=== PATIENT | female | born 2000 | race Caucasian/White ===

== ENCOUNTER 2024-11-24 08:59 | Outpatient (CLI) | payer OTHER, SELFPAY ==
--- NOTE | ~2024-11-24 | MR_ITS ---
EXAMINATION: MR brain IAC wo/w con DATE: 11/24/2024 10:18 INDICATION: Dizziness. TECHNIQUE: Magnetic resonance imaging (MRI) of the brain, brainstem, and internal auditory canals was performed without and with 15 mL ProHance intravenous contrast. COMPARISON: None. FINDINGS: There is no intracranial hemorrhage, acute infarction, or abnormal intracranial mass lesion . The ventricles are normal in size. The orbits are normal. The paranasal sinuses are clear. The mast oid air cells are normal. The internal auditory canals, inner ears, and tympanic cavities are normal. IMPRESSION: 1. Normal brain. Reviewed, dictated and finalized at location A. [employer]IST IMPRESSION: 1. Normal brain.
--- OUTSIDE RECORDS SUMMARY | 2024-11-24 09:04 | XMS_ITS | Encounter Summary ---
Author Organization [facility] Healthcare Address [address] [place] [address] Care Team Providers Care Lead Person Name Role Phone No, Physician Primary Care Provider [phone] Willow Dunham [facility] Primary Care Provi kailyn Reason for Visit * Reason Onset Date Comments Medical Question/Miscellaneous 11/15/2024 Encounter Details Date Type Department Care Team (Late st Contact Info) Description 11/15/2024 Telephone [facility] Medical Group Family Medicine [address] [address] Willow Dunham [address] [address] Medical Question/Miscellaneous Social History Tobacco Use Types Packs/Day Years Used Date Smoking Tobacco: Never AUDIT-C Answer Date Recorded Q1: How often do you have a drink containing alcohol? Never 11/19/2024 Q2: How many drinks containi ng alcohol do you have on a typical day when you are drinking? Patient does not drink Q3: How often do you have si x or more drinks on one occasion? 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 EAR OPERATOR * Telephone Encounter - Sergo Serna - 11/15/2024 1:23 PM CST Medical Question/Miscellaneous Caller???s Concern: Patient called as FYI for her upcoming new patient appointment next week. She updated her PCP on insurance and they gave her ref # [id number] She also said she saw Out Of Town Collection Clerk Dr. Avis Cee at [address] [facility] in [place]. and previous PCP was Dr. Cem Hernandez located at [address] [place] [address] [place] [address] in [place], [place] . She called to give this info incase any records needed requested from them. Does message need to be routed? Yes-Action Needed EAR OPERATOR documented in this encounter Plan of Treatment Not on file documented as of this encounter Visit Diagnoses Not on filedocumented in this encounter Care Teams Lead Person Relationship Specialty Start Date End Date No, Physician PCP - General 11/14/24 11/18/24 Willow Dunham DNP [address] [facility] [address] [address] PCP - General Family Medicine 11/19/24 documented as of this encounter
--- OUTSIDE RECORDS SUMMARY | 2024-11-24 09:04 | XMS_ITS ---
Author Organization [facility] Address [address] [place] [address] Care Team Providers Care Unix Administrator Name Role Phone Migration, Provider Unavailable Unavailable Allergies No Known Allergies REASON FOR VISIT [facility] [place] Medication SIG (Take, Route, Fr equency, Duration) Notes Start Date End Date Status traZODone HCl 50 MG take 1 or 2 tablets by oral route every night at bedtime Oral 07/19/2017 Active hydrOXYzine HCl 50 MG take 1 tablet by o ral route 3 times every day Oral 07/19/2017 Active lamoTRIgine 100 MG take 1 tablet by ora l route every day Oral 07/19/2017 Active Encounters Encounter Location Date Provider Diagnosis [facility] [address] [place] [address] 07/22/2024 Provider Migration Plan Of Treatment No Information Progress Notes * Eugenio RITTERBryanna:2000 (24 yo F)Acc No.[id number]:07/22/2024 Patient: Kalee GARCIA :2000 A ge:24 Y S ex:Female Address:[address] [place] [address] Subjective: * Chief Complaints: * E MR-Singh * Medical History: Med_system:gastrointestinal, Disease : Hepatitis, Magda-Soto virus, , Med_system:hematologic, Disease : Anemia iron deficiency, , Med_system:hematologic, Disease : Anemia, iron deficiency, , Med_system:psychiatric, Disease : Anxiety, , Med_system:psychiatric, Disease : Depression, * Surgical History: * Hospitalization/Major Diagno stic Procedure: * Family History: F ather: Family history unknown. M other: hypercholesterolemia,malignant neoplasm of thyroid. M aternal Grandfather: cancer of colon ,age : 64. * Medications: T akinghydrOXYzine HCl 50 MG Tablet take 1 tablet by oral route 3 times every day Oral lamoTRIgine 100 MG Tablet take 1 tablet by oral route every day Oral traZODone HCl 50 MG Tablet take 1 or 2 tablets by oral route every night at bedtime Oral Taking hydrOXYzine HCl 50 MG Tablet take 1 tablet by oral route 3 times every day Oral Taking lamoTRIgine 100 MG Tablet take 1 tablet by oral route every day Oral Taking traZODone HCl 50 MG Tablet take 1 or 2 tablets by oral route every night at bedtime Oral * Allergies: N .K.D.A. Objective: * Physical Examination: Plan: * Treatment: * Procedure Codes: Billing Information: * Visit Code: * Procedure Codes: * * Date:
--- OUTSIDE RECORDS SUMMARY | 2024-11-24 09:04 | XMS_ITS | CONTINUITY OF CARE DOCUMENT ---
Author Name donna thompson Address Unknown Organization [facility] Address [address] [place] [address] [address] [place] [address] Phone [phone] Care Team Providers Care Rib Matcher And Fitter Name Role Phone [place] MONTERO, Terry Martinez Unavailable [phone] MISSAEL MONTERO, RUNDA Unavailable MISSAEL MONTERO, RUNDA Unavailable PROBLEMS Condition Status Date Provider Notes Dizzy spells active Terry Paul MD Familial hypertrophic cardiomyopathy active Terry Paul MD Diaphoresis active Terry Paul MD Personal history of COVID-19 active Terry Paul MD Hx of tobacco abuse active Terry Paul MD Hx of drug abuse active Terry Paul MD Polycystic ovarian syndrome active Terry Paul MD Syncope active Terry Paul MD Family Hx of thyroid cancer active Terry Paul MD Family history of diabetes mellitus active Terry Paul MD active Terry Paul MD ENCOUNTERS Date Type Provider Location Encounter Diag nosis 3 - 6 In-person encounter Office Visit Terry Paul MD [facility] 2 - 7 In-person encounter Office Visit Terry Paul MD [facility] 0 - 0 In-person encounter Office Visit Terry Paul MD [facility] Dizzy spellsFamilial hypertrophic cardiomyopathyDiaphoresisPersonal history of COVID-19Hx of tobacco abuseHx of drug abusePolycystic ovarian syndromeSyncopeFamily Hx of thyroid cancerFamily history of diabetes mellitusPregnancy VITAL SIGNS Date Observation Value Provider Body Mass Index (Ratio) 31.27 kg/m2 Sara Paul MD blood pressure, diastolic -1 mm[Hg] Kirsten nkLogic blood pressure, systolic 114 mm[Hg] Shea kLogic blood pressure, diastolic 72 mm[Hg] Ke rri Joseuenenfelder blood pressure, systolic 114 mm[Hg] Scott ri Joseuenenfelder blood pressure, cuff size large Ke rri Joseuenenfelder oxygen saturation, oximetry 97 % Kandice [place] respiratory rate E&M 14 /min Kandice G adrianaenenfelder pulse rate 76 /min Kandice Sona lder weight E&M 171 [lb_av] Kandice Gruenenfe er height E&M 62 [in_i] Kandice Gruenenfe er Body Mass Index (Ratio) 34.27 kg/m2 Sara Paul MD blood pressure, diastolic 69 mm[Hg] Kirsten nkLogic blood pressure, systolic 126 mm[Hg] Shea kLogic blood pressure, cuff size large Ta florence Van blood pressure, diastolic 69 mm[Hg] Ta florence Van blood pressure, systolic 126 mm[Hg] Flores munir Van oxygen saturation, oximetry 98 % Kay Van respiratory rate E&M 14 /min Kay Van pulse rate 102 /min Kay Van weight E&M 187.4 [lb_av] Kay Bertin height E&M 62 [in_i] Kay Bertin Body Mass Index (Ratio) 28.90 kg/m2 Sara Paul MD blood pressure, diastolic 88 mm[Hg] Kirsten nkLogpema blood pressure, systolic 127 mm[Hg] Shea kLogpema respiratory rate E&M 18 /min Zeke Yuen oxygen saturation, oximetry 98 % Rabia Wilfrid blood pressure, cuff size regular Julisa Montalvo Wilfrid blood pressure, diastolic 88 mm[Hg] Julisa Yuen blood pressure, systolic 127 mm[Hg] Jimena Yuen pulse rate 99 /min Rabia banegas weight E&M 158 [lb_av] Rabia banegas height E&M 62 [in_i] Rabia banegas HISTORY OF MEDICATION USE Medication Status Instructions Dates Provider Indications Com ments Zofran 4 mg tablet active 1 tablet every six hours as needed Rabia Yuen SOCIAL HISTORY Date Observation Value Provider Drug Screening Quest ionnaire Score (Drug Abuse Screening Test) 2 score Terry Paul MD social history reviewed E&M revi ewed - no changes required Terry Paul MD question 2, DAST-10 (Drug Abuse Screening Test) Yes Terry Paul MD question 1, DAST-10 (Drug Abuse Screening Test) Yes Terry Paul MD drug use, illicit, d rug of choice marijuana Terry Paul MD drug use yes Terry schwarz MD alcohol use no Terry schwarz MD social history E&M S moking History: P atient has never smoked. Terry Paul MD Exercise counseling yes Kandice saucedo smoking status Never smoker Kandice sarmiento social history E&M S moking History: Rupali nugent has never smoked. Terry Paul MD social history reviewed E&M revi ewed - no changes required Terry Paul MD smoking status Never smoker Kay Bertin Drug Screening Quest ionnaire Score (Drug Abuse Screening Test) 2 score Terry Paul MD number of grandchildren Terry Paul MD social history reviewed E&M revi ewed - no changes required Terry Paul MD social history E&M S moking History: Rupali nugent is a former smoker. Terry Paul MD question 2, DAST-10 (Drug Abuse Screening Test) Yes Rabia Yuen question 1, DAST-10 (Drug Abuse Screening Test) Yes Rabia Yuen drug use, illicit, d rug of choice marijuana Rabia Wilfrid drug use yes Ibrahimamagdalena Manan banegas alcohol use no Jimenamolinafay banegas cigarette use yes Rabia Carranza sera smoking status Former smoker Rabia hinojosa Exercise counseling yes Demetri Yuen INSURANCE PROVIDERS Payer name Policy type / Coverage type Mesilla red alliance party ID [employer] (2) Medicaid [id number] ADVANCE DIRECTIVES Name Date DISCUSSED - NO DECISION MADE TREATMENT PLAN Date Name Performer [id number],C, N o new episodes, normal tele Terry Paul MD [id number],C, S ees OBGYN Terry Paul MD [id number],C,A1c was aminta steve Paul MD [id number],S,Sees OBLIU Sa rylee Paul MD [id number],S,No new episod es, normal tele Terry Paul MD [id number],C,Sees DEEAPN, e verything is normal. Terry Paul MD [id number],C,E cho 12/28/21 NO evidence of LVH on echo CONCLUSIONS: 1 . Normal left ventricular systolic function. Normal left ventricular size. Normal left ventricular wall thickness. Normal left v entricular diastolic function. E/E': 6.7 Left ventricular ejection fraction is measured at 60 %. 2 . Normal appearing mitral valve leaflets. There is trace physiologic mitral valve regurgitation. 3 . Pulmonic valve leaflets appear structurally normal. Normal pulmonic valve velocities by Doppler. No evidence of pulmonic r egurgitation. Terry Paul MD [id number],C,H ad covid 07/2020. No changes in her respiratory status pre covid to now. Terry Paul MD [id number],C,N eeds to have an echocardiogram done. Terry Paul MD [id number],S,W ill check a telemonitor. Hx of palpitations and family hx of HOCM Terry Paul MD Cardiology: N o new episodes, normal tele Terry Paul MD Cardiology: S ees OBLIU Paul MD Cardiology:A1c was normal. Bhavani Paul MD Cardiology:Sees OBLIU Paul MD Cardiology:No new episodes, norm al tele Terry Paul MD Cardiology:Sees mariposa SALAS g is normal. Terry Paul MD Cardiology:Echo 12/18 10/10 NO evidence of LVH on echo CONCLUSIONS: 1 . Normal left ventricular systolic function. Normal left ventricular size. Normal left ventricular wall thickness. Normal left v entricular diastolic function. E/E': 6.7 Left ventricular ejection fraction is measured at 60 %. 2 . Normal appearing mitral valve leaflets. There is trace physiologic mitral valve regurgitation. 3 . Pulmonic valve leaflets appear structurally normal. Normal pulmonic valve velocities by Doppler. No evidence of pulmonic r egurgitation. Terry Paul MD Cardiology:Had covid 07/2020. No changes in her respiratory status pre covid to now. Terry Paul MD Cardiology:Needs to have an echo cardiogram done. Terry Paul MD Cardiology:Will che k a telemonitor. Hx of palpitations and family hx of HOCM Teryr Paul MD Date Name Holter Monitor 48 hr Complete Echo EKG Arterial Duplex Bi-L ower EX COMPREHENSIVE METABO LIC PANEL, W/EGFR HEMOGLOBIN A1c TSH, free T4, total T3 Monitor - Telemetry (Mobile Cardiac) Complete Echo HISTORY OF PROCEDURES Procedure Date Procedure Name Provider Procedure Notes S tatus EKG Terry Paul MD compl eted
--- OUTSIDE RECORDS SUMMARY | 2024-11-24 09:04 | XMS_ITS | Referral Summary ---
Author Organization [facility] Building [facility] Address [address] [place] [address] Care Team Providers Care Demand Manager Name Role Phone Willow Dunham DNP Primary Care Provi kailyn Encounters Date Type Department Care Team Description 11/23/2024 3:12 PM WEB SEARCH EVALUATOR - 11/23/2024 11:59 PM WEB SEARCH EVALUATOR Hospital Encounter [facility] Respiratory Therapy [address] [place] [address] Dyspnea, unspecified type Discharge Disposition: Discharge to home or self care 11/22/2024 5:19 PM WEB SEARCH EVALUATOR - 11/22/2024 11:59 PM WEB SEARCH EVALUATOR Hospital Encounter [facility] [address] [place] [address] Dizziness and giddiness; Dysphagia, unspecified type Discharge Disposition: Discharge to home or self care 11/19/2024 2:00 PM WEB SEARCH EVALUATOR Office Visit [facility] Medical Group Family Medicine [address] [facility] [address] [place] [address] Willow Dunham DNP Gastroesophageal reflux disease without esophagitis (Primary Dx); Encounter to establish care; Vomiting, unspecified vomiting type, unspecified whether nausea present; Dyspnea, unspecified type; Positive BETSY (antinuclear antibody); Raynaud's disease without gangrene; Rash; Aura; Dyshidrotic eczema; KOKO (stress urinary incontinence, female); Anxiety; Attention deficit disorder without hyperactivity; Polycystic ovarian syndrome; Primary familial hypertrophic cardiomyopathy (HCC); Family history of colon cancer; Overweight with body mass index (BMI) of 28 to 28.9 in adult 11/15/2024 Telephone [facility] Medical Group Family Medicine [address] [facility] [address] [place] [address] Willow Dunham DNP Medical Question/Miscellaneous 11/14/2024 9:00 AM WEB SEARCH EVALUATOR Office Visit [facility] Ophthalmology [address] [facility] [address], [address] [place] [address] Ashley Ortiz, OD Aura (Primary Dx); Glaucoma suspect of both eyes 11/12/2024 Telephone [facility] Ophthalmology [address] [place] [address] Sosa Morales, ISAAK new pt from Last 3 Months Allergies No known active allergies Medications rizatriptan (MAXALT) 5 mg tablet Take 1 tab by mouth once at first sign of migraine. May repeat one time after 2 hours if needed. 11/16/19 25 Active ondansetron (ZOFRAN) 4 mg tablet 1 tablet (4 mg total) every [address] (PROTONIX) 20 mg EC tablet Take 2 tablets (40 mg total) by mouth daily 180 tablet 11/20/19 25 Active amLODIPine (NORVASC) 2.5 mg tabletIndication s:Raynaud's Phenomenon Take 1 tablet (2.5 mg total) by mouth daily 90 tablet 1 11/20/19 25 026 Active rimegepant (Nurtec ODT) tablet,disintegr atingIndications :Migraine Prevention Take 1 tablet (75 mg total) by mouth every other day 15 tablet 1 11/20/19 25 Active fexofenadine (JADEN) 180 mg tablet Take 1 tablet (180 mg total) by mouth daily 90 tablet 1 11/20/19 25 Active drospirenone-eth inyl estradioL (Sanjuanita, 28,) 3-0.02 mg per tabletIndication s:Acne Vulgaris,Polycys tic Ovarian Syndrome,Pregnan cy Contraception Take 1 tablet by mouth daily 84 tablet 3 11/20/19 25 026 Active fluticasone propionate (FLONASE) 50 mcg/actuation nasal spray Administer 2 sprays into each nostril daily 3 each 3 11/20/19 25 Active norgestimate-eth inyl estradioL (ORTHO-CYCLEN) 0.25-35 mg-mcg per tablet Take 1 tablet by mouth daily 025 Discontinued dicyclomine (BENTYL) 10 mg capsule Take 1 capsule (10 mg total) by mouth 3 (three) times a day as needed (abdominal pain) 180 capsule 12/02/19 23 025 Discontinued Active Problems Problem Noted Date Diagnosed Date Family history of colon cancer 11/19/2024 Assessment & Plan (11/19/2024 4:44 PM WEB SEARCH EVALUATOR): Refer to GI Raynaud's disease 11/19/2024 Assessment & Plan (11/19/2024 4:52 PM WEB SEARCH EVALUATOR): Take amlodipine 2.5 mg daily Medication and side effects reviewed Follow-up in 1 month Dyshidrotic eczema 11/19/2024 Assessment & Plan (11/19/2024 4:44 PM WEB SEARCH EVALUATOR): Take Jaden 180 mg daily as prescribed Refer to derm Follow-up in 1 month Dysphagia 11/19/2024 Gastroesophageal reflux disease without esophagi tis 11/19/2024 Assessment & Plan (11/19/2024 4:49 PM WEB SEARCH EVALUATOR): Refer to GI Take Protonix 20 mg daily as prescribed Discontinue marijuana use Avoid foods that cause irritation Keep food diary Follow-up in 1 month Positive BETSY (antinuclear antibody) 11/19/2024 Assessment & Plan (11/19/2024 4:51 PM WEB SEARCH EVALUATOR): Refer to rheumatology Rash 11/19/2024 Assessment & Plan (11/19/2024 4:52 PM WEB SEARCH EVALUATOR): Refer to derm Recommend taking Jaden 180 mg daily Follow-up in 1 month KOKO (stress urinary incontinence, female) 2024 Assessment & Plan (11/19/2024 4:52 PM WEB SEARCH EVALUATOR): Refer to pelvic floor physical therapy Dyspnea 11/19/2024 Assessment & Plan (11/19/2024 4:48 PM WEB SEARCH EVALUATOR): PFT ordered Vomiting 11/19/2024 Assessment & Plan (11/19/2024 4:48 PM WEB SEARCH EVALUATOR): Take Protonix 20 mg daily as prescribed Discontinue smoking daily marijuana Refer to GI Follow-up in 1 month Overweight with body mass in dex (BMI) of 28 to 28.9 in adult 11/19/2024 Aura 11/14/2024 Assessment & Plan (11/19/2024 4:43 PM WEB SEARCH EVALUATOR): Managed by Ophthalmology Refer to neurology Start Nurtec 75 mg every other day Use Maxalt 5 mg as needed Follow-up in 1 month Assessment & Plan (11/14/2024 12:55 PM WEB SEARCH EVALUATOR): + visual phenomenon consistent with migranous aura which completely resolves. Occurs with or without headache. Pt will monitor for triggers and attempt supplemental magnesium. Monitor Attention deficit disorder without hyperactivity 08/26/2023 Assessment & Plan (11/19/2024 4:43 PM WEB SEARCH EVALUATOR): Chronic and stable without medication Other viral warts 08/26/2023 Asthma 12/14/2022 History of substance abuse 11/08/2022 History of drug abuse 12/16/2021 History of substance abuse 12/16/2021 Polycystic ovarian syndrome 12/16/2021 Assessment & Plan (11/19/2024 4:51 PM WEB SEARCH EVALUATOR): Start Sanjuanita OCP as prescribed Medication and side effects reviewed Follow-up in 1 month Primary familial hypertrophic cardiomyopathy Fatigue 08/11/2015 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 Anxiety 08/11/2015 Assessment & Plan (11/19/2024 4:43 PM WEB SEARCH EVALUATOR): Chronic and stable without medication Chronic cough 08/11/2015 Resolved Problems Problem Noted Date Diagnosed Date Resolved Date Glaucoma suspect of both eyes 11/14/2024 11/19/2024 Assessment & Plan (11/14/2024 12:56 PM WEB SEARCH EVALUATOR): Asymmetric intraocular pressure (IOP) OD> left eye (OS) and CDR OD>left eye (OS) + Post dilation pigment in anterior chamber (AC), 2+ pigment in trabecular meshwork (TM) OD 1+ pigment left eye (OS) FU for intraocular pressure (IOP) check, Monreal visual field (HVF) and optic nerve (ON) oct both eyes (OU), recheck for TIDs undilated (spontaneous vaginal delivery) 06/09/2022 11/19/2024 Gastroesophageal reflux in 04/23/2022 11/19/2024 Syncope 12/16/2021 11/19/2024 History of viral hepatitis 08/11/2015 0 11/19/2024 Hepatitis 03/16/2015 11/19/2024 Immunizations Immunization Administration Dates Next Due DTaP 04/11/2003, 0,1998,1997,1998 HPV9 11/26/2022,10/29/2022 Hep B / HiB 1998 Hep B, Adolescent or Pediatric 01/15/1999,1997,1998 HiB 10/09/1999,1998,1998 IPV 04/11/2003,1998,1998 Influenza, Quadrivalent, Spl it, Preservative Free, Intradermal 07/14/2016 Influenza, Unspecified 11/19/2024(Deferred: Moraima ent Refused) MMR 04/11/2003 Social History Tobacco Use Types Packs/Day Years Used Date Smoking Tobacco: Former Cigarettes 0.3 5 0 10/20/2014 - 10/20/2018 Hookah E-cigarettes Vaping Smokeless Tobacco: Former Quit: 10/20/2018 Tobacco Cessation:Counseling Given: Not Answered AUDIT-C Answer Date Recorded Q1: How often [...] on file Legal Sex Female 8:46 PM WEB SEARCH EVALUATOR Gender Identity Not on file Sexual Orientation Not on file Last Filed Vital Signs Vital Sign Reading Time Taken Comments Blood Pressure 128/80 11/19/2024 2:01 PM WEB SEARCH EVALUATOR Pulse 83 11/19/2024 2:01 PM WEB SEARCH EVALUATOR Temperature 36.5 C (97.7 F) 12/01/2022 7:55 AM CDT Respiratory Rate 18 11/19/2024 2:01 PM WEB SEARCH EVALUATOR Oxygen Saturation 99% 11/19/2024 2:01 PM WEB SEARCH EVALUATOR Inhaled Oxygen Concentration - - Weight 73.3 kg (161 lb 9.6 oz) 11/19/2024 2:01 P M WEB SEARCH EVALUATOR Height 160 cm (5' 3 ) 11/19/2024 2:01 PM WEB SEARCH EVALUATOR Body Mass Index 28.63 11/19/2024 2:01 PM WEB SEARCH EVALUATOR Plan of Treatment Not on file Procedures Procedure Name Priority Date/Time Associated Diagnosis Comments PULMONARY FUNCTION TEST (PFT) Routine 11/23/2024 3:55 PM WEB SEARCH EVALUATOR Dyspnea, unspecified type from Last 3 Months Insurance [facility] Advance Directives For more information, please contact: [phone] * Full Code (Latest Code Status on File) Date Activated Date Inactivated Comments 12/01/2022 7:49 AM 12/01/2022 2:04 PM Care Teams Demand Manager Relationship Specialty Start Date End Date Willow Dunham DNP [facility] [facility] [place] [address] PCP - General Family Medicine 11/19/24
--- OUTSIDE RECORDS SUMMARY | 2024-11-24 09:04 | XMS_ITS | Clinical Summary ---
Author Organization [facility] [address] Address [address] [place] [address] Care Team Providers Care Bias Cutting Machine Operator Name Role Phone Charla, Willow Ribeiro [facility] Primary Care Provi kailyn Allergies No known active allergies Medications rizatriptan [...] 15 tablet 1 11/20/19 25 Active fexofenadine (GISSELL) 180 mg tablet Take 1 tablet (180 [...] 11/19/2024 Assessment & Plan (11/19/2024 4:44 PM HORSE STUD MANAGER): Refer to GI Raynaud's disease 11/19/2024 Assessment & Plan (11/19/2024 4:52 PM HORSE STUD MANAGER): Take amlodipine 2.5 mg daily Medication and side effects reviewed Follow-up in 1 month Dyshidrotic eczema 11/19/2024 Assessment & Plan (11/19/2024 4:44 PM HORSE STUD MANAGER): Take Gissell 180 mg daily as prescribed Refer to derm Follow-up in 1 month Dysphagia 11/19/2024 Gastroesophageal reflux disease without esophagi tis 11/19/2024 Assessment & Plan (11/19/2024 4:49 PM HORSE STUD MANAGER): Refer to GI Take Protonix 20 mg daily as prescribed Discontinue marijuana use Avoid foods that cause irritation Keep food diary Follow-up in 1 month Positive BETSY (antinuclear antibody) 11/19/2024 Assessment & Plan (11/19/2024 4:51 PM HORSE STUD MANAGER): Refer to rheumatology Rash 11/19/2024 Assessment & Plan (11/19/2024 4:52 PM HORSE STUD MANAGER): Refer to derm Recommend taking Gissell 180 mg daily Follow-up in 1 month KOKO (stress urinary incontinence, female) 2024 Assessment & Plan (11/19/2024 4:52 PM HORSE STUD MANAGER): Refer to pelvic floor physical therapy Dyspnea 11/19/2024 Assessment & Plan (11/19/2024 4:48 PM HORSE STUD MANAGER): PFT ordered Vomiting 11/19/2024 Assessment & Plan (11/19/2024 4:48 PM HORSE STUD MANAGER): Take Protonix 20 mg daily as prescribed Discontinue smoking daily marijuana Refer to GI Follow-up in 1 month Overweight with body mass in dex (BMI) of 28 to 28.9 in adult 11/19/2024 Aura 11/14/2024 Assessment & Plan (11/19/2024 4:43 PM HORSE STUD MANAGER): Managed by Ophthalmology Refer to neurology Start Nurtec 75 mg every other day Use Maxalt 5 mg as needed Follow-up in 1 month Assessment & Plan (11/14/2024 12:55 PM HORSE STUD MANAGER): + visual phenomenon consistent with migranous aura which completely resolves. Occurs with or without headache. Pt will monitor for triggers and attempt supplemental magnesium. Monitor Attention deficit disorder without hyperactivity 08/26/2023 Assessment & Plan (11/19/2024 4:43 PM HORSE STUD MANAGER): Chronic and stable without medication Other viral warts 08/26/2023 Asthma 12/14/2022 History of substance abuse 11/08/2022 History of drug abuse 12/16/2021 History of substance abuse 12/16/2021 Polycystic ovarian syndrome 12/16/2021 Assessment & Plan (11/19/2024 4:51 PM HORSE STUD MANAGER): Start Sanjuanita OCP as prescribed Medication and side effects reviewed Follow-up in 1 month Primary familial hypertrophic cardiomyopathy Fatigue 08/11/2015 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 Anxiety 08/11/2015 Assessment & Plan (11/19/2024 4:43 PM HORSE STUD MANAGER): Chronic and stable without medication Chronic cough 08/11/2015 Resolved Problems Problem Noted Date Diagnosed Date Resolved Date Glaucoma suspect of both eyes 11/14/2024 11/19/2024 Assessment & Plan (11/14/2024 12:56 PM HORSE STUD MANAGER): Asymmetric intraocular pressure (IOP) OD> left eye [...] hepatitis 08/11/2015 0 11/19/2024 Hepatitis 03/16/2015 11/19/2024 Encounters Date Type Department Care Team Description 11/23/2024 3:12 PM HORSE STUD MANAGER - 11/23/2024 11:59 PM HORSE STUD MANAGER Hospital Encounter [facility] Respiratory Therapy [address] [place] [address] Dyspnea, unspecified type Discharge Disposition: Discharge to home or self care 11/22/2024 5:19 PM HORSE STUD MANAGER - 11/22/2024 11:59 PM HORSE STUD MANAGER Hospital Encounter [facility] [address] [place] [address] Dizziness and giddiness; Dysphagia, unspecified type Discharge Disposition: Discharge to home or self care 11/19/2024 2:00 PM HORSE STUD MANAGER Office Visit [facility] Family Medicine [address] [place] [phone] Willow Dunham DNP Gastroesophageal reflux disease without [...] 28 to 28.9 in adult 11/15/2024 Telephone [facility] Family Medicine [address] [place] [address] Willow Dunham DNP Medical Question/Miscellaneous 11/14/2024 9:00 AM HORSE STUD MANAGER Office Visit [facility] Ophthalmology [address] [place] [address] Ashley Ortiz, OD Aura (Primary Dx); Glaucoma suspect of both eyes 11/12/2024 Telephone [facility] Ophthalmology [address] [place] [address] Sosa Morales, OD new pt from Last 3 Months Immunizations Immunization Administration Dates Next Due DTaP 04/11/2003, 0,1998,1997,1998 HPV9 11/26/2022,10/29/2022 Hep B / HiB 1998 Hep B, Adolescent or Pediatric 01/15/1999,1997,1998 HiB 10/09/1999,1998,1998 IPV 04/11/2003,1998,1998 Influenza, Quadrivalent, Spl it, Preservative Free, Intradermal 07/14/2016 Influenza, Unspecified 11/19/2024(Deferred: Moraima ent Refused) MMR 04/11/2003 Surgical History Surgery Date Site/Laterality Comments UPPER GASTROINTESTINAL ENDOSCOPY COSMETIC SURGERY 2023; removal of lip deep and osteoma Medical History Medical History Date Comments GERD (gastroesophageal reflux disease) Ovarian cyst Polycystic ovary syndrome Migraines 2013 Infectious viral hepatitis Viral induced back when I was hospitalized with EBV; 2016 Hypertension 2020 Anxiety Depression Gastroesophageal reflux in 04/23/2022 Family History Medical History Relation Name Comments Drug abuse Father Cancer Maternal Grandfather Colon cancer Maternal Grandfather Asthma Mother Cancer Mother Colon polyps Mother Depression Mother Hypertension Mother Miscarriages / Stillbirths Mother Rashes / Skin problems Mother Thyroid cancer Mother Arthritis Paternal Grandfather Clotting disorder Paternal Grandfather Colon cancer Paternal Grandfather Diabetes Paternal Grandfather Hypertension Paternal Grandmother Rashes / Skin problems Paternal Grandmother Relation Name Status Comments Father Alive Maternal Grandfather Mother Paternal Grandfather Paternal Grandmother Alive Social History Tobacco Use Types Packs/Day Years [...] on file Legal Sex Female 8:46 PM HORSE STUD MANAGER Gender Identity Not on file Sexual Orientation Not on file Obstetrics History Para Term AB IAB SAB Ectopic Multiple Livin g Live Births 1 1 1 1 Date Outcome GA Total Labor Labor/2nd/3rd Weight Sex Type Anes PTL Alanna A1 A5 Name Clin Term Last Filed Vital Signs Vital Sign Reading Time Taken Comments Blood Pressure 128/80 11/19/2024 2:01 PM HORSE STUD MANAGER Pulse 83 11/19/2024 2:01 PM HORSE STUD MANAGER Temperature 36.5 C (97.7 F) 12/01/2022 7:55 AM CDT Respiratory Rate 18 11/19/2024 2:01 PM HORSE STUD MANAGER Oxygen Saturation 99% 11/19/2024 2:01 PM HORSE STUD MANAGER Inhaled Oxygen Concentration - - Weight 73.3 kg (161 lb 9.6 oz) 11/19/2024 2:01 P M HORSE STUD MANAGER Height 160 cm (5' 3 ) 11/19/2024 2:01 PM HORSE STUD MANAGER Body Mass Index 28.63 11/19/2024 2:01 PM HORSE STUD MANAGER Plan of Treatment Health Maintenance Due Date Last Done Comments Cervical Cancer Screening 1998 Hepatitis C Screening 1998 DTaP/Tdap/Td Vaccine (6 - Tdap) 2009 04/11/2003, 10/09/1999, 1998, Additional history exists Varicella Vaccines (1 of 2 - 13+ 2-dose series) 2011 Regular Well Visit/Exam 18-64 2016 Pneumococcal vaccine <65 (1 of 2 - PCV) 2017 HPV Vaccines (3 - 3-dose series) 04/28/2023 11/27/19, 10/29/2022 Influenza Vaccine (#1) 2024 07/14/2016 Depression Screening 11/19/2025 11/19/2024 Hepatitis B Screening Completed 01/15/1999 , 1998, 1998, Additional history exists Procedures Procedure Name Priority Date/Time Associated Diagnosis Comments PULMONARY FUNCTION TEST (PFT) Routine 11/23/2024 3:55 PM HORSE STUD MANAGER Dyspnea, unspecified type from Last 3 Months Insurance [facility] Advance Directives For more information, please contact: [phone] * Full Code (Latest Code Status on File) Date Activated Date Inactivated Comments 12/01/2022 7:49 AM 12/01/2022 2:04 PM Care Teams Bias Cutting Machine Operator Relationship Specialty Start Date End Date Willow Dunham DNP [facility] [address] MORALES [address] [place] [id number] PCP - General Family Medicine 11/19/24
--- OUTSIDE RECORDS SUMMARY | 2024-11-24 09:04 | XMS_ITS | Patient Health Summary ---
Author Organization [facility] SwitchNote Address [address] [place] [address] Care Team Providers Care Analytical Data Miner Name Role Phone Cem Hernandez MD Primary Care Provider [phone] Note from [facility],non-owned Affiliates and Associated Physician Practices is amultiple site organization consisting of ambulatory clinics and hospital sitesin [place], [place], [place] and [place]. This disclosure is being madepursuant to the Care Everywhere program and may not contain all information available regarding this patient. Last updated 18.[facility] SwitchNote Allergies No known active allergies* Shellfish Allergy(Unknown),Inactive Medications * Be aware that medications may not be up to date on this document. Alwaysverify current medications with the patient. * vitamin D, cholecalciferol, 1000 UNITS tablet Take by mouth once daily * gabapentin (Neurontin) 100 MG capsule(Started 06/13/2023) Take 1 (one) capsule by mouth at bedtime 4 refills by 06/12/2024 * albuterol HFA (Proventil; Ventolin; Proair) 108 (90 Base) MCG/ACT inhaler Inhale 2 (two) puffs by mouth every 4 hours as needed * Ondansetron HCl (ZOFRAN PO) * omeprazole (PriLOSEC) 10 MG capsule 20 mg by oral route. * ibuprofen (Motrin) 600 MG tablet(Started 06/11/2022) * ampicillin (Principen) 500 MG capsule Take 1 (one) capsule by mouth 2 times daily * topiramate (Topamax) 25 MG tablet(Started 06/13/2023) Take 1 (one) tablet by mouth 2 times daily 3 refills by 06/12/2024 * propranolol (Inderal) 10 MG tablet(Started 06/13/2023) Take 1 (one) tablet by mouth 2 times daily 3 refills by 06/12/2024 * Slynd 4 MG TABS tablet(Started 11/04/2022) * ondansetron, disintegrating, (Zofran ODT) 4 MG tablet(Started 11/28/2023) Take 1 (one) tablet by mouth every 6 hours as needed for Nausea/Vomiting Allow tablet to dissolve on the tongue * acetaminophen (Tylenol) 500 MG capsule(Started 11/28/2023) Take 1 (one) capsule by mouth every 6 hours as needed for Fever or Pain * oxyCODONE, immediate release, (Roxicodone) 5 MG tablet(Started 11/28/2023) Take 1 (one) tablet by mouth every 6 hours as needed for Pain * rizatriptan (Maxalt) 5 MG tablet(Started 11/16/2024) Take 1 tab by mouth once at first sign of migraine. May repeat one time after 2 hours if needed. 11 refills by 11/16/2025 Ended Medications* rizatriptan (Maxalt) 5 MG tablet(Started 06/13/2023) (Discontinued) Take 1 tab by mouth once at first sign of migraine. May repeat one time after 2 hours if needed. 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 08/26/2023 Chest pain 05/21/2015 Chest pain of unknown etiology 05/14/2015 Hepatitis 03/16/2015 Social History Tobacco Use Types Packs/Day Years Used Date Smoking Tobacco: Smoker, Current Status Unknown Alcohol Use Standard Drinks/Week Comments Not Currently 0 (1 standard drink = 0.6 oz pur e alcohol) social PHQ-2 Answer Date Recorded Patient Health Questionnaire-2 Score 3 11/01/2024 Sex and Gender Information Value Date Recorded Sex Assigned at Not on file Gender Identity Not on file Sexual Orientation Not on file Last Filed Vital Signs Vital Sign Reading Time Taken Comments Blood Pressure 130/82 11/01/2024 2:05 PM [employer] Pulse 86 11/01/2024 2:05 PM [employer] Temperature 37 C (98.6 F) 11/01/2024 2:05 PM [employer] Respiratory Rate 16 11/01/2024 2:05 PM [employer] Oxygen Saturation 98% 11/01/2024 2:05 PM [employer] Inhaled Oxygen Concentration - - Weight 64.8 kg (142 lb 14.4 oz) 11/01/2024 2:05 PM [employer] Height 157.5 cm (5' 2 ) 12/06/2023 1:17 PM CDT Body Mass Index 26.14 12/06/2023 1:17 PM CDT Procedures * XR HAND BILAT 3VW OR MORE(Performed 11/01/2024) Performed for BETSY positive, Rash, Fatigue, unspecified type, Dry mouth, Dry eye, Numbness, Raynaud's syndrome without gangrene, Polyarthralgia, Myalgia, multiple sites, Cervicalgia, Other low back pain, Encounter for long-term (current) use of high-risk medication * SS-A (SJOGREN'S) ANTIBODY(Performed 11/01/2024) Performed for BETSY positive, Rash, Fatigue, unspecified type, Dry mouth, Dry eye, Numbness, Raynaud's syndrome without gangrene, Polyarthralgia, Myalgia, multiple sites, Cervicalgia, Other low back pain, Encounter for long-term (current) use of high-risk medication * ROQUE (SM) ANTIBODY ENRRIQUE(Performed 11/01/2024) Performed for BETSY positive, Rash, Fatigue, unspecified type, Dry mouth, Dry eye, Numbness, Raynaud's syndrome without gangrene, Polyarthralgia, Myalgia, multiple sites, Cervicalgia, Other low back pain, Encounter for long-term (current) use of high-risk medication * SCLERODERMA 70 (SCL) ANTIBODY(Performed 11/01/2024) Performed for BETSY positive, Rash, Fatigue, unspecified type, Dry mouth, Dry eye, Numbness, Raynaud's syndrome without gangrene, Polyarthralgia, Myalgia, multiple sites, Cervicalgia, Other low back pain, Encounter for long-term (current) use of high-risk medication * METAL TRIM ERECTOR ANTIBODY(Performed 11/01/2024) Performed for BETSY positive, Rash, Fatigue, unspecified type, Dry mouth, Dry eye, Numbness, Raynaud's syndrome without gangrene, Polyarthralgia, Myalgia, multiple sites, Cervicalgia, Other low back pain, Encounter for long-term (current) use of high-risk medication * BETSY BLOOD SCREEN W/REFLEX TITER(Performed 11/01/2024) Performed for BETSY positive, Rash, Fatigue, unspecified type, Dry mouth, Dry eye, Numbness, Raynaud's syndrome without gangrene, Polyarthralgia, Myalgia, multiple sites, Cervicalgia, Other low back pain, Encounter for long-term (current) use of high-risk medication * PROTEIN CREATININE RATIO URINE RANDOM PNL(Performed 11/01/2024) Performed for BETSY positive, Rash, Fatigue, unspecified type, Dry mouth, Dry eye, Numbness, Raynaud's syndrome without gangrene, Polyarthralgia, Myalgia, multiple sites, Cervicalgia, Other low back pain, Encounter for long-term (current) use of high-risk medication * THIOPURINE METHYLTRANSFERASE(Performed 11/01/2024) Performed for BETSY positive, Rash, Fatigue, unspecified type, Dry mouth, Dry eye, Numbness, Raynaud's syndrome without gangrene, Polyarthralgia, Myalgia, multiple sites, Cervicalgia, Other low back pain, Encounter for long-term (current) use of high-risk medication * HISTONE ANTIBODY(Performed 11/01/2024) Performed for BETSY positive, Rash, Fatigue, unspecified type, Dry mouth, Dry eye, Numbness, Raynaud's syndrome without gangrene, Polyarthralgia, Myalgia, multiple sites, Cervicalgia, Other low back pain, Encounter for long-term (current) use of high-risk medication * SS-B (SJOGREN'S) ANTIBODY(Performed 11/01/2024) Performed for BETSY positive, Rash, Fatigue, unspecified type, Dry mouth, Dry eye, Numbness, Raynaud's syndrome without gangrene, Polyarthralgia, Myalgia, multiple sites, Cervicalgia, Other low back pain, Encounter for long-term (current) use of high-risk medication * RHEUMATOID FACTOR BLOOD QUANTITATIVE(Performed 11/01/2024) Performed for BETSY positive, Rash, Fatigue, unspecified type, Dry mouth, Dry eye, Numbness, Raynaud's syndrome without gangrene, Polyarthralgia, Myalgia, multiple sites, Cervicalgia, Other low back pain, Encounter for long-term (current) use of high-risk medication * LYME DISEASE TOTAL AB W RFLX IMMUNOASSAY(Performed 11/01/2024) Performed for BETSY positive, Rash, Fatigue, unspecified type, Dry mouth, Dry eye, Numbness, Raynaud's syndrome without gangrene, Polyarthralgia, Myalgia, multiple sites, Cervicalgia, Other low back pain, Encounter for long-term (current) use of high-risk medication * IGG SUBCLASS 4(Performed 11/01/2024) Performed for BETSY positive, Rash, Fatigue, unspecified type, Dry mouth, Dry eye, Numbness, Raynaud's syndrome without gangrene, Polyarthralgia, Myalgia, multiple sites, Cervicalgia, Other low back pain, Encounter for long-term (current) use of high-risk medication * HEPATITIS SCREEN ACUTE ([facility])(Performed 11/01/2024) Performed for BETSY positive, Rash, Fatigue, unspecified type, Dry mouth, Dry eye, Numbness, Raynaud's syndrome without gangrene, Polyarthralgia, Myalgia, multiple sites, Cervicalgia, Other low back pain, Encounter for long-term (current) use of high-risk medication * ERYTHROCYTE SEDIMENTATION RATE(Performed 11/01/2024) Performed for BETSY positive, Rash, Fatigue, unspecified type, Dry mouth, Dry eye, Numbness, Raynaud's syndrome without gangrene, Polyarthralgia, Myalgia, multiple sites, Cervicalgia, Other low back pain, Encounter for long-term (current) use of high-risk medication * DNA ANTIBODY DOUBLE STRANDED(Performed 11/01/2024) Performed for BETSY positive, Rash, Fatigue, unspecified type, Dry mouth, Dry eye, Numbness, Raynaud's syndrome without gangrene, Polyarthralgia, Myalgia, multiple sites, Cervicalgia, Other low back pain, Encounter for long-term (current) use of high-risk medication * CYCLIC CITRULLINATED PEPTIDE([facility]P) AB IGG(Performed 11/01/2024) Performed for BETSY positive, Rash, Fatigue, unspecified type, Dry mouth, Dry eye, Numbness, Raynaud's syndrome without gangrene, Polyarthralgia, Myalgia, multiple sites, Cervicalgia, Other low back pain, Encounter for long-term (current) use of high-risk medication * C-REACTIVE PROTEIN(Performed 11/01/2024) Performed for BETSY positive, Rash, Fatigue, unspecified type, Dry mouth, Dry eye, Numbness, Raynaud's syndrome without gangrene, Polyarthralgia, Myalgia, multiple sites, Cervicalgia, Other low back pain, Encounter for long-term (current) use of high-risk medication * COMPLEMENT C4(Performed 11/01/2024) Performed for BETSY positive, Rash, Fatigue, unspecified type, Dry mouth, Dry eye, Numbness, Raynaud's syndrome without gangrene, Polyarthralgia, Myalgia, multiple sites, Cervicalgia, Other low back pain, Encounter for long-term (current) use of high-risk medication * COMPLEMENT C3(Performed 11/01/2024) Performed for BETSY positive, Rash, Fatigue, unspecified type, Dry mouth, Dry eye, Numbness, Raynaud's syndrome without gangrene, Polyarthralgia, Myalgia, multiple sites, Cervicalgia, Other low back pain, Encounter for long-term (current) use of high-risk medication * CK BLOOD(Performed 11/01/2024) Performed for BETSY positive, Rash, Fatigue, unspecified type, Dry mouth, Dry eye, Numbness, Raynaud's syndrome without gangrene, Polyarthralgia, Myalgia, multiple sites, Cervicalgia, Other low back pain, Encounter for long-term (current) use of high-risk medication * LUPUS ANTICOAGULANT PANEL W RFLX(Performed 11/01/2024) Performed for BETSY positive, Rash, Fatigue, unspecified type, Dry mouth, Dry eye, Numbness, Raynaud's syndrome without gangrene, Polyarthralgia, Myalgia, multiple sites, Cervicalgia, Other low back pain, Encounter for long-term (current) use of high-risk medication * CARDIOLIPIN ANTIBODY IGA/IGG/IGM PANEL(Performed 11/01/2024) Performed for BETSY positive, Rash, Fatigue, unspecified type, Dry mouth, Dry eye, Numbness, Raynaud's syndrome without gangrene, Polyarthralgia, Myalgia, multiple sites, Cervicalgia, Other low back pain, Encounter for long-term (current) use of high-risk medication * BETA-2 GLYCOPROTEIN 1 ANTIBODY IGG/IGM/IGA PANEL(Performed 11/01/2024) Performed for BETSY positive, Rash, Fatigue, unspecified type, Dry mouth, Dry eye, Numbness, Raynaud's syndrome without gangrene, Polyarthralgia, Myalgia, multiple sites, Cervicalgia, Other low back pain, Encounter for long-term (current) use of high-risk medication * ANGIOTENSIN CONVERTING ENZYME BLOOD(Performed 11/01/2024) Performed for BETSY positive, Rash, Fatigue, unspecified type, Dry mouth, Dry eye, Numbness, Raynaud's syndrome without gangrene, Polyarthralgia, Myalgia, multiple sites, Cervicalgia, Other low back pain, Encounter for long-term (current) use of high-risk medication * ALDOLASE(Performed 11/01/2024) Performed for BETSY positive, Rash, Fatigue, unspecified type, Dry mouth, Dry eye, Numbness, Raynaud's syndrome without gangrene, Polyarthralgia, Myalgia, multiple sites, Cervicalgia, Other low back pain, Encounter for long-term (current) use of high-risk medication * CARDIAC EKG ORDER(Performed 10/31/2024) * TROPONIN-I HIGH SENSITIVE REFLEX 1HOUR(Performed 10/31/2024) * XR CHEST 2VW(Performed 10/30/2024) Performed for Near syncope * EKG 12-LEAD(Performed 10/30/2024) Performed for Near syncope * HCG BETA BLOOD QUANTITATIVE(Performed 10/30/2024) * TROPONIN-I HIGH SENSITIVE BASELINE + 1HR(Performed 10/30/2024) * CBC W AUTO DIFFERENTIAL(Performed 10/30/2024) * COMPREHENSIVE METABOLIC PANEL(Performed 10/30/2024) * AR INTRALESIONAL INJECTION(S) 7 OR LESS(Performed 10/12/2024) Performed for Prurigo nodularis * PATHOLOGY TISSUE(Performed 11/28/2023) Performed for Tension headache * AR EXC SKIN BENIG <5MM REMAINDR BODY(Performed 11/28/2023) Performed for Tension headache * LARYNGEAL MASK AIRWAY(Performed 11/28/2023) * HCG URINE QUALITATIVE - POCT (IP) INTERFACED(Performed 11/28/2023) * AR DESTRUCT BENIGN LESION, 1-14(Performed 08/26/2023) Performed for Other viral warts * MRI BRAIN WO CONTRAST(Performed 04/02/2023) Performed for Facial swelling, Other complicated headache syndrome * MRI BRAIN WWO CONTRAST(Performed 05/19/2016) * MRI ANGIO BRAIN ARTERIAL WO CONT(Performed 05/19/2016) * CREATININE BLOOD - POCT (IP) SLH(Performed 05/19/2016) * BETSY BLOOD TITER(Performed 01/30/2016) * PARVOVIRUS B19 IGG/IGM AB PANEL(Performed 01/30/2016) * CYTOMEGALOVIRUS ANTIBODY IGG/IGM BLOOD(Performed 01/30/2016) * MAGDA-GUZMAN VIRUS CHRONIC/ACTIVE INFECTION(Performed 01/30/2016) * LUPUS ANTICOAGULANT PANEL W RFLX(Performed 01/30/2016) * BETA-2 GLYCOPROTEIN 1 ANTIBODY IGM(Performed 01/30/2016) * BETA-2 GLYCOPROTEIN 1 ANTIBODY IGG(Performed 01/30/2016) * CARDIOLIPIN ANTIBODY IGM(Performed 01/30/2016) * CARDIOLIPIN ANTIBODY IGG(Performed 01/30/2016) * LDH BLOOD(Performed 01/30/2016) * CK BLOOD(Performed 01/30/2016) * ALDOLASE(Performed 01/30/2016) * TISSUE TRANSGLUTAMINASE (IGG,IGA)(Performed 01/30/2016) * IGA BLOOD(Performed 01/30/2016) * HLA TYPING B27(Performed 01/30/2016) * RHEUMATOID ARTHRITIS PANEL(Performed 01/30/2016) * SCLERODERMA 70 (SCL) ANTIBODY(Performed 01/30/2016) * COMPLEMENT C2(Performed 01/30/2016) * LUPUS ERYTHEMATOSUS PANEL(Performed 01/30/2016) * THYROGLOBULIN ANTIBODY(Performed 01/30/2016) * THYROID PEROXIDASE ANTIBODY(Performed 01/30/2016) * T4 FREE(Performed 01/30/2016) * TSH(Performed 01/30/2016) * VITAMIN D 25-HYDROXY D2+D3(Performed 01/30/2016) * URINALYSIS W/MICROSCOPIC REFLEX TO CULTURE(Performed 01/30/2016) * ERYTHROCYTE SEDIMENTATION RATE(Performed 01/30/2016) * C-REACTIVE PROTEIN(Performed 01/30/2016) * COMPREHENSIVE METABOLIC PANEL(Performed 01/30/2016) * CBC W AUTO DIFFERENTIAL(Performed 01/30/2016) * XR RIBS BILAT 3VW(Performed 10/15/2015) Performed for Chest pain * XR CHEST 2VW(Performed 10/15/2015) Performed for Chest pain * IMMUNOSCORE IGE INTERP(Performed 10/15/2015) Performed for Chest pain * DIFFERENTIAL MANUAL(Performed 10/15/2015) Performed for Chest pain * IMMUNOGLOBULINS IGG/IGM/IGA PANEL(Performed 10/15/2015) Performed for Chest pain * ALLERGEN RESPIRATORY PNL REGION 8 ([place])(Performed 10/15/2015) Performed for Chest pain * CBC W MANUAL DIFFERENTIAL(Performed 10/15/2015) Performed for Chest pain * HELICOBACTER PYLORI UREASE (STL)(Performed 09/29/2015) Performed for Pain of upper abdomen * ESOPHAGOGASTRODUODENOSCOPY (EGD) BIOPSY(Performed 09/29/2015) Performed for Abdominal pain, unspecified abdominal location * PATHOLOGY TISSUE EXAM (STL)(Performed 09/29/2015) Performed for Abdominal pain, unspecified abdominal location * HCG URINE QUALITATIVE - POCT (IP) BEAKER(Performed 09/29/2015) * EGD(Performed 09/29/2015) Performed for Pain of upper abdomen * IMMUNOGLOBULINS IGG/IGM/IGA PANEL(Performed 09/02/2015) Performed for Abdominal pain, generalized * IGA BLOOD(Performed 09/02/2015) Performed for Abdominal pain, generalized * LIPASE BLOOD(Performed 09/02/2015) Performed for Abdominal pain, generalized * ERYTHROCYTE SEDIMENTATION RATE(Performed 09/02/2015) Performed for Abdominal pain, generalized * COMPREHENSIVE METABOLIC PANEL(Performed 09/02/2015) Performed for Abdominal pain, generalized * C-REACTIVE PROTEIN(Performed 09/02/2015) Performed for Abdominal pain, generalized * CBC W AUTO DIFFERENTIAL(Performed 09/02/2015) Performed for Abdominal pain, generalized * LAB RESULTS ORDER(Performed 05/24/2015) * EKG 15-LEAD(Performed 05/14/2015) Performed for Chest pain of unknown etiology * GGT(Performed 04/19/2015) Performed for Hepatitis * HEPATIC FUNCTION PANEL(Performed 04/19/2015) Performed for Hepatitis * HEPATIC FUNCTION PANEL(Performed 03/30/2015) Performed for Hepatitis * GGT(Performed 03/24/2015) Performed for Hepatitis * HEPATIC FUNCTION PANEL(Performed 03/24/2015) Performed for Hepatitis * GGT(Performed 03/20/2015) * HEPATIC FUNCTION PANEL(Performed 03/20/2015) * GGT(Performed 03/19/2015) * HEPATIC FUNCTION PANEL(Performed 03/19/2015) * SMOOTH MUSCLE ANTIBODY TITER(Performed 03/18/2015) * SMOOTH MUSCLE ANTIBODY W REFLEX TITER(Performed 03/18/2015) * MAGDA-GUZMAN VIRUS ANTIBODY PANEL(Performed 03/18/2015) * MONONUCLEOSIS SCREEN(Performed 03/18/2015) * GGT(Performed 03/18/2015) * HEPATIC FUNCTION PANEL(Performed 03/18/2015) * URINE MICROSCOPIC ONLY(Performed 03/17/2015) * URINALYSIS REFLEX TO MICROSCOPIC NO CULTURE(Performed 03/17/2015) * US LIVER(Performed 03/17/2015) Performed for Hepatitis * PT PTT PANEL(Performed 03/17/2015) * MICROSOMAL ANTIBODY LIVER/KIDNEY(Performed 03/17/2015) * HEPATIC FUNCTION PANEL(Performed 03/17/2015) * T4 FREE(Performed 03/17/2015) * TSH(Performed 03/17/2015) * URINE MICROSCOPIC ONLY(Performed 03/16/2015) * URINALYSIS REFLEX TO MICROSCOPIC NO CULTURE(Performed 03/16/2015) * HCG URINE QUALITATIVE - POCT (IP) BEAKER(Performed 03/16/2015) * LIPASE BLOOD(Performed 03/16/2015) * GGT(Performed 03/16/2015) * BILIRUBIN DIRECT(Performed 03/16/2015) * DIFFERENTIAL MANUAL(Performed 03/16/2015) * MAGDA-GUZMAN VIRUS PCR QUANTITATIVE WHOLE BLOOD(Performed 03/16/2015) * CYTOMEGALOVIRUS ANTIBODY IGG/IGM BLOOD(Performed 03/16/2015) * BETSY BLOOD SCREEN W/REFLEX TITER(Performed 03/16/2015) * C-REACTIVE PROTEIN(Performed 03/16/2015) * ERYTHROCYTE SEDIMENTATION RATE(Performed 03/16/2015) * HEPATITIS SCREEN ACUTE(Performed 03/16/2015) * CBC W AUTO DIFFERENTIAL(Performed 03/16/2015) * COMPREHENSIVE METABOLIC PANEL(Performed 03/16/2015) Results * XR Hand Bilat 3Vw or More (11/01/2024 4:29 PM [employer]) Anatomical Region Laterality Modality Upper Extremity, Wrist / Hand Co mputed Radiography 11/01/2024 4:34 PM [employer] Narrative 11/01/2024 4:35 PM [employer] Procedure: XR HAND BILAT 3VW OR MORE Exam Date: 11/01/2024 4:29 PM Location: [facility] Indication: R76.8: Other specified abnormal immunological findings in serum R21: Rash and other nonspecific skin eruption R53.83: Other fatigue R68.2: Dry mouth, unspecified H04.129: Dry eye syndrome of unspecified lacrimal gland R20.0: Anesthesia of skin I73.00: Raynaud's syndrome without gangrene M25.50: Pain in unspecified joint M79.18: Myalgia, other site M54.2: Cervicalgia M54.59: Other low marian Findings/impression: No old studies are available for comparison purposes. The joint spaces are well-maintained. There is no periarticular osteopenia. There are no bony erosions. There is no periosteal reaction or acute bony destruction. There is normal alignment of the carpal bones bilaterally. There is no acute bony abnormality of the hands. > Interpreting Provider: Timbo Saavedra MD on 11/01/2024 4:35 PM Procedure Note Timbo Saavedra MD - 11/01/2024 Procedure: XR HAND BILAT 3VW OR MORE Exam Date: 11/01/2024 4:29 PM Location: [facility] Indication: R76.8: Other specified abnormal immunological findings inserum R21: Rash and other nonspecific skin eruption R53.83: Other fatigue R68.2: Dry mouth, unspecified H04.129: Dry eye syndrome of unspecified lacrimal gland R20.0: Anesthesia of skin I73.00: Raynaud's syndrome without gangrene M25.50: Pain in unspecified joint M79.18: Myalgia, other site M54.2: Cervicalgia M54.59: Other low marian Findings/impression: No old studies are available for comparison purposes. The joint spacesare well-maintained. There is no periarticular osteopenia. There are no bony erosions. There is no periosteal reaction or acute bony destruction.There is normal alignment of the carpal bones bilaterally. There is no acutebony abnormality of the hands. > Interpreting Provider: Timbo Saavedra MD on 11/01/2024 4:35 PM Avis Cee MD DIAGNOSTIC IMAGING O RDERABLES * ROQUE (SM) ANTIBODY ENRRIQUE (11/01/2024 3:36 PM [employer]) Roque (ENRRIQUE) Antibody <0.2 0.0 - 0.9 [facility] INSUR[facility] B[facility] Blood BLOOD SPECIMEN / Unknown 11/01/2024 3:36 PM [employer] 11/01/2024 Narrative [facility] INSURANCE BILL - 11/02/2024 10:10 AM [employer] Performed at: [facility] [employer] [id number] Senior Project Engineer: Timi Phna PhD, Phone: [phone] Avis Cee MD LAB - CHEMISTRY [place] Performing Organization Address [facility] de Phone Number [facility] INSURANCE BILL [address] [place] [address] * METAL TRIM ERECTOR ANTIBODY (11/01/2024 3:36 PM [employer]) METAL TRIM ERECTOR Antibody <0.2 0.0 - 0.9 [facility] INSURANCE BILL Blood BLOOD SPECIMEN / Unknown 11/01/2024 3:36 PM [employer] 11/01/2024 Narrative [facility] INSURANCE BILL - 11/02/2024 10:10 AM [employer] Performed at: [facility] [employer] [id number] Senior Project Engineer: Timi Phan PhD, Phone: [phone] Avis Cee MD LAB - CHEMISTRY [place] Performing Organization Address [facility] de Phone Number [facility] INSURANCE BILL [address] [place] [address] * (ABNORMAL) BETSY BLOOD SCREEN W/REFLEX TITER (11/01/2024 3:36 PM [employer]) Only the most recent of2 resultswithin the time period is included. BETSY Positive(A) [facility] INSURANCE BILL Comment: Negative <1:80 Borderline 1:80 Positive >1:80 Performed at: [address], [place], [place] [id number] Senior Project Engineer: Timi Phan PhD, Phone: [phone] Homogeneous Pattern 1:320(H) [facility] INSURANCE BILL Comment:ICAP nomenclature: A C-1 Note Comment [facility] INSURANCE BILL Comment: Pattern Potential Disease Association Homogeneous Systemic Lupus Erythematosus, Drug Induced Systemic Lupus Erythematosus, Chronic Autoimmune hepatitis, Juvenile Idiopathic Arthritis Speckled Sjogren Syndrome, Systemic Lupus Erythematosus, Subacute Cutaneous Lupus, Lupus, Congenital Heart Block, Mixed Connective Tissue Disease, Scleroderma-diffuse, Scleroderma-Autoimmune Myositis Overlap Syndrome, Systemic Lupus Rslunwxccjqmo-Dzezjjxhlgb-Klynbvkyin Myositis Overlap Syndrome, Systemic Autoimmune Rheumatic Disease, Undifferentiated Connective Tissue Disease Nucleolar Systemic Sclerosis, Scleroderma-Autoimmune Myositis Overlap Syndrome, Sjogren Syndrome, Raynaud phenomenon, Pulmonary Arterial Hypertension, Systemic Autoimmune Rheumatic Disease, Cancer Centromere Scleroderma-CREST, Limited Cutaneous SSc, Raynaud's Phenomenon, Primary Biliary Cholangitis Nuclear Dot Primary Biliary Cholangitis Nuclear Primary Biliary Cholangitis, Autoimmune Membrane Hepatitis/Liver disease, Systemic Autoimmune Rheumatic Disease, Autoimmune Cytopenias, Linear Scleroderma, Antiphospholipid Syndrome Blood BLOOD SPECIMEN / Unknown 11/01/2024 3:36 PM [employer] 11/01/2024 Narrative [facility] INSURANCE BILL - 11/05/2024 5:09 PM [employer] Performed at: [address] [id number] Senior Project Engineer: Timi Phan PhD, Phone: [phone] Avis Cee MD LAB - CHEMISTRY [place] [facility] Organization Address City/State/ZIP Co de Phone Number [facility] INSURANCE BILL [address] [place] [address] * SS-A (SJOGREN'S) ANTIBODY (11/01/2024 3:36 PM [employer]ANGING) Sjogren's Antibodies (SSA) <0.2 0.0 - 0.9 AI [facility] INSURANCE BILL Blood BLOOD SPECIMEN / Unknown 11/01/2024 3:36 PM [employer]ING 11/01/2024 Narrative [facility] INSURANCE BILL - 11/02/2024 10:10 AM [employer]ING Performed at: - [facility] [address] [place], [place] [id number] Senior Project Engineer: Timi Phan PhD, Phone: [phone] Avis Cee MD LAB - CHEMISTRY [place] Performing Organization Address City/[facility] [[email or web address]] Co de Phone Number [facility] INSURANCE BILL [address] [place] [address] * SCLERODERMA 70 (SCL) ANTIBODY (11/01/2024 3:36 PM [employer]) Only the most recent of2 resultswithin the time period is included. Antiscleroderma -70 Antibody <0.2 0.0 - 0.9 AI [facility] INSURANCE BILL Blood BLOOD SPECIMEN / Unknown 11/01/2024 3:36 PM [employer] 11/01/2024 Narrative [facility] INSURANCE BILL - 11/02/2024 10:10 AM [employer] Performed at: - [facility] [id number] Senior Project Engineer: Timi Phan PhD, Phone: [phone] Avis Cee MD LAB - CHEMISTRY [place] Performing Organization Address [facility] [[email or web address]] Co de Phone Number [facility] INSURANCE BILL [address] [place] [address] * HEPATITIS SCREEN ACUTE ([facility]) (11/01/2024 3:35 PM [employer]ANG[employer]) Hepatitis A Virus Antibody IgM Negative Negative [facility] INSURANCE BILL Comment: A negative anti-HAV IgM result suggests no recent or current HAV infection. Hepatitis B Virus Surface Antigen Negative Negative [facility] INSURANCE BILL Hepatitis B Core Virus Antibody IgM Negative Negative [facility] INSURANCE BILL Hepatitis C Antibody Non Reactive Non Reactive [facility] INSURANCE BILL Comment: Performed at: - [address] [id number] Senior Project Engineer: Timi Phan PhD, Phone: [phone] Interpretation Comment [facility] INSURANCE BILL Comment: Not infected with HCV unless early or acute infection is suspected (which may be delayed in an immunocompromised individual), or other evidence exists to indicate HCV infection. Blood BLOOD SPECIMEN / Unknown 11/01/2024 3:35 PM [employer] 11/01/2024 Narrative [facility] INSURANCE BILL - 11/02/2024 7:09 AM [employer] Performed at: [address] [place] [id number] Senior Project Engineer: Timi Phan PhD, Phone: [phone] Avis Cee MD LAB - CHEMISTRY [place] Performing Organization Address [facility] de Phone Number [facility] INSURANCE BILL [address] [place] [address] * LYME DISEASE TOTAL AB W RFLX IMMUNOASSAY (11/01/2024 3:35 PM HELPER [employer] HANGING) Pathologist [facility] Lyme Antibody Total Negative Negative [facility] INSURANCE BILL Comment: Lyme antibodies not detected. Reflex testing is not indicated. No laboratory evidence of infection with B. burgdorferi (Lyme disease). Negative results may occur in patients recently infected (less than or equal to 14 days) with B. burgdorferi. If recent infection is suspected, repeat testing on a new sample collected in 7 to 14 days is recommended. Blood BLOOD SPECIMEN / Unknown 11/01/2024 3:35 PM [employer]ING 11/01/2024 Narrative [facility] [employer] INSURANCE BILL - 11/02/2024 5:09 PM [employer] Performed at: [address] [id number] Senior Project Engineer: Timi Phan PhD, Phone: [phone] Avis Cee MD LAB - CHEMISTRY [place] Performing Organization Address [facility] de Phone Number [facility] INSURANCE BILL [address] [place] [address] * IGG SUBCLASS 4 (11/01/2024 3:35 PM [employer]PER [employer]ANGING) [facility] IgG Subclass 4 12 2 - 96 mg/dL [facility] INSURANCE BILL Blood BLOOD SPECIMEN / Unknown 11/01/2024 3:35 PM [employer]ING 11/01/2024 Narrative [facility] INSURANCE BILL - 11/02/2024 3:10 PM [employer] Performed at: [facility] [address] [id number] Senior Project Engineer: Timi Phan PhD, Phone: [phone] Avis Cee MD LAB - CHEMISTRY ORDE RABVITALY Performing Organization Address [facility] [[email or web address]] Co de Phone Number [facility] INSURANCE BILL [address] [place] [address] * CARDIOLIPIN ANTIBODY IGA/IGG/IGM PANEL (11/01/2024 3:35 PM [employer]PER [employer] HANGING) Pathologist [facility] Cardiolipin Antibody IgG <9 0 - 14 GPL U/mL [facility] INSURANCE BILL Comment: Negative: <15 Indeterminate: 15 - 20 Low-Med Positive: >20 - 80 High Positive: >80 Cardiolipin Antibody IgM <9 0 - 12 MPL U/mL [facility] INSURANCE BILL Comment: Negative: <13 Indeterminate: 13 - 20 Low-Med Positive: >20 - 80 High Positive: >80 Cardiolipin Antibody IgA <9 0 - 11 APL U/mL [facility] INSURANCE BILL Comment: Negative: <12 Indeterminate: 12 - 20 Low-Med Positive: >20 - 80 High Positive: >80 Blood BLOOD SPECIMEN / Unknown 11/01/2024 3:35 PM [employer] 11/01/2024 Narrative [facility] INSURANCE BILL - 11/02/2024 3:10 PM [employer] Performed at: - [address] [id number] Senior Project Engineer: Timi Phan PhD, Phone: [phone] Avis Cee MD LAB - SEROLOGY ORDER BEKAH Performing Organization Address City/[facility] [[email or web address]] Co de Phone Number [facility] INSURANCE BILL [address] [place] [address] * LUPUS ANTICOAGULANT PANEL W RFLX (11/01/2024 3:35 PM [employer]) Only the most recent of2 resultswithin the time period is included. Pathologist [facility] PTT-LA 32.0 0.0 - 43.5 sec [facility] INSURANCE BILL dRVVT 29.2 0.0 - 47.0 sec [facility] INSURANCE BILL Interpretation Comment: [facility] INSURANCE BILL Comment:No lupus anticoagula nt was detected. Blood BLOOD SPECIMEN / Unknown 11/01/2024 3:35 PM [employer] 11/01/2024 Narrative [facility] INSURANCE BILL - 11/02/2024 6:09 PM [employer] [facility]formed [facility]: - [facility] [address] [place], [place] [id number] Senior Project Engineer: Alejandra Robison MD, Phone: [phone] Avis Cee MD LAB - HEMATOLOGY ORD ERABLES [facility] INSURANCE BILL [address] [place] [address] * BETA-2 GLYCOPROTEIN 1 ANTIBODY IGG/IGM/IGA PANEL (11/01/2024 3:35 PM [employer]ANGING) [facility] Beta-2 Glycoprotein I Antibody IgG <9 0 - 20 GPI IgG units [facility] INSURANCE BILL Comment: The reference interval reflects a 3SD or 99th percentile interval, which is thought to represent a potentially clinically significant result in accordance with the International Consensus Statement on the classification criteria for definitive antiphospholipid syndrome (APS). J Thromb Haem 2006;4:295-306. Beta-2 Glycoprotein I Antibody IgA <9 0 - 25 GPI IgA units [facility] INSURANCE BILL Comment: The reference interval reflects a 3SD or 99th percentile interval, which is thought to represent a potentially clinically significant result in accordance with the International Consensus Statement on the classification criteria for definitive antiphospholipid syndrome (APS). J Thromb Haem 2006;4:295-306. Beta-2 Glycoprotein I Antibody IgM <9 0 - 32 GPI IgM units [facility] INSURANCE BILL Comment: The reference interval reflects a 3SD or 99th percentile interval, which is thought to represent a potentially clinically significant result in accordance with the International Consensus Statement on the classification criteria for definitive antiphospholipid syndrome (APS). J Thromb Haem 2006;4:295-306. Blood BLOOD SPECIMEN / Unknown 11/01/2024 3:35 PM [employer] 11/01/2024 Narrative [facility] INSURANCE BILL - 11/02/2024 3:10 PM [employer] Performed at: - [facility] [address] [place], [place] [id number] Senior Project Engineer: Timi Phan PhD, Phone: [phone] Avis Cee MD LAB - SEROLOGY ORDER BEKAH Performing Organization Address City/[facility]/ZIP Co de Phone Number [facility] INSURANCE BILL [address] [place] [address] * RHEUMATOID FACTOR BLOOD QUANTITATIVE (11/01/2024 3:35 PM [employer]) Rheumatoid Factor <10.0 <14.0 IU/mL [facility] INSURANCE BILL Blood BLOOD SPECIMEN / Unknown 11/01/2024 3:35 PM [employer] 11/01/2024 Narrative [facility] INSURANCE BILL - 11/02/2024 3:10 PM [employer] Performed at: - [address] [id number] Senior Project Engineer: Timi Phan PhD, Phone: [phone] Avis Cee MD LAB - CHEMISTRY [place] Performing Organization Address [facility] [[email or web address]] Co de Phone Number [facility] INSURANCE BILL [address] [place] [address] * C-REACTIVE PROTEIN (11/01/2024 3:35 PM [employer]ANGING) Only the most recent of4 resultswithin the time period is included. C-Reactive Protein 2 0 - 10 mg/L [facility] INSURANCE BILL Blood BLOOD SPECIMEN / Unknown 11/01/2024 3:35 PM [employer] 11/01/2024 Narrative [facility] INSURANCE BILL - 11/02/2024 3:10 PM [employer] Performed at: - [address] [id number] Senior Project Engineer: Timi Phan PhD, Phone: [phone] Avis Cee MD LAB - CHEMISTRY [place] Performing Organization Address City/[facility] [[email or web address]] Co de Phone Number [facility] INSURANCE BILL [address] [place] [address] * HISTONE ANTIBODY (11/01/2024 3:35 PM [employer]ANGING) Anti-Histone Antibody 0.7 0.0 - 0.9 Units [facility] INSURANCE BILL Comment: Negative <1.0 Weak Positive 1.0 - 1.5 Moderate Positive 1.6 - 2.5 Strong Positive >2.5 Blood BLOOD SPECIMEN / Unknown 11/01/2024 3:35 PM [employer] 11/01/2024 Narrative [facility] INSURANCE BILL - 11/06/2024 3:09 PM [employer] Performed at: [address] [place] [id number] Senior Project Engineer: Alejandra Robison MD, Phone: [phone] Avis Cee MD LAB - CHEMISTRY [place] Performing Organization Address City/[facility] [[email or web address]] Co de Phone Number [facility] INSURANCE BILL [address] [place] [address] * SS-B (SJOGREN'S) ANTIBODY (11/01/2024 3:35 PM [employer]) Sjogren's Antibodies (SSB) <0.2 0.0 - 0.9 AI [facility] INSURANCE BILL Blood BLOOD SPECIMEN / Unknown 11/01/2024 3:35 PM [employer] 11/01/2024 Narrative [facility] INSURANCE BILL - 11/02/2024 10:10 AM [employer] Performed at: [address] [place] [id number] Senior Project Engineer: Timi Phan PhD, Phone: [phone] Avis Cee MD LAB - CHEMISTRY [place] Performing Organization Address City/[facility] [[email or web address]] Co de Phone Number [facility] INSURANCE BILL [address] [place] [address] * DNA ANTIBODY DOUBLE STRANDED (11/01/2024 3:35 PM [employer]ANGING) Anti-dsDNA Quantitative <1 0 - 9 IU/mL [facility] INSURANCE BILL Comment: Negative <5 Equivocal 5 - 9 Positive >9 Blood BLOOD SPECIMEN / Unknown 11/01/2024 3:35 PM [employer] 11/01/2024 Narrative [facility] INSURANCE BILL - 11/02/2024 10:10 AM [employer]ING Performed at: [facility] [address] [place] [id number] Senior Project Engineer: Timi Phan PhD, Phone: [phone] Avis Cee MD LAB - HEMATOLOGY ORD ERABLES [facility] INSURANCE BILL [address] [place] [address] * ANGIOTENSIN CONVERTING ENZYME BLOOD (11/01/2024 3:35 PM [employer]ANGING) Angiotensin-Con verting Enzyme 58 14 - 82 U/L [facility] INSURANCE BILL Blood BLOOD SPECIMEN / Unknown 11/01/2024 3:35 PM [employer] 11/01/2024 Narrative [facility] INSURANCE BILL - 11/02/2024 3:10 PM [employer] Performed at: [address] [id number] Senior Project Engineer: Timi Phan PhD, Phone: [phone] Avis Cee MD LAB - CHEMISTRY [place] Performing Organization Address [facility] [[email or web address]] Co de Phone Number [facility] INSURANCE BILL [address] [place] [address] * ALDOLASE (11/01/2024 3:35 PM [employer]ING) Only the most recent of2 resultswithin the time period is included. Aldolase 3.5 3.3 - 10.3 U/L [facility] INSURANCE BILL Blood BLOOD SPECIMEN / Unknown 11/01/2024 3:35 PM [employer] 11/01/2024 Narrative [facility] INSURANCE BILL - 11/02/2024 3:10 PM [employer] Performed at: [address] [id number] Senior Project Engineer: Timi Phan PhD, Phone: [phone] Avis Cee MD LAB - CHEMISTRY [place] Performing Organization Address City/[facility]/ZIP Co de Phone Number [facility] INSURANCE BILL [address] [place] [address] * THIOPURINE METHYLTRANSFERASE (11/01/2024 3:35 PM HELPER [employer] HANGING) Pathologist [facility] TPMT Activity 25.3 Units/mL RBC [facility] INSURANCE BILL Comment: Reference Range: Normal: 15.1 - 26.4 Heterozygous for low TPMT variant: 6.3 - 15.0 Homozygous for low TPMT variant: <6.3 Interpretation Comment [facility] INSURANCE BILL Comment: The above results can be interpreted as Normal for red blood cell Thiopurine Methyltransferase activity. For patients having an intrinsic low level of TPMT, recent RBC transfusion can variably increase their assayed enzymatic activity depending on the amount and circulating half-life of the transfused red blood cells. This test was developed and its performance characteristics determined by [facility]. It has not been cleared or approved by the Food and Drug Administration. This case has been reviewed, approved, interpreted and electronically signed by Baron Rivera, PhD, [facility]. Methodology Comment [facility] INSURANCE BILL Comment: Enzymatic Endpoint/Liquid Chromatography - Tandem Mass Spectrometry (LC-MS/MS) Blood BLOOD SPECIMEN / Unknown 11/01/2024 3:35 PM [employer] 11/01/2024 Narrative [facility] INSURANCE BILL - 11/09/2024 5:09 PM [employer] Performed at: [facility] [address] [place] [id number] Senior Project Engineer: Jose Alfredo Ferris MD, Phone: [phone] Avis Cee MD LAB - CHEMISTRY [place] [facility] INSURANCE BILL [address] [place] [address] * CYCLIC CITRULLINATED PEPTIDE(CCP) AB IGG (11/01/2024 3:35 PM [employer]PER [employer]ANGING) Pathologist [facility] CCP Antibodies IgG/IgA <20 <20 Units [facility] INSURANCE BILL Comment: Negative: <20 Weak Positive: 20-39 Moderate Positive: 40-59 Strong Positive: >59 Blood BLOOD SPECIMEN / Unknown 11/01/2024 3:35 PM [employer] 11/01/2024 Narrative [facility] INSURANCE BILL - 11/07/2024 9:08 PM [employer] Performed at: - [employer] [employer] [address] [place], [place] [id number] Senior Project Engineer: Jose Alfredo Ferris MD, Phone: [phone] Avis Cee MD LAB - CHEMISTRY ORDE RABLES [facility] INSURANCE BILL [address] [place] [address] * ERYTHROCYTE SEDIMENTATION RATE (11/01/2024 3:35 PM [employer]) Only the most recent of4 resultswithin the time period is included. Erythrocyte Sedimentation Rate Westergren 7 0 - 32 mm/hr [facility] INSURANCE BILL Blood BLOOD SPECIMEN / Unknown 11/01/2024 3:35 PM [employer] 11/01/2024 Narrative [facility] INSURANCE BILL - 11/02/2024 7:09 AM [employer] Performed at: - [facility] [address] [place], [place] [id number] Senior Project Engineer: Timi Phan PhD, Phone: [phone] Avis Cee MD LAB - HEMATOLOGY ORD ERABLES Performing Organization Address City/[facility]/ZIP Co de Phone Number [facility] INSURANCE BILL [address] [place] [address] * COMPLEMENT C4 (11/01/2024 3:35 PM [employer]ANGING) Complement C4 28 14 - 44 mg/dL [facility] INSURANCE BILL Blood BLOOD SPECIMEN / Unknown 11/01/2024 3:35 PM [employer]ING 11/01/2024 Narrative [facility] INSURANCE BILL - 11/05/2024 7:08 AM [employer] Performed at: - [employer] [address] [place], [place] [id number] Senior Project Engineer: Jose Alfredo Ferris MD, Phone: [phone] Avis Cee MD LAB - SEROLOGY ORDER BEKAH Performing Organization Address City/[facility]/ZIP Co de Phone Number [facility] INSURANCE BILL [address] [place] [address] * PROTEIN CREATININE RATIO URINE RANDOM PNL (11/01/2024 3:35 PM [employer]) Creatinine Urine 163.2 Not Estab. mg/dL [facility] INSURANCE BILL Protein Urine 15.5 Not Estab. mg/dL [facility] INSURANCE BILL Protein/Creatin ine Ratio 95 0 - 200 mg/g creat [facility] INSURANCE BILL Urine URINE SPECIMEN OBTAINED BY CLEAN CATCH PROCEDURE / Unknown 11/01/2024 3:35 PM [employer] 11/01/2024 Narrative [facility] INSURANCE BILL - 11/02/2024 10:10 AM [employer] Performed at: - [address] [id number] Senior Project Engineer: Timi Phan PhD, Phone: [phone] Avis Cee MD LAB - URINE CHEMISTR Y ORDERABLES Performing Organization Address City/[facility]/ZIP Co de Phone Number [facility] INSURANCE BILL [address] [place] [address] * CK BLOOD (11/01/2024 3:35 PM [employer]ANGING) Only the most recent of2 resultswithin the time period is included. CK 89 32 - 182 U/L [facility] INSURANCE BILL Blood BLOOD SPECIMEN / Unknown 11/01/2024 3:35 PM [employer]ING 11/01/2024 Narrative [facility] INSURANCE BILL - 11/02/2024 8:11 AM [employer] Performed at: [address] [id number] Senior Project Engineer: Timi Phan PhD, Phone: [phone] Avis Cee MD LAB - CHEMISTRY ORDE RABLES Performing Organization Address City/[facility]/ZIP Co de Phone Number [facility] INSURANCE BILL [address] [place] [address] * COMPLEMENT C3 (11/01/2024 3:35 PM [employer]ANGING) Complement C3 180 90 - 180 mg/dL [facility] INSURANCE BILL Comment: Effective September 24, 2024, C3 Complement (RDL) reference interval will be changing to: 90 - 180 mg/dL Blood BLOOD SPECIMEN / Unknown 11/01/2024 3:35 PM [employer] 11/01/2024 Narrative [facility] INSURANCE BILL - 11/05/2024 7:08 AM [employer] Performed at: 01 - [facility] [address] [place] [id number] Senior Project Engineer: Jose Alfredo Ferris MD, Phone: [phone] Avis Cee MD LAB - CHEMISTRY ORDE SILVESTRE [facility] INSURANCE BILL [address] [place] [address] * CARDIAC EKG ORDER (10/31/2024 7:06 PM [employer]) Narrative 10/31/2024 7:06 PM [employer] Ordered by an unspecified provider. Scanned Document CARDI[facility] SERVICES ORD ERABLES * TROPONIN-I HIGH SENSITIVE REFLEX 1HOUR (10/31/2024 12:30 AM [employer]ANGING) [facility] Troponin I High Sensitive <3 <=14 ng/L 10/31/2024 1:00 [address] [facility] Delta Troponin I HS 10/31/2024 1:00 [address] [facility] Comment:Delta value intentio curry not calculated. Baseline to 1 hour specimen collection interval exceeded. Blood BLOOD SPECIMEN / Unknown Venipuncture / Unknown 10/31/2024 12:30 AM [employer] 10/31/2024 12:33 AM [employer] Ashley HUA LAB - CHEMISTR Y ORDERABLES [facility] [address] [place] [address] * XR CHEST 2VW (10/30/2024 8:44 PM [employer]) Only the most recent of2 resultswithin the time period is included. Anatomical Region Laterality Modality Chest Radiographic Lorena ging 10/30/2024 8:57 PM [employer] Impressions 10/30/2024 8:58 PM [employer] IMPRESSION: Normal > Interpreting Provider: Christopher Bonds MD on 10/30/2024 8:58 PM Narrative 10/30/2024 8:58 PM [employer] PROCEDURE: XR CHEST 2VW DATE/TIME OF EXAM: 10/30/2024 8:45 PM CLINICAL INFORMATION: None relevant/not provided if blank. Indication: R55: Syncope and collapse Additional History: COMPARISON: Chest and RIBS from 10/15/2015 FINDINGS: The lungs are clear and free of effusion. The heart, mediastinum and bony thorax are normal. Procedure Note Christopher Bonds MD - 10/30/2024 PROCEDURE: XR CHEST 2VW DATE/TIME OF EXAM: 10/30/2024 8:45 PM CLINICAL INFORMATION: None relevant/not provided if blank. Indication: R55: Syncope and collapse Additional History: COMPARISON: Chest and RIBS from 10/15/2015 FINDINGS: The lungs are clear and free of effusion. The heart, mediastinum andbony thorax are normal. IMPRESSION: Normal > Interpreting Provider: Christopher Bonds MD on 10/30/2024 8:58 PM [employer] APNP-INDIRECT SALES EXEC DIAGNOSTIC LORENA GING ORDERABLES * EKG 12-LEAD (10/30/2024 8:23 PM [employer]ING) Ventricular Rate 81 BPM [facility] Atrial Rate 81 BPM [facility] P-R Interval 136 ms [facility] QRS Duration ms 86 ms [facility] Q-T Interval ms 358 ms [facility] QTC Calculation (Bezet) 415 ms [facility] Calculated P [place] 68 degrees [facility] Calculated R [place] 51 degrees [facility] Calculated T [place] 49 degrees [facility] Interpretation EKG NORMAL SINUS RHYTHM WITH SINUS ARRHYTHMIA NORMAL ECG NO PREVIOUS ECGS AVAILABLE Confirmed by Mickey Burnette MD ([id number]) on 10/31/2024 7:59:22 AM [facility] MUSE 10/30/2024 8:23 PM [employer]ING 10/31/2024 7:59 AM [employer]ANGING [employer] APNP-INDIRECT SALES EXEC ECG ORDERABLES [facility] * TROPONIN-I HIGH SENSITIVE BASELINE + 1HR (10/30/2024 8:21 PM [employer]ANGING) Pathologist [facility] Troponin I High Sensitive <3 <=14 ng/L 10/30/2024 8:43 PM [facility] Blood BLOOD SPECIMEN / Unknown Venipuncture / Unknown 10/30/2024 8:21 PM [employer] 10/30/2024 8:21 PM [employer] Ashley [facility] ED-INDIRECT SALES EXEC LAB - CHEMISTR Y ORDERABLES [facility] [address] [place] [address] * CBC W AUTO DIFFERENTIAL (10/30/2024 8:21 PM [employer]ING) Only the most recent of4 resultswithin the time period is included. [facility] WBC 9.3 4.0 - 10.7 x10E9/L 10/30/2024 8:24 PM [facility] RBC Count 4.57 3.90 - 5.20 x10E12/L 10/30/2024 8:24 PM [facility] Hemoglobin 14.0 11.9 - 15.8 g/dL 10/30/2024 8:24 PM [facility] Hematocrit 41.4 34.8 - 46.1 % 10/30/2024 8:24 PM [facility] MCV 90.6 80.0 - 98.0 fL 10/30/2024 8:24 PM [facility] MCH 30.6 26.7 - 33.6 pg 10/30/2024 8:24 PM [facility] MCHC 33.8 31.7 - 36.3 g/dL 10/30/2024 8:24 PM [facility] RDW-CV 11.5 11.3 - 14.8 % 10/30/2024 8:24 PM [facility] Platelet Count 237 150 - 420 x10E9/L 10/30/2024 8:24 PM [facility] MPV 8.5 7.8 - 11.4 fL 10/30/2024 8:24 PM [facility] Neutrophil % 71.6 41.0 - 74.0 % 10/30/2024 8:24 PM [facility] Lymphocyte % 21.7 17.0 - 47.0 % 10/30/2024 8:24 PM [facility] Monocyte % 5.7 3.0 - 11.0 % 10/30/2024 8:24 PM [facility] Eosinophil % 0.5 0.0 - 7.0 % 10/30/2024 8:24 PM [facility] Basophil % 0.3 0.0 - 1.6 % 10/30/2024 8:24 PM [facility] Immature Granulocytes % 0.2 0.0 - 1.0 % 10/30/2024 8:24 PM [facility] Neutrophil Absolute 6.65 1.60 - 7.50 x10E9/L 10/30/2024 8:24 PM [facility] Lymphocyte Absolute 2.02 1.00 - 4.40 x10E9/L 10/30/2024 8:24 PM [facility] Monocyte Absolute 0.53 0.15 - 1.00 x10E9/L 10/30/2024 8:24 PM [facility] Eosinophil Absolute 0.05 0.00 - 0.60 x10E9/L 10/30/2024 8:24 PM [facility] Basophil Absolute 0.03 0.00 - 0.13 x10E9/L 10/30/2024 8:24 PM [facility] Blood BLOOD SPECIMEN / Unknown Venipuncture / Unknown 10/30/2024 8:21 PM [employer] 10/30/2024 8:21 PM [facility] [[email or web address]] Ashley WARD-INDIRECT SALES EXEC LAB - HEMATOLO GY ORDERABLES [facility] [address] [place] [address] * (ABNORMAL) COMPREHENSIVE METABOLIC PANEL (10/30/2024 8:21 PM [facility] [[email or web address]]) Only the most recent of4 resultswithin the time period is included. [facility] Signature Glucose 94 70 - 99 mg/dL 10/30/2024 8:40 PM [facility] Sodium 136 136 - 145 mmol/L 10/30/2024 8:40 PM [facility] Potassium 3.8 3.5 - 5.1 mmol/L 10/30/2024 8:40 PM [facility] Chloride 108(H) 98 - 107 mmol/L 10/30/2024 8:40 PM [facility] CO2 21(L) 22 - 29 mmol/L 10/30/2024 8:40 PM [facility] Calcium 9.2 8.4 - 10.4 mg/dL 10/30/2024 8:40 PM [facility] Anion Gap 7 6 - 16 mmol/L 10/30/2024 8:40 PM [facility] BUN 8 5.3 - 18.7 mg/dL 10/30/2024 8:40 PM [facility] Creatinine 0.79 0.57 - 1.11 mg/dL 10/30/2024 8:40 PM [facility] Alkaline Phosphatase 63 40 - 150 U/L 10/30/2024 8:40 PM [facility] ALT 31 0 - 55 U/L 10/30/2024 8:40 PM [facility] AST 23 5 - 34 U/L 10/30/2024 8:40 PM [facility] Protein Total 7.9 6.4 - 8.3 gm/dL 10/30/2024 8:40 PM [facility] Albumin 4.7 3.4 - 5.0 gm/dL 10/30/2024 8:40 PM [facility] Bilirubin Total 0.4 0.2 - 1.2 mg/dL 10/30/2024 8:40 PM [facility] eGFR by CKD-EPI >90 >=90 mL/min/1.7 3 m2 10/30/2024 8:40 PM [facility] Blood BLOOD SPECIMEN / Unknown Venipuncture / Unknown 10/30/2024 8:21 PM [employer] 10/30/2024 8:21 PM [facility] [[email or web address]] Ashley MEJIA-INDIRECT SALES EXEC LAB - CHEMISTR Y ORDERABLES [facility] [address] [place] [address] * HCG BETA BLOOD QUANTITATIVE (10/30/2024 8:21 PM [facility] [[email or web address]]) hCG Quantitative <2.42 mIU/mL 10/31/19 12:15 AM [employer] [facility] [facility] Blood BLOOD SPECIMEN / Unknown Venipuncture / Unknown 10/30/2024 8:21 PM [employer] 10/30/2024 8:21 PM [employer] Narrative [facility] - 10/31/2024 12:15 AM [employer] hCG Reference Range, mIU/mL: Non Females 0-6.0 Perimenopausal Females ages 41-55* 0-7.7 Postmenopausal Females age >55* 0-14 Females, Weeks after Last Menstrual Period 0.2-1 week 5-50 1 - 2 weeks 50-500 2 - 3 weeks 100-5000 3 - 4 weeks 500-10,000 4 - 5 weeks 1000-50,000 5 - 6 weeks 10,000-100,000 6 - 8 weeks 15,000-200,000 2 - 3 months 10,000-100,000 Trophoblastic Disease >100,000 *In higher than expected hCG in females > age 40, a serum FSH >20 IU/L makes unlikely. Tatum Young MD LAB - CHEMISTRY [place] Organization Address City/State/ZIP Co de Phone Number [facility] [address] [place] [phone] * AR INTRALESIONAL INJECTION(S) 7 OR LESS (10/12/2024 11:15 AM [employer]) Narrative Gagan Skinner MD - 10/12/2024 11:15 AM [employer] Se Schmitt MD 10/12/2024 11:15 AM The side effects of intralesional triamcinolone were discussed with patient, including petechiae and purpura, local lipoatrophy, striae and pigment change. 0.1mL of Triamcinolone 10mg/mL was injected in to right lateral lower leg papule with a 1 cc syringe and a 30 gauge needle. Se Schmitt MD [facility] Dermatology Resident Gagan Skinner MD PROCEDURE/MINOR SURG ICAL ORDERABLES * PATHOLOGY TISSUE (11/28/2023 11:27 AM CDT) Case Report Surgical Pathology Report Case: [id number] Authorizing Provider: Jose Alfredo May MD Collected: 11/28/2023 11:27 AM Ordering Location: [facility] OR MEMO/AMB SURGERY Received: 11/29/2023 07:14 AM Pathologist: Ashley West MD Specimens: A) - Forehead Lesion, RIGHT FOREHEAD MASS B) - Bone Biopsy, LEFT FRONTAL MASS BONY LESION 11/30/2023 4:23 PM [facility] Final Diagnosis Soft tissue, right forehead mass, biopsy (A): - Mature adipose tissue compatible with lipoma Bone, left frontal mass, biopsy (B): - Fragments of benign bone, clinically osteoma 11/30/2023 4:23 PM [facility] Microscopic Description and Comment Microscopic examination substantiates the final diagnosis. 11/30/2023 4:23 PM [facility] Clinical History The patient is a 23 year old female with history of slowing enlarging bilateral forehead masses. Operative procedure/findings: Excision of subfascial mass on right forehead, excision of osteoma from left frontal scalp. 11/30/2023 4:23 PM [facility] Gross Description The requisition and specimen(s) are identified with the patient's name, Kalee Aguillon. Received in formalin, specimen A , is a smooth surfaced, encapsulated biopsy of yellow fatty tissue, 1.3 x 1.2 x 0.5 cm. Sectioning reveals homogeneous yellow adipose tissue throughout. The entire specimen is submitted as for sections in cassette A1. Received in formalin, specimen B are three fragments of thornton-contreras bone, 0.7 x 0.4 x 0.1 cm to 1.8 x 1.3 x 0.2 cm. The larger fragment is sectioned. The specimen is entirely submitted in cassette B1 following decalcification. 11/30/2023 4:23 PM [facility] Pathologist Location at [facility] 11/30/2023 4:23 PM [facility] Disclaimer The performance characteristics of all immunohistochemical and indirect immunofluorescence stains (if any) cited in this report were determined by the Histopathology Laboratory of [facility]. Some of these tests were developed by our own laboratory and have not been cleared or approved by the US Food and Drug Administration. The FDA does not require this test to go through premarket FDA review. These tests are used for clinical purposes. They should not be regarded as investigational or for research. This laboratory is certified under the Clinical Laboratory Improvement Amendments (CLIA) as qualified to perform high complexity clinical laboratory testing. This case has been personally reviewed and interpreted by the attending (teaching) pathologist. 11/30/2023 4:23 PM CDT [facility] Embedded Images 11/30/2023 4:23 PM CDT [facility] Biopsy, Excision LESION SPECIMEN / Unknown 11/28/2023 11:27 AM CDT 11/29/2023 7:14 AM CDT Comment:Pre-op diagnosis: Tension headache [G44.209] Biopsy, Excision BONE BIOPSY SPECIMEN / Unknown 11/28/2023 11:29 AM CDT 11/29/2023 7:14 AM CDT Comment:Pre-op diagnosis: Tension headache [G44.209] Jose Alfredo May MD LAB - PATHOLOGY/CYTO LOGY ORDERABLES Performing Organization Address City/State/[facility] [[email or web address]] Co de Phone Number [facility] [address] [phone] * LARYNGEAL MASK AIRWAY (11/28/2023 10:56 AM CDT) Narrative Charla Max Anes Asst - 11/28/2023 10:56 AM CDT Charla Max Anes Asst 11/28/2023 10:57 AM LMA Placement Procedure/LDA Note: Patient Location: OR. LMA Insertion Date/Time: 11/28/2023 10:48 AM Procedure: LMA. Pretreatment: 100% O2 Induction: standard IV Patient position: supine. Mask Ventilation: not attempted Type: gel LMA Size: 4 Number of Attempts: 1. Placement verified by: direct visualization and CO2 monitor Dentition unchanged? Yes Procedure Start Time: 11/28/2023 10:48 AM. Staff Section Anesthesia Provider: Charla Max Anes Asst, Performed the procedure Provider #1: Krish Bella MD. Additional Comments: Atraumatic LMA insertion with lips, teeth, and tongue in pre-op condition. . Krish Bella MD GENERAL ANESTHESIA O RDERABLES * HCG URINE QUALITATIVE - POCT (IP) INTERFACED (11/28/2023 9:56 AM CDT) HCG Qual Urine Negative Negative 11/28/2023 10:03 AM CDT [facility] Urine URINE / Unknown 11/28/2023 9 :56 AM CDT 11/28/2023 10:03 AM CDT Jose Alfredo May MD LAB - POINT OF CARE ORDERABLES [facility] [address] [place] [address], [facility] [phone] * AR DESTRUCT BENIGN LESION, 1-14 (08/26/2023 4:12 PM [employer]) Narrative Gagan Skinner MD - 08/26/2023 4:12 PM [employer] Mohan Maloney MD 08/26/2023 4:13 PM Diagnosis and treatment options discussed. Cryotherapy (Liquid Nitrogen) to 1 viral warts x 10 seconds. Number of cycles: 2. Wound care reviewed. Mohan Maloney MD 08/26/2023 PGY-2 Dermatology Resident Gagan Skinner MD PROCEDURE/MINOR SURG ICAL ORDERABLES * MRI BRAIN WO CONTRAST (04/02/2023 5:56 PM CDT) Anatomical Region Laterality Modality Head Magnetic Resonan ce 04/04/2023 12:5 6 PM CDT Impressions 04/04/2023 1:16 PM CDT IMPRESSION: Unremarkable brain MRI performed without contrast. > Interpreting Provider: Valeria Hua MD on 04/04/2023 1:16 PM Narrative 04/04/2023 1:16 PM CDT PROCEDURE: MRI BRAIN WO CONTRAST DATE/TIME OF EXAM: 04/02/2023 5:56 PM CLINICAL INFORMATION: None relevant/not provided if blank. Indication: R22.0: Facial swelling G44.59: Other complicated headache syndrome Additional History: COMPARISON: MRI brain 05/19/2016 TECHNIQUE: MRI of the brain was performed without contrast, according to standard protocol FINDINGS: No evidence of acute or chronic hemorrhage is identified. No evidence of acute cerebral infarction is seen. The ventricles are of normal size, shape, and morphology. No mass effect or midline shift is seen. No FLAIR signal abnormalities noted. The corpus callosum and sella appear normal. The posterior fossa, brainstem, and craniocervical junction appear normal. Cerebellar tonsils lie at the level of foramen of magnum. The visualized portions of the orbits, paranasal sinuses, and mastoids appear normal. Normal flow voids are demonstrated in the carotid arteries and basilar artery. The calvarium appears normal. No significant degenerative changes in the visualized portions of the cervical spine.. Possible small subcentimeter lipoma along the right frontal scalp (image 12, series 8, series 9). Procedure Note Valeria Hua MD - 04/04/2023 PROCEDURE: MRI BRAIN WO CONTRAST DATE/TIME OF EXAM: 04/02/2023 5:56 PM CLINICAL INFORMATION: None relevant/not provided if blank. Indication: R22.0: Facial swelling G44.59: Other complicated headache syndrome Additional History: COMPARISON: MRI brain 05/19/2016 TECHNIQUE: MRI of the brain was performed without contrast, according to standard protocol FINDINGS: No evidence of acute or chronic hemorrhage is identified. No evidence of acute cerebral infarction is seen. The ventricles are of normal size, shape, and morphology. No mass effect or midline shift is seen. No FLAIR signal abnormalities noted. The corpus callosum and sella appear normal. The posterior fossa, brainstem, and craniocervical junction appearnormal. Cerebellar tonsils lie at the level of foramen of magnum. The visualized portions of the orbits, paranasal sinuses, and mastoids appear normal. Normal flow voids are demonstrated in the carotidarteries and basilar artery. The calvarium appears normal. No significant degenerative changes in the visualized portions of the cervical spine.. Possible small subcentimeter lipoma along the right frontal scalp (image 12, series 8, series 9). IMPRESSION: Unremarkable brain MRI performed without contrast. > Interpreting Provider: Valeria Hua MD on 04/04/2023 1:16 PM Morgan Zafarang [employer] MACHINE OPERATOR-INDIRECT SALES EXEC MR ORDERABLES * MRI BRAIN WWO CONTRAST (05/19/2016 1:05 PM CDT) Anatomical Region Laterality Modality Head Other Impressions 05/19/2016 2:01 PM CDT IMPRESSION: 1. Normal MRI of the brain. 2. Normal brain MRA. This report was approved by Chato Henao on 05/19/2016 1:51 PM . I, Dr. JEREL FORBES M.D. have personally reviewed and interpreted this examination/study. This report was electronically signed by JEREL FORBES M.D. on 05/19/2016 2:01 PM . Narrative 05/19/2016 2:01 PM CDT EXAMINATION: 1. Magnetic resonance imaging (MRI) of the brain without and with contrast 2. Magnetic resonance angiography (MRA) of the head without contrast HISTORY: 16-year-old female presenting with headaches associated with slurred speech, imbalance, and transient syncopal events. TECHNIQUE: MRI of the brain was performed prior to and following the uneventful administration of 5.5 mL intravenous gadolinium contrast according to standard protocol. MRA of the head was performed without contrast utilizing time of flight technique. FINDINGS: No prior study is available for comparison at the time of this dictation. Brain: No evidence of acute or chronic hemorrhage is identified. No evidence of acute cerebral infarction is seen. The ventricles are of normal size, shape, and morphology. No mass effect or midline shift is seen. No enhancing lesions are identified. The corpus callosum and sella appear normal. The posterior fossa, brainstem, and craniocervical junction appear normal. The visualized portions of the orbits, paranasal sinuses, and mastoids appear normal. Normal flow voids are demonstrated in the carotid arteries and basilar artery. The calvarium and visualized cervical spine appear normal. Angiographic findings: The distal internal carotid arteries appear normal. The anterior and middle cerebral arteries appear normal. The distal vertebral arteries appear normal. The basilar artery and right posterior cerebral arteries appear normal. There is origin of the left posterior cerebral artery. No aneurysms, vascular occlusions, or intracranial stenoses are identified. Procedure Note Jerel Forbes MD - 12/17/2017 EXAMINATION: 1. Magnetic resonance imaging (MRI) of the brain without and withcontrast 2. Magnetic resonance angiography (MRA) of the head without contrast HISTORY: 16-year-old female presenting with headaches associated withslurred speech, imbalance, and transient syncopal events. TECHNIQUE: MRI of the brain was performed prior to and following theuneventful administration of 5.5 mL intravenous gadolinium contrastaccording to standard protocol. MRA of the head was performed withoutcontrast utilizing time of flight technique. FINDINGS: No prior study is available for comparison at the time of thisdictation. Brain: No evidence of acute or chronic hemorrhage is identified. No evidence ofacute cerebral infarction is seen. The ventricles are of normal size,shape, and morphology. No mass effect or midline shift is seen. Noenhancing lesions are identified. The corpus callosum and sella appear normal. The posterior fossa, brainstem, andcraniocervical junction appear normal. The visualized portions of the orbits, paranasal sinuses, and mastoidsappear normal. Normal flow voids are demonstrated in the carotid arteriesand basilar artery. The calvarium and visualized cervical spine appearnormal. Angiographic findings: The distal internal carotid arteries appear normal. The anterior andmiddle cerebral arteries appear normal. The distal vertebral arteriesappear normal. The basilar artery and right posterior cerebral arteriesappear normal. There is origin of the left posterior cerebral artery. No aneurysms, vascular occlusions, orintracranial stenoses are identified. IMPRESSION IMPRESSION: 1. Normal MRI of the brain. 2. Normal brain MRA. This report was approved by Chato Henao on 05/19/2016 1:[address] JEREL Oswald M.D. have personally reviewed and interpreted thisexamination/study. This report was electronically signed by JEREL FORBES M.D. on 05/19/20162:01 PM . Ken Tavarez MD MR ORDERABLES * MRI ANGIO BRAIN ARTERIAL WO CONT (05/19/2016 1:05 PM CDT) Anatomical Region Laterality Modality Head Other Impressions 05/19/2016 2:01 PM CDT IMPRESSION: 1. Normal MRI of the brain. 2. Normal brain MRA. This report was approved by Chato Henao on 05/19/2016 1:[address] JEREL Oswald M.D. have personally reviewed and interpreted this examination/study. This report was electronically signed by JEREL FORBES M.D. on 05/19/2016 2:01 PM . Narrative 05/19/2016 2:01 PM CDT EXAMINATION: 1. Magnetic resonance imaging (MRI) of the brain without and with contrast 2. Magnetic resonance angiography (MRA) of the head without contrast HISTORY: 16-year-old female presenting with headaches associated with slurred speech, imbalance, and transient syncopal events. TECHNIQUE: MRI of the brain was performed prior to and following the uneventful administration of 5.5 mL intravenous gadolinium contrast according to standard protocol. MRA of the head was performed without contrast utilizing time of flight technique. FINDINGS: No prior study is available for comparison at the time of this dictation. Brain: No evidence of acute or chronic hemorrhage is identified. No evidence of acute cerebral infarction is seen. The ventricles are of normal size, shape, and morphology. No mass effect or midline shift is seen. No enhancing lesions are identified. The corpus callosum and sella appear normal. The posterior fossa, brainstem, and craniocervical junction appear normal. The visualized portions of the orbits, paranasal sinuses, and mastoids appear normal. Normal flow voids are demonstrated in the carotid arteries and basilar artery. The calvarium and visualized cervical spine appear normal. Angiographic findings: The distal internal carotid arteries appear normal. The anterior and middle cerebral arteries appear normal. The distal vertebral arteries appear normal. The basilar artery and right posterior cerebral arteries appear normal. There is origin of the left posterior cerebral artery. No aneurysms, vascular occlusions, or intracranial stenoses are identified. Procedure Note Jerel Forbes MD - 12/17/2017 EXAMINATION: 1. Magnetic resonance imaging (MRI) of the brain without and withcontrast 2. Magnetic resonance angiography (MRA) of the head without contrast HISTORY: 16-year-old female presenting with headaches associated withslurred speech, imbalance, and transient syncopal events. TECHNIQUE: MRI of the brain was performed prior to and following theuneventful administration of 5.5 mL intravenous gadolinium contrastaccording to standard protocol. MRA of the head was performed withoutcontrast utilizing time of flight technique. FINDINGS: No prior study is available for comparison at the time of thisdictation. Brain: No evidence of acute or chronic hemorrhage is identified. No evidence ofacute cerebral infarction is seen. The ventricles are of normal size,shape, and morphology. No mass effect or midline shift is seen. Noenhancing lesions are identified. The corpus callosum and sella appear normal. The posterior fossa, brainstem, andcraniocervical junction appear normal. The visualized portions of the orbits, paranasal sinuses, and mastoidsappear normal. Normal flow voids are demonstrated in the carotid arteriesand basilar artery. The calvarium and visualized cervical spine appearnormal. Angiographic findings: The distal internal carotid arteries appear normal. The anterior andmiddle cerebral arteries appear normal. The distal vertebral arteriesappear normal. The basilar artery and right posterior cerebral arteriesappear normal. There is origin of the left posterior cerebral artery. No aneurysms, vascular occlusions, orintracranial stenoses are identified. IMPRESSION IMPRESSION: 1. Normal MRI of the brain. 2. Normal brain MRA. This report was approved by Chato Henao on 05/19/2016 1:51 PM . I, Dr. JEREL FORBES M.D. have personally reviewed and interpreted thisexamination/study. This report was electronically signed by JEREL FORBES M.D. on 05/19/20162:01 PM . Ken Tavarez MD MR ORDERABLES * CREATININE BLOOD - POCT (IP) [facility] (05/19/2016) Creatinine POCT 0.93 0.3 - 1.3 mg/dL [facility] eGFR POCT 60 60 ml/min [facility] 05/19/2016 Ken Tavarez MD LAB - POINT OF CARE ORDERABLES [facility] * (ABNORMAL) VITAMIN D 25-HYDROXY D2+D3 BY TANDEM MASS (01/30/2016 4:00 PM CDT) Vitamin D, 25 Hydroxy Total 24(L) 30 - 100 ng/mL [facility] ([facility]) Comment: Vitamin D Status 25-OH Vitamin D: Deficiency: <20 ng/mL Insufficiency: 20 - 29 ng/mL Optimal: > or = 30 ng/mL For 25-OH Vitamin D testing on patients on D2-supplementation and patients for whom quantitation of D2 and D3 fractions is required, the QuestAssureD(TM) 25-OH VIT D, (D2,D3), LC/MS/MS is recommended: order code 66312 (patients >2yrs). For more information on this test, go to: http://education.Trinean/faq/SKO940 (This link is being provided for informational/educational purposes only.) Test Performed at: [facility] [address] [place] [address] ROBIN WATTERS DO,MPH Blood specimen (specimen) BLOOD SPECIMEN / Unknown 01/30/2016 4:00 PM CDT 01/30/2016 4:02 PM CDT Marisela Beavers MD LAB - CHEMISTR Y ORDERABLES Performing Organization Address [facility] [[email or web address]] Co de Phone Number [facility] * BETA-2 GLYCOPROTEIN 1 ANTIBODY IGG (01/30/2016 4:00 PM CDT) Beta-2 Glycoprotein 1 Antibody 1 IgG <9 <=20 [facility]) Comment: Test Performed at: [employer]/[facility] [address] [place] [address] IZABELLA ROTH MD,PHD Blood specimen (specimen) BLOOD SPECIMEN / Unknown 01/30/2016 4:00 PM CDT 01/30/2016 4:02 PM CDT Marisela Beavers MD LAB - SEROLOGY ORDERABLES Performing Organization Address [facility]/ZIP Co de Phone Number [facility]) * BETA-2 GLYCOPROTEIN 1 ANTIBODY IGM (01/30/2016 4:00 PM CDT) Beta-2 Glycoprotein 1 Antibody IgM <9 <=20 [facility] Comment: Test Performed at: [facility] [address] [place] [address] IZABELLA ROTH MD,PHD Blood specimen (specimen) BLOOD SPECIMEN / Unknown 01/30/2016 4:00 PM CDT 01/30/2016 4:02 PM CDT Marisela Beavers MD LAB - SEROLOGY ORDERABLES Performing Organization Address [facility] de Phone Number [facility]) * URINALYSIS W/MICROSCOPIC REFLEX TO CULTURE (01/30/2016 4:00 PM CDT) Pathologist [facility] Culture Urine Comprehensive NO CULTURE INDICATED [facility] ([facility]) Comment: Test Performed at: [employer] [facility] [address] [place] [address] ROBIN WATTERS DO,MPH Urine specimen (specimen) 01/30/2016 4:00 PM CDT 01/30/2016 4:02 PM CDT Narrative [facility]) - 02/05/2016 10:00 PM CDT Specimen Type->Urine Marisela Beavers MD LAB - URINALYS IS ORDERABLES Performing Organization Address [facility] Phone Number [facility] * TISSUE TRANSGLUTAMINASE (IGG,IGA) (01/30/2016 4:00 PM CDT) Pathologist [facility] TTG Antibody IgG 2 U/mL [facility]) Comment: <6 No Antibody Detected > OR = 6 Antibody Detected TTG Antibody IgA <1 U/mL [facility]) Comment: <4 No Antibody Detected > OR = 4 Antibody Detected Test Performed at: [employer]/[facility] [address] [place] [address] BARBARA AUSTIN MD PHD 01/30/2016 4:00 PM CDT 01/30/2016 4:02 PM CDT Marisela Beavers MD LAB - CHEMISTR Y ORDERABLES Performing Organization Address [facility] [facility] [[email or web address]] Co de Phone Number [facility]) * (ABNORMAL) LUPUS ERYTHEMATOSUS PANEL (01/30/2016 4:00 PM CDT) Pathologist [facility] BETSY Screen POSITIVE( A) NEGATIVE [facility]) dsDNA Antibody <1 IU/mL [facility]) Comment: IU/mL Interpretation < or = 4 Negative 5-9 Indeterminate > or = 10 Positive Sjogren's Antibodies (SSA) <1.0 NEG <1.0 NEG AI [facility]) Sjogren's Antibodies (SSB) <1.0 NEG <1.0 NEG AI [facility]) ENRRIQUE Roque (SM) Antibody <1.0 NEG <1.0 NEG AI [facility]) ENRRIQUE METAL TRIM ERECTOR Antibody <1.0 NEG <1.0 NEG AI [facility] ) Chromatin Nucleosomal <1.0 NEG <1.0 NEG AI [facility]) Complement C3 134 90 - 180 mg/dL [facility]) Complement C4 21 16 - 47 mg/dL [facility]) Complement Total CH50 >60(H) 31 - 60 U/mL [facility] ([facility]) Comment: Test Performed at: [employer] [address] [address] ROBIN WATTERS DO,MPH 01/30/2016 4:00 PM CDT 01/30/2016 4:02 PM CDT Marisela Beavers MD LAB - SEROLOGY ORDERABLES [facility]) * (ABNORMAL) MAGDA-GUZMAN VIRUS CHRONIC/ACTIVE INFECTION (01/30/2016 4:00 PM CDT) Magda-Guzman Virus Antibody IgM VCA < OR = 0.90 [facility]) Comment: Value Interpretation ----- < or = 0.90 Negative 0.91-1.09 Equivocal > or = 1.10 Positive Magda-Guzman Virus Antibody IgG Viral Capsid Antigen 2.98(H) [facility]) Comment: Value Interpretation ----- < or = 0.90 Negative 0.91-1.09 Equivocal > or = 1.10 Positive Magda-Guzman Virus Nuclear Antigen Antibody IgG 2.39(H) [facility]) Comment: Value Interpretation ----- < or = 0.90 Negative 0.91-1.09 Equivocal > or = 1.10 Positive Interpretation Suggestive of a past Magda-Guzman virus infection. In infants, a similar pattern may occur [facility]) Interpretation as a result of passive maternal transfer of antibody. [facility]) Comment: Test Performed at: [employer] [address] [address] [place] [address] ROBIN WATTERS DO,MPH Serum 01/30/2016 4:00 PM CDT 01/30/2016 4:02 PM CDT Marisela Beavers MD LAB - SEROLOGY ORDERABLES Performing Organization Address [facility]/ZIP Co de Phone Number [facility]) * CARDIOLIPIN ANTIBODY IGM (01/30/2016 4:00 PM CDT) Cardiolipin Antibody IgM <12 <=12 MPL [facility]) Comment: Cardiolipin Ab (IgM) Reference range: Value Units Interpretation <=12 MPL Negative 13-20 MPL Indeterminate 21-80 MPL Low to Medium Positive >80 MPL High Positive Test Performed at: [employer] [address] [place] [address] IZABELLA ROTH MD,PHD Blood specimen (specimen) BLOOD SPECIMEN / Unknown 01/30/2016 4:00 PM CDT 01/30/2016 4:02 PM CDT Marisela Beavers MD LAB - SEROLOGY ORDERABLES Performing Organization Address City/[facility]/ZIP Co de Phone Number [facility]) * CARDIOLIPIN ANTIBODY IGG (01/30/2016 4:00 PM CDT) Cardiolipin Antibody IgG <14 <=14 GPL [facility]) Comment: Cardiolipin Ab (IgG) Reference range: Value Units Interpretation <=14 GPL Negative 15-20 GPL Indeterminate 21-80 GPL Low to Medium Positive >80 GPL High Positive Test Performed at: [employer] [address] [place] [address] IZABELLA ROTH MD,PHD Blood specimen (specimen) BLOOD SPECIMEN / Unknown 01/30/2016 4:00 PM CDT 01/30/2016 4:02 PM CDT Marisela Beavers MD LAB - SEROLOGY ORDERABLES Performing Organization Address [facility] de Phone Number [facility]) * PARVOVIRUS B19 IGG/IGM AB PANEL (01/30/2016 4:00 PM CDT) Parvovirus B19 Antibody IgG 0.3 [facility]) Comment: REFERENCE RANGE: <0.9 INTERPRETIVE CRITERIA: <0.9 Negative 0.9 - 1.1 Equivocal >1.1 Positive IgG persists for years and provides life-long immunity. To diagnose current infection, consider Parvovirus B19 DNA, PCR. Parvovirus B19 Antibody IgM 0.2 [facility]) Comment: REFERENCE RANGE: <0.9 INTERPRETIVE CRITERIA: <0.9 Negative 0.9 - 1.1 Equivocal >1.1 Positive Results from any one IgM assay should not be used as a sole determinant of a current or recent infection. Because IgM tests can yield false positive results and low levels of IgM antibody may persist for months post infection, reliance on a single test result could be misleading. If an acute infection is suspected, consider obtaining a new specimen and submit for both IgG and IgM testing in two or more weeks. To diagnose current infection, consider Parvovirus B19 DNA, PCR. REPORT COMMENT: SPECIMEN TYPE->URINE Test Performed at: [employer] [address] [place] [phone] GOMEZ LOOMIS MD 01/30/2016 4:00 PM CDT 01/30/2016 4:02 PM CDT Marisela Beavers MD LAB - SEROLOGY ORDERABLES Performing Organization Address [facility] [[email or web address]] Co de Phone Number [facility]) * (ABNORMAL) BETSY BLOOD TITER (01/30/2016 4:00 PM CDT) BETSY Pattern #1 HOMOGENEOU S(A) [facility]) BETSY Pattern #1 1:80(H) titer [facility]) Comment: Reference Range <1:40 Negative 1:40-1:80 Low Antibody Level >1:80 Elevated Antibody Level Test Performed at: [place] [address] ROBIN WATTERS DO,MPH 01/30/2016 4:00 PM CDT 01/30/2016 4:02 PM CDT Marisela Beavers MD LAB - CHEMISTR Y ORDERABLES [facility]) * CYTOMEGALOVIRUS ANTIBODY IGG/IGM BLOOD PANEL (01/30/2016 4:00 PM CDT) Only the most recent of2 resultswithin the time period is included. Cytomegalovirus Antibody IgG < OR = 0.90 [facility] ([facility]) Comment: Value Interpretation ----- < or = 0.90 Negative 0.91-1.09 Equivocal > or = 1.10 Positive A positive result indicates that the patient has antibody to CMV. It does not differentiate between an active or past infection. Cytomegalovirus Antibody IgM <0.2 [facility] ([facility]) Comment: Value Interpretation ----- < or = 0.8 No Antibody Detected 0.9 - 1.0 Equivocal > or = 1.1 Antibody Detected Results from any one IgM assay should not be used as a sole determinant of a current or recent infection. Because an IgM test can yield false positive results and low level IgM antibody may persist for more than 12 months post infection, reliance on a single test result could be misleading. Acute infection is best diagnosed by demonstrating the conversion of IgG from negative to positive. If an acute infection is suspected, consider obtaining a new specimen and submit for both IgG and IgM testing in two or more weeks. Test Performed at: [place] [address] ROBIN WATTERS DO,MPH Blood specimen (specimen) BLOOD SPECIMEN / Unknown 01/30/2016 4:00 PM CDT 01/30/2016 4:02 PM CDT Marisela Beavers MD LAB - CHEMISTR Y ORDERABLES Performing Organization Address [facility] de Phone Number [facility] * THYROID PEROXIDASE ANTIBODY (01/30/2016 4:00 PM CDT) Thyroid Peroxidase TPO Antibody <1 <9 IU/mL [facility]) Comment: Test Performed at: [employer] [address] [place] [facility] [place] [address] ROBIN WATTERS DO,MPH Blood specimen (specimen) BLOOD SPECIMEN / Unknown 01/30/2016 4:00 PM CDT 01/30/2016 4:02 PM CDT Marisela Beavers MD LAB - CHEMISTR Y ORDERABLES Performing Organization Address [facility] Phone Number [facility] * THYROGLOBULIN ANTIBODY (01/30/2016 4:00 PM CDT) Thyroglobulin Antibody <1 < or = 1 IU/mL [facility]) Comment: Test Performed at: [facility] [place] [address] ROBIN WATTERS DO,MPH Blood specimen (specimen) BLOOD SPECIMEN / Unknown 01/30/2016 4:00 PM CDT 01/30/2016 4:02 PM CDT Marisela Beavers MD LAB - CHEMISTR Y ORDERABLES Performing Organization Address [facility] de Phone Number [facility]) * HLA TYPING B27 (01/30/2016 4:00 PM CDT) HLA-B27 NEGATIVE NEGATIVE [facility]) Comment: Test Performed at: [employer] [address] ELOY SEO MD Blood specimen (specimen) BLOOD SPECIMEN / Unknown 01/30/2016 4:00 PM CDT 01/30/2016 4:02 PM CDT Marisela Beavers MD LAB - CHEMISTR Y ORDERABLES Performing Organization Address [facility] de Phone Number [facility]) * COMPLEMENT C2 (01/30/2016 4:00 PM CDT) Pathologist [facility] C2 Complement 1.9 1.6 - 3.5 mg/dL [facility]) Comment: Low levels of C2 indicate increased catabolism (as in immune complex disease) or decreased synthesis. This test was developed and its analytical performance characteristics have been determined by [facility]. It has not been cleared or approved by FDA. This assay has been validated pursuant to the CLIA regulations and is used for clinical purposes. Test Performed at: [employer] [place] [facility] [address] [place] [address] BARBARA AUSTIN MD PHD Blood specimen (specimen) BLOOD SPECIMEN / Unknown 01/30/2016 4:00 PM CDT 01/30/2016 4:02 PM CDT Marisela Beavers MD LAB - CHEMISTR Y ORDERABLES Performing Organization Address [facility] de Phone Number [facility]) * RHEUMATOID ARTHRITIS PANEL (01/30/2016 4:00 PM CDT) Pathologist [facility] Rheumatoid Factor 8 <14 IU/mL [facility]) Cyclic Citrullinated Peptide Antibody <16 UNITS [facility]) Comment: Reference Range Negative: <20 Weak Positive: 20-39 Moderate Positive: 40-59 Strong Positive: >59 Interpretation These serologic results may be found in 10-20% of patients with polyarthritis that is [facility]) Interpretation clinically and radiologically indistinguishable from RA. [facility]) Comment: Test Performed at: [employer] [facility] [address] [place] [address] ROBIN WATTERS DO,MPH 01/30/2016 4:00 PM CDT 01/30/2016 4:02 PM CDT Marisela Beavers MD LAB - SEROLOGY ORDERABLES Performing Organization Address [facility]/ZIP Co de Phone Number [facility] * LDH BLOOD (01/30/2016 4:00 PM CDT) Pathologist [facility] LDH Total 115 110 - 230 U/L [facility]) Comment: Test Performed at: [employer] [facility] [place] [address] ROBIN WATTERS DO,MPH Blood specimen (specimen) BLOOD SPECIMEN / Unknown 01/30/2016 4:00 PM CDT 01/30/2016 4:02 PM CDT Marisela Beavers MD LAB - CHEMISTR Y ORDERABLES Performing Organization Address [facility] Phone Number [facility] * TSH (01/30/2016 4:00 PM CDT) Only the most recent of2 resultswithin the time period is included. Pathologist [facility] TSH 1.96 mIU/L [facility]) Comment: Reference Range 1-19 Years 0.50-4.30 Ranges First trimester 0.26-2.66 Second trimester 0.55-2.73 Third trimester 0.43-2.91 Test Performed at: [employer] [facility] [place] [address] ROBIN WATTERS DO,MPH Blood specimen (specimen) BLOOD SPECIMEN / Unknown 01/30/2016 4:00 PM CDT 01/30/2016 4:02 PM CDT Marisela Beavers MD LAB - CHEMISTR Y ORDERABLES Performing Organization Address [facility] de Phone Number [facility] * T4 FREE (01/30/2016 4:00 PM CDT) Only the most recent of2 resultswithin the time period is included. Pathologist [facility] T4 Free 1.4 0.9 - 1.4 ng/dL [facility]) Comment: Test Performed at: [employer] [facility] [place] [address] ROBIN WATTERS DO,MPH Blood specimen (specimen) BLOOD SPECIMEN / Unknown 01/30/2016 4:00 PM CDT 01/30/2016 4:02 PM CDT Marisela Beavers MD LAB - CHEMISTR Y ORDERABLES [facility]) * IGA BLOOD (01/30/2016 4:00 PM CDT) Only the most recent of2 resultswithin the time period is included. IgA 121 81 - 463 mg/dL [facility]) Comment: Test Performed at: [employer] [address] [place] [address] ROBIN WATTERS DO,MPH Blood specimen (specimen) BLOOD SPECIMEN / Unknown 01/30/2016 4:00 PM CDT 01/30/2016 4:02 PM CDT Marisela Beavers MD LAB - CHEMISTR Y ORDERABLES Performing Organization Address [facility] de Phone Number [facility] * XR RIBS BILATERAL 3 VW (10/15/2015 2:58 PM [employer] [facility]) Anatomical Region Laterality Modality Chest Radiographic Lorena ging 10/15/2015 3:09 PM [employer] [facility] Impressions 10/15/2015 3:10 PM [employer] Clear lungs. No acute osseous abnormality. Narrative 10/15/2015 3:10 PM [employer] [facility] Exam: Chest, 2 views Bilateral ribs, 2 views History: 15-year-old female with chest pain Comparison: None Findings: Chest: The mediastinal and cardiac silhouettes are normal. Both lungs are clear. There is no pleural effusion or pneumothorax. The osseous thorax is intact. Ribs: The osseous structures are intact and well aligned. No lytic or blastic lesions are seen. Procedure Note Kaylan Skelton MD - 10/15/2015 Exam: Chest, 2 views Bilateral ribs, 2 views History: 15-year-old female with chest pain Comparison: None Findings: Chest: The mediastinal and cardiac silhouettes are normal. Both lungs are clear. There is no pleural effusion or pneumothorax. The osseous thorax is intact. Ribs: The osseous structures are intact and well aligned. No lytic or blastic lesions are seen. IMPRESSION Clear lungs. No acute osseous abnormality. Cristopher Ty MD DIAGNOSTIC IMAGING O RDERABLES * IMMUNOSCORE IGE INTERP (10/15/2015 2:51 PM [facility] [employer] [facility]) Immunocap Score See Note 10/17/2015 9:39 PM [employer] [facility] ([facility]) Comment: REFERENCE INTERVAL: Allergen, Interpretation Less than 0.10 kU/L......Class 0.....No significant level detected 0.10-0.34 kU/L...........Class 0/1...Clinical relevance undetermined 0.35-0.70 kU/L...........Class 1.....Low 0.71-3.50 kU/L...........Class 2.....Moderate 3.51-17.50 kU/L..........Class 3.....High 17.51-50.00 kU/L.........Class 4.....Very High 50.01-100.00 kU/L........Class 5.....Very High Greater than 100.00kU/L..Class 6.....Very High Allergen results of 0.10-0.34 kU/L are intended for specialist use as the clinical relevance is undetermined. Even though increasing ranges are reflective of increasing concentrations of allergen-specific IgE, these concentrations may not correlate with the degree of clinical response or skin testing results when challenged with a specific allergen. The correlation of allergy laboratory results with clinical history and in vivo reactivity to specific allergens is essential. A negative test may not rule out clinical allergy or even anaphylaxis. Blood specimen (specimen) BLOOD SPECIMEN / Unknown Lab Venipuncture / Unknown 10/15/2015 2:51 PM [employer] [facility] 10/15/2015 3:19 PM [employer] [facility] Cristopher Ty MD LAB - SEROLOGY ORDER [facility] [address] [place], [place] [address] * (ABNORMAL) ALLERGEN RESPIRATORY PROFILE ([place],IA) (10/15/2015 2:51 PM [employer] [facility]) IgE Total 77 <=537 kU/L 10/17/2015 9:10 PM [facility] [facility] ([facility]) Comment: REFERENCE INTERVAL: Immunoglobulin E, Serum Access complete set of age- and/or gender-specific reference intervals for this test in the [facility] Test Directory ([email or web address]). Allergen Dermatophagoides farinae <0.10 <=0.34 kU/L 10/17/2015 9:10 PM [facility] [employer] [facility] ([facility]) Allergen Dermatophagoides pteronyssinus <0.10 <=0.34 kU/L 10/17/2015 9:10 PM [facility] [employer] [facility] ([facility]) Allergen Cat Dander <0.10 <=0.34 kU/L 10/17/2015 9:10 PM [employer] ([facility]) Allergen Dog Dander <0.10 <=0.34 kU/L 10/17/2015 9:10 PM [employer] ([facility]) Allergen Bermuda Grass <0.10 <=0.34 kU/L 10/17/2015 9:10 PM [facility] [employer] [facility] ([facility]) Allergen Demond Grass <0.10 <=0.34 kU/L 10/17/2015 9:10 PM [facility] [employer] [facility] ([facility]) Allergen Cockroach Martiniquais 0.38(H) <=0.34 kU/L 10/17/2015 9:10 PM [facility] [employer] [facility] ([facility]) Allergen Alternaria alternata <0.10 <=0.34 kU/L 10/17/2015 9:10 PM [facility] [facility] ([facility]) Allergen A fumigatus IgE <0.10 <=0.34 kU/L 10/17/2015 9:10 PM [facility] [facility] ([facility]) Allergen Hormodendrum <0.10 <=0.34 kU/L 10/17/2015 9:10 PM [facility] ([facility]) Allergen P. Notatum <0.10 <=0.34 kU/L 10/17/2015 9:10 PM [facility] ([facility]) Allergen Manati Maple <0.10 <=0.34 kU/L 10/17/2015 9:10 PM [facility] ([facility]) Allergen Hollis Tree <0.10 <=0.34 kU/L 10/17/2015 9:10 PM [facility] ([facility]) Allergen Elm <0.10 <=0.34 kU/L 10/17/2015 9:10 PM [facility] ([facility]) Allergen Tok Tree <0.10 <=0.34 kU/L 10/17/2015 9:10 PM [facility] ([facility]) Allergen [place] Alexander <0.10 <=0.34 kU/L 10/17/2015 9:10 PM [facility] ([facility]) Allergen White Dundee Tree IgE <0.10 <=0.34 kU/L 10/17/2015 9:10 PM [facility] ([facility]) Allergen Table Grove <0.10 <=0.34 kU/L 10/17/2015 9:10 PM [facility] ([facility]) Allergen Pecan Tree <0.10 <=0.34 kU/L 10/17/2015 9:10 PM [facility] ([facility]) Allergen Cayuga Tree <0.10 <=0.34 kU/L 10/17/2015 9:10 PM [facility] ([facility]) Allergen White David <0.10 <=0.34 kU/L 10/17/2015 9:10 PM [facility] ([facility]) Allergen Rough Pigweed <0.10 <=0.34 kU/L 10/17/2015 9:10 PM [facility] ([facility]) Allergen Common Ragweed <0.10 <=0.34 kU/L 10/17/2015 9:10 PM [facility] ([facility]) Allergen Contreras Elder 0.25 <=0.34 kU/L 10/17/2015 9:10 PM [facility] ([facility]) Allergen Estonian Thistle <0.10 <=0.34 kU/L 10/17/2015 9:10 PM [facility] ([facility]) Allergen Mouse <0.10 <=0.34 kU/L 10/17/2015 9:10 PM [facility] ([facility]) Allergen Mucor racemosus <0.10 <=0.34 kU/L 10/17/2015 9:10 PM [facility] ([facility]) Allergen Peanut <0.10 <=0.34 kU/L 10/17/2015 9:10 PM [facility] ([facility]) Allergen Milk (Cow) <0.10 <=0.34 kU/L 10/17/2015 9:10 PM [facility] ([facility]) Blood specimen (specimen) BLOOD SPECIMEN / Unknown Lab Venipuncture / Unknown 10/15/2015 2:51 PM [facility] [facility] 10/15/2015 3:19 PM [facility] [[email or web address]] Cristopher Ty MD LAB - CHEMISTRY [facility] ([facility]) [address] [place] [address], [facility] * CBC W MANUAL DIFFERENTIAL (10/15/2015 2:51 PM [facility] [[email or web address] WBC 7.6 4.5 - 11.0 x10^9/L 10/15/2015 3:58 PM [facility] RBC 4.58 4.10 - 5.10 x10^12/L 10/15/2015 3:58 PM [facility] Hemoglobin 13.9 12.0 - 16.0 gm/dL 10/15/2015 3:58 PM [facility] Hematocrit 39.0 36.0 - 47.0 % 10/15/2015 3:58 PM [facility] MCV 85.2 78.0 - 98.0 fl 10/15/2015 3:58 PM [facility] MCH 30.3 25.0 - 35.0 pg 10/15/2015 3:58 PM [facility] MCHC 35.6 31.0 - 37.0 gm/dL 10/15/2015 3:58 PM [facility] RDW-CV 12.1 11.5 - 14.0 % 10/15/2015 3:58 PM [facility] MPV 8.9 6.0 - 9.5 fl 10/15/2015 3:58 PM [facility] Platelet Count 280 100 - 400 x10^9/L 10/15/2015 3:58 PM [facility] Blood BLOOD SPECIMEN / Unknown Lab Venipuncture / Unknown 10/15/2015 2:51 PM [facility] [[email or web address]] 10/15/2015 3:19 PM [employer] [facility] Cristopher Ty MD LAB - HEMATOLOGY ORD ERABLES [facility] [place] [address] * DIFFERENTIAL MANUAL (10/15/2015 2:51 PM [facility] [employer] [facility]) Only the most recent of2 resultswithin the time period is included. WBC Auto 7.6 4.5 - 11.0 x10^9/L 10/15/2015 6:38 PM [facility] WBC Corrected 4.5 - 11.0 x10^9/L 10/15/2015 6:38 PM [facility] nRBC /100 WBC 10/15/2015 6:38 PM [facility] Neutrophil % Manual 63 31 - 78 % 10/15/2015 6:38 PM [facility] Lymphocytes % Manual 28 13 - 54 % 10/15/2015 6:38 PM [facility] Monocytes % Manual 8 4 - 13 % 10/15/2015 6:38 PM [facility] Band % Manual 1 % 10/15/2015 6:38 PM [facility] Cells Counted 100 # cells 10/15/2015 6:38 PM [facility] Platelet Estimation Adequate platelets Normal, Adequate platelets 10/15/2015 6:38 PM [facility] RBC Morphology Normal 10/15/2015 6:38 PM [facility] WBC Morph Normal 10/15/2015 6:38 PM [facility] Blood BLOOD SPECIMEN / Unknown Lab Venipuncture / Unknown 10/15/2015 2:51 PM [facility] [employer] [facility] 10/15/2015 3:19 PM [employer] [facility] Cristopher Ty MD LAB - HEMATOLOGY ORD ERABLES [facility] [place] [address] * IMMUNOGLOBULINS PANEL (10/15/2015 2:51 PM [facility] [facility]) Only the most recent of2 resultswithin the time period is included. IgA 127 65 - 421 mg/dL 10/15/2015 4:25 PM [facility] IgG 895 552 - 1,631 mg/dL 10/15/2015 4:25 PM [facility] IgM 60 33 - 293 mg/dL 10/15/2015 4:25 PM [facility] Blood BLOOD SPECIMEN / Unknown Lab Venipuncture / Unknown 10/15/2015 2:51 PM [facility] [facility] 10/15/2015 3:19 PM [employer] Cristopher Ty MD LAB - CHEMISTRY HUMBLERaul DIGGSVITALY Performing Organization Address [facility] de Phone Number [facility] [address] [place] [id number] * HELICOBACTER PYLORI UREASE (STL) (09/29/2015 11:01 AM [facility] [facility] [facility]) Helicobacter pylori Urease Initial Negative Negative 09/30/2015 11:15 AM [facility] Helicobacter pylori Urease Final Negative Negative 09/30/2015 11:15 AM [facility] Microbiology GASTRIC BIOPSY SPECIMEN / Unknown 09/29/2015 11:01 AM [facility] 09/29/2015 11:11 AM [facility] [facility] Andrew Alonso MD LAB - MICROBIOLOGY O RDERABLES Performing Organization Address [facility] de Phone Number [facility] [address] [place] [phone] * GROSS + MICRO EXAM (STL) (09/29/2015 10:24 AM [facility] [facility]) Case Report Surgical Pathology Report Case: [id number] Authorizing Provider: Andrew Alonso MD Collected: 09/29/2015 10:24 AM Ordering Location: ENDOSCOPY SERVICES Received: 09/29/2015 11:51 AM Pathologist: Angel Layne MD Specimens: A) - Duodenal Biopsy B) - Stomach Biopsy C) - Esophageal Biopsy 10/06/2015 12:01 PM [facility] Final Diagnosis A. DUODENUM, BIOPSY: - NO PATHOLOGIC DIAGNOSIS B. STOMACH, BIOPSY: - NO PATHOLOGIC DIAGNOSIS C. ESOPHAGUS, BIOPSY: - NO PATHOLOGIC DIAGNOSIS 10/06/2015 12:01 PM [facility] Clinical History The patient is a 15-year-old girl with abdominal pain who underwent upper endoscopy. 10/06/2015 12:01 PM [facility] Gross Description The specimens are received fixed in formalin in three containers for gross and microscopic examination. All containers are labeled with the patient's name, Kalee Aguillon. Specimen A, duodenal biopsy, consists of three soft, pink-contreras tissue fragments, 5 mm to 11 mm in greatest dimension. The specimen is submitted in toto as A1. Specimen B, stomach biopsy, consists of three soft, pink-contreras tissue fragments, 3 mm to 5 mm in greatest dimension. The specimen is submitted in toto as B1. Specimen C, esophageal biopsy, consists of four soft, pink-contreras translucent tissue fragments, 3 mm to 5 mm in greatest dimension. The specimen is submitted in toto as C1. (/scs) 10/06/2015 12:01 PM [facility] Microscopic Description Sections of the duodenum show normal crypt to villous architecture with no increase in intraepithelial lymphocytes. Sections of the stomach show normal stomach mucosa with no extensive inflammation. Sections of the esophagus show squamous mucosa with no significant inflammation or reactive changes. (MG/PD/bs) 10/06/2015 12:01 PM [facility] Pathology/Cytology ESOPHAGEAL BIOPSY SPECIMEN / Unknown 09/29/2015 10:24 AM [facility] [facility] 09/29/2015 11:51 AM [facility] [employer] [facility] Miscellaneous samples (specimen) BIOPSY OF STOMACH / Unknown 09/29/2015 10:24 AM [facility] [facility] 09/29/2015 11:51 AM [facility] [[email or web address]] Miscellaneous samples (specimen) ESOPHAGEAL BIOPSY SPECIMEN / Unknown 09/29/2015 10:24 AM [facility] [facility] 09/29/2015 11:51 AM [facility] [[email or web address]] Andrew Alonso MD LAB - PATHOLOGY/CYTO LOGY ORDERABLES Performing Organization Address City/State/[facility] [[email or web address]] Co de Phone Number [facility] [place] [address] * HCG URINE QUALITATIVE - POCT (IP) JEWELL (09/29/2015 10:15 AM [employer] [facility]) Only the most recent of2 resultswithin the time period is included. HCG Qual Urine Negative Negative [facility] POCT TESTING QC Verified Yes Yes [facility] PO CT TESTING Urine specimen (specimen) URINE / Unknown 09/29/2015 10:15 AM [employer] [facility] Adnrew Alonso MD LAB - POINT OF CARE ORDERABLES [facility] POCT TESTING [address] [place] [address], [facility] [phone] * EGD (09/29/2015 6:37 AM [facility] [facility]) Report Endoscopy POC _ Patient Name: Kalee Aguillon Date of : 2000 Admit Type: Outpatient Age: 15 Gender: Female Attending MD: Andrew Alonso MD Order #: [id number] _ Procedure: Upper GI endoscopy Indications: Epigastric abdominal pain Providers: Andrew Alonso MD Referring MD: Kelechi Camacho Medicines: General Anesthesia Complications: No immediate complications. _ Procedure: After obtaining informed consent, the endoscope was passed under direct vision. Throughout the procedure, the patient's blood pressure, pulse, and oxygen saturations were monitored continuously. The Endoscope was introduced through the anus and advanced to the second part of duodenum. After obtaining informed consent, the endoscope was passed under direct vision. Throughout the procedure, the patient's blood pressure, pulse, and oxygen saturations were monitored continuously. The upper GI endoscopy was accomplished without difficulty. The patient tolerated the procedure well. Findings: The examined duodenum was normal. Biopsies were taken with a cold forceps for histology. The entire examined stomach was normal. Biopsies were taken with a cold forceps for histology. Biopsies were taken with a cold forceps for Helicobacter pylori testing using CLOtest. LA Grade A (one or more mucosal breaks less than 5 mm, not extending between tops of 2 mucosal folds) esophagitis with no bleeding was found. Biopsies were taken with a cold forceps for histology. Impression: - Normal examined duodenum. Biopsied. - Normal stomach. Biopsied. - LA Grade A reflux esophagitis. Biopsied. Recommendation: - Await pathology results. - Discharge patient to home (with parent). Procedure Code(s): --- Professional --- 10152, Esophagogastrodu odenoscopy, flexible, transoral; with biopsy, single or multiple --- Technical --- 30847, Esophagogastrodu odenoscopy, flexible, transoral; with biopsy, single or multiple Diagnosis Code(s): --- Professional --- K21.0, Gastro-esophagea l reflux disease with esophagitis R10.13, Epigastric pain --- Technical --- K21.0, Gastro-esophagea l reflux disease with esophagitis R10.13, Epigastric pain CPT copyright 2014 [employer]. All rights reserved. The codes documented in this report are preliminary and upon mental health social worker review may be revised to meet current compliance requirements. Dr. Andrew Alonso Andrew Alonso MD 09/29/2015 11:25:01 AM This report has been signed electronically. Number of Addenda: 0 Note Initiated On: 09/29/2015 6:37 AM Procedure Date: 09/29/2015 6:37:01 AM This report has been signed electronically. [facility] 09/29/2015 6:37 AM [employer] Andrew Alonso MD GI PROCEDURE ORDERAB LES Performing Organization Address [facility] [[email or web address]] Co de Phone Number [facility] [address] [place] [address] * LIPASE BLOOD (09/02/2015 3:06 PM [employer] [facility]) Only the most recent of2 resultswithin the time period is included. Pathologist [facility] Lipase 23 10 - 220 U/L 09/02/2015 4:41 PM [employer] [facility] Blood BLOOD SPECIMEN / Unknown Lab Venipuncture / Unknown 09/02/2015 3:06 PM [employer] [facility] 09/02/2015 3:53 PM [employer] [facility] Andrew Alonso MD LAB - CHEMISTRY ORDE RABVITALY Performing Organization Address [facility] [[email or web address]] Co de Phone Number [facility] [address] [place] [address] * LAB RESULTS ORDER (05/24/2015 9:06 PM CDT) Narrative 05/24/2015 9:06 PM CDT Ordered by an unspecified provider. Scanned Document LAB - THERAPEUTIC DR HARRIET MONITORING ORDERABLES * EKG 15-LEAD (05/14/2015 3:53 PM CDT) Ventricular Rate 62 BPM CG MUSE Atrial Rate 62 BPM CG MUSE P-R Interval 132 ms CG MUSE QRS Duration ms 90 ms CG MUSE Q-T Interval ms 382 ms CG MUSE QTC Calculation (Bezet) 387 ms CG MUSE Calculated P [place] 72 degrees CG MUSE Calculated R [place] 69 degrees CG MUSE Calculated T [place] 50 degrees CG MUSE Interpretation EKG Normal sinus rhythm Normal ECG No previous ECGs available Confirmed by MD Brian, Roxanne ([id number]) on 05/19/2015 10:40:01 AM CG MUSE 05/14/2015 3:53 PM CDT 05/19/2015 10:40 AM CDT Roxanne Torres MD ECG ORDERABLES Performing Organization Address [facility] [[email or web address]] Co de Phone Number CG MUSE * (ABNORMAL) HEPATIC FUNCTION PANEL (04/19/2015 11:28 AM CDT) Only the most recent of7 resultswithin the time period is included. Alkaline Phosphatase 74(L) 100 - 390 U/L 04/19/2015 12:07 PM T [facility] ALT 38 8 - 65 U/L 04/19/2015 12:07 PM T [facility] AST 24 3 - 35 U/L 04/19/2015 12:07 PM T [facility] Protein Total 7.3 6.3 - 8.2 gm/dL 04/19/2015 12:07 PM T [facility] Albumin 4.4 3.3 - 4.9 gm/dL 04/19/2015 12:07 PM [facility] Bilirubin Total 0.8 0.3 - 1.2 mg/dL 04/19/2015 12:07 PM [facility] Bilirubin Direct 0.43 0.11 - 0.64 mg/dL 04/19/2015 12:07 PM T [facility] Blood BLOOD SPECIMEN / Unknown Lab Venipuncture / Unknown 04/19/2015 11:28 AM CDT 04/19/2015 11:37 AM CDT Andrew Alonso MD LAB - [facility]MISTRY [facility]DRaul [facility] Performing Organization Address [facility] de Phone Number [facility] [address] [place] [phone] * (ABNORMAL) GGT (04/19/2015 11:28 AM CDT) Only the most recent of6 resultswithin the time period is included. Pathologist [facility] GGT 124(H) 8 - 69 U/L 04/19/2015 12:07 PM T [facility] Blood BLOOD SPECIMEN / Unknown Lab Venipuncture / Unknown 04/19/2015 11:28 AM CDT 04/19/2015 11:37 AM CDT Andrew Alonso MD LAB - CHEMISTRY ORDRaul [facility] Performing Organization Address [facility]/ZIP Co de Phone Number [facility] [address] [place] [phone] * (ABNORMAL) F-ACTIN (SMOOTH MUSCLE) ANTIBODY W REFLEX TITER (03/18/2015 8:39 PM CDT) F-Actin Antibody IgG 44(H) 0 - 19 Units 03/18/2015 4:20 PM CDT [facility] ([facility]) Comment: INTERPRETIVE INFORMATION: F-Actin (Smooth Muscle) Antibody, IgG by LEANDRO 19 Units or less ....... Negative 20 - 30 Units .......... Weak Positive-Suggest repeat testing in two to three weeks with fresh specimen. 31 Units or greater..... Positive-Suggestive of autoimmune hepatitis type 1 or chronic active hepatitis. F-actin antibodies have been shown to have greater sensitivity and specificity for autoimmune liver disease than anti-smooth muscle antibodies. Blood specimen (specimen) BLOOD SPECIMEN / Unknown 03/18/2015 8:39 PM CDT 03/17/2015 4:38 AM CDT Shania Vasquez DO LAB - SEROLOGY ORD ERABLES Performing Organization Address [facility] de Phone Number [facility] [address] * (ABNORMAL) SMOOTH MUSCLE ANTIBODY TITER (03/18/2015 8:39 PM CDT) Smooth Muscle Antibody IgG Titer 1:20(H) <1:20 03/19/2015 2:25 PM CDT [facility] ([facility]) Comment: INTERPRETIVE INFORMATION: Smooth Muscle Ab, IgG Titer Less than 1:20 ........ Negative - No antibody detected. 1:20 - 1:80 .......... Weak Positive - Suggest repeat in two to three weeks with fresh specimen. 1:160 or greater ...... Positive - Suggestive of autoimmune hepatitis or chronic active hepatitis. Blood specimen (specimen) BLOOD SPECIMEN / Unknown 03/18/2015 8:39 PM CDT 03/17/2015 4:38 AM CDT Shania Vasquez DO LAB - CHEMISTRY OR DERABLES Performing Organization Address [facility] [[email or web address]] Co de Phone Number [facility] [address] * MONONUCLEOSIS SCREEN (03/18/2015 11:21 AM CDT) Pathologist [facility] Mononucleosis Screen Negative Negative 03/18/2015 12:24 PM CDT [facility] Blood BLOOD SPECIMEN / Unknown 03/18/2015 11:21 AM CDT 03/18/2015 11:41 AM CDT Tigre Roque MD LAB - CHEMISTRY O RDERABLES [facility] [address] [place] [phone] * (ABNORMAL) MAGDA-GUZMAN VIRUS PANEL (03/18/2015 11:21 AM CDT) [facility] Magda-Guzman Virus Antibody IgG Early Antigen 14.5(H) 0.0 - 10.9 U/mL 03/19/2015 2:20 PM CDT [facility] ([facility]) Comment: Cross-reactivity between EBV EA(D) and Human Immunodeficiency Virus (HIV), Hepatitis A, B, and C has been documented. INTERPRETIVE INFORMATION: Magda-Guzman Virus Antibody to Early D Antigen (EA-D), IgG 8.9 U/mL or less........Not Detected 9.0-10.9 U/mL...........Indeterminate - Repeat testing in -14 may be helpful. 11.0 U/mL or greater....Detected Interpretive information regarding serologic features of EBV-associated diseases is available at [email or web address]. Magda-Guzman Virus Antibody IgG Viral Capsid Antigen 84.5(H) 0.0 - 21.9 U/mL 03/19/2015 2:20 PM CDT [facility] ([facility]) Comment: INTERPRETIVE INFORMATION: Magda-Guzman Virus Antibody to Viral Capsid Antigen, IgG 17.9 U/mL or less.......Not Detected 18.0-21.9 U/mL..........Indeterminate - Repeat testing in 10-14 days may be helpful. 22.0 U/mL or greater....Detected Interpretive information regarding serologic features of EBV-associated diseases is available at [email or web address]. Magda-Guzman Virus Antibody IgM Viral Capsid Antigen >160.0(H ) 0.0 - 43.9 U/mL 03/19/2015 2:20 PM CDT [facility] [employer] ([facility]) Comment: INTERPRETIVE INFORMATION: Magda-Guzman Virus Antibody to Viral Capsid Antigen, IgM 35.9 U/mL or less.......Not Detected 36.0-43.9 U/mL..........Indeterminate - Repeat testing in 10-14 days may be helpful. 44.0 U/mL or greater....Detected Interpretive information regarding serologic features of EBV-associated diseases is available at [email or web address]. Magda-Guzman Virus Antibody IgG Nuclear Antigen <3.0 0.0 - 21.9 U/mL 03/19/2015 2:20 PM CDT [employer] ([facility]) Comment: INTERPRETIVE INFORMATION: Magda-Guzman Virus Antibody to Nuclear Antigen, IgG 17.9 U/mL or less.......Not Detected 18.0-21.9 U/mL..........Indeterminate - Repeat testing in 10-14 days may be helpful. 22.0 U/mL or greater....Detected Interpretive information regarding serologic features of EBV-associated diseases is available at [email or web address]. Blood specimen (specimen) BLOOD SPECIMEN / Unknown 03/18/2015 11:21 AM CDT 03/18/2015 11:41 AM CDT Tigre Roque MD LAB - CHEMISTRY O RDERABLES [facility] ([facility]) [address] [place] [address], [facility] * (ABNORMAL) URINALYSIS ROUTINE AUTO (03/17/2015 4:00 PM CDT) Only the most recent of2 resultswithin the time period is included. Color UA Yellow Straw, Yellow, Dark Yellow 03/17/2015 4:34 PM CDT [facility] Clarity UA Clear 03/17/2015 4:34 PM CDT [facility] Specific [place] UA 1.010 1.005 - 1.030 03/17/2015 4:34 PM CDT [facility] pH UA 5.5 5.0 - 8.0 pH 03/17/2015 4:34 PM CDT [facility] Protein UA Negative Negative 03/17/2015 4:34 PM CDT [facility] Blood UA Negative Negative 03/17/2015 4:34 PM CDT [facility] Leukocyte UA Negative Negative 03/17/2015 4:34 PM CDT [facility] Nitrite UA Negative Negative 03/17/2015 4:34 PM CDT [facility] Glucose UA Negative Negative 03/17/2015 4:34 PM CDT [facility] Ketone UA Negative Negative 03/17/2015 4:34 PM CDT [facility] Bilirubin UA 2+(A) Negative 03/17/2015 4:34 PM CDT [facility] Urobilinogen UA 0.2 0.1 - 1.0 EU/dL 03/17/2015 4:34 PM T [facility] Urine URINE SPECIMEN OBTAINED BY CLEAN CATCH PROCEDURE / Unknown 03/17/2015 4:00 PM CDT 03/17/2015 4:03 PM CDT Tanya Gaffney MD LAB - URINALYSIS ORD ERABLES [facility] [place], [place] [id number] * (ABNORMAL) URINALYSIS MICROSCOPIC ONLY (03/17/2015 4:00 PM CDT) Only the most recent of2 resultswithin the time period is included. RBC UA 0-2 0-2, 2-5 # /hpf 03/17/2015 4:35 PM CDT [facility] WBC UA 0-2 0-2, 2-5 # /hpf 03/17/2015 4:35 PM T [facility] Bacteria UA 1+(A) None Seen, Trace 03/17/2015 4:35 PM CDT [facility] Epithelial Cell UA 2-5 0-2, 2-5 03/17/2015 4:35 PM CDT [facility] Mucus UA 1+ 03/17/2015 4:35 PM T [facility] Urine URINE SPECIMEN OBTAINED BY CLEAN CATCH PROCEDURE / Unknown 03/17/2015 4:00 PM CDT 03/17/2015 4:03 PM CDT Tanya Gaffney MD LAB - URINALYSIS ORD ERABLES [facility] [place] [address] * US LIVER (03/17/2015 10:35 AM CDT) Anatomical Region Laterality Modality Ultrasound 03/17/2015 11:0 9 AM CDT Impressions 03/17/2015 11:11 AM CDT Hepatosplenomegaly. Narrative 03/17/2015 11:11 AM CDT Liver sonogram History: Jaundice and epigastric pain. No prior examinations are available for comparison. The liver is mildly enlarged with normal parenchymal echotexture. No focal mass or intrahepatic ductal dilatation is present. The gallbladder is normal without stones, wall thickening, or pericholecystic fluid. The common bile duct has a normal diameter of 3 mm. The spleen is enlarged at 13.2 cm in length. Procedure Note Judy Sanabria MD - 03/17/2015 Liver sonogram History: Jaundice and epigastric pain. No prior examinations are available for comparison. The liver is mildly enlarged with normal parenchymal echotexture. No focal mass or intrahepatic ductal dilatation is present. The gallbladder is normal without stones, wall thickening, or pericholecystic fluid. The common bile duct has a normal diameter of 3 mm. The spleen is enlarged at 13.2 cm in length. IMPRESSION Hepatosplenomegaly. Shania Vasquez DO US ORDERABLES * PT PTT PANEL (03/17/2015 5:16 AM CDT) PT 9.7 9.5 - 11.6 sec 03/17/2015 6:01 AM CDT [facility] INR 0.9 0.9 - 1.1 03/17/2015 6:01 AM CDT [facility] PTT 31.5 21.0 - 32.0 sec 03/17/2015 6:01 AM CDT [facility] Blood BLOOD SPECIMEN / Unknown 03/17/2015 5:16 AM CDT 03/17/2015 5:24 AM CDT Narrative [facility] - 03/17/2015 6:01 AM CDT Conventional Warfarin Anticoagulant Therapy INR Reference Range: 2.0-3.0 Intensive Warfarin Anticoagulant Therapy INR Reference Range: 2.5-3.5 Heparin Therapeutic Range for PTT: 44.4 - 78.3 seconds. Shania Vasquez DO LAB - COAGULATION ORDERABLES Performing Organization Address City/[facility]/ZIP Co de Phone Number [facility] [place] [address] * MICROSOMAL ANTIBODY LIVER/KIDNEY (03/17/2015 4:21 AM CDT) Liver/Kidney Microsomal Antibody IgG <1:20 <1:20 03/19/2015 5:36 AM CDT [facility] ([facility]) Comment: INTERPRETIVE INFORMATION: Gyqxr-Bmpcqc-Zurpabypx Abs, IgG Liver-Kidney Microsome IgG antibody (anti-LKM), as detected by indirect immunofluorescent antibody (IFA) techniques, may be observed in patients with autoimmune hepatitis type 2 (AIH-2), AIH-2 associated with autoimmune uoflwyizgpqhpeitdz-cqjrkgzopeg-ygsaqozwrd dystrophy (APECED), viral hepatitis C or D, and some forms of drug-induced hepatitis. This IFA does not differentiate among the four types of LKM antibodies (LKM-1, LKM-2, LKM-3, and a fourth type that recognizes CY and CY antigens). Of these, anti-LKM-1 (cytochrome [id number]) IgG antibodies are considered specific for AIH-2. Test developed and characteristics determined by [facility]. See Compliance Statement D: [email or web address] Blood specimen (specimen) BLOOD SPECIMEN / Unknown 03/17/2015 4:21 AM CDT 03/17/2015 4:37 AM CDT Shania Vasquez DO LAB - CHEMISTRY OR DERABLES Where [facility] Been ([facility]) [address] * (ABNORMAL) MAGDA-GUZMAN VIRUS PCR QUANTITATIVE WHOLE BLOOD (03/16/2015 9:01 PM CDT) Magda-Guzman Quant Source Whole Blood 03/19/2015 10:43 AM CDT [facility] ([facility]) Magda-Guzman Quant copy/mL 27,900 cpy/mL 03/19/2015 10:43 AM CDT [facility] ([facility]) Magda-Guzman Quant Log 4.4 log 03/19/2015 10:43 AM CDT [facility]) Comment: INTERPRETIVE INFORMATION: Magda Guzman Virus by Quantitative PCR The quantitative range of this assay is 2.6-7.6 log copies/mL (390-39,000,000 copies/mL). A negative result (less than 2.6 log copies/mL or less than 390 copies/mL) does not rule out the presence of PCR inhibitors in the patient specimen or EBV DNA nucleic acid in concentrations below the level of detection of the assay. Inhibition may also lead to underestimation of viral quantitation. No international standard is currently available for calibration of this assay. Caution should be taken when interpreting results generated by different assay methodologies. Test developed and characteristics determined by [facility]. See Compliance Statement A: [email or web address] Interpretation EBV Quantitative Detected (A) Not Detected 03/19/2015 10:43 AM CDT [facility]) Blood specimen (specimen) BLOOD SPECIMEN / Unknown 03/16/2015 9:01 PM CDT 03/16/2015 9:09 PM CDT Roz Frazier MD LAB - SEROLOGY [place] [facility] Organization Address City/State/ZIP Co de Phone Number [facility]) [address] * (ABNORMAL) BILIRUBIN DIRECT (03/16/2015 9:01 PM CDT) Pathologist [facility] Bilirubin Direct 8.15(H) 0.11 - 0.64 mg/dL 03/16/2015 10:19 PM CDT [facility] Blood BLOOD SPECIMEN / Unknown 03/16/2015 9:01 PM CDT 03/16/2015 9:51 PM CDT Tristen Aponte MD LAB - CHEMISTRY [place] Performing Organization Address [facility]/ZIP Co de Phone Number [facility] [address] [place] [address] * HEPATITIS SCREEN ACUTE (03/16/2015 9:01 PM CDT) HAV Antibody IgM Non Reactive Non Reactive 03/18/2015 8:22 AM CDT [facility] HBsAg Non Reactive Non Reactive 03/18/2015 8:22 AM CDT [facility] HBc Antibody IgM Non Reactive Non Reactive 03/18/2015 8:22 AM CDT [facility] HCV Antibody Screen Non Reactive Non Reactive 03/18/2015 8:22 AM CDT [facility] HCV S/C Ratio 0.17 0.00 - 0.79 03/18/2015 8:22 AM CDT [facility] Comment: S/C ratio <0.80: Non Reactive Blood BLOOD SPECIMEN / Unknown 03/16/2015 9:01 PM CDT 03/16/2015 9:18 PM CDT Narrative [facility] - 03/18/2015 8:22 AM CDT Non Reactive - Antibodies to HCV were not detected, result does not exclude early acute HCV infection. Non Reactive - Antibodies to HCV were not detected, result does not exclude early acute HCV infection. Roz Frazier MD LAB - CHEMISTRY ORD MARIE Performing Organization Address [facility] [[email or web address]] Co de Phone Number [facility] [address] [place] [address] Care Teams Analytical Data Miner Relationship Specialty Start Date End Date Cem Hernandez MD [facility] [place] [address] [place] [address] PCP - General Family Medicine 11/05/24
--- OUTSIDE RECORDS SUMMARY | 2024-11-24 09:04 | XMS_ITS ---
Author Organization [facility] Address [address] [place] [address] Care Team Providers Care Content Designer Name Role Phone Migration, Provider Unavailable Unavailable REASON FOR VISIT EMR-Singh Encounters Encounter Location Date Provider Diagnosis [facility] [address] [place] [address] 07/21/2024 Provider Migration Plan Of Treatment No Information Progress Notes * Carl RITTERDashaB:2000 (24 yo F)Acc No.[id number]:07/21/2024 Patient: Kalee GARCIA :2000 A ge:24 Y S ex:Female Address:[address] [place] [address], [id number] Subjective: * Chief Complaints: * E MR-Singh * Medical History: * Surgical History: * Hospitalization/Major Diagno stic Procedure: * Medications: Objective: * Physical Examination: Plan: * Treatment: * Procedure Codes: Billing Information: * Visit Code: * Procedure Codes: * * Date:
--- OUTSIDE RECORDS SUMMARY | 2024-11-24 09:04 | XMS_ITS | Encounter Summary ---
Author Organization [facility] Healthcare Address [address] [place] [address] Care Team Providers Care Math Coach Name Role Phone Willow Dunham DNP Primary Care Provi kailyn Reason for Referral * Procedure (Routine) - Closed Specialty Diagnoses / Procedures Referred By Justice chavez Referred To Contact Diagnoses Dyspnea, unspecified type Procedures Pulmonary Function Test [facility]; Full PFT in PFT Lab Willow Dunham DNP [address] [facility] [address] [place] [address] [place] [address] Phone: tel: fax: [address] [address] Referral ID Status Reason Start Date Expiration Date Visits Re quested Visits Authorized [id number] Closed 11/19/2024 12/19/2025 1 1 GE ACCOUNT IDENTIFICATION CLERK Reason for Visit * Procedure (Routine) - Closed Specialty Diagnoses / Procedures Referred By Justice chavez Referred To Contact Diagnoses Dyspnea, unspecified type Procedures Pulmonary Function Test [facility]; Full PFT in PFT Lab Willow Dunham DNP [address] [facility] [address] [place] [address] [place] [address] Phone: tel: fax: [address] [place] [address] Referral ID Status Reason Start Date Expiration Date Visits Re quested Visits Authorized [id number] Closed 11/19/2024 12/19/2025 1 1 Encounter Details Date Type Department Care Team (Latest Contact Info) Description 11/23/2024 3:12 PM CHARGE ACCOUNT IDENTIFICATION CLERK - 11/23/2024 11:59 PM CHARGE ACCOUNT IDENTIFICATION CLERK Hospital Encounter [facility] Respiratory Therapy [facility] [place] [address] Dyspnea, unspecified type Discharge Disposition: Discharge to home or self care Social History Tobacco Use Types Packs/Day Years Used Date Smoking Tobacco: Former Cigarettes 0.3 5 0 10/20/2014 - 10/20/2018 Hookah E-cigarettes Vaping Smokeless Tobacco: Former Quit: 10/20/2018 AUDIT-C Answer Date Recorded Q1: How often [...] on file Legal Sex Female 8:46 PM CHARGE ACCOUNT IDENTIFICATION CLERK Gender Identity Not on file Sexual Orientation Not on file documented as of this encounter Medications at Time of Discharge amLODIPine (NORVASC) 2.5 mg tabletIndications:R aynaud's Phenomenon Take 1 tablet (2.5 mg total) by mouth daily 90 tablet 1 11/19/2024 6 drospirenone-ethiny l estradioL (Sanjuanita, 28,) 3-0.02 mg per tabletIndications:A cne Vulgaris,Polycystic Ovarian Syndrome, Contraception Take 1 tablet by mouth daily 84 tablet 3 11/19/2024 6 fexofenadine (JADEN) 180 mg tablet Take 1 tablet (180 mg total) by mouth daily 90 tablet 1 11/19/2024 fluticasone propionate (FLONASE) 50 mcg/actuation nasal spray Administer 2 sprays into each nostril daily 3 each 3 11/19/2024 ondansetron (ZOFRAN) 4 mg tablet 1 tablet (4 mg total) every [address] (PROTONIX) 20 mg EC tablet Take 2 tablets (40 mg total) by mouth daily 180 tablet 11/19/2024 rimegepant (Nurtec ODT) tablet,disintegrati ngIndications:Migra ine Prevention Take 1 tablet (75 mg total) by mouth every other day 15 tablet 1 11/19/2024 rizatriptan (MAXALT) 5 mg tablet Take 1 tab by mouth once at first sign of migraine. May repeat one time after 2 hours if needed. 11/16/2024 documented as of this encounter Discharge Disposition Disposition Code Departure Means Destination Discharge to home or self care documented in this encounter Plan of Treatment Pending Results Name Type Priority Associated Diagnoses Date /Time Pulmonary Function Test - PFT Routine Dyspnea, unspecified type 11/23/2024 3:55 PM CHARGE ACCOUNT IDENTIFICATION CLERK documented as of this encounter Procedures Procedure Name Priority Date/Time Associated Diagnosis Comments PULMONARY FUNCTION TEST (PFT) Routine 11/23/2024 3:55 PM CHARGE ACCOUNT IDENTIFICATION CLERK Dyspnea, unspecified type documented in this encounter Visit Diagnoses Diagnosis Dyspnea, unspecified type documented in this encounter Care Teams Math Coach Relationship Specialty Start Date End Date Willow Dunham DNP [address] [facility] [address] [place] [address] [place] [address] PCP - General Family Medicine 11/19/24 documented as of this encounter
--- OUTSIDE RECORDS SUMMARY | 2024-11-24 09:04 | XMS_ITS | Patient Health Record ---
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 Active confirmed Problem Major depression, single episode (39451282) Major depressive disorder, single episode, unspecified (F32.9) Active confirmed Problem Anxiety disorder (836616062) Anxiety disorder, unspecified (F41.9) Active confirmed Problem Acute vaginitis (23927901) Acute vaginitis (N76.0) Active confirmed Problem Sleep deprivation (441797210) Sleep deprivation (Z72.820) 8 Active confirmed Problem Normal body mass index (31620906) Body mass index (BMI) 22.0-22.9, adult (Z68.22) 8 Active confirmed Problem BMI less than 20 (483889557) Body mass index (BMI) 19 or less, adult (Z68.1) 7 Active confirmed Encounters Encounter Location Date Provider Diagnosis [facility] [address] [place] [address] 07/21/2024 Provider Migration [facility] [address] [place] [address] 07/22/2024 Provider Migration Plan Of Treatment No Information Insurance Providers Payer Name Payer Address Payer Phone Subscriber Number Group Number Insured Name Patient Relationship to Insured Coverage Start Date Coverage End Date [facility] [address] [place] [phone] [id number] Kalee Aguillon Self - patient is the insured
--- OUTSIDE RECORDS SUMMARY | 2024-11-24 09:04 | XMS_ITS | Encounter Summary ---
Author Organization [facility] Healthcare Address [address] [place] [address] Care Team Providers Care Molding Associate Name Role Phone Willow Dunham [facility] Primary Care Provi kailyn Reason for Referral * Diagnostic Imaging (Routine) - Closed Specialty Diagnoses / Procedures Referred By Justice t Referred To Contact Diagnoses Dizziness and giddiness Dysphagia, unspecified type Procedures US Thyroid Cem Hernandez MD [facility] [place] [address] Phone: tel: fax: [address] [address] Referral ID Status Reason Start Date Expiration Date Visits Re quested Visits Authorized [id number] Closed 11/19/2024 12/19/2025 1 1 ICATION SUPPORT MANAGER Reason for Visit * Diagnostic Imaging (Routine) - Closed Specialty Diagnoses / Procedures Referred By Justice chavez Referred To Contact Diagnoses Dizziness and giddiness Dysphagia, unspecified type Procedures US Thyroid Cem Hernandez MD [address] [place] [address] Phone: tel: fax: [address] [address] Referral ID Status Reason Start Date Expiration Date Visits Re quested Visits Authorized [id number] Closed 11/19/2024 12/19/2025 1 1 Encounter Details Date Type Department Care Team (Latest Contact Info) Description 11/22/2024 5:19 PM APPLICATION SUPPORT MANAGER - 11/22/2024 11:59 PM APPLICATION SUPPORT MANAGER Hospital Encounter [address] [address] Dizziness and giddiness; Dysphagia, unspecified type Discharge [...] on file Legal Sex Female 8:46 PM APPLICATION SUPPORT MANAGER Gender Identity Not on file Sexual [...] Name Type Priority Associated Diagnoses Date /Time US Thyroid Imaging Schedule Routine , Read Routine (OP Routine) Dizziness and giddiness Dysphagia, unspecified type 11/22/2024 5:39 PM APPLICATION SUPPORT MANAGER Scheduled Orders Name Type Priority Associated Diagnoses Orde r Schedule US Thyroid Imaging Schedule Routine , Read Routine (OP Routine) Dizziness and giddiness Dysphagia, unspecified type Once for 1 Occurrences starting 11/22/2024 until 11/22/2024 documented as of this encounter Visit Diagnoses Diagnosis Dizziness and giddiness Dysphagia, unspecified type documented in this encounter Care Teams Molding Associate Relationship Specialty Start Date End Date Willow Dunham DNP [address] [facility] [address] [place] [address] [place] [address] PCP - General Family Medicine 11/19/24 documented as of this encounter
--- OUTSIDE RECORDS SUMMARY | 2024-11-24 09:04 | XMS_ITS | Encounter Summary ---
Author Organization [facility] Address [address] [place] [address] Care Team Providers Care Employee Operations Examiner Name Role Phone Niesha Garcia MD Primary Care Provider Unavaila ble None, Physician Primary Care Provider UnavailCem Mart MD Primary Care Provider [phone] Encounter Details Date Type Department Care Team (Late st Contact Info) Description 03/04/2023 Telephone [facility] - Centralized Scheduling [address] [place] [phone] Debbie Bishop K, YARN DYER-ACCOUNTING TEACHER [address] [address] Social History Tobacco Use Types Packs/Day Years Used Date Smoking Tobacco: Smoker, Current Status Unknown Alcohol Use Standard Drinks/Week Comments No 0 (1 standard drink = 0.6 oz pur e alcohol) Sex and Gender Information Value Date Recorded Sex Assigned at Not on file Gender Identity Not on file Sexual Orientation Not on file COVID-19 Exposure Response Date Recorded In the last 10 days, have yo u been in contact with someone who was confirmed or suspected to have Coronavirus/COVID-19? No / Unsure 03/04/2023 2:36 PM CDT documented as of this encounter Functional Status Functional Status Response Date of Assess ment Is person deaf or have serious hearing difficult y? No 03/20/2015 Is person blind or have serious difficulty seein g? No 03/20/2015 Does person have serious dif ficulty walking/climbing stairs? No 03/20/2015 Does person have difficulty dressing/bathing? No 03/20/2015 Does person have difficulty doing errands alone? No 03/20/2015 Cognitive Status Response Date of Assessm ent Does person have difficulty concentrating/remembering/making decisions? No 03/20/2015 documented as of this encounter Miscellaneous Notes * Telephone Encounter - Bridgett Zhang - 03/04/2023 2:39 PM CDT Michelle's 03/09/23 appt w/ Bishop was moved to 03/30/23 and has been added to the wait list. If there are any other providers that can see her before 03/30/23, please call her reschedule her to an earlier date. documented in this encounter Plan of Treatment Upcoming Encounters Date Type Department Care Team (Late st Contact Info) Description 12/13/2024 3:30 PM CDT Office Visit [facility] - Neurology [address] [place] [address], [facility]ly [facility] [place] [address] Morgan Lopez APRN-ACCOUNTING TEACHER [address] [place] [address] [place] [address] documented as of this encounter Visit Diagnoses Not on filedocumented in this encounter Care Teams Employee Operations Examiner Relationship Specialty Start Date End Date Niesha Garcia MD PCP - General 07/14/22 10/11/24 None, Physician PCP - General 10/12/24 11/04/24 Cem Hernandez MD [address] [place] [address] PCP - General Family Medicine 11/05/24 documented as of this encounter
--- OUTSIDE RECORDS SUMMARY | 2024-11-24 09:04 | XMS_ITS | Encounter Summary ---
Author Organization [facility] Address [address] [place] [address] Care Team Providers Care Industrial Custodian Name Role Phone Kelechi Camacho PA-C Primary Care Provider [phone] [facility], [address] [place] [address] Primary Care Prov ider Niesha Garcia MD Primary Care Provider Unavaila ble None, Physician Primary Care Provider UnavailCem Mart MD Primary Care Provider [phone] Reason for Visit * Reason Onset Date Comments Question 10/20/2015 Encounter Details Date Type Department Care Team (Late st Contact Info) Description 10/20/2015 Telephone [facility] Pediatrics - [address] [place] [address] Andrew Alonso MD [facility] [place] [address] Question Social History Tobacco Use Types Packs/Day Years Used Date Smoking Tobacco: Smoker, Current Status Unknown Alcohol Use Standard Drinks/Week Comments No 0 (1 standard drink = 0.6 oz pur e alcohol) Sex and Gender Information Value Date Recorded Sex Assigned at Not on file Gender Identity Not on file Sexual Orientation Not on file documented as of this encounter Functional Status [...] encounter Miscellaneous Notes * Telephone Encounter - Beth Rodriguez - 10/20/2015 9:51 AM CST Grandmother called regarding Prevacid not being covered by insurance, informed grandmother that Pantoprazole was e-scribed in place of Prevacid to [facility]. INE ROOM ATTENDANT documented in this encounter Plan of Treatment Upcoming Encounters Date Type Department Care Team (Late st Contact Info) Description 12/13/2024 3:30 PM CDT Office Visit [facility] - Neurology [address] [place] [address], [place] [id number] Morgan Lopez APRN-BROOMMAKER [address] [place] [address] [place] [phone] documented as of this encounter Visit Diagnoses Not on filedocumented in this encounter Care Teams Industrial Custodian Relationship Specialty Start Date End Date Kelechi Camacho PA-C [address] [place] [address] PCP - General Physician Technician [employer]iconductor Development 09/02/15 [facility] [address] [place] [address] [address] [place] [address] PCP - General 12/15/21 07/13/22 Niesha Garcia MD PCP - General 07/14/22 10/11/24 None, Physician PCP - General 10/12/24 11/04/24 Cem Hernandez MD [address] [place] [address] PCP - General Family Medicine 11/05/24 documented as of this encounter
--- OUTSIDE RECORDS SUMMARY | 2024-11-24 09:05 | XMS_ITS | Data Portability ---
Author Organization [email or web address] , [facility] Address [address] [place] [address] Care Team Providers Care Showroom Sales Consultant Name Role Phone [facility] GAP Sheet Finisher Assessment No assessment recorded. Plan of Treatment Reminders Order Date Submit Date Provider Last Modified By Organization Details Last Modified Time Details Appointments None recorded. Lab bacterial vaginosis + vaginitis panel, vaginal 2024 025 [facility], [address] [place], [address], 5 16:45:43 TSH + free T4, serum 2024 025 [facility], [address] [place], [address], 5 14:09:39 17-hydroxyp rogesterone , QN, serum 2024 025 [facility], [address] [facility], [place], [address], 5 19:09:59 lh + FSH, serum 2024 025 [facility], [address] [place], [address], 5 13:12:17 CBC w/ auto diff 2024 025 [facility], [address] [place], [address], 5 12:40:57 CMP, serum or plasma 2024 025 [facility], [address] [place], [address], 5 13:48:53 testosteron e, free + total, serum 2024 025 [facility], [address] [place], [address], 5 19:09:59 unlisted lab - STD screening (hw) 2024 025 [facility], [address] [place], [address], 5 11:38:38 hsv (1+2) igg, serum 2024 025 [facility], [address] [place], [address], 5 14:45:45 bacterial vaginosis + vaginitis panel, vaginal 2024 025 [facility], [address] [place], [address], 5 18:00:40 pap, LB 2024 025 [facility], [address] [place], [address], 5 14:45:44 unlisted lab - HPV plus CT/GC/trich 2024 025 [facility], [address] [place], [address], 5 10:34:51 unlisted lab - STD screening ([facility]) 2023 024 [facility], [address] [place], [address], 4 13:03:40 STI panel 2023 024 [facility], [address] [place], [address], 4 14:47:29 bacterial vaginosis + vaginitis panel, vaginal 2022 023 [facility], [address] [place], [address], 3 14:45:14 unlisted lab - STD screening ([facility]) 2022 023 [facility], [address] [place], [address], 3 12:18:30 Referral None recorded. Procedures None recorded. Surgeries None recorded. Imaging US, transvagina l 2024 025 [email or web address] Not available 12:11:17 Medication Orders None recorded. Patient TargetsNo targets recorded. Patient Instructions Encounter Date Encounter Id Patient Instructions Last Modified By Organization Details Last Modified Time 05/12/2023 [id number] safer sex: care instructions [email or web address] Not available 05/12/2023 17:02:37 sexually transmitted disease education bnotzke Not available 05/12/2023 17:02:37 11/14/2023 [id number] bruised rib: car e instructions [email or web address] Not available 11/14/2023 16:05:19 10/05/2024 [id number] body mass index: care instructions Not available 10/05/2024 13:34:12 A healthy lifestyle: care instructions Not available 10/05/2024 13:34:12 Following the [employer] Food Guide: Care Instructions Not available 10/05/2024 13:34:11 exercise program : getting started Not available 10/05/2024 13:34:12 contraception information Not available 10/05/2024 13:34:12 learning about control Not available 10/05/2024 13:34:12 Reason for Referral None Reported. Results Created Date Observation Date Name Description Value Unit Range Abnormal Flag Note LastModifiedBy Organization Detail LastModifiedTime 10/09/19 25 10/09/2024 THINP REP TIS PAP clinical information: normal None given Not Available [address], [address], 10/09/2024 14:45:44 10/09/19 25 10/09/2024 THINP REP TIS PAP LMP: normal NONE GIVEN Not Available [address], [address], 10/09/2024 14:45:44 10/09/19 25 10/09/2024 THINP REP TIS PAP prev. Pap: normal NONE GIVEN Not Available [address], [address], 10/09/2024 14:45:44 10/09/19 25 10/09/2024 THINP REP TIS PAP prev. BX: normal NONE GIVEN Not Available [address], [address], 10/09/2024 14:45:44 10/09/19 25 10/09/2024 THINP REP TIS PAP source: normal Cervi x Not Available [address], [address], 10/09/2024 14:45:44 10/09/19 25 10/09/2024 THINP REP TIS PAP statement of adequacy: normal Satis facto ry for evalu ation . Endoc ervic al/tr ansfo rmati on zone compo nent prese nt. Age and/o r menst rual statu s not provi ded Not Available [address], [address], 10/09/2024 14:45:44 10/09/19 25 10/09/2024 THINP REP TIS PAP interpretati on/result: normal Cytol ogy Resul ts: Negat carmita for intra epith elial lesio n or malig hardeep . Not Available [address], [address], 10/09/2024 14:45:44 10/09/19 25 10/09/2024 THINP REP TIS PAP comment: normal This Pap test has been evalu ated with all xiong techn ology . Not Available [address] [address] [place], [address], 10/09/2024 14:45:44 10/09/19 25 10/09/2024 THINP REP TIS PAP cytotechnolo gist: normal BES, CT( CP) CT scree joycelyn locat ion: [address] [address] [place] [address] Not Available [address] [address] [place], [address], 10/09/2024 14:45:44 10/09/19 25 10/09/2024 THINP REP TIS PAP comment EXPLA NATOR Y NOTE: The Pap is a scree joycelyn test for cervi gabriel cance r. It is not a diagn ostic test and is subje ct to false negat carmita and false posit carmita resul ts. It is most relia ble when a satis facto ry sampl e, regul kristy obtai steve, is submi tted with relev ant clini gabriel findi ngs and histo ry, and when the Pap resul t is evalu ated along with histo henri and curre nt clini gabriel infor matio n. 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 A posit carmita resul t canno t disti nguis h betwe en recen t and past infec tion. If recen t HSV infec tion is suspe cted but the resul ts are negat carmita or equiv ocal, the assay shoul d be repea sarah in 4-6 weeks . The perfo rmanc e evan cteri stics of the assay have not been estab lishe d for pedia tric popul ation s, immun ocomp romis ed patie nts, or neona vanessa scree joycelyn. For addit ional infor corry gambino e refer to http: //[facility].Que stDia gnost ics.c om/fa q/FAQ 118 (This link is being provi ded for infor beronica farah/ educa lynn l purpo ses only. ) NO COLLE CTION DATE RECEI DAVID. WE HAVE USED THE DATE THE SPECI MEN WAS RECEI DAVID BY THIS LABOR ATORY THE COLLE CTION DATE. IF THIS IS INCOR RECT, CORRY E CONTA CT CLIEN T SERVI ANAND. PHONE NUMBE R: [phone] Not Available [facility] [address] [place], [address], 10/09/2024 14:45:45 05/12/20 23 05/13/2023 STD SCREE JOYCELYN ([facility] ) hep BS Ag Non-Re active non-re active normal Not Available [facility] [address] [place], [address], 05/13/2023 12:18:30 05/12/20 23 05/13/2023 STD SCREE JOYCELYN ([facility] ) hep C Ab Non-Re active non-re active normal Not Available [address], [address], 05/13/2023 12:18:30 05/12/20 23 05/13/2023 STD MANOLO CARVER ([facility] ) HIV 1/2 Ag/Ab Non-Re active non-re active normal Not Available [address], [address], 05/13/2023 12:18:30 05/12/20 23 05/13/2023 STD MANOLO CARVER ([facility] ) syphilis Ab Non-Re active non-re active normal Not Available [address], [address], 05/13/2023 12:18:30 05/12/20 23 05/13/2023 VAGIN ITIS PLUS STD PANEL bacterial vaginosis BV neg negati ve normal Not Available [address], [address], 05/13/2023 14:45:13 05/12/20 23 05/13/2023 VAGIN ITIS PLUS STD PANEL wil species C. spp neg negati ve normal Not Available [address], [address], 05/13/2023 14:45:13 05/12/20 23 05/13/2023 VAGIN ITIS PLUS STD PANEL wil glabrata C. gla neg negati ve normal Not Available [address], [address], 05/13/2023 14:45:13 05/12/20 23 05/13/2023 VAGIN ITIS PLUS STD PANEL trichomonas vaginalis CV/TV TRICH neg negati ve normal Not Available [address], [address], 05/13/2023 14:45:13 05/12/20 23 05/13/2023 VAGIN ITIS PLUS STD PANEL chlamydia trachomatis CT neg negati ve normal This repor t is inten ded for us in clini gabriel monit oring and manag ement of [facility]. It is not inten ded for use in medic al-le gal appli catio n. Not Available [facility] [address] [place], [address], 05/13/2023 14:45:13 05/12/20 23 05/13/2023 VAGIN ITIS PLUS STD PANEL neisseria gonorrhoeae GC neg negati ve normal This repor t is inten ded for us in clini gabriel monit oring and manag ement of [facility]. It is not inten ded for use in medic al-le gal appli catio n. Not Available [facility] [address] [place] [address], [address], 05/13/2023 14:45:13 07/09/20 24 07/10/2024 STD SCREE JOYCELYN ([facility] ) hep BS Ag Non-Re active non-re active normal Not Available [address], [address], 07/10/2024 13:03:40 07/09/20 24 07/10/2024 STD SCREE JOYCELYN ([facility] ) hep C Ab Non-Re active non-re active normal Not Available [facility] [address] [place] [address], [address], 07/10/2024 13:03:40 07/09/20 24 07/10/2024 STD SCREE JOYCELYN ([facility] ) HIV 1/2 Ag/Ab Non-Re active non-re active normal Not Available [facility] [address] [place] [address], [address], 07/10/2024 13:03:40 07/09/20 24 07/10/2024 STD SCREE JOYCELYN ([facility] ) syphilis Ab Non-Re active non-re active normal Not Available [address], [address], 07/10/2024 13:03:40 07/09/20 24 07/10/2024 STI PANEL trichomonas vaginalis TRICH neg negati ve normal Not Available [address], [address], 07/10/2024 14:47:29 07/09/20 24 07/10/2024 STI PANEL chlamydia trachomatis CT neg negati ve normal This repor t is inten ded for us in clini gabriel monit oring and manag ement of patie nts. It is not inten ded for use in medic al- gal appli catio n. Not Available [address], [address], 07/10/2024 14:47:29 07/09/20 24 07/10/2024 STI PANEL neisseria gonorrhoeae GC neg negati ve normal This repor t is inten ded for us in clini gabriel monit oring and manag ement of patie nts. It is not inten ded for use in medic al-le gal appli catio n. Not Available [address], [address], 07/10/2024 14:47:29 10/05/19 25 10/06/2024 STD BLOOD SCREE JOYCELYN ([facility] ) hep BS Ag Non-Re active non-re active normal Not Available [address], [address], 10/06/2024 11:38:38 10/05/19 25 10/06/2024 STD BLOOD SCREE JOYCELYN ([facility] ) hep C Ab Non-Re active non-re active normal Not Available [address], [address], 10/06/2024 11:38:38 10/05/19 25 10/06/2024 STD BLOOD SCREE JOYCELYN ([facility] ) HIV 1/2 Ag/Ab Non-Re active non-re active normal Not Available [address], [address], 10/06/2024 11:38:38 10/05/19 25 10/06/2024 STD BLOOD SCREE JOYCELYN ([facility] ) syphilis Ab Non-Re active non-re active normal Not Available [address], [address], 10/06/2024 11:38:38 10/05/19 25 10/08/2024 VAGIN ITIS PANEL bacterial vaginosis BV neg negati ve normal Not Available [address], [address], 10/08/2024 18:00:40 10/05/19 25 10/08/2024 VAGIN ITIS PANEL wil species C. spp POS negati ve abnormal Not Available [address], [address], 10/08/2024 18:00:40 10/05/19 25 10/08/2024 VAGIN ITIS PANEL wil glabrata C. gla neg negati ve normal Not Available [address], [address], 10/08/2024 18:00:40 10/05/19 25 10/08/2024 VAGIN ITIS PANEL trichomonas vaginalis CV/TV TRICH neg negati ve normal Not Available [address], [address], 10/08/2024 18:00:40 10/05/19 25 10/13/[address]/GC /TRIC H trichomonas vaginalis TRICH neg negati ve normal Not Available [address], [address], 10/15/2024 10:34:51 10/05/19 25 10/13/[address]/GC /TRIC H chlamydia trachomatis CT neg negati ve normal This repor t is inten ded for us in clini gabriel monit oring and manag ement of larry oreilly. It is not inten ded for use in medic al-le gal appli catio n. Not Available [address], [address], 10/15/2024 10:34:51 10/05/19 25 10/13/[address]/GC /TRIC H neisseria gonorrhoeae GC neg negati ve normal This repor t is inten ded for us in clini gabriel monit oring and manag ement of larry oreilly. It is not inten ded for use in medic al-le gal appli catio n. Not Available [address], [address], 10/15/2024 10:34:51 10/05/19 25 10/13/[address]/GC /TRIC H HPV high risk Negati ve negati ve normal The HPV High Risk assay is inten ded for use as co-te sting with cytol ogy and not as a subst itute for regul ar cervi gabriel cytol ogy scree joycelyn. This assay is not inten ded for use as a scree joycelyn devic e for women under age 30 with sweetie l cervi gabriel cytol ogy. Not Available [address], [address], 10/15/2024 10:34:51 10/25/19 25 10/26/2024 CBC (INCL UDES DIFF/ PLT) WBC 9.1 thous and/u L 4.0 - 9.8 normal Not Available [address], [address], 10/26/2024 12:40:57 10/25/19 25 10/26/2024 CBC (INCL UDES DIFF/ PLT) RBC 4.9 jacqueline on/uL 3.9 - 4.9 normal Not Available [facility] [address] [place] [address], [address], 10/26/2024 12:40:57 10/25/19 25 10/26/2024 CBC (INCL UDES DIFF/ PLT) hemoglobin 15.2 g/dL 11.8 - 14.8 high Not Available [facility] [address] [place] [address], [address], 10/26/2024 12:40:57 10/25/19 25 10/26/2024 CBC (INCL UDES DIFF/ PLT) hematocrit 44.7 % 35.5 - 44.0 high Not Available [address], [address], 10/26/2024 12:40:57 10/25/19 25 10/26/2024 CBC (INCL UDES DIFF/ PLT) MCV 91.4 fL 82.0 - 99.0 normal Not Available [address], [address], 10/26/2024 12:40:57 10/25/19 25 10/26/2024 CBC (INCL UDES DIFF/ PLT) MCH 31.1 pg 27.2 - 32.6 normal Not Available [address], [address], 10/26/2024 12:40:57 10/25/19 25 10/26/2024 CBC (INCL UDES DIFF/ PLT) MCHC 34.0 g/dL 31.5 - 35.5 normal Not Available [address], [address], 10/26/2024 12:40:57 10/25/19 25 10/26/2024 CBC (INCL UDES DIFF/ PLT) RDW-CV 11.5 % 11.5 - 14.5 normal Not Available [address], [address], 10/26/2024 12:40:57 10/25/19 25 10/26/2024 CBC (INCL UDES DIFF/ PLT) platelet 297 thous and/u L 140 - 350 normal Not Available [address], [address], 10/26/2024 12:40:57 10/25/19 25 10/26/2024 CBC (INCL UDES DIFF/ PLT) MPV 10.0 fL 9.3 - 12.4 normal Not Available [address], [address], 10/26/2024 12:40:57 10/25/19 25 10/26/2024 CBC (INCL UDES DIFF/ PLT) absolute neutrophil 5.59 thous and/u L 1.90 - 7.00 normal Not Available [address], [address], 10/26/2024 12:40:57 10/25/19 25 10/26/2024 CBC (INCL UDES DIFF/ PLT) absolute lymphocyte 2.61 thous and/u L 0.70 - 4.50 normal Not Available [address], [address], 10/26/2024 12:40:57 10/25/19 25 10/26/2024 CBC (INCL UDES DIFF/ PLT) absolute monocyte 0.73 thous and/u L 0.10 - 1.30 normal Not Available [address], [address], 10/26/2024 12:40:57 10/25/19 25 10/26/2024 CBC (INCL UDES DIFF/ PLT) absolute eosinophil 0.11 thous and/u L <0.70 normal Not Available [address], [address], 10/26/2024 12:40:57 10/25/19 25 10/26/2024 CBC (INCL UDES DIFF/ PLT) absolute basophil 0.04 thous and/u L <0.20 normal Not Available [address], [address], 10/26/2024 12:40:57 10/25/19 25 10/26/2024 CBC (INCL UDES DIFF/ PLT) absolute immature granulocyte 0.00 thous and/u L <0.03 normal Not Available [address], [address], 10/26/2024 12:40:57 10/25/19 25 10/26/2024 FSH AND LH FSH 2.6 mIU/m L Refer ence Range s are for femal es aged 18 years - Adult Sweetie l Menst ruati ng Femal e: Folli cular phase : 2.5-1 0.2 mIU/m L Mid-C ycle Peak: 3.4-3 3.4 mIU/m L Lutea l phase : 1.5-9 .1 mIU/m L Pregn ant: <0.3 mIU/m L Post- menop ausal : 23.0- 116.6 mIU/m L Not Available [address], [address], 10/26/2024 13:12:17 10/25/19 25 10/26/2024 FSH AND LH LH 8.17 U/L Refer ence Range s are for femal es aged 18 years - Adult Sweetie l Menst ruati ng Femal e: Folli cular phase : 1.9-1 2.5 mIU/m L Mid-C ycle Peak: 8.7-7 6.3 mIU/m L Lutea l phase : 0.5-1 6.9 mIU/m L Pregn ant: <0.1- 1.5 mIU/m L Post- menop ausal : 15.9- 54.0 mIU/m L Contr acept blanca: 0.7-5 .6 mIU/m L Not Available [facility], [address], 10/26/2024 13:12:17 10/25/19 25 10/26/2024 COMPR EHENS CARMITA METAB OLIC PANEL sodium 141 mmol/ L 136 - 145 normal Not Available [facility], [address], 10/26/2024 13:48:53 10/25/19 25 10/26/2024 COMPR EHENS CARMITA METAB OLIC PANEL potassium 4.2 mmol/ L 3.5 - 5.1 normal Not Available [facility] [address] [place] [address], [address], 10/26/2024 13:48:53 10/25/19 25 10/26/2024 COMPR EHENS CARMITA METAB OLIC PANEL chloride 103 mmol/ L 98 - 107 normal Not Available [address], [address], 10/26/2024 13:48:53 10/25/19 25 10/26/2024 COMPR EHENS CARMITA METAB OLIC PANEL glucose 81 mg/dL 74 - 106 normal Not Available [address], [address], 10/26/2024 13:48:53 10/25/19 25 10/26/2024 COMPR EHENS CARMITA METAB OLIC PANEL carbon dioxide 28 mmol/ L 20 - 32 normal Not Available [address], [address], 10/26/2024 13:48:53 10/25/19 25 10/26/2024 COMPR EHENS CARMITA METAB OLIC PANEL calcium 10.1 mg/dL 8.5 - 10.1 normal Not Available [address], [address], 10/26/2024 13:48:53 10/25/19 25 10/26/2024 COMPR EHENS CARMITA METAB OLIC PANEL creatinine 0.89 mg/dL 0.60 - 1.00 normal Not Available [address], [address], 10/26/2024 13:48:53 10/25/19 25 10/26/2024 COMPR EHENS CARMITA METAB OLIC PANEL eGFR 92 mL/mi n/1.7 3m2 >60 normal The eGFR is based on the CKD-E PI 2020 susan umanzor. To calcu late the new eGFR from a previ ous Creat inartis or Catarino chavez, go to https ://yanique vance/blair holland s/andres nobles/gf r_cal culat or Not Available [address], [address], 10/26/2024 13:48:53 10/25/19 25 10/26/2024 COMPR EHENS CARMITA METAB OLIC PANEL AST 15 U/L 15 - 37 normal Not Available [address], [address], 10/26/2024 13:48:53 10/25/19 25 10/26/2024 COMPR EHENS CARMITA METAB OLIC PANEL ALT 25 U/L 14 - 59 normal Not Available [address], [address], 10/26/2024 13:48:53 10/25/19 25 10/26/2024 COMPR EHENS CARMITA METAB OLIC PANEL alk phos 69 U/L 46 - 116 normal Not Available [address], [address], 10/26/2024 13:48:53 10/25/19 25 10/26/2024 COMPR EHENS CARMITA METAB OLIC PANEL albumin 4.6 g/dL 3.4 - 5.0 normal Not Available [address], [address], 10/26/2024 13:48:53 10/25/19 25 10/26/2024 COMPR EHENS CARMITA METAB OLIC PANEL protein, total 7.7 g/dL 6.4 - 8.2 normal Not Available [address], [address], 10/26/2024 13:48:53 10/25/19 25 10/26/2024 COMPR EHENS CARMITA METAB OLIC PANEL bilirubin, total 0.3 mg/dL 0.2 - 1.0 normal Not Available [address], [address], 10/26/2024 13:48:53 10/25/19 25 10/26/2024 COMPR EHENS CARMITA METAB OLIC PANEL urea nitrogen (BUN) 12 mg/dL 7 - 18 normal Not Available [address], [address], 10/26/2024 13:48:53 02/06/20 25 10/26/2024 TSH W/ T4, FREE TSH 1.67 mIU/L 0.55 - 4.78 normal Refer ence Range Femal e aged 18-Ad ult: 0.55- 4.78 Pregn rosanne Refer ence Range s First Trime ster 0.26- 2.66 Secon d Trime ster 0.55- 2.73 Third Trime ster 0.43- 2.91 Not Available [address], [address], 10/26/2024 14:09:39 10/25/19 25 10/26/2024 TSH W/ T4, FREE T4, free 1.16 NG/dL 0.89 - 1.76 normal Not Available [address], [address], 10/26/2024 14:09:39 10/25/19 25 10/26/2024 VAGIN ITIS PLUS STD PANEL bacterial vaginosis BV neg negati ve normal Not Available [address], [address], 10/26/2024 16:45:43 10/25/19 25 10/26/2024 VAGIN ITIS PLUS STD PANEL wil species C. spp neg negati ve normal Not Available [address], [address], 10/26/2024 16:45:43 10/25/19 25 10/26/2024 VAGIN ITIS PLUS STD PANEL wil glabrata C. gla neg negati ve normal Not Available [address], [address], 10/26/2024 16:45:43 10/25/19 25 10/26/2024 VAGIN ITIS PLUS STD PANEL trichomonas vaginalis CV/TV TRICH neg negati ve normal Not Available [address], [address], 10/26/2024 16:45:43 10/25/19 25 10/26/2024 VAGIN ITIS PLUS STD PANEL chlamydia trachomatis CT neg negati ve normal This repor t is inten ded for us in clini gabriel monit oring and manag ement of patie nts. It is not inten ded for use in medic al-le gal appli catio n. Not Available [address], [address], 10/26/2024 16:45:43 10/25/19 25 10/26/2024 VAGIN ITIS PLUS STD PANEL neisseria gonorrhoeae GC neg negati ve normal This repor t is inten ded for us in clini gabriel monit oring and manag ement of patie nts. It is not inten ded for use in medic al-le gal appli catio n. Not Available [address], [address], 10/26/2024 16:45:43 10/25/19 25 11/02/2024 17-HY DROXY PROGE STERO NE 17-hydroxypr ogesterone 393 NG/dL Adult Femal e Refer ence Range s for 17-Hy droxy proge stero ne: Pre-M enopa usal Mid Folli cular : 23-10 2 ng/dL Pre-M enopa usal Surge : 67-34 9 ng/dL Pre-M enopa usal Mid Lutea l: 139-4 31 ng/dL Postm enopa usal Phase : < or = 45 ng/dL Pregn rosanne: First Trime ster: 78-45 7 ng/dL Secon d Trime ster: 90-35 7 ng/dL Third Trime ster: 144-5 78 ng/dL This test was devel oped and its nic tical perfo rmanc e evan cteri stics have been deter mined by [facility]. It has not been clear ed or appro david by FDA. This assay has been valid ated pursu ant to the CLIA regul ation s and is used for clini gabriel purpo ses. Not Available [facility] [address] [place], [address], 11/02/2024 19:09:59 10/25/1911/02/2024 TESTO STERO NE, FREE (DIAL YSIS) AND TOTAL ,MS testosterone , total, MS 32 NG/dL 2-45 For addit ional infor corry gambino refer to https ://ed ucati on.qu kendrickKiind.me. com/f aq/FA Q165 (This link is being provi ded for infor beronica nal/e ducat ional purpo ses only. ) (Note ) This test was devel oped and its nic tical perfo rmanc e evan cteri stics have been deter mined by [employer]. It has not been clear ed or appro david by the FDA. This assay has been valid ated pursu ant to the CLIA regul ation s and is used for clini gabriel purpo ses. Not Available [facility] [address] [place], [address], 11/02/2024 19:09:59 10/25/19 25 11/02/2024 TESTO STERO NE, FREE (DIAL YSIS) AND TOTAL ,MS testosterone , free 4.5 pg/mL 0.1-6. 4 (Note ) This test was devel oped and its nic tical perfo rmanc e evan cteri stics have been deter mined by [employer]. It has not been clear ed or appro david by the FDA. This assay has been valid ated pursu ant to the CLIA regul ation s and is used for clini gabriel purpo ses. [facility] med fusio n [address] [facility] [address] [facility] [address] [phone] Julian Singh MD, PhD Not Available [facility] [address] [place], [address], 11/02/2024 19:09:59 10/27/19 25 10/25/2024 US, trans vagin al No observ ation record ed. Agatha [address], [place], [address], 10/27/2024 22:03:05 Result Notes None recorded. Problems Name Problem SNOMED Code Status Onset Date Resolution Date Notes Provider Name and Address Organization Details Recorded Time 20389285 Completed 202107/20/2022 Kaylan smith, SCOTT [address] [place], [address], [place] [facility] IV 2 14:26:31 Routine care Completed Kaylan smith, MADELEINE [address] [place], [address], [place] [facility] 2 14:26:27 Anxiety in [id number] Completed Zoloft Kaylan smith, SCOTT [address] [place] [address], [address], [place] [facility] 2 14:26:27 Anxiety 57747815 Active 2021 Tramea Albina null, [facility] 12:12:51 Uterine size for dates discrepan cy 789628771 Active 2021 Tramea Albina null, [facility] 2 12:12:51 Gastroeso phageal reflux disease in [id number] Active 2021 Tramea Albina null, [facility] 12:12:51 Nausea 612838347 Active 2021 Tramea Albina null, [facility] 2 12:12:51 Hyperemes is gravidaru m 37764250 Active 2021 Tramea Albina null, [facility] 2 12:12:51 Large for gestation age fetus 944828893 Completed us at 38 weeks Kaylan smith, SCOTT [address] [place], [address], [place] [facility] 2 14:26:27 Vaginal delivery 669467520 Active 2021 Tramea Albina null, [facility] 2 12:12:51 Problem Notes None recorded. Procedures Surgical History Date Name Laterality Status Provider Name and Address Organization Details Recorded Time 10/05/2024 Date of Last Pap Smear completed MONICA ROMO, [employer] [address] [facility], [place], [address], [facility] [facility] [place] 10/09/2024 15:06:02 Imaging Results Imaging Date Name Status LastModified by Organization Details LastModified Time 10/25/2024 US, transvaginal completed [facility] [address], [place], [address], 10/27/2024 22:03:05 Procedure Notes None recorded. Medical Equipment None Reported. Allergies Allergen ID Allergen Name Allergen Category Reaction Reaction Severity Criticality Documentation Date Start Date Code Code System Note Provider Name and Address Organization Details Recorded Time [id number] No known allergy (situatio n) Not available Not available Not available Not available 05/12/2023 [id number] SNOMED Not Available Not Available Not Available Medications Name Sig Start Date Stop Date Status Note LastModified by Organization Details LastModified Time amoxicillin 500 mg capsule TAKE 1 CAPSULE BY MOUTH TWICE DAILY FOR 10 DAYS 01/25 completed Not Available Not Available Not Available fluconazole 150 mg tablet TAKE 1 TABLET BY MOUTH EVERY 72 HOURS DIRECTED active Not Available Not Available No t Available ampicillin 500 mg capsule TAKE 1 CAPSULE BY MOUTH TWICE DAILY 05/12 completed Not Available Not Available Not Available ondansetron HCl 4 mg tablet Take 4 mg every 8 hours by oral route. 05/12 completed Not Available Not Available Not Available famotidine 40 mg tablet TAKE 1 TABLET BY MOUTH ONCE DAILY DIRECTED FOR 30 DAYS 05/12 completed Not Available Not Available Not Available prednisone 20 mg tablet TAKE 2 TABLETS BY MOUTH EVERY DAY FOR 5 DAYS 11/14 completed Not Available Not Available Not Available topiramate 25 mg tablet TAKE 1 TABLET BY MOUTH TWICE DAILY 11/14 completed Not Available Not Available Not Available metronidazo le 500 mg tablet TAKE 4 TABLETS BY MOUTH FOR 1 DAY 05/12 completed Not Available Not Available Not Available omeprazole 40 mg capsule,del ayed release TAKE 1 CAPSULE BY MOUTH EVERY DAY 05/17 completed Not Available Not Available Not Available ondansetron 8 mg disintegrat ing tablet DISSOLVE 1 TABLET ON THE TONGUE TWICE DAILY 05/17 completed Not Available Not Available Not Available propranolol 10 mg tablet TAKE 1 TABLET BY MOUTH TWICE DAILY 11/14 completed Not Available Not Available Not Available omeprazole 10 mg capsule,del ayed release Take 20 mg by oral route. 05/12 completed Not Available Not Available Not Available pantoprazol e 40 mg tablet,ayo yed release 04/07 completed Not Available Not Available Not Available gabapentin 100 mg capsule TAKE 1 CAPSULE BY MOUTH AT BEDTIME 11/14 completed Not Available Not Available Not Available ibuprofen 600 mg tablet Take 600 mg every 6 hours by oral route. 05/12 completed Not Available Not Available Not Available albuterol sulfate HFA 90 mcg/actuati on aerosol inhaler INHALE 1 TO 2 PUFFS BY MOUTH EVERY 4 HOURS NEEDED FOR WHEEZING 10/05 completed Not Available Not Available Not Available ondansetron 4 mg disintegrat ing tablet DISSOLVE 1 TABLET ON THE TONGUE EVERY 6 HOURS NEEDED FOR FOR NAUSEA AND VOMITING 07/09 completed Not Available Not Available Not Available sertraline 50 mg tablet TAKE 1/2 TABLET BY MOUTH DAILY FOR 7 DAYS THEN INCREASE TO 1 TABLET DAILY 04/07 completed Not Available Not Available Not Available Dermoplast (with menthol) 20 %-0.5 % topical aerosol Apply 1 {spray} 4 times a day by topical route. 05/12 completed Not Available Not Available Not Available amoxicillin 875 mg-potassiu m clavulanate 125 mg tablet TAKE 1 TABLET BY MOUTH TWICE DAILY FOR 10 DAYS 11/14 completed Not Available Not Available Not Available oxycodone 5 mg tablet TAKE 1 TABLET BY MOUTH EVERY 6 HOURS NEEDED FOR PAIN 07/09 completed Not Available Not Available Not Available nitrofurant oin monohydrate /macrocryst als 100 mg capsule TAKE 1 CAPSULE BY MOUTH EVERY 12 HOURS UNTIL ALL TAKEN 05/12 completed Not Available Not Available Not Available Zofran 05/12 completed Not Available Not Available Not Available ferrous sulfate 15 mg iron (75 mg)/mL oral drops 05/12 completed Not Available Not Available Not Available GaviLyte-G 236 gram-22.74 gram-6.74 gram-5.86 gram oral solution TAKE 2 LITERS BY MOUTH AT 6 PM THE DAY BEFORE THE COLONOSCO PY AND TAKE 2 LITERS AT 10 PM DIRECTED 05/12 completed Not Available Not Available Not Available prenat vit 106-iron 25 mg-folic acid 1 mg-om3 400 mg-dha-epa oral pack Take by oral route. 11/14 completed Not Available Not Available Not Available Slynd 4 mg (28) tablet TAKE 1 TABLET BY MOUTH EVERY DAY 11/14 completed Not Available Not Available Not Available Vitals Date Recorded Body height Body mass index (BMI) Body weight Body temperature Systolic blood pressure Diastolic blood pressure Provider Name and Address Organization Details Last Updated DateTime 3 160.02 cm 28.2 kg/m2 40817.1 9 g 97.9 [degF] 118 mm[Hg] 80 mm[Hg] Monica Briseno [place] [employer] [facility] 3 16:49:21 Date Recorded Body height Body mass index (BMI) Body weight Body temperature Systolic blood pressure Diastolic blood pressure Provider Name and Address Organization Details Last Updated DateTime 4 160.02 cm 29.9 kg/m2 04295.6 7 g 98 [degF] 122 mm[Hg] 76 mm[Hg] Natasha Roque [place] [employer] [facility] 4 15:44:29 Date Recorded Body height Body mass index (BMI) Body weight Systolic blood pressure Diastolic blood pressure Provider Name and Address Organization Details Last Updated DateTime 07/09/2024 160.02 cm 30.1 kg/m2 78948.42 g 122 mm[Hg] 74 mm[Hg] Florence Remy [place] [employer] [facility] 4 11:33:41 Date Recorded Body height Body mass index (BMI) Body weight Provider Name and Address Organization Details Last Updated DateTime 10/05/2024 160.02 cm 30.2 kg/m2 77061.14 g Monica Vigilshane [employer] [facility] 10/05/2024 12:58:12 Date Recorded Body height Body mass index (BMI) Body weight Provider Name and Address Organization Details Last Updated DateTime 10/25/2024 160.02 cm 30.1 kg/m2 89715.98 g [facility] [employer] [facility] 10/25/2024 14:46:38 Social History Question Answer Notes LastModified by Organizat ion Details LastModified Time Tobacco Smoking Status Former Smoker Gabriele Restrepo [facility], [facility] 10/26/2021 12:12:06 What Is Your Level Of Alcohol Consumption? Moderate Information not available 10/26/2021 How Many Years Have You Consumed Alcohol? 3 Information not available 10/26/2021 Are You Blind Or Do You Have Difficulty Seeing? No Information not available 05/17/2022 Are You Deaf Or Do You Have Serious Difficulty Hearing? No Information not available 05/17/2022 Do You Or Have You Ever Used E-cigarettes Or Vape? Former User Of Electronic Cigarettes Information not available 10/26/2021 What Is Your Relationship Status? Single Information not available 10/26/2021 Are You Sexually Active? Yes Information not available 10/26/2021 Do You Use Any Illicit Or Recreational Drugs? No Information not available 05/17/2022 Do You Or Have You Ever Used Any Other Forms Of Tobacco Or Nicotine? No Information not available 05/17/2022 Sex: Female Functional Status Question Answer Note LastModified by Organization D etails LastModified Time What is your exercise level? Moderate Information not available 10/26/2021 Mental Status None recorded. Family History Relationship Description Onset Age of this Age Resolved Age Notes LastModified by Organization Details LastModified Time Mother Malignant neoplastic disease Not available 2021 12:12:05 Maternal Grandfather Malignant tumor of colon Not available 2021 12:12:05 Unspecified Relation Heart disease Not available 2021 12:12:05 Paternal Grandmother Cerebrovascu lar accident Not available 03/2022 12:12:05 Medical History Condition Response Other Cancer N High Blood Pressure N Colon Cancer N Cytomegalovirus N Hyperthyroidism N Blood Transfusion N MRSA N Herpes (HSV) N Breast Cancer N Lung Cancer N Depression N Hypothyroidism N Incontinence N Panic Attacks N Neurological Disorder N Deep Vein Thrombosis N Anxiety Disorder N Autoimmune disease N Arthritis N Shingles N Tuberculosis/Positive PPD N Polycystic Ovarian Syndrome N Cervical Cancer N Chlamydia N Hematuria N Stroke N Varicosities N Seasonal allergies N Crohn's Disease N Alzheimer's/Dementia N COPD/Emphysema N Endometriosis N HPV/Genital Warts N IBS (Irritable Bowel Syndrome) N History of Abnormal Pap N High Cholesterol N Liver Disease N Kidney Infection N Fibromyalgia N Ulcer N Kidney Disease N HIV N Gallbladder disease N Von Willebrand disease N Sickle Cell Disease/Trait N ADD/ADHD N Eating Disorder N Diabetes Mellitus (non-insulin dependent ) N Anemia N Ovarian Problems N Multiple Sclerosis N Gonorrhea N Frequent Urinary Tract infections N Osteopenia N Headaches/migraines N GERD (reflux) N Ovarian Cancer N Diabetes (insulin dependent) N Seizures/Epilepsy N Fibroids N Asthma N Heart Attack N Endometrial Cancer N Lupus N Rubella N Blood Clotting Disorder N Bipolar Disorder N Diabetes Mellitus (during ) N Ulcerative Colitis N Hepatitis N Heart Disease N Pulmonary Embolism N RPR N Chicken Pox N Osteoporosis N Gynecological History Statement/Question Response Flow Moderate Date of last HPV 10/05/2024 Date of LMP 08/10/2024 HPV Vaccine N Duration of Flow (days) 6 Most Recent Mammogram Current Control Method None Age at Menarche 11 Date of Last Colonoscopy Most Recent Bone Density Frequency of Cycle (Q days) Sometimes ev denia other month or few months Date of Last Pap Smear 10/05/2024 Obstetrics History GPAL:G 1 P 1 0 0 1 Type Value Full Term 1 Living 1 Total 1 Past Encounters Encounter ID Performer Location Encounter Start Date Encounter Closed Date Diagnosis/Indication Diagnosis SNOMED-CT Code Diagnosis ICD10 Code Diagnosis Note [id number] Payal Cash CNM [facility] [address] [place] [address] 10/26/2021 11:29:43 10/29/2021 15:03:48 test positive 667082092 Z32.01 Screening for disorder 430101382 Z11.3 N89.9 Venereal d isease screening 957182226 Z11.3 Screening for malignant neoplasm of cervix 579633667 Z12.4 Routine an tenatal care 736953816 Z34.90 [id number] MAHENDRA BORJAS CNM [facility] h [address] [place] [address] 11/11/2021 14:57:05 11/11/2021 15:52:45 Screening for disorder 707548896 Z11.3 N89.9 Desires sti testing after unprotecte d intercours e with ex. Sureswab sent. Routine an tenatal care 652531173 Z34.01 RTO 4 wks. NOB labs drawn today. Nausea and vomiting 1693 1999 R11.2 discussed Vitb6 and unisom as well as cristi and peppermint . zofran sent for breakthrou gh vomiting/n ausea after otc treatment. [id number] MAHENDRA BORJAS CNM [facility] [address] [place] [address] 12/04/2021 16:35:37 12/07/2021 09:43:59 Heartburn 81159232 R12 discussed diet and lifestyle modificati ons with tums and pepcid Gestation period, 13 weeks 93257946 Z3A.13 IUP @ 13+ wks. No OB complaints . RTO 4 wks Anxiety 64587282 F41.9 feeling anxious related to , declines medication at this time. [id number] Girish Parkinson ESVIN [facility] [address] [place] [address] 01/04/2022 10:28:17 01/04/2022 15:27:20 Anxiety 76286087 F41.9 Discussed medication , incl. R/B/ARs. Reviewed Black Box Warning . Explained time frame before full effectiven ess of medication noted. Denies SI.f/u 01/14/22 Routine an tenatal care 765971266 Z34.92 [id number] ANNA Jauregui [facility] [address] [place] [address] 01/25/2022 16:29:23 01/26/2022 08:28:49 Routine care 334729836 Z34.92 screening 2437 32811 Z36.3 Anatomy scan incomplete RTO in 4 weeks for OB visit and repeat anatomy scan [id number] Anam Zhou MD [facility] [address] [place] [address] 02/24/2022 15:29:32 02/25/2022 15:09:07 screening 060332868 Z36.86 [id number] Kaylan alcala, [facility] [address] [place] [address] 03/25/2022 10:03:10 03/25/2022 14:34:46 Routine care 850998574 Z34.93 Gestation period, 28 weeks 70186728 Z3A.28 [id number] Anam Zhou MD [facility] [address] [place] [address] 04/07/2022 16:17:05 04/08/2022 09:49:57 [id number] Girish Parkinson [facility] [address] [place] [address] 04/23/2022 12:33:34 04/23/2022 15:55:16 Routine care 600805412 Z34.92 Uterine si ze for dates discrepancy 583214106 O26.849 S>D-- EFW: 59.1%tile Gastroesop hageal reflux disease in 9614550800 9173543 O99.613 Nausea 322811648 R11.0 [id number] CELESTINO MERINO, [facility] [address] [place] [address] 05/07/2022 12:32:17 05/07/2022 15:03:10 Gestation period, 35 weeks 66276840 Z3A.35 Normal pre gnancy in primigravida 9592542209 26094 Z34.03 [id number] Girish Parkinson ESVIN [facility] [address] [place] [address] 05/17/2022 12:03:00 05/17/2022 13:30:47 Routine care 950668444 Z34.92 Gestation period, 36 weeks 51334008 Z3A.36 Vaginal swab taken 59251 3009 Z75.2 [id number] Anam Zhou MD [facility] [address] [place] [address] 05/25/2022 12:00:18 06/04/2022 12:13:28 Large for gestation age fetus 840921683 O36.63X1 [id number] Kaylan alcala CNM [facility] [address] [place] [address] 06/04/2022 10:03:06 06/07/2022 09:24:33 [id number] Kaylan alcala CNM [facility] [address] [place] [address] 06/23/2022 11:22:50 07/08/2022 14:52:27 state 93169873 Z39.2 EPDS 18 states has good support, states is acute and she doesn't feel dissociate d with baby, just overwhelme dDenies HI or SIDiscusse d PP support group and meds declines meds at this time [id number] Kaylan alcala CNM [facility] [address] [place] [address] 07/20/2022 13:57:29 07/20/2022 14:31:43 state 10460414 Z39.2 Last EPDS 18, is feeling better now and has been talking to Girish has meds, but hasn't started. Rec to startDiscu ssed PP support group Abnormal c ervical Papanicolaou smear 528709006 R87.619 Screening for disorder 498300528 Z11.3 N89.9 safe sex discussed Urinary tr act infectious disease 48167546 N39.0 Burning with urination [id number] ALISHA MUKHERJEE [facility] [address] [place] [address] 07/27/2022 14:35:41 07/27/2022 15:22:18 Screening for disorder 415326334 Z11.3 N89.9 Patient electing to self collect. Given instructio ns by ANNA to insert past care home glenna and rotate for 30s. Patient denies questions and verbalizes understand ing. Wishes to proceed with self collection . Vulvar care guidelines and safe sex practices reviewed. [place] pending results. Infection screening 7317 82999 Z11.3 [id number] ALISHA MUKHERJEE [facility] [address] [place] [address] 05/12/2023 16:42:45 05/13/2023 11:04:13 Venereal disease screening 959134314 Z11.3 Pt comes in today for Infection/ STI testing. Discussed the various types of Infections and STIs, related symptoms and the potential consequenc es (including effects on fertility) of STI. Reviewed ways to limit exposure and prevention techniques . Vulvar care guidelines and safe sex practices reviewed. TX pending results. [id number] CHIVO KATJAMAMIE [facility] [address] [place] [address] 11/14/2023 15:08:29 11/15/2023 11:43:11 Rib pain 567355315 R07.81 Pt is a 23 yo F who was seen in the ER after falling on ice. She reported abd pain and rib pain.Disch arge Dx of bruised rib and abd pain. No head injury or loss conscious. No midline neck or back pain. Started noticing vaginal spotting when she wipes over the past 2 days. Denies any concern for stating that she has a history of PCOS and occasional ly gets her menstrual cycle every 2 months.Pt is on SLYND. UPT in ER negative. Pt reports that she noticed pain when she picks up her child. She will avoid this for the time being.Moraima ent denies any fevers, chills, shortness of breath, vomiting, changes in bowel, hematuria or bloody stools/wen ck stool Abdominal pain 40922390 R10.9 [id number] [facility] [address] [place] [address] 07/09/2024 11:30:40 07/09/2024 12:08:37 Venereal disease screening 981416015 Z11.3 Pt comes in today for Infection/ STI testing. Discussed the various types of Infections and STIs, related symptoms and the potential consequenc es (including effects on fertility) of STI. Reviewed ways to limit exposure and prevention techniques . Vulvar care guidelines and safe sex practices reviewed. [place] pending results. [id number] MONICA ROMO NP [facility] [address] [place] [address] 10/05/2024 12:48:59 10/05/2024 14:01:48 Gynecologic examination 57282072 Z01.419 Patient is an establishe d patient who presents for a gynecologi gabriel Annual Exam. The patient denies any changes in her medical history. The patient denies any changes in her family medical history. Annual Exam:She reports having no significan t [employer] symptoms.H er menses are irregular, d/t her PCOS. Menses lasts for 5-7 days. Reports they are heavy & painful if she's skipped a few months. Denies spotting in between.Pt is currently not using anything for contracept ion. She is satisfied with her current method.Has concerns for a vaginal discharge that she describes as being chunky, denies any odor.Also, c/o a rash that she says was itching all over has been seen & prescribed medication & has an appt to see her dermatolog ist as well. Pap History:Julisa echevarria Pap: 07/20/22 Lonnie is due for a pap smear. Breast History:Karly campbell denies breast symptoms. Education on Breast Self Awareness given.Mamm ogram: <40 yo not indicatedA ge 40-75 Q 1-2 years Family History:Ne gative for Breast Cancer, Cervical Cancer, Colon Cancer, Endometria l Cancer and Ovarian Cancer. MYRisk test offered and declined. Social History:Karly campbell is currently sexually active with a male partner. She denies complaints about sexual activity. Patient reports feeling safe at home from emotional, physical, and verbal abuse.She does desire STD testing & bloodwork. Exercise: Occasional She wears her seat belt. She does not text and drive.The patient denies smoking and recreation al drugs. She denies drinking alcohol. Depression : Neg Patient is regularly seen by PCP for preventati ve care: No, referral sent Surveillan ce of contraception 115590786 Z30.40 Depression screening 171 163671 Z13.31 See Intake Screening - PHQ 9 Screening for malignant neoplasm of cervix 254649420 Z12.4 Contracept ion education 410501757 Z30.09 Contracept carmita counseling : Discussed options including OCPs, NuvaRing, Nexplanon, hormonal and copper IUDs. Discussed risks, efficacy, noncontrac eptive benefits, and side effects of each option, including risk of VTE with hormonal contracept ion and uterine perforatio n, expulsion, infection with IUD. Venereal d isease screening 127194404 Z11.3 [id number] MONICA ROMO NP [facility] h [address] [place] [address] 10/25/2024 14:26:45 10/29/2024 15:17:20 Polycystic ovary syndrome 461564313 E28.2 Ms. Aguillon, a 24 yo presents to the clinic with c/o having severe left sided pain 2 days ago that shot down her left leg, then her leg gave out & she ultimately vomited. She says that the pain lasted for several hours & it was a pulsating sharp, throbbing feeling. She is concerned for having an ovarian cyst again as she's had them previously .- She has IBS - D.- When was younger saw dorian orr , but they never dx her with anything besides patella tracking in both knees. She has an appt with dorian lopez on 11/01 & was wanting for me to draw labs. I suggested that she wait until she see dorian lopez, as they know what labs they want drawn & like to draw their own labs. Was able to obtain an US last minute on her today while in office with her complaints of abdominal/ pelvic pain. The TVUS showed:makah ilsa normalleft ovary WNLright hemorrhagi c cyst 3.2cmsmall amt of fluid noted in cul de sac. - She also thinks she has a yeast infection again, as she's c/o vaginal discharge & itching.- Denies any issues urinating- said she's having issues swallowing & feels this lump in her throat for the last 7 months. She says that she has a GI dr, discussed she needs to make an appt with her GI dr & follow-up with them- doesn't have a PCP & needs help obtaining one.She stated that she likes to try the holistic route vs taking medication . POCvaginal swablab workReferr al to PCPneeds to follow-up with her GI Dr.suggest ed ibuprofen as needed Approximat babita thirty minutes spent with patient in consultati on (>50% face-to-fa ce). Patient labs and notes were reviewed. Patient questions were answered. Additional patient care was coordinate d. History of gynecological disorder 873024287 Z87.42 Vaginal discharge 386150 006 N89.8 Pruritus of vagina 38090 003 N89.8 Health Concerns Section Related Observation LastModified by Organization Detai ls LastModified Time None Recorded Concern Status LastModified by Organization Details LastModified Time None Recorded Advance Directives Directive None Recorded Payers Encounter Date Sequence Insurance Name Policy Number Policy Wagner Covered Member ID Wagner Member ID Guarantor Name 05/12/2023 1 [facility] ON OR AFTER 03/19/21 (MEDICAID REPLACEMENT - HMO) Kaleerosie Aguillon [id number] Kaleekarishma Aguillon 11/14/2023 1 [facility] ON OR AFTER 03/19/21 (MEDICAID REPLACEMENT - HMO) Kaleerosie Aguillon [id number] Kaleekarishma Aguillon 07/09/2024 1 [facility] ON OR AFTER 03/19/21 (MEDICAID REPLACEMENT - HMO) Kaleerosie Aguillon [id number] Kalee Aguillon 10/05/2024 1 [facility] ON OR AFTER 03/19/21 (MEDICAID REPLACEMENT - HMO) Kaleekarishma Aguillon [id number] Kalee Henna 10/25/2024 1 [facility] ON OR AFTER 03/19/21 (MEDICAID REPLACEMENT - HMO) Kalee Henna [id number] Kalee Aguillon Notes Date Note Type Note Provider Name and Address Organization Details Recorded Time 11/14/2023 text/html Kalee is here f or a ER follow up.Concerns of brownish discharge after falling twice.Complaints of abdominal bruising and pain. ALISHA MUKHERJEE [address] [facility], [place], [address], [facility] 11/14/2023 16:07:00 07/09/2024 text/html Kalee is here f or STD/blood work screening. She was wondering can she get a throat swab as well. She states she has been having swelling in throat also she has some soreness inside mouth. She has no other concerns ALISHA MUKHERJEE [address] [place], [address], [facility] [employer] 07/09/2024 12:04:07 10/05/2024 text/html Annual GYNReport ed bypatient.History:n o gynecologic complaints; no change in interval history Menstrual cycle:Normal menses Urinary symptoms:No hematuria; No incontinence Vulva:No genital lesion Vagina:White Breast:No breast pain; No breast lump; No nipple discharge Current Contraception:Satis fied with current contraception Sexual complaints:No sexual complaints; No pain during intercourse; Normal libido Menopausal Symptoms:No menopausal symptoms; Normal vaginal lubrication Psychological symptoms:No depression; No anxiety; No PMDD MONICA ROMO NP [facility] [place], [address], [facility] [employer] 10/05/2024 13:44:20 10/25/2024 text/html Pelvic PainRepor sarah bypatient.Location: bilateral Onset/Timin-2 weeks Duration:intermitte nt Quality:sharp; stabbing; cramping; pressure Severity:moderate Context:LMP (); history of ovarian cysts Alleviating Factors:none Aggravating Factors:none Associated Symptoms:abdominal pain;back pain;vaginal itching or irritation MONICA ROMO NP [address] [place], [address], [facility] [employer] 10/29/2024 13:50:44 OBGyn Episode Ob Episode Information Episode Created Date Number of Fetuses Patient Bloodtype Patient rh Status Prepregnancy Weight lbs Domestic Partner Domestic Partner Phone Father Name Nuclear Station Operator Status 11/08/19 22 1 B Positive CLOSED Fetus Data First Name Last Name Admitted to NICU Weight (g) Sex Living Outcome Pediatric Complications Fetus ID Race Codes Race Delivery Type 3827.18 25 M [id number] Problems Problem Notes anatomy cleared and renal pe lvis wnl no abn noted Problem Name Start Date End Date Resolution Snomed Code Not e Routine care [id number] Anxiety in [id number] Zoloft Large for gestation age fetus [id number] us at 38 weeks Boyd Calculation Initial Boyd Date Initial Exam Date Initial Exam Provider Initial Ultrasound Date Last Menstrual Period Date Ultra Sound Weeks Gestation 06/09/2022 10/26/2021 10/26/2021 09/02/2021 7 Eighteen To Twenty Week Boyd Update Ultra Sound Date Fundal Height At Umbil Quickening Date Ultra Sound Latest Weeks Gestation Final Boyd Confirmed By Final Boyd Confirmed Date Final Boyd Date Ultra Sound Latest Days Gestation 0 06/09/20 22 0 Pre- Flowsheet Flowsheet Date 10/26/2021 [place] Score Blood Edema Fundus Height Fundus Units Glucose Ketones Leukocytes Nitrite Labor Signs Protein Cervic Dilation Cervic Effacement Cervic Station Type Weight in lbs Pre/Post Dialysis Refused With clothes 153.405658947953 BP Diastolic BP Location Tested BP Systolic BP Type 80 L arm 122 sitting Fetus Heart Rate Present A 141 Fetus Movement Comments Flowsheet Date 11/11/2021 Clinton Score Blood Edema Fundus Height Fundus Units Glucose Ketones Leukocytes Nitrite Labor Signs Protein Cervic Dilation Cervic Effacement Cervic Station none none none neg Type Weight in lbs Pre/Post Dialysis Refused Weight 155.48287608326 BP Diastolic BP Location Tested BP Systolic BP Type 68 118 Fetus Heart Rate Present A 171 Present Fetus Movement A Yes Comments No OB concerns, desires repe at STI screening after unprotested intercourse with ex 1 month ago. NOB labs collected today. Has not used monistat, no yeast noted on exam today, will send rx pending sureswab today.FWB reassuring today. nausea

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
--- OUTSIDE RECORDS SUMMARY | 2024-11-24 09:05 | XMS_ITS | Clinical Summary ---
Author Organization [facility] Address [address] [place] [address] Care Team Providers Care Milk Tester Name Role Phone Cem Hernandez MD Primary Care Provider [phone] Source Comments [facility],non-owned Affiliates and Associated Physician Practices is amultiple site organization consisting of ambulatory clinics and hospital sitesin [place], [place], [place]. This disclosure is being madepursuant to the Care Everywhere program and may not contain all information available regarding this patient. Last updated 18.[facility] Allergies No known active allergies Medications * Be aware that medications may not be up to date on this document. Alwaysverify current medications with the patient. Medication Sig Dispensed Refills Start Date End Date Status vitamin D, cholecalciferol, 1000 UNITS tablet Take by mouth once daily Active gabapentin (Neurontin) 100 MG capsuleIndication s:Other complicated headache syndrome,Intracta ble migraine with aura with status migrainosus Take 1 (one) capsule by mouth at bedtime 90 capsule 4 06/13/2023 Active Additional Information Patient not taking.Reported on 10/05/2023 albuterol HFA (Proventil; Ventolin; Proair) 108 (90 Base) MCG/ACT inhaler Inhale 2 (two) puffs by mouth every 4 hours as needed Active Ondansetron HCl (ZOFRAN PO) Active omeprazole (PriLOSEC) 10 MG capsule 20 mg by oral route. Active ibuprofen (Motrin) 600 MG tablet 06/11/2022 Active ampicillin (Principen) 500 MG capsule Take 1 (one) capsule by mouth 2 times daily Active topiramate (Topamax) 25 MG tabletIndications :Intractable migraine with aura with status migrainosus Take 1 (one) tablet by mouth 2 times daily 180 tablet 3 06/13/2023 Active Additional Information Patient not taking.Reported on 10/05/2023 propranolol (Inderal) 10 MG tabletIndications :Intractable migraine with aura with status migrainosus Take 1 (one) tablet by mouth 2 times daily 180 tablet 3 06/13/2023 Active Additional Information Patient not taking.Reported on 10/05/2023 Slynd 4 MG TABS tablet 11/04/2022 Active ondansetron, disintegrating, (Zofran ODT) 4 MG tablet Take 1 (one) tablet by mouth every 6 hours as needed for Nausea/Vomiting Allow tablet to dissolve on the tongue 8 tablet 11/28/2023 Active Additional Information Patient not taking.Reported on 11/01/2024 acetaminophen (Tylenol) 500 MG capsule Take 1 (one) capsule by mouth every 6 hours as needed for Fever or Pain 11/28/2023 Active Additional Information Patient not taking.Reported on 11/01/2024 oxyCODONE, immediate release, (Roxicodone) 5 MG tabletIndications :Lipoma of face Take 1 (one) tablet by mouth every 6 hours as needed for Pain 8 tablet 11/28/2023 Active Additional Information Patient not taking.Reported on 12/06/2023 rizatriptan (Maxalt) 5 MG tabletIndications :Intractable migraine with aura with status migrainosus Take 1 tab by mouth once at first sign of migraine. May repeat one time after 2 hours if needed. 9 tablet 11 11/16/2024 Active rizatriptan (Maxalt) 5 MG tabletIndications :Intractable migraine with aura with status migrainosus Take 1 tab by mouth once at first sign of migraine. May repeat one time after 2 hours if needed. 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 female with a complaint of chest pain that is more epigastric in location and may represent reflux-related pain. Her symptoms occur at rest and do not appear to be cardiac in etiology. Her cardiac exam and EKG are both within normal limits. Plan: 1. No further cardiac medications or testing needed at this time. 2. If she experiences chest pain with activity predominantly, then we would be happy to reevaluate her. 3. Consider trial of reflux medication to see if this helps with symptoms. 4. She has no activity restrictions from a cardiac standpoint. Chest pain of unknown etiology 05/14/2015 Assessment & Plan (11/10/2015 4:35 PM INTERVIEWING CLERK): Clinical history is not classically consistent with chest tightness and pain associated with lower airway obstruction and PFTs support that further. With the upper chest discomfort, dyspnea on inhalation, and flattening of the inspiratory limb of the flow volume loop, I am suspicious that vocal cord dysfunction is contributing to this patient's symptoms. CXR today to rule out bone source of pain. I will refer to speech therapy for further assessment of vocal cord pathology. Reflux therapy per Dr. Alonso in GI. Family agrees with plan. 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 Plan: Discontinue IVF - cleared for discharge 1. 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 Plan: Half maintenance IVF since PO intake is adequate Repeat hepatic function panel to monitor bilirubin and liver enzymes - if no improvement, get liver biopsy Follow up with remaining pending lab (EBV panel) Continue to advance diet and encourage ambulation Start prednisone at 1-2 mg/kg/day Monitor vitals q4h and I+O Assessment & Plan (03/18/2015 3:25 PM CDT): Assessment: Kalee Aguillon is a 14 year old female with symptomatic hepatitis which is suspected to be of viral etiology, since her liver function tests have improved overnight. Plan: Maintenance IVF Obtain monospot test - negative Obtain EBV panel - this is the most likely etiology in her age group. Obtain autoimmune hepatitis antibodies: BETSY, anti-smooth muscle, LMK-1 and anti- LC1. Obtain PPD. Repeat HFT - we would like to see a decrease in her total bilirubin before discharging her. Repeat GGT Continue to advance diet and encourage ambulation Assessment & Plan (03/18/2015 7:17 PM CDT): Assessment: Kalee Aguillon is a 14 y.o. female who presents with 3 days of worsening jaundice, fevers, body aches, and abdominal pain. Also with rash 1 week ago that resolved with steroids. Labs in ED significant for elevated total and direct bilirubin, GGT and transaminases. Likely etiologies include infectious, autoimmune, medication induced (vyvanse), biliary stone obstruction. Abdominal US showed hepatosplenomegaly but otherwise normal, no stones. She has persistent abdominal pain and nausea and bilirubin remains significantly elevated, though trending down. Plan: - Continue regular diet - Half mIVF - Follow up on pending labs - Check Monospot, EBV panel - results return sooner than PCR - Vitals q4h, I/Os, up as tolerated - Hold home Vyvanse Assessment & Plan (03/17/2015 12:06 AM CDT): Assessment: Kalee Aguillon is a 14 y.o. female who presents with 3 days of worsening jaundice. History of generalized arthralgias and bloating over the past couple of months. Also with rash 1 week ago followed by abdominal and back pain, worsening of arthralgias and nausea. Labs in ED significant for elevated total and direct bilirubin, GGT and transaminases. Consider viral vs autoimmune vs medication induced vs other infectious causes in differential. Plan: Admit to GI, Dr. Alonso NPO with mIVF RUQ ultrasound in am TSH, T4, coags, HFP, F-actin antibody, liver kidney microsomal antibody in am Vitals q4h, I/Os, up as tolerated Hold home Vyvanse for now Encounters Date Type Department Care Team Description 11/16/2024 Refill [facility] - Neurology [address] [place] [phone] Morgan Lopez APRN-LOW PRESSURE BOILER TENDER MEDICATION REFILL 11/01/2024 3:55 PM INTERVIEWING CLERK - 11/01/2024 11:59 PM INTERVIEWING CLERK Hospital Encounter [facility] - Radiology [address] [place] [id number] Avis Cee MD Discharge Disposition: Home or Self Care 11/01/2024 2:20 PM INTERVIEWING CLERK Office Visit [facility] - Rheumatology [address] [place] [address], [address] [place] [phone] Avis Cee MD BETSY positive (Primary Dx); Rash; Fatigue, unspecified type; Dry mouth; Dry eye; Numbness; Raynaud's syndrome without gangrene; Polyarthralgia; Myalgia, multiple sites; Cervicalgia; Other low back pain; Encounter for long-term (current) use of high-risk medication 11/01/2024 Travel 10/30/2024 6:37 PM INTERVIEWING CLERK - 10/31/2024 1:29 AM INTERVIEWING CLERK Emergency ER at [facility] [address] [place] [id number] Near syncope Discharge Disposition: Left Against Medical Advice/Discontinued Care 10/30/2024 Travel 10/12/2024 10:10 AM INTERVIEWING CLERK Office Visit [facility] - Dermatology [address] [facility] [place] [address] Gagan Skinner MD Acute urticaria (Primary Dx); Prurigo nodularis; Melanocytic nevi of trunk 10/12/2024 Travel 10/11/2024 Telephone [facility] - Rheumatology [address], [address] [place] [phone] Group, [facility] Medical Referral 10/03/2024 Travel from Last 3 Months Family History Medical History Relation Name Comments Cancer Mother Thyroid Disease Mother Thyroid canc er Congenital Heart defect Other Grea t uncle with hypertrophic cardiomyopathy Arthritis - Rheumatoid Paternal Grandfather Arrhythmia Neg Hx CVA<55(male) Neg Hx CVA<65(female) Neg Hx Cardiomyopathy Neg Hx Heart Surgery Neg Hx Long QT Syndrome Neg Hx MA<55(male) Neg Hx MA<65(female) Neg Hx Marfan Syndrome Neg Hx Pacemaker Neg Hx Sudd. <30 Neg Hx Relation Name Status Comments Mother Other Paternal Grandfather Social History Tobacco Use Types Packs/Day Years [...] Comments Blood Pressure 130/82 11/01/2024 2:05 PM INTERVIEWING CLERK Pulse 86 11/01/2024 2:05 PM INTERVIEWING CLERK Temperature 37 C (98.6 F) 11/01/2024 2:05 PM INTERVIEWING CLERK Respiratory Rate 16 11/01/2024 2:05 PM INTERVIEWING CLERK Oxygen Saturation 98% 11/01/2024 2:05 PM INTERVIEWING CLERK Inhaled Oxygen Concentration - - Weight 64.8 kg (142 lb 14.4 oz) 11/01/2024 2:05 PM INTERVIEWING CLERK Height 157.5 cm (5' 2 ) 12/06/2023 1:17 PM CDT Body Mass Index 26.14 12/06/2023 1:17 PM CDT Plan of Treatment Upcoming Encounters Date Type Department Care Team (Late st Contact Info) Description 12/13/2024 3:30 PM CDT Office Visit [facility] - Neurology [address] [facility] [place] [address] John Morgan, TRAFFIC SIGNAL SUPERVISOR MAINTENANCE-LOW PRESSURE BOILER TENDER [facility] [place] [phone] Health Maintenance Due Date Last Done Comments PAP SMEAR 1998 HIV SCREENING 2013 HPV VACCINE (1 - 3-dose series) 2013 DTAP/TDAP/TD VACCINES (1 - Tdap) 2017 HEPATITIS B VACCINE (1 of 3 - 19+ 3-dose series) 2017 PNEUMOCOCCAL VACCINE (1 of 2 - PCV) 2017 COVID-19 VACCINE (1 - 2023-2 5 season) 2024 INFLUENZA VACCINE (#1) 2024 07/14/2016 ZOSTER VACCINE (1 of 2) 2048 DEPRESSION SCREENING Completed 11/01/2024 HEPATITIS C SCREENING Completed 11/01/2024 , 03/16/2015 HIB VACCINE Aged Out No longer eligi ble based on patient's age to complete this topic MENINGOCOCCAL (Group B) VACCINE Aged Out No longer eligible b ased on patient's age to complete this topic MENINGOCOCCAL VACCINE Aged Out No [place] urban eligible based on patient's age to complete this topic Procedures Procedure Name Priority Date/Time Associated Diagnosis Comments XR HAND BILAT 3VW OR MORE Routine 2024 4:29 PM INTERVIEWING CLERK BETSY positive Rash Fatigue, unspecified type Dry mouth Dry eye Numbness Raynaud's syndrome without gangrene Polyarthralgia Myalgia, multiple sites Cervicalgia Other low back pain Encounter for long-term (current) use of high-risk medication SS-A (SJOGREN'S) ANTIBODY Routine 2024 3:36 PM INTERVIEWING CLERK BETSY positive Rash Fatigue, unspecified type Dry mouth Dry eye Numbness Raynaud's syndrome without gangrene Polyarthralgia Myalgia, multiple sites Cervicalgia Other low back pain Encounter for long-term (current) use of high-risk medication ROQUE (SM) ANTIBODY ENRRIQUE Routine 11/01/19 3:36 PM INTERVIEWING CLERK BETSY positive Rash Fatigue, unspecified type Dry mouth Dry eye Numbness Raynaud's syndrome without gangrene Polyarthralgia Myalgia, multiple sites Cervicalgia Other low back pain Encounter for long-term (current) use of high-risk medication SCLERODERMA 70 (SCL) ANTIBODY Routine 11/01/2024 3:36 PM INTERVIEWING CLERK BETSY positive Rash Fatigue, unspecified type Dry mouth Dry eye Numbness Raynaud's syndrome without gangrene Polyarthralgia Myalgia, multiple sites Cervicalgia Other low back pain Encounter for long-term (current) use of high-risk medication PAYROLL BENEFITS CLERK ANTIBODY Routine 11/01/2024 3:36 PM INTERVIEWING CLERK BETSY positive Rash Fatigue, unspecified type Dry mouth Dry eye Numbness Raynaud's syndrome without gangrene Polyarthralgia Myalgia, multiple sites Cervicalgia Other low back pain Encounter for long-term (current) use of high-risk medication BETSY BLOOD SCREEN W/REFLEX TITER Routine 11/01/2024 3:36 PM INTERVIEWING CLERK BETSY positive Rash Fatigue, unspecified type Dry mouth Dry eye Numbness Raynaud's syndrome without gangrene Polyarthralgia Myalgia, multiple sites Cervicalgia Other low back pain Encounter for long-term (current) use of high-risk medication PROTEIN CREATININE RATIO URINE RANDOM PNL Routine 11/01/2024 3:35 PM INTERVIEWING CLERK BETSY positive Rash Fatigue, unspecified type Dry mouth Dry eye Numbness Raynaud's syndrome without gangrene Polyarthralgia Myalgia, multiple sites Cervicalgia Other low back pain Encounter for long-term (current) use of high-risk medication THIOPURINE METHYLTRANSFERASE Routine 11/01/2024 3:35 PM INTERVIEWING CLERK BETSY positive Rash Fatigue, unspecified type Dry mouth Dry eye Numbness Raynaud's syndrome without gangrene Polyarthralgia Myalgia, multiple sites Cervicalgia Other low back pain Encounter for long-term (current) use of high-risk medication HISTONE ANTIBODY Routine 11/01/2024 3:35 PM INTERVIEWING CLERK BETSY positive Rash Fatigue, unspecified type Dry mouth Dry eye Numbness Raynaud's syndrome without gangrene Polyarthralgia Myalgia, multiple sites Cervicalgia Other low back pain Encounter for long-term (current) use of high-risk medication SS-B (SJOGREN'S) ANTIBODY Routine 2024 3:35 PM INTERVIEWING CLERK BETSY positive Rash Fatigue, unspecified type Dry mouth Dry eye Numbness Raynaud's syndrome without gangrene Polyarthralgia Myalgia, multiple sites Cervicalgia Other low back pain Encounter for long-term (current) use of high-risk medication RHEUMATOID FACTOR BLOOD QUANTITATIVE Routine 11/01/2024 3:35 PM INTERVIEWING CLERK BETSY positive Rash Fatigue, unspecified type Dry mouth Dry eye Numbness Raynaud's syndrome without gangrene Polyarthralgia Myalgia, multiple sites Cervicalgia Other low back pain Encounter for long-term (current) use of high-risk medication LYME DISEASE TOTAL AB W RFLX IMMUNOASSAY Routine 11/01/2024 3:35 PM INTERVIEWING CLERK BETSY positive Rash Fatigue, unspecified type Dry mouth Dry eye Numbness Raynaud's syndrome without gangrene Polyarthralgia Myalgia, multiple sites Cervicalgia Other low back pain Encounter for long-term (current) use of high-risk medication IGG SUBCLASS 4 Routine 11/01/2024 3:35 PM INTERVIEWING CLERK BETSY positive Rash Fatigue, unspecified type Dry mouth Dry eye Numbness Raynaud's syndrome without gangrene Polyarthralgia Myalgia, multiple sites Cervicalgia Other low back pain Encounter for long-term (current) use of high-risk medication HEPATITIS SCREEN ACUTE ([facility]) Routine 11/01/2024 3:35 PM INTERVIEWING CLERK BETSY positive Rash Fatigue, unspecified type Dry mouth Dry eye Numbness Raynaud's syndrome without gangrene Polyarthralgia Myalgia, multiple sites Cervicalgia Other low back pain Encounter for long-term (current) use of high-risk medication ERYTHROCYTE SEDIMENTATION RATE Routine 11/01/2024 3:35 PM INTERVIEWING CLERK BETSY positive Rash Fatigue, unspecified type Dry mouth Dry eye Numbness Raynaud's syndrome without gangrene Polyarthralgia Myalgia, multiple sites Cervicalgia Other low back pain Encounter for long-term (current) use of high-risk medication DNA ANTIBODY DOUBLE STRANDED Routine 11/01/2024 3:35 PM INTERVIEWING CLERK BETSY positive Rash Fatigue, unspecified type Dry mouth Dry eye Numbness Raynaud's syndrome without gangrene Polyarthralgia Myalgia, multiple sites Cervicalgia Other low back pain Encounter for long-term (current) use of high-risk medication CYCLIC CITRULLINATED PEPTIDE([facility]) AB IGG Routine 11/01/2024 3:35 PM INTERVIEWING CLERK BETSY positive Rash Fatigue, unspecified type Dry mouth Dry eye Numbness Raynaud's syndrome without gangrene Polyarthralgia Myalgia, multiple sites Cervicalgia Other low back pain Encounter for long-term (current) use of high-risk medication C-REACTIVE PROTEIN Routine 11/01/2024 3: 35 PM INTERVIEWING CLERK BETSY positive Rash Fatigue, unspecified type Dry mouth Dry eye Numbness Raynaud's syndrome without gangrene Polyarthralgia Myalgia, multiple sites Cervicalgia Other low back pain Encounter for long-term (current) use of high-risk medication COMPLEMENT C4 Routine 11/01/2024 3:35 PM INTERVIEWING CLERK BETSY positive Rash Fatigue, unspecified type Dry mouth Dry eye Numbness Raynaud's syndrome without gangrene Polyarthralgia Myalgia, multiple sites Cervicalgia Other low back pain Encounter for long-term (current) use of high-risk medication COMPLEMENT C3 Routine 11/01/2024 3:35 PM INTERVIEWING CLERK BETSY positive Rash Fatigue, unspecified type Dry mouth Dry eye Numbness Raynaud's syndrome without gangrene Polyarthralgia Myalgia, multiple sites Cervicalgia Other low back pain Encounter for long-term (current) use of high-risk medication CK BLOOD Routine 11/01/2024 3:35 PM INTERVIEWING CLERK BETSY positive Rash Fatigue, unspecified type Dry mouth Dry eye Numbness Raynaud's syndrome without gangrene Polyarthralgia Myalgia, multiple sites Cervicalgia Other low back pain Encounter for long-term (current) use of high-risk medication LUPUS ANTICOAGULANT PANEL W RFLX Routine 11/01/2024 3:35 PM INTERVIEWING CLERK BETSY positive Rash Fatigue, unspecified type Dry mouth Dry eye Numbness Raynaud's syndrome without gangrene Polyarthralgia Myalgia, multiple sites Cervicalgia Other low back pain Encounter for long-term (current) use of high-risk medication CARDIOLIPIN ANTIBODY IGA/IGG/IGM PANEL Routine 11/01/2024 3:35 PM INTERVIEWING CLERK BETSY positive Rash Fatigue, unspecified type Dry mouth Dry eye Numbness Raynaud's syndrome without gangrene Polyarthralgia Myalgia, multiple sites Cervicalgia Other low back pain Encounter for long-term (current) use of high-risk medication BETA-2 GLYCOPROTEIN 1 ANTIBODY IGG/IGM/IGA PANEL Routine 11/01/2024 3:35 PM INTERVIEWING CLERK BETSY positive Rash Fatigue, unspecified type Dry mouth Dry eye Numbness Raynaud's syndrome without gangrene Polyarthralgia Myalgia, multiple sites Cervicalgia Other low back pain Encounter for long-term (current) use of high-risk medication ANGIOTENSIN CONVERTING ENZYME BLOOD Routine 11/01/2024 3:35 PM INTERVIEWING CLERK BETSY positive Rash Fatigue, unspecified type Dry mouth Dry eye Numbness Raynaud's syndrome without gangrene Polyarthralgia Myalgia, multiple sites Cervicalgia Other low back pain Encounter for long-term (current) use of high-risk medication ALDOLASE Routine 11/01/2024 3:35 PM INTERVIEWING CLERK BETSY positive Rash Fatigue, unspecified type Dry mouth Dry eye Numbness Raynaud's syndrome without gangrene Polyarthralgia Myalgia, multiple sites Cervicalgia Other low back pain Encounter for long-term (current) use of high-risk medication CARDIAC EKG ORDER 10/31/2024 7:0 6 PM INTERVIEWING CLERK TROPONIN-I HIGH SENSITIVE REFLEX 1HOUR Timed 10/31/2024 12:30 AM INTERVIEWING CLERK XR CHEST 2VW STAT 10/30/2024 8:44 PM INTERVIEWING CLERK Near syncope EKG 12-LEAD STAT 10/30/2024 8:23 PM INTERVIEWING CLERK Near syncope HCG BETA BLOOD QUANTITATIVE STAT 10/30/2024 8:21 PM INTERVIEWING CLERK TROPONIN-I HIGH SENSITIVE BASELINE + 1HR STAT 10/30/2024 8:21 PM INTERVIEWING CLERK CBC W AUTO DIFFERENTIAL STAT 10/30/19 8:21 PM INTERVIEWING CLERK COMPREHENSIVE METABOLIC PANEL STAT 10/30/2024 8:21 PM INTERVIEWING CLERK [place] INTRALESIONAL INJECTION(S) 7 OR LESS Routine 10/12/2024 11:15 AM INTERVIEWING CLERK Prurigo nodularis from Last 3 Months Results * XR Hand Bilat 3Vw or More (11/01/2024 4:29 PM INTERVIEWING CLERK) Anatomical Region Laterality Modality Upper Extremity, Wrist / Hand Co mputed Radiography 11/01/2024 4:34 PM INTERVIEWING CLERK Narrative 11/01/2024 4:35 PM INTERVIEWING CLERK Procedure: XR HAND BILAT 3VW OR MORE Exam Date: 11/01/2024 4:29 PM Location: [facility] Indication: R76.8: Other specified abnormal immunological findings [...] MORE Exam Date: 11/01/2024 4:29 PM Location: [facility] Indication: R76.8: Other specified abnormal immunological findings [...] ROQUE (SM) ANTIBODY ENRRIQUE (11/01/2024 3:36 PM INTERVIEWING CLERK) Pathologist Kelin Roque (ENRRIQUE) Antibody <0.2 0.0 - 0.9 AI [facility] INSURANCE BILL Blood BLOOD SPECIMEN / Unknown 11/01/2024 3:36 PM INTERVIEWING CLERK 11/01/2024 Narrative [facility] INSURANCE BILL - 11/02/2024 10:10 AM INTERVIEWING CLERK Performed at: - [address] [id number] Tax Clerk: Timi Phan PhD, Phone: [phone] Avis Cee MD LAB - CHEMISTRY [place] Performing Organization Address [facility] de Phone Number [facility] INSURANCE BILL [address] [place] [address] * PAYROLL BENEFITS CLERK ANTIBODY (11/01/2024 3:36 PM INTERVIEWING CLERK) Pathologist [facility] PAYROLL BENEFITS CLERK Antibody <0.2 0.0 - 0.9 AI [facility] INSURANCE BILL Blood BLOOD SPECIMEN / Unknown 11/01/2024 3:36 PM INTERVIEWING CLERK 11/01/2024 Narrative [facility] INSURANCE BILL - 11/02/2024 10:10 AM INTERVIEWING CLERK Performed at: [address] [id number] Tax Clerk: Timi Phan PhD, Phone: [phone] Avis Cee MD LAB - CHEMISTRY [place] Performing Organization Address [facility] de Phone Number [facility] INSURANCE BILL [address] [place] [address] * (ABNORMAL) BETSY BLOOD SCREEN W/REFLEX TITER (11/01/2024 3:36 PM INTERVIEWING CLERK) [facility] BETSY Positive(A) [facility] INSURANCE BILL Comment: Negative <1:80 Borderline 1:80 Positive >1:80 Performed at: [address] [place] [id number] Tax Clerk: Timi Phan PhD, Phone: [phone] Homogeneous Pattern 1:320(H) [facility] INSURANCE BILL Comment:ICAP nomenclature: A C-1 Note Comment [facility] INSURANCE BILL Comment: Pattern Potential Disease Association Homogeneous Systemic Lupus Erythematosus, Drug Induced Systemic Lupus Erythematosus, Chronic Autoimmune hepatitis, Juvenile Idiopathic Arthritis Speckled Sjogren Syndrome, Systemic Lupus Erythematosus, Subacute Cutaneous Lupus, Lupus, Congenital Heart Block, Mixed Connective Tissue Disease, Scleroderma-diffuse, Scleroderma-Autoimmune Myositis Overlap Syndrome, Systemic Lupus Unhbyniuplwwk-Jcmytkefjex-Pflvctdslw Myositis Overlap Syndrome, Systemic Autoimmune Rheumatic Disease, [...] BLOOD SPECIMEN / Unknown 11/01/2024 3:36 PM INTERVIEWING CLERK 11/01/2024 Narrative [facility] INSURANCE BILL - 11/05/2024 5:09 PM INTERVIEWING CLERK Performed at: [address] [place] [address] [id number] Tax Clerk: Timi Phan PhD, Phone: [phone] Avis Cee MD LAB - CHEMISTRY [place] Performing Organization Address City/[facility] Co de Phone Number [facility] INSURANCE BILL [address] [place] [address] * SS-A (SJOGREN'S) ANTIBODY (11/01/2024 3:36 PM INTERVIEWING CLERK) Sjogren's Antibodies (SSA) <0.2 0.0 - 0.9 AI [facility] INSURANCE BILL Blood BLOOD SPECIMEN / Unknown 11/01/2024 3:36 PM INTERVIEWING CLERK 11/01/2024 Narrative [facility] INSURANCE BILL - 11/02/2024 10:10 AM INTERVIEWING CLERK Performed at: [address] [id number] Tax Clerk: Timi Phan PhD, Phone: [phone] Avis Cee MD LAB - CHEMISTRY [place] Performing Organization Address [facility] Co de Phone Number [facility] [address] [place] [address] * SCLERODERMA 70 (SCL) ANTIBODY (11/01/2024 3:36 PM INTERVIEWING CLERK) Antiscleroderma -70 Antibody <0.2 0.0 - 0.9 AI [facility] INSURANCE BILL Blood BLOOD SPECIMEN / Unknown 11/01/2024 3:36 PM INTERVIEWING CLERK 11/01/2024 Narrative [facility] INSURANCE BILL - 11/02/2024 10:10 AM INTERVIEWING CLERK Performed at: [address] [id number] Tax Clerk: Timi Phan PhD, Phone: [phone] Avis Cee MD LAB - CHEMISTRY [place] Performing Organization Address City/[facility] Co de Phone Number [facility] INSURANCE BILL [address] [place] [address] * HEPATITIS SCREEN ACUTE ([facility]) (11/01/2024 3:35 PM INTERVIEWING CLERK) Hepatitis A Virus Antibody IgM Negative Negative [facility] INSURANCE BILL Comment: A negative anti-HAV IgM result suggests no recent or current HAV infection. Hepatitis B Virus Surface Antigen Negative Negative [facility] INSURANCE BILL Hepatitis B Core Virus Antibody IgM Negative Negative [facility] INSURANCE BILL Hepatitis C Antibody Non Reactive Non Reactive [facility] INSURANCE BILL Comment: Performed at: - [address] [id number] Tax Clerk: Timi Phan PhD, Phone: [phone] Interpretation Comment [facility] INSURANCE BILL Comment: Not infected with HCV unless early or acute infection is suspected (which may be delayed in an immunocompromised individual), or other evidence exists to indicate HCV infection. Blood BLOOD SPECIMEN / Unknown 11/01/2024 3:35 PM INTERVIEWING CLERK 11/01/2024 Narrative [facility] INSURANCE BILL - 11/02/2024 7:09 AM INTERVIEWING CLERK Performed at: - [address] [id number] Tax Clerk: Timi Phan PhD, Phone: [phone] Avis Cee MD LAB - CHEMISTRY [place] Performing Organization Address City/[facility] Co de Phone Number [facility] INSURANCE BILL [address] [place] [address] * LYME DISEASE TOTAL AB W RFLX IMMUNOASSAY (11/01/2024 3:35 PM INTERVIEWING CLERK) Pathologist [facility] Lyme Antibody Total Negative Negative [facility] INSURANCE [...] BLOOD SPECIMEN / Unknown 11/01/2024 3:35 PM INTERVIEWING CLERK 11/01/2024 Narrative [facility] INSURANCE BILL - 11/02/2024 5:09 PM INTERVIEWING CLERK Performed at: [address] [id number] Tax Clerk: Timi Phan PhD, Phone: [phone] Avis Cee MD LAB - CHEMISTRY [place] Performing Organization Address [facility] de Phone Number [facility] INSURANCE BILL [address] [place] [address] * IGG SUBCLASS 4 (11/01/2024 3:35 PM INTERVIEWING CLERK) IgG Subclass 4 12 2 - 96 mg/dL [facility] INSURANCE BILL Blood BLOOD SPECIMEN / Unknown 11/01/2024 3:35 PM INTERVIEWING CLERK 11/01/2024 Narrative [facility] INSURANCE BILL - 11/02/2024 3:10 PM INTERVIEWING CLERK Performed at: [address] [id number] Tax Clerk: Timi Phan PhD, Phone: [phone] Avis Cee MD LAB - CHEMISTRY [place] Performing Organization Address [facility] Phone Number [facility] INSURANCE BILL [address] [place] [address] * CARDIOLIPIN ANTIBODY IGA/IGG/IGM PANEL (11/01/2024 3:35 PM INTERVIEWING CLERK) Cardiolipin Antibody IgG <9 0 - 14 [...] BLOOD SPECIMEN / Unknown 11/01/2024 3:35 PM INTERVIEWING CLERK 11/01/2024 Narrative [facility] INSURANCE BILL - 11/02/2024 3:10 PM INTERVIEWING CLERK Performed at: - [address] [id number] Tax Clerk: Timi Phan PhD, Phone: [phone] Avis Cee MD LAB - SEROLOGY ORDER BEKAH Performing Organization Address [facility] de Phone Number [facility] INSURANCE BILL [address] [place] [address] * LUPUS ANTICOAGULANT PANEL W RFLX (11/01/2024 3:35 PM INTERVIEWING CLERK) Pathologist [facility] PTT-LA 32.0 0.0 - 43.5 sec [facility] INSURANCE BILL dRVVT 29.2 0.0 - 47.0 sec [facility] INSURANCE BILL Interpretation Comment: [facility] INSURANCE BILL Comment:No lupus anticoagula nt was detected. Blood BLOOD SPECIMEN / Unknown 11/01/2024 3:35 PM INTERVIEWING CLERK 11/01/2024 Narrative [facility] INSURANCE BILL - 11/02/2024 6:09 PM INTERVIEWING CLERK Performed at: [address] [id number] Tax Clerk: Alejandra Robison MD, Phone: [phone] Avis Cee MD LAB - HEMATOLOGY ORD ERABLES Performing Organization Address [facility] de Phone Number [facility] INSURANCE BILL [address] [place] [address] * BETA-2 GLYCOPROTEIN 1 ANTIBODY IGG/IGM/IGA PANEL (11/01/2024 3:35 PM INTERVIEWING CLERK) Beta-2 Glycoprotein I Antibody IgG <9 0 [...] BLOOD SPECIMEN / Unknown 11/01/2024 3:35 PM INTERVIEWING CLERK 11/01/2024 Narrative [facility] INSURANCE BILL - 11/02/2024 3:10 PM INTERVIEWING CLERK Performed at: - [address] [id number] Tax Clerk: Timi Phan PhD, Phone: [phone] Avis Cee MD LAB - SEROLOGY ORDER BEKAH Performing Organization Address City/[facility] Co de Phone Number [facility] INSURANCE BILL [address] [place] [address] * RHEUMATOID FACTOR BLOOD QUANTITATIVE (11/01/2024 3:35 PM INTERVIEWING CLERK) Pathologist [facility] Rheumatoid Factor <10.0 <14.0 IU/mL [facility] INSURANCE BILL Blood BLOOD SPECIMEN / Unknown 11/01/2024 3:35 PM INTERVIEWING CLERK 11/01/2024 Narrative [facility] INSURANCE BILL - 11/02/2024 3:10 PM INTERVIEWING CLERK Performed at: [facility] [address] [id number] Tax Clerk: Timi Phan PhD, Phone: [phone] Avis Cee MD LAB - CHEMISTRY ORDE RABLES Performing Organization Address City/[facility] Co de Phone Number [facility] INSURANCE BILL [address] [place] [address] * C-REACTIVE PROTEIN (11/01/2024 3:35 PM INTERVIEWING CLERK) C-Reactive Protein 2 0 - 10 mg/L [facility] INSURANCE BILL Blood BLOOD SPECIMEN / Unknown 11/01/2024 3:35 PM INTERVIEWING CLERK 11/01/2024 Narrative [facility] INSURANCE BILL - 11/02/2024 3:10 PM INTERVIEWING CLERK Performed at: [facility] [address] [place] [address] [id number] Tax Clerk: Timi Phan PhD, Phone: [phone] Avis Cee MD LAB - CHEMISTRY [place] Performing Organization Address City/[facility] Co de Phone Number [facility] INSURANCE BILL [address] [place] [address] * HISTONE ANTIBODY (11/01/2024 3:35 PM INTERVIEWING CLERK) Anti-Histone Antibody 0.7 0.0 - 0.9 Units [facility] INSURANCE BILL Comment: Negative <1.0 Weak Positive 1.0 - 1.5 Moderate Positive 1.6 - 2.5 Strong Positive >2.5 Blood BLOOD SPECIMEN / Unknown 11/01/2024 3:35 PM INTERVIEWING CLERK 11/01/2024 Narrative [facility] INSURANCE BILL - 11/06/2024 3:09 PM INTERVIEWING CLERK Performed at: [address] [id number] Tax Clerk: Alejandra Robison MD, Phone: [phone] Avis Cee MD LAB - CHEMISTRY [place] Performing Organization Address City/[facility]/ZIP Co de Phone Number [facility] INSURANCE BILL [address] [place] [address] * SS-B (SJOGREN'S) ANTIBODY (11/01/2024 3:35 PM INTERVIEWING CLERK) Sjogren's Antibodies (SSB) <0.2 0.0 - 0.9 AI [facility] INSURANCE BILL Blood BLOOD SPECIMEN / Unknown 11/01/2024 3:35 PM INTERVIEWING CLERK 11/01/2024 Narrative [facility] INSURANCE BILL - 11/02/2024 10:10 AM INTERVIEWING CLERK Performed at: [facility] [address] [place], [place] [id number] Tax Clerk: Timi Phan PhD, Phone: [phone] Avis Cee MD LAB - CHEMISTRY [place] [facility] INSURANCE BILL [address] [place] [address] * DNA ANTIBODY DOUBLE STRANDED (11/01/2024 3:35 PM INTERVIEWING CLERK) Pathologist [facility] Anti-dsDNA Quantitative <1 0 - 9 IU/mL [facility] INSURANCE BILL Comment: Negative <5 Equivocal 5 - 9 Positive >9 Blood BLOOD SPECIMEN / Unknown 11/01/2024 3:35 PM INTERVIEWING CLERK 11/01/2024 Narrative [facility] INSURANCE BILL - 11/02/2024 10:10 AM INTERVIEWING CLERK Performed at: - [address] [id number] Tax Clerk: Timi Phan PhD, Phone: [phone] Avis Cee MD LAB - HEMATOLOGY ORD ERABLES Performing Organization Address City/[facility]/ZIP Co de Phone Number [facility] INSURANCE BILL [address] [place] [address] * ANGIOTENSIN CONVERTING ENZYME BLOOD (11/01/2024 3:35 PM INTERVIEWING CLERK) [facility] Angiotensin-Con verting Enzyme 58 14 - 82 U/L [facility] INSURANCE BILL Blood BLOOD SPECIMEN / Unknown 11/01/2024 3:35 PM INTERVIEWING CLERK 11/01/2024 Narrative [facility] INSURANCE BILL - 11/02/2024 3:10 PM INTERVIEWING CLERK Performed at: [address] [id number] Tax Clerk: Timi Phan PhD, Phone: [phone] Avis Cee MD LAB - CHEMISTRY [place] [facility] INSURANCE BILL [address] [place] [address] * ALDOLASE (11/01/2024 3:35 PM INTERVIEWING CLERK) Aldolase 3.5 3.3 - 10.3 U/L [facility] INSURANCE BILL Blood BLOOD SPECIMEN / Unknown 11/01/2024 3:35 PM INTERVIEWING CLERK 11/01/2024 Narrative [facility] INSURANCE BILL - 11/02/2024 3:10 PM INTERVIEWING CLERK Performed at: - [address] [id number] Tax Clerk: Timi Phan PhD, Phone: [phone] Avis Cee MD LAB - CHEMISTRY [place] [facility] INSURANCE BILL [address] [place] [address] * THIOPURINE METHYLTRANSFERASE (11/01/2024 3:35 PM INTERVIEWING CLERK) Pathologist [facility] TPMT Activity 25.3 Units/mL RBC [facility] INSURANCE BILL Comment: Reference Range: Normal: 15.1 - 26.4 Heterozygous for low TPMT variant: 6.3 - 15.0 Homozygous for low TPMT variant: <6.3 Interpretation Comment [facility] INSURANCE BILL Comment: The above results can be interpreted as Normal for red blood cell Thiopurine Methyltransferase activity. For patients having an intrinsic low level of TPMT, recent RBC transfusion can variably increase their assayed enzymatic activity depending on the amount and circulating half-life of the transfused red blood cells. This test was developed and its performance characteristics determined by [facility]. It has not been cleared or approved by the Food and Drug Administration. This case has been reviewed, approved, interpreted and electronically signed by Baron Rivera, PhD, [facility]. Methodology Comment [facility] INSURANCE BILL Comment: Enzymatic Endpoint/Liquid Chromatography - Tandem Mass Spectrometry (LC-MS/MS) Blood BLOOD SPECIMEN / Unknown 11/01/2024 3:35 PM INTERVIEWING CLERK 11/01/2024 Narrative [facility] INSURANCE BILL - 11/09/2024 5:09 PM INTERVIEWING CLERK Performed at: - [facility] [address] [place] [address] [id number] Tax Clerk: Jose Alfredo Ferris MD, Phone: [phone] Avis Cee MD LAB - CHEMISTRY [place] [facility] INSURANCE BILL [address] [place] [address] * CYCLIC CITRULLINATED PEPTIDE(CCP) AB IGG (11/01/2024 3:35 PM INTERVIEWING CLERK) Pathologist [facility] CCP Antibodies IgG/IgA <20 <20 Units [facility] INSURANCE BILL Comment: Negative: <20 Weak Positive: 20-39 Moderate Positive: 40-59 Strong Positive: >59 Blood BLOOD SPECIMEN / Unknown 11/01/2024 3:35 PM INTERVIEWING CLERK 11/01/2024 Narrative [facility] INSURANCE BILL - 11/07/2024 9:08 PM INTERVIEWING CLERK Performed at: - [facility] [address] [place] [address] [id number] Tax Clerk: Jose Alfredo Ferris MD, Phone: [phone] Avis Cee MD LAB - CHEMISTRY [place] Performing Organization Address City/[facility]/ZIP Co de Phone Number [facility] INSURANCE BILL [address] [place] [address] * ERYTHROCYTE SEDIMENTATION RATE (11/01/2024 3:35 PM INTERVIEWING CLERK) [facility] Erythrocyte Sedimentation Rate Westergren 7 0 - 32 mm/hr [facility] INSURANCE BILL Blood BLOOD SPECIMEN / Unknown 11/01/2024 3:35 PM INTERVIEWING CLERK 11/01/2024 Narrative [facility] INSURANCE BILL - 11/02/2024 7:09 AM INTERVIEWING CLERK Performed at: 01 - [facility] [address] [place], [place] [id number] Tax Clerk: Timi Phan PhD, Phone: [phone] Avis Cee MD LAB - HEMATOLOGY HUMBLE SALAZAR [facility] INSURANCE BILL [address] [place] [address] * COMPLEMENT C4 (11/01/2024 3:35 PM INTERVIEWING CLERK) Complement C4 28 14 - 44 mg/dL [facility] INSURANCE BILL Blood BLOOD SPECIMEN / Unknown 11/01/2024 3:35 PM INTERVIEWING CLERK 11/01/2024 Narrative [facility] INSURANCE BILL - 11/05/2024 7:08 AM INTERVIEWING CLERK Performed at: - [facility] [address] [place] [address] [id number] Tax Clerk: Jose Alfredo Ferris MD, Phone: [phone] Avis Cee MD LAB - SEROLOGY ORDER BEKAH Performing Organization Address City/[facility]/ZIP Co de Phone Number [facility] INSURANCE BILL [address] [place] [address] * PROTEIN CREATININE RATIO URINE RANDOM PNL (11/01/2024 3:35 PM INTERVIEWING CLERK) Creatinine Urine 163.2 Not Estab. mg/dL [facility] INSURANCE BILL Protein Urine 15.5 Not Estab. mg/dL [facility] INSURANCE BILL Protein/Creatin ine Ratio 95 0 - 200 mg/g creat [facility] INSURANCE BILL Urine URINE SPECIMEN OBTAINED BY CLEAN CATCH PROCEDURE / Unknown 11/01/2024 3:35 PM INTERVIEWING CLERK 11/01/2024 Narrative [facility] INSURANCE BILL - 11/02/2024 10:10 AM INTERVIEWING CLERK Performed at: [address] [place] [address] [id number] Tax Clerk: Timi Phan PhD, Phone: [phone] Avis Cee MD LAB - URINE CHEMISTR Y ORDERABLES Performing Organization Address City/[facility]/ZIP Co de Phone Number [facility] INSURANCE BILL [address] [place] [address] * CK BLOOD (11/01/2024 3:35 PM INTERVIEWING CLERK) CK 89 32 - 182 U/L [facility] INSURANCE BILL Blood BLOOD SPECIMEN / Unknown 11/01/2024 3:35 PM INTERVIEWING CLERK 11/01/2024 Narrative [facility] INSURANCE BILL - 11/02/2024 8:11 AM INTERVIEWING CLERK Performed at: [address] [place] [address], [place], [place] [id number] Tax Clerk: Timi Phan PhD, Phone: [phone] Avis Cee MD LAB - CHEMISTRY [place] Performing Organization Address City/[facility]/ZIP Co de Phone Number [facility] INSURANCE BILL [address] [place] [address] * COMPLEMENT C3 (11/01/2024 3:35 PM INTERVIEWING CLERK) Complement C3 180 90 - 180 mg/dL [facility] INSURANCE BILL Comment: Effective September 24, 2024, C3 Complement (RDL) reference interval will be changing to: 90 - 180 mg/dL Blood BLOOD SPECIMEN / Unknown 11/01/2024 3:35 PM INTERVIEWING CLERK 11/01/2024 Narrative [facility] INSURANCE BILL - 11/05/2024 7:08 AM INTERVIEWING CLERK Performed at: - [facility] [address] [place] [address] [id number] Tax Clerk: Jose Alfredo Ferris MD, Phone: [phone] Avis Cee MD LAB - CHEMISTRY [place] Performing Organization Address City/[facility]/ZIP Co de Phone Number [facility] INSURANCE BILL [address] [place] [address] * CARDIAC EKG ORDER (10/31/2024 7:06 PM INTERVIEWING CLERK) Narrative 10/31/2024 7:06 PM INTERVIEWING CLERK Ordered by an unspecified provider. Scanned Document CARDIAC SERVICES ORD ERABLES * TROPONIN-I HIGH SENSITIVE REFLEX 1HOUR (10/31/2024 12:30 AM INTERVIEWING CLERK) Troponin I High Sensitive <3 <=14 ng/L 10/31/2024 1:00 AM INTERVIEWING CLERK [facility] Delta Troponin I HS 10/31/2024 1:00 AM INTERVIEWING CLERK [facility] Comment:Delta value intentio curry not calculated. Baseline to 1 hour specimen collection interval exceeded. Blood BLOOD SPECIMEN / Unknown Venipuncture / Unknown 10/31/2024 12:30 AM INTERVIEWING CLERK 10/31/2024 12:33 AM INTERVIEWING CLERK Ashley Jefferson APNP-LOW [employer] LAB - CHEMISTR Y ORDERABLES [facility] [address] [place] [address] * XR CHEST 2VW (10/30/2024 8:44 PM INTERVIEWING CLERK) Anatomical Region Laterality Modality Chest Radiographic Lorena ging 10/30/2024 8:57 PM INTERVIEWING CLERK Impressions 10/30/2024 8:58 PM INTERVIEWING CLERK IMPRESSION: Normal > Interpreting Provider: Christopher Bonds MD on 10/30/2024 8:58 PM Narrative 10/30/2024 8:58 PM INTERVIEWING CLERK PROCEDURE: XR CHEST 2VW DATE/TIME OF EXAM: [...] Christopher Bonds MD on 10/30/2024 8:58 PM Ashley Hillsereke APNP-LOW [employer]ER DIAGNOSTIC LORENA GING ORDERABLES * EKG 12-LEAD (10/30/2024 8:23 PM INTERVIEWING CLERK) Ventricular Rate 81 BPM [facility] Atrial Rate 81 BPM [facility] P-R Interval 136 ms [facility] QRS Duration ms 86 ms [facility] Q-T Interval ms 358 ms [facility] QTC Calculation (Bezet) 415 ms [facility] MUSE Calculated P [place] 68 degrees [facility] MUSE Calculated R [place] 51 degrees [facility] MUSE Calculated T [place] 49 degrees [facility] Interpretation EKG NORMAL SINUS RHYTHM WITH SINUS ARRHYTHMIA NORMAL ECG NO PREVIOUS ECGS AVAILABLE Confirmed by Mickey Burnette MD ([id number]) on 10/31/2024 7:59:22 AM [facility] MUSE 10/30/2024 8:23 PM INTERVIEWING CLERK 10/31/2024 7:59 AM INTERVIEWING CLERK [employer] [facility] ECG ORDERABLES [facility] * TROPONIN-I HIGH SENSITIVE BASELINE + 1HR (10/30/2024 8:21 PM INTERVIEWING CLERK) [facility] Troponin I High Sensitive <3 <=14 ng/L 10/30/2024 8:43 PM INTERVIEWING CLERK [facility] Blood BLOOD SPECIMEN / Unknown Venipuncture / Unknown 10/30/2024 8:21 PM INTERVIEWING CLERK 10/30/2024 8:21 PM INTERVIEWING CLERK [facility] - CHEMISTR Y ORDERABLES Performing Organization Address City/[facility]/ZIP Co de Phone Number [facility] [address] [place] [phone] * CBC W AUTO DIFFERENTIAL (10/30/2024 8:21 PM INTERVIEWING CLERK) [facility] WBC 9.3 4.0 - 10.7 x10E9/L 10/30/2024 8:24 PM [facility] RBC Count 4.57 3.90 - 5.20 x10E12/L 10/30/2024 8:24 PM [facility] Hemoglobin 14.0 11.9 - 15.8 g/dL 10/30/2024 8:24 PM [facility] Hematocrit 41.4 34.8 - 46.1 % 10/30/2024 8:24 PM [facility] MCV 90.6 80.0 - 98.0 fL 10/30/2024 8:24 PM [facility] MCH 30.6 26.7 - 33.6 pg 10/30/2024 8:24 PM [facility] MCHC 33.8 31.7 - 36.3 g/dL 10/30/2024 8:24 PM [facility] RDW-CV 11.5 11.3 - 14.8 % 10/30/2024 8:24 PM [facility] Platelet Count 237 150 - 420 x10E9/L 10/30/2024 8:24 PM [facility] MPV 8.5 7.8 - 11.4 fL 10/30/2024 8:24 PM [facility] Neutrophil % 71.6 41.0 - 74.0 % 10/30/2024 8:24 PM [facility] Lymphocyte % 21.7 17.0 - 47.0 % 10/30/2024 8:24 PM [facility] Monocyte % 5.7 3.0 - 11.0 % 10/30/2024 8:24 PM [facility] Eosinophil % 0.5 0.0 - 7.0 % 10/30/2024 8:24 PM [facility] Basophil % 0.3 0.0 - 1.6 % 10/30/2024 8:24 PM [facility] Immature Granulocytes % 0.2 0.0 - 1.0 % 10/30/2024 8:24 PM [facility] Neutrophil Absolute 6.65 1.60 - 7.50 x10E9/L 10/30/2024 8:24 PM [facility] Lymphocyte Absolute 2.02 1.00 - 4.40 x10E9/L 10/30/2024 8:24 PM [facility] Monocyte Absolute 0.53 0.15 - 1.00 x10E9/L 10/30/2024 8:24 PM [facility] Eosinophil Absolute 0.05 0.00 - 0.60 x10E9/L 10/30/2024 8:24 PM [facility] Basophil Absolute 0.03 0.00 - 0.13 x10E9/L 10/30/2024 8:24 PM [facility] Blood BLOOD SPECIMEN / Unknown Venipuncture / Unknown 10/30/2024 8:21 PM INTERVIEWING CLERK 10/30/2024 8:21 PM [facility] Ashley MEJIA-[employer]ER [employer]ER LAB - HEMATOLO GY ORDERABLES [facility] [address] [place] [address] * (ABNORMAL) COMPREHENSIVE METABOLIC PANEL (10/30/2024 8:21 PM INTERVIEWING CLERK) Glucose 94 70 - 99 mg/dL 10/30/2024 8:40 PM [facility] Sodium 136 136 - 145 mmol/L 10/30/2024 8:40 PM [facility] Potassium 3.8 3.5 - 5.1 mmol/L 10/30/2024 8:40 PM [facility] Chloride 108(H) 98 - 107 mmol/L 10/30/2024 8:40 PM [facility] CO2 21(L) 22 - 29 mmol/L 10/30/2024 8:40 PM [facility] Calcium 9.2 8.4 - 10.4 mg/dL 10/30/2024 8:40 PM [facility] Anion Gap 7 6 - 16 mmol/L 10/30/2024 8:40 PM [facility] BUN 8 5.3 - 18.7 mg/dL 10/30/2024 8:40 PM [facility] Creatinine 0.79 0.57 - 1.11 mg/dL 10/30/2024 8:40 PM [facility] Alkaline Phosphatase 63 40 - 150 U/L 10/30/2024 8:40 PM [facility] ALT 31 0 - 55 U/L 10/30/2024 8:40 PM [facility] AST 23 5 - 34 U/L 10/30/2024 8:40 PM [facility] Protein Total 7.9 6.4 - 8.3 gm/dL 10/30/2024 8:40 PM [facility] Albumin 4.7 3.4 - 5.0 gm/dL 10/30/2024 8:40 PM [facility] Bilirubin Total 0.4 0.2 - 1.2 mg/dL 10/30/2024 8:40 PM [facility] eGFR by CKD-EPI >90 >=90 mL/min/1.7 3 m2 10/30/2024 8:40 PM [facility] Blood BLOOD SPECIMEN / Unknown Venipuncture / Unknown 10/30/2024 8:21 PM INTERVIEWING CLERK 10/30/2024 8:21 PM INTERVIEWING CLERK Ashley Jefferson DIOGENESLOW PRESSURE BOILER TENDER LAB - CHEMISTR Y ORDERABLES Performing Organization Address [facility] Co de Phone Number [facility] [address] [place] [address] * HCG BETA BLOOD QUANTITATIVE (10/30/2024 8:21 PM INTERVIEWING CLERK) hCG Quantitative <2.42 mIU/mL 10/31/19 12:15 AM INTERVIEWING CLERK [facility] Blood BLOOD SPECIMEN / Unknown Venipuncture / Unknown 10/30/2024 8:21 PM INTERVIEWING CLERK 10/30/2024 8:21 PM INTERVIEWING CLERK Narrative [facility] - 10/31/2024 12:15 AM INTERVIEWING CLERK hCG Reference Range, mIU/mL: Non Females 0-6.0 [...] Young MD LAB - CHEMISTRY [place] Performing Organization Address City/[facility] Co de Phone Number [facility] [address] [place] [address] * [place] INTRALESIONAL INJECTION(S) 7 OR LESS (10/12/2024 11:15 AM INTERVIEWING CLERK) Narrative Gagan Skinner MD - 10/12/2024 11:15 AM INTERVIEWING CLERK Se Schmitt MD 10/12/2024 11:15 AM The side effects of intralesional triamcinolone were discussed with patient, including petechiae and purpura, local lipoatrophy, striae and pigment change. 0.1mL of Triamcinolone 10mg/mL was injected in to right lateral lower leg papule with a 1 cc syringe and a 30 gauge needle. Se Schmitt MD [facility] Resident Gagan Skinner MD PROCEDURE/MINOR SURG ICAL ORDERABLES from Last 3 Months Advance Directives * Full Code (Latest Code Status on File) Date Activated Date Inactivated Comments 03/16/2015 11:07 PM 03/20/2015 5:14 PM Care Teams Milk Tester Relationship Specialty Start Date End Date Cem Hernandez MD [address] [place] [id number] PCP - General Family Medicine 11/05/24
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
--- OUTSIDE RECORDS SUMMARY | 2024-11-24 09:05 | XMS_ITS | Referral Summary ---
Author Organization [facility] Address [address] [place] [address] Care Team Providers Care Cheese Blender Name Role Phone Cem Hernandez MD Primary Care Provider [phone] Source Comments [facility],non-owned Affiliates and Associated Physician Practices is amultiple site organization consisting of ambulatory clinics and hospital sitesin [place], [place] and [place]. This disclosure is being madepursuant to the Care Everywhere program and may not contain all information available regarding this patient. Last updated 18.[facility] Encounters Date Type Department Care Team Description 11/16/2024 Refill [facility] - Neurology [address] [place] [id number] Morgan Lopez APRN-ARNOL MEDICATION REFILL 11/01/2024 3:55 PM BATTERY CHARGER CONVEYOR LINE - 11/01/2024 11:59 PM BATTERY CHARGER CONVEYOR LINE Hospital Encounter [facility] Imaging Services - Radiology [address] [place] [address] Avis Cee MD Discharge Disposition: Home or Self Care 11/01/2024 Travel 11/01/2024 2:20 PM BATTERY CHARGER CONVEYOR LINE Office Visit [facility] - Rheumatology [address] [facility] [facility] [address] [place] [phone] Avis Cee MD BETSY positive (Primary Dx); Rash; Fatigue, unspecified type; Dry mouth; Dry eye; Numbness; Raynaud's syndrome without gangrene; Polyarthralgia; Myalgia, multiple sites; Cervicalgia; Other low back pain; Encounter for long-term (current) use of high-risk medication 10/30/2024 6:37 PM BATTERY CHARGER CONVEYOR LINE - 10/31/2024 1:29 AM BATTERY CHARGER CONVEYOR LINE Emergency ER at [facility] [address] [place] [address] Near syncope Discharge Disposition: Left Against Medical Advice/Discontinued Care 10/30/2024 Travel 10/12/2024 Travel 10/12/2024 10:10 AM BATTERY CHARGER CONVEYOR LINE Office Visit [facility] - Dermatology [address] [facility] [place] [phone] Gagan Skinner MD Acute urticaria (Primary Dx); Prurigo nodularis; Melanocytic nevi of trunk 10/11/2024 Telephone [facility] Medical [facility] - Rheumatology [address] [facility], [address] [place] [address] Group, [facility] Medical Referral 10/03/2024 Travel from Last 3 Months Allergies No known active allergies Medications * [...] hours if needed. 9 tablet 11 06/13/2023 5 Discontinue d(Reorder) Active Problems Problem Noted Date [...] 05/14/2015 Assessment & Plan (11/10/2015 4:35 PM BATTERY CHARGER CONVEYOR LINE): Clinical history is not classically consistent with [...] infectious causes in differential. Plan: Admit to Dr. Gavin RODGERS with mIVF RUQ ultrasound in am TSH, T4, coags, HFP, F-actin antibody, liver kidney microsomal antibody in am Vitals q4h, I/Os, up as tolerated Hold home Vyvanse for now Social History Tobacco Use Types Packs/Day Years [...] Comments Blood Pressure 130/82 11/01/2024 2:05 PM BATTERY CHARGER CONVEYOR LINE Pulse 86 11/01/2024 2:05 PM BATTERY CHARGER CONVEYOR LINE Temperature 37 C (98.6 F) 11/01/2024 2:05 PM BATTERY CHARGER CONVEYOR LINE Respiratory Rate 16 11/01/2024 2:05 PM BATTERY CHARGER CONVEYOR LINE Oxygen Saturation 98% 11/01/2024 2:05 PM BATTERY CHARGER CONVEYOR LINE Inhaled Oxygen Concentration - - Weight 64.8 kg (142 lb 14.4 oz) 11/01/2024 2:05 PM BATTERY CHARGER CONVEYOR LINE Height 157.5 cm (5' 2 ) 12/06/2023 1:17 PM CDT Body Mass Index 26.14 12/06/2023 1:17 PM CDT Functional Status Functional Status Response Date of [...] person have difficulty concentrating/remembering/making decisions? No 03/20/2015 Plan of Treatment Upcoming Encounters Date Type Department Care Team (Late st Contact Info) Description 12/13/2024 3:30 PM CDT Office Visit [facility] - Neurology [address] [facility] [place] [phone] Morgan Lopez, DIRECTOR OF CONSUMER MARKETING-MORTGAGE LOAN PROCESSING CLERK [address] [place] [phone] Procedures Procedure Name Priority Date/Time Associated Diagnosis Comments XR HAND BILAT 3VW OR MORE Routine 2024 4:29 PM BATTERY CHARGER CONVEYOR LINE BETSY positive Rash Fatigue, unspecified type Dry mouth Dry eye Numbness Raynaud's syndrome without gangrene Polyarthralgia Myalgia, multiple sites Cervicalgia Other low back pain Encounter for long-term (current) use of high-risk medication SS-A (SJOGREN'S) ANTIBODY Routine 2024 3:36 PM BATTERY CHARGER CONVEYOR LINE BETSY positive Rash Fatigue, unspecified type Dry mouth Dry eye Numbness Raynaud's syndrome without gangrene Polyarthralgia Myalgia, multiple sites Cervicalgia Other low back pain Encounter for long-term (current) use of high-risk medication ROQUE (SM) ANTIBODY ENRRIQUE Routine 11/01/19 3:36 PM BATTERY CHARGER CONVEYOR LINE BETSY positive Rash Fatigue, unspecified type Dry mouth Dry eye Numbness Raynaud's syndrome without gangrene Polyarthralgia Myalgia, multiple sites Cervicalgia Other low back pain Encounter for long-term (current) use of high-risk medication SCLERODERMA 70 (SCL) ANTIBODY Routine 11/01/2024 3:36 PM BATTERY CHARGER CONVEYOR LINE BETSY positive Rash Fatigue, unspecified type Dry mouth Dry eye Numbness Raynaud's syndrome without gangrene Polyarthralgia Myalgia, multiple sites Cervicalgia Other low back pain Encounter for long-term (current) use of high-risk medication TRAIN ENGINEER ANTIBODY Routine 11/01/2024 3:36 PM BATTERY CHARGER CONVEYOR LINE BETSY positive Rash Fatigue, unspecified type Dry mouth Dry eye Numbness Raynaud's syndrome without gangrene Polyarthralgia Myalgia, multiple sites Cervicalgia Other low back pain Encounter for long-term (current) use of high-risk medication BETSY BLOOD SCREEN W/REFLEX TITER Routine 11/01/2024 3:36 PM BATTERY CHARGER CONVEYOR LINE BETSY positive Rash Fatigue, unspecified type Dry mouth Dry eye Numbness Raynaud's syndrome without gangrene Polyarthralgia Myalgia, multiple sites Cervicalgia Other low back pain Encounter for long-term (current) use of high-risk medication PROTEIN CREATININE RATIO URINE RANDOM PNL Routine 11/01/2024 3:35 PM BATTERY CHARGER CONVEYOR LINE BETSY positive Rash Fatigue, unspecified type Dry mouth Dry eye Numbness Raynaud's syndrome without gangrene Polyarthralgia Myalgia, multiple sites Cervicalgia Other low back pain Encounter for long-term (current) use of high-risk medication THIOPURINE METHYLTRANSFERASE Routine 11/01/2024 3:35 PM BATTERY CHARGER CONVEYOR LINE BETSY positive Rash Fatigue, unspecified type Dry mouth Dry eye Numbness Raynaud's syndrome without gangrene Polyarthralgia Myalgia, multiple sites Cervicalgia Other low back pain Encounter for long-term (current) use of high-risk medication HISTONE ANTIBODY Routine 11/01/2024 3:35 PM BATTERY CHARGER CONVEYOR LINE BETSY positive Rash Fatigue, unspecified type Dry mouth Dry eye Numbness Raynaud's syndrome without gangrene Polyarthralgia Myalgia, multiple sites Cervicalgia Other low back pain Encounter for long-term (current) use of high-risk medication SS-B (SJOGREN'S) ANTIBODY Routine 2024 3:35 PM BATTERY CHARGER CONVEYOR LINE BETSY positive Rash Fatigue, unspecified type Dry mouth Dry eye Numbness Raynaud's syndrome without gangrene Polyarthralgia Myalgia, multiple sites Cervicalgia Other low back pain Encounter for long-term (current) use of high-risk medication RHEUMATOID FACTOR BLOOD QUANTITATIVE Routine 11/01/2024 3:35 PM BATTERY CHARGER CONVEYOR LINE BETSY positive Rash Fatigue, unspecified type Dry mouth Dry eye Numbness Raynaud's syndrome without gangrene Polyarthralgia Myalgia, multiple sites Cervicalgia Other low back pain Encounter for long-term (current) use of high-risk medication LYME DISEASE TOTAL AB W RFLX IMMUNOASSAY Routine 11/01/2024 3:35 PM BATTERY CHARGER CONVEYOR LINE BETSY positive Rash Fatigue, unspecified type Dry mouth Dry eye Numbness Raynaud's syndrome without gangrene Polyarthralgia Myalgia, multiple sites Cervicalgia Other low back pain Encounter for long-term (current) use of high-risk medication IGG SUBCLASS 4 Routine 11/01/2024 3:35 PM BATTERY CHARGER CONVEYOR LINE BETSY positive Rash Fatigue, unspecified type Dry mouth Dry eye Numbness Raynaud's syndrome without gangrene Polyarthralgia Myalgia, multiple sites Cervicalgia Other low back pain Encounter for long-term (current) use of high-risk medication HEPATITIS SCREEN ACUTE ([facility]) Routine 11/01/2024 3:35 PM BATTERY CHARGER CONVEYOR LINE BETSY positive Rash Fatigue, unspecified type Dry mouth Dry eye Numbness Raynaud's syndrome without gangrene Polyarthralgia Myalgia, multiple sites Cervicalgia Other low back pain Encounter for long-term (current) use of high-risk medication ERYTHROCYTE SEDIMENTATION RATE Routine 11/01/2024 3:35 PM BATTERY CHARGER CONVEYOR LINE BETSY positive Rash Fatigue, unspecified type Dry mouth Dry eye Numbness Raynaud's syndrome without gangrene Polyarthralgia Myalgia, multiple sites Cervicalgia Other low back pain Encounter for long-term (current) use of high-risk medication DNA ANTIBODY DOUBLE STRANDED Routine 11/01/2024 3:35 PM BATTERY CHARGER CONVEYOR LINE BETSY positive Rash Fatigue, unspecified type Dry mouth Dry eye Numbness Raynaud's syndrome without gangrene Polyarthralgia Myalgia, multiple sites Cervicalgia Other low back pain Encounter for long-term (current) use of high-risk medication CYCLIC CITRULLINATED PEPTIDE([facility]P) AB IGG Routine 11/01/2024 3:35 PM BATTERY CHARGER CONVEYOR LINE BETSY positive Rash Fatigue, unspecified type Dry mouth Dry eye Numbness Raynaud's syndrome without gangrene Polyarthralgia Myalgia, multiple sites Cervicalgia Other low back pain Encounter for long-term (current) use of high-risk medication C-REACTIVE PROTEIN Routine 11/01/2024 3: 35 PM BATTERY CHARGER CONVEYOR LINE BETSY positive Rash Fatigue, unspecified type Dry mouth Dry eye Numbness Raynaud's syndrome without gangrene Polyarthralgia Myalgia, multiple sites Cervicalgia Other low back pain Encounter for long-term (current) use of high-risk medication COMPLEMENT C4 Routine 11/01/2024 3:35 PM BATTERY CHARGER CONVEYOR LINE BETSY positive Rash Fatigue, unspecified type Dry mouth Dry eye Numbness Raynaud's syndrome without gangrene Polyarthralgia Myalgia, multiple sites Cervicalgia Other low back pain Encounter for long-term (current) use of high-risk medication COMPLEMENT C3 Routine 11/01/2024 3:35 PM BATTERY CHARGER CONVEYOR LINE BETSY positive Rash Fatigue, unspecified type Dry mouth Dry eye Numbness Raynaud's syndrome without gangrene Polyarthralgia Myalgia, multiple sites Cervicalgia Other low back pain Encounter for long-term (current) use of high-risk medication CK BLOOD Routine 11/01/2024 3:35 PM BATTERY CHARGER CONVEYOR LINE BETSY positive Rash Fatigue, unspecified type Dry mouth Dry eye Numbness Raynaud's syndrome without gangrene Polyarthralgia Myalgia, multiple sites Cervicalgia Other low back pain Encounter for long-term (current) use of high-risk medication LUPUS ANTICOAGULANT PANEL W RFLX Routine 11/01/2024 3:35 PM BATTERY CHARGER CONVEYOR LINE BETSY positive Rash Fatigue, unspecified type Dry mouth Dry eye Numbness Raynaud's syndrome without gangrene Polyarthralgia Myalgia, multiple sites Cervicalgia Other low back pain Encounter for long-term (current) use of high-risk medication CARDIOLIPIN ANTIBODY IGA/IGG/IGM PANEL Routine 11/01/2024 3:35 PM BATTERY CHARGER CONVEYOR LINE BETSY positive Rash Fatigue, unspecified type Dry mouth Dry eye Numbness Raynaud's syndrome without gangrene Polyarthralgia Myalgia, multiple sites Cervicalgia Other low back pain Encounter for long-term (current) use of high-risk medication BETA-2 GLYCOPROTEIN 1 ANTIBODY IGG/IGM/IGA PANEL Routine 11/01/2024 3:35 PM BATTERY CHARGER CONVEYOR LINE BETSY positive Rash Fatigue, unspecified type Dry mouth Dry eye Numbness Raynaud's syndrome without gangrene Polyarthralgia Myalgia, multiple sites Cervicalgia Other low back pain Encounter for long-term (current) use of high-risk medication ANGIOTENSIN CONVERTING ENZYME BLOOD Routine 11/01/2024 3:35 PM BATTERY CHARGER CONVEYOR LINE BETSY positive Rash Fatigue, unspecified type Dry mouth Dry eye Numbness Raynaud's syndrome without gangrene Polyarthralgia Myalgia, multiple sites Cervicalgia Other low back pain Encounter for long-term (current) use of high-risk medication ALDOLASE Routine 11/01/2024 3:35 PM BATTERY CHARGER CONVEYOR LINE BETSY positive Rash Fatigue, unspecified type Dry mouth Dry eye Numbness Raynaud's syndrome without gangrene Polyarthralgia Myalgia, multiple sites Cervicalgia Other low back pain Encounter for long-term (current) use of high-risk medication CARDIAC EKG ORDER 10/31/2024 7:0 6 PM BATTERY CHARGER CONVEYOR LINE TROPONIN-I HIGH SENSITIVE REFLEX 1HOUR Timed 10/31/2024 12:30 AM BATTERY CHARGER CONVEYOR LINE XR CHEST 2VW STAT 10/30/2024 8:44 PM BATTERY CHARGER CONVEYOR LINE Near syncope EKG 12-LEAD STAT 10/30/2024 8:23 PM BATTERY CHARGER CONVEYOR LINE Near syncope HCG BETA BLOOD QUANTITATIVE STAT 10/30/2024 8:21 PM BATTERY CHARGER CONVEYOR LINE TROPONIN-I HIGH SENSITIVE BASELINE + 1HR STAT 10/30/2024 8:21 PM BATTERY CHARGER CONVEYOR LINE CBC W AUTO DIFFERENTIAL STAT 10/30/19 25 8:21 PM BATTERY CHARGER CONVEYOR LINE COMPREHENSIVE METABOLIC PANEL STAT 10/30/2024 8:21 PM BATTERY CHARGER CONVEYOR LINE WV INTRALESIONAL INJECTION(S) 7 OR LESS Routine 10/12/2024 11:15 AM BATTERY CHARGER CONVEYOR LINE Prurigo nodularis from Last 3 Months Results * XR Hand Bilat 3Vw or More (11/01/2024 4:29 PM BATTERY CHARGER CONVEYOR LINE) Anatomical Region Laterality Modality Upper Extremity, Wrist / Hand Co mputed Radiography 11/01/2024 4:34 PM BATTERY CHARGER CONVEYOR LINE Narrative 11/01/2024 4:35 PM BATTERY CHARGER CONVEYOR LINE Procedure: XR HAND BILAT 3VW OR MORE Exam Date: 11/01/2024 4:29 PM Location: [facility] Indication: R76.8: Other specified abnormal immunological findings [...] MORE Exam Date: 11/01/2024 4:29 PM Location: [facility] Indication: R76.8: Other specified abnormal immunological findings [...] ROQUE (SM) ANTIBODY ENRRIQUE (11/01/2024 3:36 PM BATTERY CHARGER CONVEYOR LINE) Roque (ENRRIQUE) Antibody <0.2 0.0 - 0.9 [facility] INSURANCE BILL Blood BLOOD SPECIMEN / Unknown 11/01/2024 3:36 PM BATTERY CHARGER CONVEYOR LINE 11/01/2024 Narrative [facility] INSURANCE BILL - 11/02/2024 10:10 AM BATTERY CHARGER CONVEYOR LINE Performed at: [address] [id number] Docking Saw Operator: Timi Phan PhD, Phone: [phone] Avis Cee MD LAB - CHEMISTRY [place] [facility] Organization Address City/State/ZIP Co de Phone Number [facility] INSURANCE BILL [address] [place] [address] * TRAIN ENGINEER ANTIBODY (11/01/2024 3:36 PM BATTERY CHARGER CONVEYOR LINE) TRAIN ENGINEER Antibody <0.2 0.0 - 0.9 [facility] INSURANCE BILL Blood BLOOD SPECIMEN / Unknown 11/01/2024 3:36 PM BATTERY CHARGER CONVEYOR LINE 11/01/2024 Narrative [facility] INSURANCE BILL - 11/02/2024 10:10 AM BATTERY CHARGER CONVEYOR LINE Performed at: [facility] [address] [place] [id number] Docking Saw Operator: Timi Phan PhD, Phone: [phone] Avis Cee MD LAB - CHEMISTRY [place] [facility] INSURANCE BILL [address] [place] [address] * (ABNORMAL) BETSY BLOOD SCREEN W/REFLEX TITER (11/01/2024 3:36 PM BATTERY CHARGER CONVEYOR LINE) BETSY Positive(A) [facility] INSURANCE BILL Comment: Negative <1:80 Borderline 1:80 Positive >1:80 Performed at: [facility] [address] [place], [place] [id number] Docking Saw Operator: Timi Phan PhD, Phone: [phone] Homogeneous Pattern 1:320(H) [facility] INSURANCE BILL Comment:ICAP nomenclature: A C-1 Note Comment [facility] INSURANCE BILL Comment: Pattern Potential Disease Association Homogeneous Systemic Lupus Erythematosus, Drug Induced Systemic Lupus Erythematosus, Chronic Autoimmune hepatitis, Juvenile Idiopathic Arthritis Speckled Sjogren Syndrome, Systemic Lupus Erythematosus, Subacute Cutaneous Lupus, Lupus, Congenital Heart Block, Mixed Connective Tissue Disease, Scleroderma-diffuse, Scleroderma-Autoimmune Myositis Overlap Syndrome, Systemic Lupus Qkmbetrhytcka-Tqwuyahfoxn-Ncubzhvccq Myositis Overlap Syndrome, Systemic Autoimmune Rheumatic Disease, [...] BLOOD SPECIMEN / Unknown 11/01/2024 3:36 PM BATTERY CHARGER CONVEYOR LINE 11/01/2024 Narrative [facility] INSURANCE BILL - 11/05/2024 5:09 PM BATTERY CHARGER CONVEYOR LINE Performed at: 01 [facility] [address] [place], [place] [id number] Docking Saw Operator: Timi Phan PhD, Phone: [phone] Avis Cee MD LAB - CHEMISTRY [place] [facility] INSURANCE BILL [address] [place] [address] * SS-A (SJOGREN'S) ANTIBODY (11/01/2024 3:36 PM BATTERY CHARGER CONVEYOR LINE) Sjogren's Antibodies (SSA) <0.2 0.0 - 0.9 [facility] B[facility] Blood BLOOD SPECIMEN / Unknown 11/01/2024 3:36 PM BATTERY CHARGER CONVEYOR LINE 11/01/2024 Narrative [facility] INSURANCE BILL - 11/02/2024 10:10 AM BATTERY CHARGER CONVEYOR LINE Performed at: - [address] [id number] Docking Saw Operator: Timi Phan PhD, Phone: [phone] Avis Cee MD LAB - CHEMISTRY [place] Performing Organization Address City/[facility] Co de Phone Number [facility] INSURANCE BILL [address] [place] [address] * SCLERODERMA 70 (SCL) ANTIBODY (11/01/2024 3:36 PM BATTERY CHARGER CONVEYOR LINE) Pathologist [facility] Antiscleroderma -70 Antibody <0.2 0.0 - 0.9 AI [facility] INSURANCE BILL Blood BLOOD SPECIMEN / Unknown 11/01/2024 3:36 PM BATTERY CHARGER CONVEYOR LINE 11/01/2024 Narrative [facility] INSURANCE BILL - 11/02/2024 10:10 AM BATTERY CHARGER CONVEYOR LINE Performed at: - [address] [id number] Docking Saw Operator: Timi Phan PhD, Phone: [phone] Avis Cee MD LAB - CHEMISTRY [place] Performing Organization Address [facility] de Phone Number [facility] INSURANCE BILL [address] [place] [address] * HEPATITIS SCREEN ACUTE ([facility]) (11/01/2024 3:35 PM BATTERY CHARGER CONVEYOR LINE) Pathologist [facility] Hepatitis A Virus Antibody IgM Negative Negative [facility] INSURANCE BILL Comment: A negative anti-HAV IgM result suggests no recent or current HAV infection. Hepatitis B Virus Surface Antigen Negative Negative [facility] INSURANCE BILL Hepatitis B Core Virus Antibody IgM Negative Negative [facility] INSURANCE BILL Hepatitis C Antibody Non Reactive Non Reactive [facility] INSURANCE BILL Comment: Performed at: - [address] [id number] Docking Saw Operator: Timi Phan PhD, Phone: [phone] Interpretation Comment [facility] INSURANCE BILL Comment: Not infected with HCV unless early or acute infection is suspected (which may be delayed in an immunocompromised individual), or other evidence exists to indicate HCV infection. Blood BLOOD SPECIMEN / Unknown 11/01/2024 3:35 PM BATTERY CHARGER CONVEYOR LINE 11/01/2024 Narrative [facility] INSURANCE BILL - 11/02/2024 7:09 AM BATTERY CHARGER CONVEYOR LINE Performed at: [address] [place] [id number] Docking Saw Operator: Timi Phan PhD, Phone: [phone] Avis Cee MD LAB - CHEMISTRY [place] Performing Organization Address [facility] Co de Phone Number [facility] INSURANCE BILL [address] [place] [address] * LYME DISEASE TOTAL AB W RFLX IMMUNOASSAY (11/01/2024 3:35 PM BATTERY CHARGER CONVEYOR LINE) Pathologist [facility] Lyme Antibody Total Negative Negative [facility] INSURANCE [...] BLOOD SPECIMEN / Unknown 11/01/2024 3:35 PM BATTERY CHARGER CONVEYOR LINE 11/01/2024 Narrative [facility] INSURANCE BILL - 11/02/2024 5:09 PM BATTERY CHARGER CONVEYOR LINE Performed at: [address] [id number] Docking Saw Operator: Timi Phan PhD, Phone: [phone] Avis Cee MD LAB - CHEMISTRY [place] Performing Organization Address [facility] Co de Phone Number [facility] INSURANCE BILL [address] [place] [address] * IGG SUBCLASS 4 (11/01/2024 3:35 PM BATTERY CHARGER CONVEYOR LINE) [facility] IgG Subclass 4 12 2 - 96 mg/dL [facility] INSURANCE BILL Blood BLOOD SPECIMEN / Unknown 11/01/2024 3:35 PM BATTERY CHARGER CONVEYOR LINE 11/01/2024 Narrative [facility] INSURANCE BILL - 11/02/2024 3:10 PM BATTERY CHARGER CONVEYOR LINE Performed at: - [facility] [address] [id number] Docking Saw Operator: Timi Phan PhD, Phone: [phone] Avis Cee MD LAB - CHEMISTRY [place] Performing Organization Address City/[facility]/ZIP Co de Phone Number [facility] INSURANCE BILL [address] [place] [address] * CARDIOLIPIN ANTIBODY IGA/IGG/IGM PANEL (11/01/2024 3:35 PM BATTERY CHARGER CONVEYOR LINE) Pathologist [facility] Cardiolipin Antibody IgG <9 0 - 14 [...] BLOOD SPECIMEN / Unknown 11/01/2024 3:35 PM BATTERY CHARGER CONVEYOR LINE 11/01/2024 Narrative [facility] INSURANCE BILL - 11/02/2024 3:10 PM BATTERY CHARGER CONVEYOR LINE Performed at: - [address] [id number] Docking Saw Operator: Timi Phan PhD, Phone: [phone] Avis Cee MD LAB - SEROLOGY ORDER BEKAH [facility] INSURANCE BILL [address] [place] [address] * LUPUS ANTICOAGULANT PANEL W RFLX (11/01/2024 3:35 PM BATTERY CHARGER CONVEYOR LINE) Pathologist [facility] PTT-LA 32.0 0.0 - 43.5 sec [facility] INSURANCE BILL dRVVT 29.2 0.0 - 47.0 sec [facility] INSURANCE BILL Interpretation Comment: [facility] INSURANCE BILL Comment:No lupus anticoagula nt was detected. Blood BLOOD SPECIMEN / Unknown 11/01/2024 3:35 PM BATTERY CHARGER CONVEYOR LINE 11/01/2024 Narrative [facility] INSURANCE BILL - 11/02/2024 6:09 PM BATTERY CHARGER CONVEYOR LINE Performed at: [facility] [address] [place], [place] [id number] Docking Saw Operator: Alejandra Robison MD, Phone: [phone] Avis Cee MD LAB - HEMATOLOGY ORD ERABLES [facility] INSURANCE BILL [address] [place] [address] * BETA-2 GLYCOPROTEIN 1 ANTIBODY IGG/IGM/IGA PANEL (11/01/2024 3:35 PM BATTERY CHARGER CONVEYOR LINE) [facility] Beta-2 Glycoprotein I Antibody IgG <9 0 [...] BLOOD SPECIMEN / Unknown 11/01/2024 3:35 PM BATTERY CHARGER CONVEYOR LINE 11/01/2024 Narrative [facility] INSURANCE BILL - 11/02/2024 3:10 PM BATTERY CHARGER CONVEYOR LINE Performed at: - [facility] [address] [place], [place] [id number] Docking Saw Operator: Timi Phan PhD, Phone: [phone] Avis Cee MD LAB - SEROLOGY ORDER BEKAH Performing Organization Address City/[facility] Co de Phone Number [facility] INSURANCE BILL [address] [place] [address] * RHEUMATOID FACTOR BLOOD QUANTITATIVE (11/01/2024 3:35 PM BATTERY CHARGER CONVEYOR LINE) Rheumatoid Factor <10.0 <14.0 IU/mL [facility] INSURANCE BILL Blood BLOOD SPECIMEN / Unknown 11/01/2024 3:35 PM BATTERY CHARGER CONVEYOR LINE 11/01/2024 Narrative [facility] INSURANCE BILL - 11/02/2024 3:10 PM BATTERY CHARGER CONVEYOR LINE Performed at: - [address] [id number] Docking Saw Operator: Timi Phna PhD, Phone: [phone] Avis Cee MD LAB - CHEMISTRY [place] Performing Organization Address [facility] de Phone Number [facility] INSURANCE BILL [address] [place] [address] * C-REACTIVE PROTEIN (11/01/2024 3:35 PM BATTERY CHARGER CONVEYOR LINE) C-Reactive Protein 2 0 - 10 mg/L [facility] INSURANCE BILL Blood BLOOD SPECIMEN / Unknown 11/01/2024 3:35 PM BATTERY CHARGER CONVEYOR LINE 11/01/2024 Narrative [facility] INSURANCE BILL - 11/02/2024 3:10 PM BATTERY CHARGER CONVEYOR LINE Performed at: [address] [id number] Docking Saw Operator: Timi Phan PhD, Phone: [phone] Avis Cee MD LAB - CHEMISTRY [place] Performing Organization Address [facility] Co de Phone Number [facility] INSURANCE BILL [address] [place] [address] * HISTONE ANTIBODY (11/01/2024 3:35 PM BATTERY CHARGER CONVEYOR LINE) Anti-Histone Antibody 0.7 0.0 - 0.9 Units [facility] INSURANCE BILL Comment: Negative <1.0 Weak Positive 1.0 - 1.5 Moderate Positive 1.6 - 2.5 Strong Positive >2.5 Blood BLOOD SPECIMEN / Unknown 11/01/2024 3:35 PM BATTERY CHARGER CONVEYOR LINE 11/01/2024 Narrative [facility] INSURANCE BILL - 11/06/2024 3:09 PM BATTERY CHARGER CONVEYOR LINE Performed at: [address] [place] [address] [id number] Docking Saw Operator: Alejandra Robison MD, Phone: [phone] Avis Cee MD LAB - CHEMISTRY [place] Performing Organization Address City/[facility]/ZIP Co de Phone Number [facility] [address] [place] [address] * SS-B (SJOGREN'S) ANTIBODY (11/01/2024 3:35 PM BATTERY CHARGER CONVEYOR LINE) Sjogren's Antibodies (SSB) <0.2 0.0 - 0.9 AI [facility] INSURANCE BILL Blood BLOOD SPECIMEN / Unknown 11/01/2024 3:35 PM BATTERY CHARGER CONVEYOR LINE 11/01/2024 Narrative [facility] INSURANCE BILL - 11/02/2024 10:10 AM BATTERY CHARGER CONVEYOR LINE Performed at: [address] [place] [address] [id number] Docking Saw Operator: Timi Phan PhD, Phone: [phone] Avis Cee MD LAB - CHEMISTRY [place] Performing Organization Address City/[facility]/ZIP Co de Phone Number [facility] INSURANCE BILL [address] [place] [address] * DNA ANTIBODY DOUBLE STRANDED (11/01/2024 3:35 PM BATTERY CHARGER CONVEYOR LINE) Anti-dsDNA Quantitative <1 0 - 9 IU/mL [facility] INSURANCE BILL Comment: Negative <5 Equivocal 5 - 9 Positive >9 Blood BLOOD SPECIMEN / Unknown 11/01/2024 3:35 PM BATTERY CHARGER CONVEYOR LINE 11/01/2024 Narrative [facility] INSURANCE BILL - 11/02/2024 10:10 AM BATTERY CHARGER CONVEYOR LINE Performed at: [address] [place] [address] [id number] Docking Saw Operator: Timi Phan PhD, Phone: [phone] Avis Cee MD LAB - HEMATOLOGY ORD ERABLES Performing Organization Address [facility]/ZIP Co de Phone Number [facility] INSURANCE BILL [address] [place] [address] * ANGIOTENSIN CONVERTING ENZYME BLOOD (11/01/2024 3:35 PM BATTERY CHARGER CONVEYOR LINE) Angiotensin-Con verting Enzyme 58 14 - 82 U/L [facility] INSURANCE BILL Blood BLOOD SPECIMEN / Unknown 11/01/2024 3:35 PM BATTERY CHARGER CONVEYOR LINE 11/01/2024 Narrative [facility] INSURANCE BILL - 11/02/2024 3:10 PM BATTERY CHARGER CONVEYOR LINE Performed at: [address] [id number] Docking Saw Operator: Timi Phan PhD, Phone: [phone] Avis Cee MD LAB - CHEMISTRY [place] Performing Organization Address [facility] Co de Phone Number [facility] INSURANCE BILL [address] [place] [address] * ALDOLASE (11/01/2024 3:35 PM BATTERY CHARGER CONVEYOR LINE) [facility] Aldolase 3.5 3.3 - 10.3 U/L [facility] INSURANCE BILL Blood BLOOD SPECIMEN / Unknown 11/01/2024 3:35 PM BATTERY CHARGER CONVEYOR LINE 11/01/2024 Narrative [facility] INSURANCE BILL - 11/02/2024 3:10 PM BATTERY CHARGER CONVEYOR LINE Performed at: [address] [id number] Docking Saw Operator: Timi Phan PhD, Phone: [phone] Avis Cee MD LAB - CHEMISTRY [place] Performing Organization Address City/[facility] Co de Phone Number [facility] INSURANCE BILL [address] [place] [address] * THIOPURINE METHYLTRANSFERASE (11/01/2024 3:35 PM BATTERY CHARGER CONVEYOR LINE) [facility] TPMT Activity 25.3 Units/mL RBC [facility] INSURANCE [...] developed and its performance characteristics determined by [facility]. It has not been cleared or approved by the Food and Drug Administration. This case has been reviewed, approved, interpreted and electronically signed by Baron Rivera, PhD, [facility]. Methodology Comment [facility] Comment: Enzymatic Endpoint/Liquid Chromatography - Tandem Mass Spectrometry (LC-MS/MS) Blood BLOOD SPECIMEN / Unknown 11/01/2024 3:35 PM BATTERY CHARGER CONVEYOR LINE 11/01/2024 Narrative [facility] INSURANCE BILL - 11/09/2024 5:09 PM BATTERY CHARGER CONVEYOR LINE Performed at: - [facility] [address] [place] [address] [id number] Docking Saw Operator: Jose Alfredo Ferris MD, Phone: [phone] Avis Cee MD LAB - [facility]MISTRY [facility] INSURANCE BILL [address] [place] [address] * CYCLIC CITRULLINATED PEPTIDE(CCP) AB IGG (11/01/2024 3:35 PM BATTERY CHARGER CONVEYOR LINE) Pathologist [facility] CCP Antibodies IgG/IgA <20 <20 Units [facility] INSURANCE BILL Comment: Negative: <20 Weak Positive: 20-39 Moderate Positive: 40-59 Strong Positive: >59 Blood BLOOD SPECIMEN / Unknown 11/01/2024 3:35 PM BATTERY CHARGER CONVEYOR LINE 11/01/2024 Narrative [facility] INSURANCE BILL - 11/07/2024 9:08 PM BATTERY CHARGER CONVEYOR LINE Performed at: - [facility] [address] [place] [address] [id number] Docking Saw Operator: Jose Alfredo Ferris MD, Phone: [phone] Avis Cee MD LAB - CHEMISTRY ORDE RABVITALY Performing Organization Address City/[facility]/ZIP Co de Phone Number [facility] INSURANCE BILL [address] [place] [address] * ERYTHROCYTE SEDIMENTATION RATE (11/01/2024 3:35 PM BATTERY CHARGER CONVEYOR LINE) Erythrocyte Sedimentation Rate Westergren 7 0 - 32 mm/hr [facility] INSURANCE BILL Blood BLOOD SPECIMEN / Unknown 11/01/2024 3:35 PM BATTERY CHARGER CONVEYOR LINE 11/01/2024 Narrative [facility] INSURANCE BILL - 11/02/2024 7:09 AM BATTERY CHARGER CONVEYOR LINE Performed at: - [facility] [id number] Docking Saw Operator: Timi Phan PhD, Phone: [phone] Avis Cee MD LAB - HEMATOLOGY ORD ERABLES Performing Organization Address [facility] Co de Phone Number [facility] INSURANCE BILL [address] [place] [address] * COMPLEMENT C4 (11/01/2024 3:35 PM BATTERY CHARGER CONVEYOR LINE) Complement C4 28 14 - 44 mg/dL [facility] INSURANCE BILL Blood BLOOD SPECIMEN / Unknown 11/01/2024 3:35 PM BATTERY CHARGER CONVEYOR LINE 11/01/2024 Narrative [facility] INSURANCE BILL - 11/05/2024 7:08 AM BATTERY CHARGER CONVEYOR LINE Performed at: - [facility] [address] [place] [address] [id number] Docking Saw Operator: Jose Alfredo Ferris MD, Phone: [phone] Avis Cee MD LAB - SEROLOGY ORDER BEKAH Performing Organization Address City/[facility] Co de Phone Number [facility] INSURANCE BILL [address] [place] [address] * PROTEIN CREATININE RATIO URINE RANDOM PNL (11/01/2024 3:35 PM BATTERY CHARGER CONVEYOR LINE) Creatinine Urine 163.2 Not Estab. mg/dL [facility] INSURANCE BILL Protein Urine 15.5 Not Estab. mg/dL [facility] INSURANCE BILL Protein/Creatin ine Ratio 95 0 - 200 mg/g creat [facility] INSURANCE BILL Urine URINE SPECIMEN OBTAINED BY CLEAN CATCH PROCEDURE / Unknown 11/01/2024 3:35 PM BATTERY CHARGER CONVEYOR LINE 11/01/2024 Narrative [facility] INSURANCE BILL - 11/02/2024 10:10 AM BATTERY CHARGER CONVEYOR LINE Performed at: 01 - [address] [id number] Docking Saw Operator: Timi Phan PhD, Phone: [phone] Avis Cee MD LAB - URINE CHEMISTR Y ORDERABLES Performing Organization Address City/[facility]/ZIP Co de Phone Number [facility] INSURANCE BILL [address] [place] [address] * CK BLOOD (11/01/2024 3:35 PM BATTERY CHARGER CONVEYOR LINE) CK 89 32 - 182 U/L [facility] INSURANCE BILL Blood BLOOD SPECIMEN / Unknown 11/01/2024 3:35 PM BATTERY CHARGER CONVEYOR LINE 11/01/2024 Narrative [facility] INSURANCE BILL - 11/02/2024 8:11 AM BATTERY CHARGER CONVEYOR LINE Performed at: - [address] [id number] Docking Saw Operator: Timi Phan PhD, Phone: [phone] Avis Cee MD LAB - CHEMISTRY ORDE RABLES Performing Organization Address City/[facility]/ZIP Co de Phone Number [facility] INSURANCE BILL [address] [place] [address] * COMPLEMENT C3 (11/01/2024 3:35 PM BATTERY CHARGER CONVEYOR LINE) Complement C3 180 90 - 180 mg/dL [facility] INSURANCE BILL Comment: Effective September 24, 2024, C3 Complement (RDL) reference interval will be changing to: 90 - 180 mg/dL Blood BLOOD SPECIMEN / Unknown 11/01/2024 3:35 PM BATTERY CHARGER CONVEYOR LINE 11/01/2024 Narrative [facility] INSURANCE BILL - 11/05/2024 7:08 AM BATTERY CHARGER CONVEYOR LINE Performed at: 01 - [facility] [address] [place], [place] [id number] Docking Saw Operator: Jose Alfredo Ferris MD, Phone: [phone] Avis Cee MD LAB - CHEMISTRY ORDE SILVESTRE [facility] INSURANCE BILL [address] [place] [address] * CARDIAC EKG ORDER (10/31/2024 7:06 PM BATTERY CHARGER CONVEYOR LINE) Narrative 10/31/2024 7:06 PM BATTERY CHARGER CONVEYOR LINE Ordered by an unspecified provider. Scanned Document CARDIAC SERVICES ORD ERABLES * TROPONIN-I HIGH SENSITIVE REFLEX 1HOUR (10/31/2024 12:30 AM BATTERY CHARGER CONVEYOR LINE) Pathologist [facility] Troponin I High Sensitive <3 <=14 ng/L 10/31/2024 1:00 AM BATTERY CHARGER CONVEYOR LINE [facility] Delta Troponin I HS 10/31/2024 1:00 AM BATTERY CHARGER CONVEYOR LINE [facility] Comment:Delta value intentio curry not calculated. Baseline to 1 hour specimen collection interval exceeded. Blood BLOOD SPECIMEN / Unknown Venipuncture / Unknown 10/31/2024 12:30 AM BATTERY CHARGER CONVEYOR LINE 10/31/2024 12:33 AM BATTERY CHARGER CONVEYOR LINE Ashley HUA LAB - CHEMISTR Y ORDERABLES Performing Organization Address City/[facility] Co de Phone Number [facility] [address] [place] [address] * XR CHEST 2VW (10/30/2024 8:44 PM BATTERY CHARGER CONVEYOR LINE) Anatomical Region Laterality Modality Chest Radiographic Lorena ging 10/30/2024 8:57 PM BATTERY CHARGER CONVEYOR LINE Impressions 10/30/2024 8:58 PM BATTERY CHARGER CONVEYOR LINE IMPRESSION: Normal > Interpreting Provider: Christopher Bonds MD on 10/30/2024 8:58 PM Narrative 10/30/2024 8:58 PM BATTERY CHARGER CONVEYOR LINE PROCEDURE: XR CHEST 2VW DATE/TIME OF EXAM: [...] Christopher Bonds MD on 10/30/2024 8:58 PM [employer] APNP-MORTGAGE LOAN PROCESSING CLERK DIAGNOSTIC LORENA GING ORDERABLES * EKG 12-LEAD (10/30/2024 8:23 PM BATTERY CHARGER CONVEYOR LINE) Ventricular Rate 81 BPM [facility] Atrial Rate 81 BPM [facility] P-R Interval 136 ms [facility] QRS Duration ms 86 ms [facility] Q-T Interval ms 358 ms [facility] QTC Calculation (Bezet) 415 ms [facility] Calculated P [place] 68 degrees [facility] Calculated R [place] 51 degrees [facility] Calculated T [place] 49 degrees [facility] Interpretation EKG NORMAL SINUS RHYTHM WITH SINUS ARRHYTHMIA NORMAL ECG NO PREVIOUS ECGS AVAILABLE Confirmed by Mickey Burnette MD ([id number]) on 10/31/2024 7:59:22 AM [facility] MUSE 10/30/2024 8:23 PM BATTERY CHARGER CONVEYOR LINE 10/31/2024 7:59 AM BATTERY CHARGER CONVEYOR LINE [facility] [employer] APNP-MORTGAGE LOAN PROCESSING CLERK ECG ORDERABLES [facility] * TROPONIN-I HIGH SENSITIVE BASELINE + 1HR (10/30/2024 8:21 PM BATTERY CHARGER CONVEYOR LINE) Troponin I High Sensitive <3 <=14 ng/L 10/30/2024 8:43 PM BATTERY CHARGER CONVEYOR LINE [facility] Blood BLOOD SPECIMEN / Unknown Venipuncture / Unknown 10/30/2024 8:21 PM BATTERY CHARGER CONVEYOR LINE 10/30/2024 8:21 PM BATTERY CHARGER CONVEYOR LINE Ashley Jefferson APNP-MORTGAGE LOAN PROCESSING CLERK LAB - CHEMISTR Y ORDERABLES [facility] [address] [place] [address] * CBC W AUTO DIFFERENTIAL (10/30/2024 8:21 PM BATTERY CHARGER CONVEYOR LINE) [facility] WBC 9.3 4.0 - 10.7 x10E9/L 10/30/2024 8:24 PM [facility] RBC Count 4.57 3.90 - 5.20 x10E12/L 10/30/2024 8:24 PM [facility] Hemoglobin 14.0 11.9 - 15.8 g/dL 10/30/2024 8:24 PM [facility] Hematocrit 41.4 34.8 - 46.1 % 10/30/2024 8:24 PM [facility] MCV 90.6 80.0 - 98.0 fL 10/30/2024 8:24 PM [facility] MCH 30.6 26.7 - 33.6 pg 10/30/2024 8:24 PM [facility] MCHC 33.8 31.7 - 36.3 g/dL 10/30/2024 8:24 PM [facility] RDW-CV 11.5 11.3 - 14.8 % 10/30/2024 8:24 PM [facility] Platelet Count 237 150 - 420 x10E9/L 10/30/2024 8:24 PM [facility] MPV 8.5 7.8 - 11.4 fL 10/30/2024 8:24 PM [facility] Neutrophil % 71.6 41.0 - 74.0 % 10/30/2024 8:24 PM [facility] Lymphocyte % 21.7 17.0 - 47.0 % 10/30/2024 8:24 PM [facility] Monocyte % 5.7 3.0 - 11.0 % 10/30/2024 8:24 PM [facility] Eosinophil % 0.5 0.0 - 7.0 % 10/30/2024 8:24 PM [facility] Basophil % 0.3 0.0 - 1.6 % 10/30/2024 8:24 PM [facility] Immature Granulocytes % 0.2 0.0 - 1.0 % 10/30/2024 8:24 PM [facility] Neutrophil Absolute 6.65 1.60 - 7.50 x10E9/L 10/30/2024 8:24 PM [facility] Lymphocyte Absolute 2.02 1.00 - 4.40 x10E9/L 10/30/2024 8:24 PM [facility] Monocyte Absolute 0.53 0.15 - 1.00 x10E9/L 10/30/2024 8:24 PM [facility] Eosinophil Absolute 0.05 0.00 - 0.60 x10E9/L 10/30/2024 8:24 PM [facility] Basophil Absolute 0.03 0.00 - 0.13 x10E9/L 10/30/2024 8:24 PM [facility] Blood BLOOD SPECIMEN / Unknown Venipuncture / Unknown 10/30/2024 8:21 PM BATTERY CHARGER CONVEYOR LINE 10/30/2024 8:21 PM [facility] Ashley Jefferson APNP-MORTGAGE LOAN PROCESSING CLERK LAB - HEMATOLO GY ORDERABLES Performing Organization Address City/State/[facility] Co de Phone Number [facility] [address] [place] [phone] * (ABNORMAL) COMPREHENSIVE METABOLIC PANEL (10/30/2024 8:21 PM BATTERY CHARGER CONVEYOR LINE) Glucose 94 70 - 99 mg/dL 10/30/2024 8:40 PM [facility] Sodium 136 136 - 145 mmol/L 10/30/2024 8:40 PM [facility] Potassium 3.8 3.5 - 5.1 mmol/L 10/30/2024 8:40 PM [facility] Chloride 108(H) 98 - 107 mmol/L 10/30/2024 8:40 PM [facility] CO2 21(L) 22 - 29 mmol/L 10/30/2024 8:40 PM [facility] Calcium 9.2 8.4 - 10.4 mg/dL 10/30/2024 8:40 PM [facility] Anion Gap 7 6 - 16 mmol/L 10/30/2024 8:40 PM [facility] BUN 8 5.3 - 18.7 mg/dL 10/30/2024 8:40 PM [facility] Creatinine 0.79 0.57 - 1.11 mg/dL 10/30/2024 8:40 PM [facility] Alkaline Phosphatase 63 40 - 150 U/L 10/30/2024 8:40 PM [facility] ALT 31 0 - 55 U/L 10/30/2024 8:40 PM [facility] AST 23 5 - 34 U/L 10/30/2024 8:40 PM [facility] Protein Total 7.9 6.4 - 8.3 gm/dL 10/30/2024 8:40 PM [facility] Albumin 4.7 3.4 - 5.0 gm/dL 10/30/2024 8:40 PM [facility] Bilirubin Total 0.4 0.2 - 1.2 mg/dL 10/30/2024 8:40 PM [facility] eGFR by CKD-EPI >90 >=90 mL/min/1.7 3 m2 10/30/2024 8:40 PM [facility] Blood BLOOD SPECIMEN / Unknown Venipuncture / Unknown 10/30/2024 8:21 PM BATTERY CHARGER CONVEYOR LINE 10/30/2024 8:21 PM BATTERY CHARGER CONVEYOR LINE Ashley Jefferson APNP-MORTGAGE LOAN PROCESSING CLERK LAB - CHEMISTR Y ORDERABLES Performing Organization Address City/State/[facility] Co de Phone Number [facility] [address] [place], [place] [phone] * HCG BETA BLOOD QUANTITATIVE (10/30/2024 8:21 PM BATTERY CHARGER CONVEYOR LINE) hCG Quantitative <2.42 mIU/mL 10/31/19 12:15 AM [facility] Blood BLOOD SPECIMEN / Unknown Venipuncture / Unknown 10/30/2024 8:21 PM BATTERY CHARGER CONVEYOR LINE 10/30/2024 8:21 PM BATTERY CHARGER CONVEYOR LINE Narrative [facility] - 10/31/2024 12:15 AM BATTERY CHARGER CONVEYOR LINE hCG Reference Range, mIU/mL: Non Females 0-6.0 [...] Young MD LAB - CHEMISTRY [place] [facility] Organization Address City/State/ZIP Co de Phone Number [facility] [address] [place] [address] * [place] INTRALESIONAL INJECTION(S) 7 OR LESS (10/12/2024 11:15 AM BATTERY CHARGER CONVEYOR LINE) Narrative Gagan Skinner MD - 10/12/2024 11:15 AM BATTERY CHARGER CONVEYOR LINE Se Schmitt MD 10/12/2024 11:15 AM The side effects of intralesional triamcinolone were discussed with patient, including petechiae and purpura, local lipoatrophy, striae and pigment change. 0.1mL of Triamcinolone 10mg/mL was injected in to right lateral lower leg papule with a 1 cc syringe and a 30 gauge needle. Se Schmitt MD [facility] Dermatology Resident Gagan Skinner MD PROCEDURE/MINOR SURG ICAL ORDERABLES from Last 3 Months Advance Directives * Full Code (Latest Code Status on File) Date Activated Date Inactivated Comments 03/16/2015 11:07 PM 03/20/2015 5:14 PM Care Teams Cheese Blender Relationship Specialty Start Date End Date Cem Hernandez MD [address] [id number] PCP - General Family Medicine 11/05/24
--- OUTSIDE RECORDS SUMMARY | 2024-11-24 09:05 | XMS_ITS | Data Portability ---
Author Organization [facility], Main Office Address [address] [place] [address] Care Team Providers Care Hasher Operator Name Role Phone BANDAR CANAS Primary Care Provider Assessment Encounter Date Assessment Date Assessment LastModified by Organization Details LastModified Time 12/14/2022 12/14/2022 The patient gave verbal consent using TeleHealth services and the consent is documented in the medical record prior to using the service. The patient has been informed of what a TeleMedicine visit is. Patient is located at home. Provider is located at office. Names and roles of persons in addition to the patient and provider participating in telemedicine services include none. The patient had a 13 minute TeleMedicine consultation via Clon[employer] to discuss the following: Not available 12/14/2022 12:55:18 Plan of Treatment Reminders Order Date Submit Date Provider Last Modified By Organization Details Last Modified Time Details Appointments None record ed. Lab None record ed. Referral None record ed. Procedures None record ed. Surgeries None record ed. Imaging None record ed. Medication Orders None record ed. Patient TargetsNo targets recorded. Patient Instructions Encounter Date Encounter Id Patient Instructions Last Modified By Organization Details Last Modified Time 12/14/2022 [id number] methacholine challenge* - Schedule after 01/24/23 [email or web address] Not available 08/24/2023 10:50:46 Due to the COVID-19 (Novel Coronavirus) pandemic, it is within this context (and with the understanding that this method of patient encounter is in the patient s best interest as well as the health and safety of other patients and the public) that telehealth is being provided for this patient encounter rather than a [id number] visit. This patient encounter is appropriate at this time. This patient has been advised of the potential risks and limitations of this mode of treatment (including, but not limited to, the absence of in-person examination) and has agreed to be treated in a remote fashion despite these risks. Any and all of the patient s/patient s family s questions on this issue have been answered, and I have made no promises or guarantees to the patient. The patient has also been advised to contact this office for worsening conditions or problems, and seek emergency medical treatment and/or call 911 if the patient deems either necessary. HPI and/or vitals, if listed, were provided by the patient. [email or web address] Not available 12/14/2022 11:21:30 Reason for Referral None Reported. Results Created Date Observation Date Name Description Value Unit Range Abnormal Flag Note LastModifiedBy Organization Detail LastModifiedTime 12/30/1912/29/2021 HEPAT ITIS ACUTE PANEL hepatitis A IgM antibody non-re active non-re active For sampl es fabricio smith as [place] kennedy React carmita for HAV IgM, it is recom miky d a new speci men be obtai steve in 2 weeks and retes maria eugenia. Not Available [facility] (Lab) [address] [place], [address], 12/29/2021 21:28:12 12/30/19 22 12/29/2021 HEPAT ITIS ACUTE PANEL S/C 0.01 0.00-0 .79 Not Available [facility] (Lab) [address] [place], [address], 12/29/2021 21:28:12 12/30/19 22 12/29/2021 HEPAT ITIS ACUTE PANEL hepatitis B core IgM antibody non-re active non-re active Not Available [facility] (Lab) [address] [place], [address], 12/29/2021 21:28:12 12/30/19 22 12/29/2021 HEPAT ITIS ACUTE PANEL S/C 0.02 0.00-1 .10 Not Available [facility] (Lab) [address] [place], [address], 12/29/2021 21:28:12 12/30/19 22 12/29/2021 HEPAT ITIS ACUTE PANEL hepatitis B surface antigen non-re active non-re active Not Available [facility] (Lab) [address] [place], [address], 12/29/2021 21:28:12 12/30/19 22 12/29/2021 HEPAT ITIS ACUTE PANEL S/C 0.05 0.00-0 .99 Not Available [facility] (Lab) [address] [place], [address], 12/29/2021 21:28:12 12/30/19 22 12/29/2021 HEPAT ITIS ACUTE PANEL hepatitis C antibody non-re active non-re active Not Available [facility] (Lab) [address] [place], [address], 12/29/2021 21:28:12 12/30/19 22 12/29/2021 HEPAT ITIS ACUTE PANEL S/C 0.00 0.00-0 .99 Not Available [facility] (Lab) [address] [place], [address], 12/29/2021 21:28:12 12/30/19 22 12/29/2021 HIV COMBO : HIV 1/2,P 24AG, GRP O HIV combo assay non-re active nonrea ctive The HIV combo test scree ns for HIV-1 , HIV-2 , HIV p24 Ag, and HIV group O. Any react carmita scree n resul t will be sent for PCR confi rmato ry testi ng. Not Available [facility] (Lab) [address] [place], [address], 12/29/2021 21:19:01 12/30/19 22 12/29/2021 HIV COMBO : HIV 1/2,P 24AG, GRP O S/C 0.11 0.00-0 .99 Not Available [facility] (Lab) [address] [place], [address], 12/29/2021 21:19:01 12/30/19 22 12/29/2021 HEPAT IC/LI TIO PANEL alkaline phosphatase 58 U/L 38-126 Not Available [facility] (Lab) [address] [place], [address], 12/29/2021 20:28:19 12/30/19 22 12/29/2021 HEPAT IC/LI TIO PANEL alanine aminotransfe rase 30 U/L 0-35 Not Available [facility] (Lab) [address] [place], [address], 12/29/2021 20:28:19 12/30/19 22 12/29/2021 HEPAT IC/LI TIO PANEL aspartate aminotransfe rase 25 U/L 15-37 Not Available [facility] (Lab) [address] [place], [address], 12/29/2021 20:28:19 12/30/19 22 12/29/2021 HEPAT IC/LI TIO PANEL bilirubin, total 0.30 mg/dL 0.20-1 .30 Not Available [facility] (Lab) [address] [place], [address], 12/29/2021 20:28:19 12/30/19 22 12/29/2021 HEPAT IC/LI TIO PANEL bilirubin, conjugated (direct) 0.00 mg/dL 0.00-0 .30 Not Available [facility] (Lab) [address] [place], [address], 12/29/2021 20:28:19 12/30/19 22 12/29/2021 HEPAT IC/LI TIO PANEL biliurubin,u ncong. (indirect) 0.50 mg/dL 0.00-1 .1 Not Available [facility] (Lab) [address] [place], [address], 12/29/2021 20:28:19 12/30/19 22 12/29/2021 HEPAT IC/LI TIO PANEL total protein 7.0 g/dL 6.3-8. 2 Not Available [facility] (Lab) [address] [place], [address], 12/29/2021 20:28:19 12/30/19 22 12/29/2021 HEPAT IC/LI TIO PANEL albumin 4.2 g/dL 3.4-5. 0 Not Available [facility] (Lab) [address] [place], [address], 12/29/2021 20:28:19 12/30/19 22 12/29/2021 HEPAT IC/LI TIO PANEL globulin 2.8 g/dL 2.6-4. 2 Not Available [facility] (Lab) [address] [place], [address], 12/29/2021 20:28:19 12/30/19 22 12/29/2021 HEPAT IC/LI TIO PANEL A/G ratio 1.5 ratio 1.0-2. 0 Not Available [facility] (Lab) [address] [place], [address], 12/29/2021 20:28:19 10/29/19 23 10/29/2022 COMPR EHENS CARMITA METAB OLIC PANEL sodium 139 mmol/ L 137-14 5 Not Available [facility] (Lab) [address] [place], [address], 10/29/2022 13:27:56 10/29/19 23 10/29/2022 COMPR EHENS CARMITA METAB OLIC PANEL potassium 4.6 mmol/ L 3.5-5. 1 Not Available [facility] (Lab) [address] [place], [address], 10/29/2022 13:27:56 10/29/19 23 10/29/2022 COMPR EHENS CARMITA METAB OLIC PANEL chloride 103 mmol/ L 98-107 Not Available [facility] (Lab) [address] [place], [address], 10/29/2022 13:27:56 10/29/19 23 10/29/2022 COMPR EHENS CARMITA METAB OLIC PANEL carbon dioxide 25 mmol/ L 22-30 Not Available [facility] (Lab) [address] [place], [address], 10/29/2022 13:27:56 10/29/19 23 10/29/2022 COMPR EHENS CARMITA METAB OLIC PANEL anion gap 15.6 mmol/ L 14-22 Not Available [facility] (Lab) [address] [place], [address], 10/29/2022 13:27:56 10/29/19 23 10/29/2022 COMPR EHENS CARMITA METAB OLIC PANEL glucose 82 mg/dL 70-99 Not Available [facility] (Lab) [address] [place], [address], 10/29/2022 13:27:56 10/29/19 23 10/29/2022 COMPR EHENS CARMITA METAB OLIC PANEL BUN 14 mg/dL 8-19 Not Available [facility] (Lab) [address] [place], [address], 10/29/2022 13:27:56 10/29/19 23 10/29/2022 COMPR EHENS CARMITA METAB OLIC PANEL creatinine 0.71 mg/dL 0.66-1 .25 Not Available [facility] (Lab) [address] [place], [address], 10/29/2022 13:27:56 10/29/19 23 10/29/2022 COMPR EHENS CARMITA METAB OLIC PANEL GFR >60 Refer ence Range : [place] GFR Healt hy Adult : >60 mL/mi n/1.7 3 m2 Chron ic Kidne y Disea se: 15-60 mL/mi n/1.7 3 m2 Kidne y Failu re: <15/m L/min /1.73 m2 www.n iddk. nih.g ov The MDRD study equat ion has not been valid ated in child cady <18 years of age; pregn ant women ; the elder ly >85 years of age; or in some racia l or ethni c subgr oups, such as Hislaurie nics. Outsi de the valid ated avis eters , estim ated GFR is less accur ate, requi ring clini gabriel judgm ent on a case- by-ca se basis . Clini gabriel inter preta tion for other races and ages must be made by the clini jerod. The MDRD study equat ion has not been valid ated for the evalu ation of serum creat inine relat ed to nutri lynn l statu s or medic ation usage . For perso ns <18 years of age, a pedia tric GFR calcu lator is avail able on the [facility] websi te: https ://yanique rice.miki ramirez.o rg/pr ofess ional s/kdo qi/gf r_cal culat or Not Available [facility] (Lab) [address] [place], [address], 10/29/2022 13:27:56 10/29/19 23 10/29/2022 COMPR EHENS CARMITA METAB OLIC PANEL alkaline phosphatase 124 U/L 38-126 Not Available [facility] (Lab) [address] [place], [address], 10/29/2022 13:27:56 10/29/19 23 10/29/2022 COMPR EHENS CARMITA METAB OLIC PANEL alanine aminotransfe rase 85 U/L 0-35 high Not Available [facility] (Lab) [address] [place], [address], 10/29/2022 13:27:56 10/29/19 23 10/29/2022 COMPR EHENS CARMITA METAB OLIC PANEL aspartate aminotransfe rase 37 U/L 15-37 Not Available [facility] (Lab) [address] [place], [address], 10/29/2022 13:27:56 10/29/19 23 10/29/2022 COMPR EHENS CARMITA METAB OLIC PANEL bilirubin, total 0.40 mg/dL 0.20-1 .30 Not Available [facility] (Lab) [address] [place], [address], 10/29/2022 13:27:56 10/29/19 23 10/29/2022 COMPR EHENS CARMITA METAB OLIC PANEL calcium 9.9 mg/dL 8.4-10 .2 Not Available [facility] (Lab) [address] [place], [address], 10/29/2022 13:27:56 10/29/19 23 10/29/2022 COMPR EHENS CARMITA METAB OLIC PANEL total protein 7.6 g/dL 6.3-8. 2 Not Available [facility] (Lab) [address] [place], [address], 10/29/2022 13:27:56 10/29/19 23 10/29/2022 COMPR EHENS CARMITA METAB OLIC PANEL albumin 4.7 g/dL 3.4-5. 0 Not Available [facility] (Lab) [address] [place], [address], 10/29/2022 13:27:56 10/29/19 23 10/29/2022 COMPR EHENS CARMITA METAB OLIC PANEL globulin 2.9 g/dL 2.6-4. 2 Not Available [facility] (Lab) [address] [place], [address], 10/29/2022 13:27:56 10/29/19 23 10/29/2022 COMPR EHENS CARMITA METAB OLIC PANEL A/G ratio 1.6 ratio 1.0-2. 0 Not Available [facility] (Lab) [address] [place], [address], 10/29/2022 13:27:56 10/29/19 23 10/29/2022 LIPID PANEL cholesterol 221 mg/dL 140-19 9 high NIH MONIQUE NSUS RECOM MENDA TION FOR JAYLON STERO L: ADULT CHILD LOW RISK: <200 <170 BORDE RLINE : <200- 239 ----- HIGH RISK: >240 >200 Not Available [facility] (Lab) [address] [place], [address], 10/29/2022 13:27:41 10/29/19 23 10/29/2022 LIPID PANEL triglyceride s 175 mg/dL 0-150 high NIH MONIQUE NSUS REPOR T RECOM MENDA TION FOR TRIGL YCERI PENNY: ADULT CHILD LOW RISK: <150 ----- BODER LINE: 150-1 99 ----- HIGH RISK: >200 ----- Not Available [facility] (Lab) [address] [place], [address], 10/29/2022 13:27:41 10/29/19 23 10/29/2022 LIPID PANEL HDL cholesterol 51 mg/dL 40- Not Available [facility] (Lab) [address] [place], [address], 10/29/2022 13:27:41 10/29/19 23 10/29/2022 LIPID PANEL LDL cholesterol, calculated 135 mg/dL 0-130 high NIH MONIQUE NSUS REPOR T RECOM MENDA TIONS FOR LDL: ADULT CHILD LOW RISK <130 <110 (OPTI MAL LDL) <100 ----- BORDE RLINE : 130-1 59 ----- HIGH RISK: >160 >130 A TRIGL YCERI DE RESUL T >400 INVAL IDATE S THE CALCU LATIO N FOR LDL FRACT IONAT ION - THE LDL RESUL T WILL NOT BE REPOR MARIA EUGENIA. Not Available [facility] (Lab) [address] [place], [address], 10/29/2022 13:27:41 10/06/19 23 10/06/2022 cardi ac monit or No observ ation record ed. [id number] [facility] [address], [place], [address], 11/18/2022 00:59:43 10/13/19 23 10/08/2022 imagi ng/di agnos tic resul t No observ ation record ed. [id number] [facility] [address], [place], [address], 11/18/2022 00:59:43 11/08/19 23 11/08/2022 CT, head, w/o contr ast No observ ation record ed. [id number] [facility] [address] [place] [address] Dr, [place], [address], 11/18/2022 00:59:43 11/25/19 23 11/24/2022 XR, chest , 2 view No observ ation record ed. [email or web address] [facility] [address] [place], [address], 11/25/2022 08:52:51 11/26/1911/24/2022 compl ete PFT w/ post [facility] hodil ator wilda metry * No observ ation record ed. [email or web address] Not Available 11/30 09:27:19 Result Notes None recorded. Problems Name Problem SNOMED Code Status Onset Date Resolution Date Notes Provider Name and Address Organization Details Recorded Time Gastroesophag eal reflux disease without esophagitis 212795064 Active 2022 Not Available [facility] 3 13:30:09 History of substance abuse 288396470 Active 2022 Not Available [facility] 3 13:30:09 Dyspnea on exertion 14547887 Active 2022 Not Available [facility] 3 13:30:09 Chronic cough 99406903 Active 2022 Not Available [facility] 3 13:30:09 Polycystic ovary 082170219 Active 2021 Not Available [facility] 3 13:30:09 Asthma 205620646 Active 2022 Not Available [facility] 13:30:09 Problem Notes None recorded. Procedures Surgical History None recorded. Imaging Results Imaging Date Name Status LastModified by Organization Details LastModified Time 10/08/2022 imaging/diagnostic result completed [id number] [facility] [address] [place], [address], 11/18/2022 00:59:43 10/06/2022 alarm security or surveillance monitor completed [id number] [facility] [address], [place], [address], 11/18/2022 00:59:43 11/08/2022 CT, head, w/o contrast completed [id number] [facility] [address] [place] [address], [place], [address], 11/18/2022 00:59:43 11/24/2022 XR, chest, 2 view completed [email or web address] [facility] [address] [place], [address], 11/25/2022 08:52:51 11/24/2022 complete PFT w/ post bronchodilator spirometry* completed Information not available 11/30/2022 09:27:19 Procedure Notes None recorded. Medical Equipment None Reported. Allergies No known drug allergies Medications Name Sig Start Date Stop Date Status Note LastModified by Organization Details LastModified Time amoxicillin 500 mg capsule TAKE 1 CAPSULE BY MOUTH TWICE DAILY FOR 10 DAYS 09/22 completed Not Available Not Available Not Available ampicillin 500 mg capsule TAKE 1 CAPSULE BY MOUTH TWICE DAILY 09/22 completed Not Available Not Available Not Available famotidine 40 mg tablet Take 1 tablet every day by oral route as directed for 30 days. active Not Available Not Available No t Available metronidazo le 500 mg tablet TAKE 4 TABLETS BY MOUTH FOR 1 DAY 09/22 completed Not Available Not Available Not Available omeprazole 40 mg capsule,del ayed release TAKE 1 CAPSULE BY MOUTH EVERY DAY 09/22 completed Not Available Not Available Not Available ondansetron 8 mg disintegrat ing tablet DISSOLVE 1 TABLET ON THE TONGUE TWICE DAILY 09/22 completed Not Available Not Available Not Available pantoprazol e 40 mg tablet,ayo yed release Take 1 tablet every day by oral route. active Not Available Not Available No t Available ibuprofen 600 mg tablet TAKE 1 TABLET BY MOUTH EVERY 6 HOURS NEEDED FOR PAIN 09/22 completed Not Available Not Available Not Available albuterol sulfate HFA 90 mcg/actuati on aerosol inhaler INHALE 2 PUFFS BY MOUTH EVERY 4 HOURS NEEDED active Not Available Not Available No t Available ondansetron 4 mg disintegrat ing tablet DISSOLVE 1 TABLET ON THE TONGUE EVERY 4-6 HOURS NEEDED FOR NAUSEA 09/22 completed Not Available Not Available Not Available sertraline 50 mg tablet TAKE 1/2 TABLET BY MOUTH DAILY FOR 7 DAYS THEN INCREASE TO 1 TABLET DAILY 09/22 completed Not Available Not Available Not Available Dermoplast (with menthol) 20 %-0.5 % topical aerosol APPLY 1 SPRAY TOPICALLY FOUR TIME DAILY NEEDED FOR PERINEAL DISCOMFOR T 09/22 completed Not Available Not Available Not Available nitrofurant oin monohydrate /macrocryst als 100 mg capsule TAKE 1 CAPSULE BY MOUTH EVERY 12 HOURS UNTIL ALL TAKEN 09/22 completed Not Available Not Available Not Available GaviLyte-G 236 gram-22.74 gram-6.74 gram-5.86 gram oral solution TAKE 2 LITERS BY MOUTH AT 6 PM THE DAY BEFORE THE COLONOSCO PY AND TAKE 2 LITERS AT 10 PM DIRECTED active Not Available Not Available No t Available Slynd 4 mg (28) tablet active Not Available Not Available Not Available Vitals Date Recorded Body mass index (BMI) Body height Oxygen saturation Oxygen saturation in Arterial blood by Pulse oximetry Heart rate Body temperature Body weight Systolic blood pressure Diastolic blood pressure Provider Name and Address Organization Details Last Updated DateTime 2 27.5 kg/m2 160.02 cm 98 % 98 % 84 /min 97.5 [degF] 99370.8 2 g 130 mm[Hg] 90 mm[Hg] Not Available [facility] 3 00:58:37 Date Recorded Body mass index (BMI) Body height Oxygen saturation Oxygen saturation in Arterial blood by Pulse oximetry Heart rate Body temperature Body weight Systolic blood pressure Diastolic blood pressure Provider Name and Address Organization Details Last Updated DateTime 3 30.3 kg/m2 160.02 cm 98 % 98 % 72 /min 97.9 [degF] 10539.3 g 142 mm[Hg] 94 mm[Hg] Not Available [facility] 3 00:58:38 Date Recorded Body mass index (BMI) Body height Oxygen saturation Oxygen saturation in Arterial blood by Pulse oximetry Heart rate Body temperature Body weight Systolic blood pressure Diastolic blood pressure Provider Name and Address Organization Details Last Updated DateTime 3 30.3 kg/m2 160.02 cm 99 % 99 % 71 /min 97.6 [degF] 26544.3 g 122 mm[Hg] 84 mm[Hg] Not Available [facility] 3 00:58:38 Date Recorded Body mass index (BMI) Body height Oxygen saturation Oxygen saturation in Arterial blood by Pulse oximetry Heart rate Body temperature Body weight Systolic blood pressure Diastolic blood pressure Provider Name and Address Organization Details Last Updated DateTime 3 30.3 kg/m2 160.02 cm 97 % 97 % 66 /min 97.2 [degF] 22101.3 g 118 mm[Hg] 60 mm[Hg] Not Available [facility] 3 00:58:38 Date Recorded Body height Body mass index (BMI) Body weight Provider Name and Address Organization Details Last Updated DateTime 12/14/2022 160.02 cm 30.1 kg/m2 44104.7 g Yumiko MADRID [place] [facility] 12/14/2022 11:22:04 Social History Question Answer Notes LastModified by Organizat ion Details LastModified Time Tobacco Smoking Status Former Smoker Not Available [facility] 11/18/2022 00:57:56 What Is Your Level Of Alcohol Consumption? Occasional [email or web address] Information not available 12/14/2022 If You Are , What Was Your Level Of Alcohol Consumption Prior To ? Heavy [id number] Information not available 11/18/2022 What Is Your Level Of Caffeine Consumption? Occasional 1 Or 2 Cups Of Coffee Every Now And Then [email or web address] Information not available 12/14/2022 What Type Of Diet Are You Following? REGULAR [id number] Information not available 11/18/2022 Which Illicit Or Recreational Drugs Have You Used? Meth & Marijuana Meth About 6 Years Ago. No Longer Using [email or web address] Information not available 12/14/2022 Do You Or Have You Ever Used E-cigarettes Or Vape? Former User Of Electronic Cigarettes [id number] Information not available 11/18/2022 When Did You Quit Smoking? 1-5yearssince lastcigarette 2 Yrs Now [email or web address] Information not available 12/14/2022 What Was The Date Of Your Most Recent Tobacco Screening? 11/09/2022 [id number] Information not available 11/18/2022 Do You Have Any Pets? Yes 2 Dogs In The Home [email or web address] Information not available 12/14/2022 At What Age Did You Start Smoking Tobacco? 13 MIGRATION.84653 [id number] Information not available 11/18/2022 Do You Or Have You Ever Used Smokeless Tobacco? [id number] [email or web address] Information not available 12/14/2022 Do You Use Any Illicit Or Recreational Drugs? Yes Stopped Using Marijuana [id number].56791 [id number] Information not available 11/18/2022 How Many Years Have You Smoked Tobacco? 6 MIGRATION.28441 [id number] Information not available 11/18/2022 Have You Used IV Drugs? No [email or web address] Information not available 12/14/2022 Do You Have Any Dietary Restrictions? No [id number].61649 [id number] Information not available 11/18/2022 Do You Or Have You Ever Used Any Other Forms Of Tobacco Or Nicotine? Yes [id number].62614 [id number] Information not available 11/18/2022 Sex: Unknown Functional Status Question Answer Note LastModified by Organizat ion Details LastModified Time What is your exercise level? None [id number] Information not available 11/18/2022 Mental Status None recorded. Family History Relationship Description Onset Age of this Age Resolved Age Notes LastModified by Organization Details LastModified Time Mother Thyroidectom y [id number] Not available 11/18/2022 00:58:04 Medical History No medical history recorded. Gynecological HistoryNo gynecological history recorded. Obstetrics History GPAL:G 0 P 0 0 0 0 Past Encounters Encounter ID Performer Location Encounter Start Date Encounter Closed Date Diagnosis/Indication Diagnosis SNOMED-CT Code Diagnosis ICD10 Code Diagnosis Note [id number] [facility] Family [facility] Lashawn tiwari [address] [place] [address] 12/29/2021 00:00:00 12/29/2021 20:32:[id number] [facility] Lashawn tiwari [address] [place] [address] 09/22/2022 00:00:00 09/22/2022 20:30:[id number] [facility] Alejandrozenaida nixon [address] [place] [address] 10/29/2022 00:00:00 10/30/2022 10:11:56 [id number] [facility] [address] [place] [address] 11/09/2022 00:00:00 11/09/2022 19:21:42 [id number] Alyse Ben, [facility]- [facility] [address] [place] [address] 12/14/2022 11:18:31 12/15/2022 11:25:22 Exposure to SARS-CoV-2 640047051 Z20.822 6 month old and grandmothe r with + testing 2 days agoLikely she is positive as well.It is difficult for her to leave for testing, she will try to get at home COVID test.Instr ucted to rest, hydrate, treat symptoms.D iscussed S/S that require emergent evaluation Discussed isolation period. History of SARS-CoV-2 29 72618536 23024083 Z86.16 + testing July 2020 Asthma 641980675 J45.90 9 PFT completed 11/24/22No obstructio nMild hyperinfla tionDLCO mildly reducedAlp ha1, QFG, IGE, IGGs normalChec k methacholi ne challenge testing.RT C one week after completed Health Concerns Section Related Observation LastModified by Organization Detai ls LastModified Time None Recorded Concern Status LastModified by Organization Details LastModified Time None Recorded Advance Directives Directive None Recorded Payers Encounter Date Sequence Insurance Name Policy Number Policy Wagner Covered Member ID Wagner Member ID Guarantor Name 12/14/2022 1 [facility] (MEDICAID REPLACEMENT - HMO) [id number] Kalee Aguillon [id number] Kalee Aguillon Notes Date Note Type Note Provider Name and Address Organization Details Recorded Time 12/14/2022 text/html Kalee presents today via Facetime for complaints of cough and congestion that started 2 days ago.Her 6 month old son tested positive for COVID 2 days ago.She lives with her grandmother and she is positive for COVID as well.Kalee has not tested herself yet.Nasal congestion with with thick drainage.Cough is sporadic, dry, not activity limiting.Denies fever and chillsNo ear or throat painDenies GI symptoms, decreased appetite, loss of smell and taste.No wheezing.Symptoms do not interfere with sleepFatigue is increased, but she has been taking care of her son who has been fussy while sick. Alyse Contreras, [employer]- [address] [facility], [facility] [address], [place], [id number], [place] - [facility] 12/14/2022 19:23:04 OBGyn Episode No OBEpisode recorded.
== END 2024-11-24 09:00 | disposition home or self-care (01) ==
PROVIDERS: Visit Provider Emergency Medicine
DX: R42 Dizziness and giddiness (principal)
CPT/HCPCS: 70553; A9579

== ENCOUNTER 2025-01-10 14:32 | Outpatient (CLI) | payer OTHER, SELFPAY ==
--- OUTSIDE RECORDS SUMMARY | 2025-01-10 15:46 | XMS_ITS | Clinical Summary ---
Author Organization [facility] Medical Office Building B Address [address] [place] [address] Care Team Providers Care Skin Lifter Bacon Name Role Phone Willow Dunham Gema [facility] Primary Care Provi kailyn Allergies Active Allergy Reactions Criticality Noted Date Comments Iodinated Contrast Media Sweating Low 12/27/2024 CT abdomen Medications rizatriptan (MAXALT) 5 mg tablet Take [...] mouth daily 180 tablet 11/20/19 25 Active fexofenadine (GISSELL) 180 mg tablet Take 1 tablet (180 mg total) by mouth daily 90 tablet 1 11/20/19 25 Active fluticasone propionate (FLONASE) 50 mcg/actuation nasal spray Administer 2 sprays into each nostril daily 3 each 3 11/20/19 25 Active topiramate (TOPAMAX) 25 mg tablet 12/15/19 25 Active triamcinolone (KENALOG) 0.1 % cream 11/28/19 25 Active amLODIPine (NORVASC) 2.5 mg tabletIndication s:Raynaud's Phenomenon Take 1 tablet (2.5 mg total) by mouth daily 90 tablet 1 11/20/19 25 025 Discontinued rimegepant (Nurtec ODT) tablet,disintegr atingIndications :Migraine Prevention Take 1 tablet (75 mg total) by mouth every other day 15 tablet 1 11/20/19 25 025 Discontinued drospirenone-eth inyl estradioL (Sanjuanita, 28,) 3-0.02 mg per tabletIndication s:Acne Vulgaris,Polycys tic Ovarian Syndrome,Pregnan cy Contraception Take 1 tablet by mouth daily 84 tablet 3 11/20/19 25 025 Discontinued Active Problems Problem Noted Date Diagnosed Date Migraine with aura and witho ut status migrainosus, not intractable 12/23/2024 Assessment & Plan (12/23/2024 6:04 PM CDT): Managed by Neurology Continue topiramate 25 mg daily Her showing Maxalt 5 mg as needed POTS (postural orthostatic tachycardia syndrome) 12/23/2024 Assessment & Plan (12/23/2024 6:07 PM CDT): Managed by Neurology Thyroid disorder 12/23/2024 Assessment & Plan (12/23/2024 6:09 PM CDT): Appointment with endocrinology 12/27/2024 Labs ordered Numbness in right leg 12/23/2024 Assessment & Plan (12/23/2024 6:09 PM CDT): Nerve conduction study ordered Marijuana use 12/23/2024 Assessment & Plan (12/23/2024 6:10 PM CDT): Recommend cessation Family history of colon cancer 11/19/2024 Assessment & Plan (11/19/2024 4:44 PM ASSISTANT FRONT END MANAGER): Refer to GI Raynaud's disease 11/19/2024 Assessment & Plan (12/23/2024 5:56 PM CDT): Recommend staying on amlodipine 2.5 mg daily Patient has self-discontinued due to other provider telling her that her blood pressure was normal Assessment & Plan (11/19/2024 4:52 PM ASSISTANT FRONT END MANAGER): Take amlodipine 2.5 mg daily Medication and side effects reviewed Follow-up in 1 month Dyshidrotic eczema 11/19/2024 Assessment & Plan (11/19/2024 4:44 PM ASSISTANT FRONT END MANAGER): Take Gissell 180 mg daily as prescribed Refer to derm Follow-up in 1 month Dysphagia 11/19/2024 Assessment & Plan (12/23/2024 6:02 PM CDT): Schedule appointment with Dr. Arzola for EGD Take Protonix 20 mg daily Gastroesophageal reflux disease without esophagi tis 11/19/2024 Assessment & Plan (12/23/2024 6:01 PM CDT): Schedule appointment with Dr. Arzola for EGD Take Protonix 20 mg daily Assessment & Plan (11/19/2024 4:49 PM ASSISTANT FRONT END MANAGER): Refer to GI Take Protonix 20 mg daily as prescribed Discontinue marijuana use Avoid foods that cause irritation Keep food diary Follow-up in 1 month Positive BETSY (antinuclear antibody) 11/19/2024 Assessment & Plan (12/23/2024 5:58 PM CDT): Refer to rheumatology Assessment & Plan (11/19/2024 4:51 PM ASSISTANT FRONT END MANAGER): Refer to rheumatology Rash 11/19/2024 Assessment & Plan (12/23/2024 6:00 PM CDT): Managed by Dermatology Assessment & Plan (11/19/2024 4:52 PM ASSISTANT FRONT END MANAGER): Refer to derm Recommend taking Gissell 180 mg daily Follow-up in 1 month KOKO (stress urinary incontinence, female) 2024 Assessment & Plan (11/19/2024 4:52 PM ASSISTANT FRONT END MANAGER): Refer to pelvic floor physical therapy Dyspnea 11/19/2024 Assessment & Plan (11/19/2024 4:48 PM ASSISTANT FRONT END MANAGER): PFT ordered Vomiting 11/19/2024 Assessment & Plan (11/19/2024 4:48 PM ASSISTANT FRONT END MANAGER): Take Protonix 20 mg daily as prescribed Discontinue smoking daily marijuana Refer to GI Follow-up in 1 month Overweight with body mass in dex (BMI) of 27 to 27.9 in adult 11/19/2024 Assessment & Plan (12/23/2024 6:14 PM CDT): Your BMI is elevated. Try to cut back on calories. Most people should eat between 8077-1552 calories to lose weight. Goal BMI is less than 30. A healthy BMI is considered between 19-25. Decrease your carbohydrate intake to less than 150 grams per day if possible and increase protein to help with hunger. Increase activity to 30 min 4-5 days a week of moderate aerobic activity and add strength training 2 times weekly, as tolerated. Consider using [employer] lei to track diet and exercise habits daily. Consider trying Weight Watcher program to make dietary changes. Visit www.dietaryguidelines.gov, www.myplate.gov, or www.health.gov for more dietary information and tips. Visit www.[employer] or www.AzureBooker for online surgical oncologist covered by health insurance. Aura 11/14/2024 Assessment & Plan (12/23/2024 6:05 PM CDT): Managed by Ophthalmology Managed by Neurology Continue topiramate 25 mg daily Continue Maxalt 5 mg as needed Assessment & Plan (11/19/2024 4:43 PM ASSISTANT FRONT END MANAGER): Managed by Ophthalmology Refer to neurology Start Nurtec 75 mg every other day Use Maxalt 5 mg as needed Follow-up in 1 month Assessment & Plan (11/14/2024 12:55 PM ASSISTANT FRONT END MANAGER): + visual phenomenon consistent with migranous aura which completely resolves. Occurs with or without headache. Pt will monitor for triggers and attempt supplemental magnesium. Monitor Attention deficit disorder without hyperactivity 08/26/2023 Assessment & Plan (11/19/2024 4:43 PM ASSISTANT FRONT END MANAGER): Chronic and stable without medication Other viral warts 08/26/2023 Asthma 12/14/2022 Assessment & Plan (12/23/2024 6:05 PM CDT): Appointment with pulmonology 12/27/24 History of substance abuse 11/08/2022 History of drug abuse 12/16/2021 History of substance abuse 12/16/2021 Polycystic ovarian syndrome 12/16/2021 Assessment & Plan (12/23/2024 5:59 PM CDT): Patient did not take Sanjuanita Assessment & Plan (11/19/2024 4:51 PM ASSISTANT FRONT END MANAGER): Start Sanjuanita OCP as prescribed Medication and side effects reviewed Follow-up in 1 month Primary familial hypertrophic cardiomyopathy Syncope and collapse 12/16/2021 Fatigue 08/11/2015 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 Anxiety 08/11/2015 Assessment & Plan (11/19/2024 4:43 PM ASSISTANT FRONT END MANAGER): Chronic and stable without medication Chronic cough 08/11/2015 Resolved Problems Problem Noted Date Diagnosed Date Resolved Date Glaucoma suspect of both eyes 11/14/2024 11/19/2024 Assessment & Plan (11/14/2024 12:56 PM ASSISTANT FRONT END MANAGER): Asymmetric intraocular pressure (IOP) OD> left [...] 06/09/2022 11/19/2024 Gastroesophageal reflux in 04/23/2022 11/19/2024 History of viral hepatitis 08/11/2015 0 11/19/2024 Hepatitis 03/16/2015 11/19/2024 Encounters Date Type Department Care Team Description 01/02/2025 Telephone [facility] [address] [place] [phone] Carlota Miner 12/28/2024 Results Follow-Up [facility] [address] [phone] Jenifer Pizarro MD 12/27/2024 9:20 AM CDT Lab [address] [phone] PCOS (polycystic ovarian syndrome) 12/27/2024 8:30 AM CDT Office Visit [facility] [address] [phone] Jenifer Pizarro MD PCOS (polycystic ovarian syndrome) (Primary Dx); Abnormal ultrasound of neck 12/23/2024 Results Follow-Up [address] [phone] Willow Dunham DNP 12/21/2024 1:35 PM CDT Lab [facility] Lab [address] [place] [phone] Thyroid disorder screen 12/20/2024 1:30 PM CDT Office Visit [address] [phone] Willow Dunham DNP Numbness in right leg (Primary Dx); Raynaud's disease without gangrene; Positive BETSY (antinuclear antibody); Polycystic ovarian syndrome; Rash; Gastroesophageal reflux disease without esophagitis; Dysphagia, unspecified type; Aura; Migraine with aura and without status migrainosus, not intractable; Mild intermittent asthma without complication; POTS (postural orthostatic tachycardia syndrome); Thyroid disorder; Marijuana use; Overweight with body mass index (BMI) of 27 to 27.9 in adult; Thyroid disorder screen 12/05/2024 Telephone [facility] [address] [phone] Carlota Miner 12/04/2024 Results Follow-Up [address] [place] [address] Willow Dunham DNP 12/03/2024 12:30 PM CDT Lab [facility] [address] [place] [phone] Abnormal thyroid ultrasound; Thyroid disorder screen 11/29/2024 Results Follow-Up [address] [place] [address] Willow Dunham DNP Mild intermittent asthma without complication (Primary Dx); Shortness of breath; Abnormal pulmonary function test 11/27/2024 Orders Only [address] [place] [phone] Willow Dunham DNP Abnormal thyroid ultrasound (Primary Dx); Thyroid disorder screen 11/27/[address] [place] [phone] Willow Dunham DNP Test Results 11/26/2024 2:30 PM CDT Office Visit [facility] [address] [place] [phone] Anam Broderick MD Shortness of breath (Primary Dx); Primary familial hypertrophic cardiomyopathy (HCC); Lipid screening; Syncope and collapse 11/23/2024 3:12 PM ASSISTANT FRONT END MANAGER - 11/23/2024 11:59 PM ASSISTANT FRONT END MANAGER Hospital Encounter [facility] Respiratory Therapy [address] [place] [phone] Dyspnea, unspecified type Discharge Disposition: Discharge to home or self care 11/22/2024 5:19 PM ASSISTANT FRONT END MANAGER - 11/22/2024 11:59 PM ASSISTANT FRONT END MANAGER Hospital Encounter [address] [address] Dizziness and giddiness; Dysphagia, unspecified type Discharge Disposition: Discharge to home or self care 11/19/2024 2:00 PM ASSISTANT FRONT END MANAGER Office Visit [address] [place] [phone] Willow Dunham DNP Gastroesophageal reflux disease without [...] 28 to 28.9 in adult 11/15/[address] [place] [phone] Willow Dunham DNP Medical Question/Miscellaneous 11/14/2024 9:00 AM ASSISTANT FRONT END MANAGER Office Visit [facility] [address] [facility] [address] [place] [address] Ashley Ortiz, ISAAK Aura (Primary Dx); Glaucoma suspect of both eyes 11/12/2024 Telephone [facility] [address] [place] [address] Sosa Morales, ISAAK new pt from Last 3 Months Immunizations [...] disease) Ovarian cyst Polycystic ovary syndrome Migraines 2014 Infectious viral hepatitis Viral induced back when [...] on file Legal Sex Female 8:46 PM ASSISTANT FRONT END MANAGER Gender Identity Not on file Sexual Orientation Not on file Obstetrics History Para Term AB IAB SAB Ectopic Multiple Livin g Live Births 1 1 1 1 Date Outcome GA Total Labor Labor/2nd/3rd Weight Sex Type Anes PTL Alanna A1 A5 Name Clin Term Last Filed Vital Signs Vital Sign Reading Time Taken Comments Blood Pressure 118/80 12/27/2024 8:35 AM CDT Pulse 88 12/27/2024 8:35 AM CDT Temperature 36.8 C (98.2 F) 12/20/2024 1:41 PM CDT Respiratory Rate 16 12/27/2024 8:35 AM CDT Oxygen Saturation 97% 12/20/2024 1:41 PM CDT Inhaled Oxygen Concentration - - Weight 70.3 kg (155 lb) 12/27/2024 8:35 AM CDT Height 160 cm (5' 3 ) 12/27/2024 8:35 AM CDT Body Mass Index 27.46 12/27/2024 8:35 AM CDT Plan of Treatment Health Maintenance Due Date Last Done Comments Cervical Cancer Screening 1998 Hepatitis C Screening 1998 DTaP/Tdap/Td Vaccine (6 - Tdap) 2009 04/11/2003, 10/09/1999, 1998, Additional history exists Varicella Vaccines (1 of 2 - 13+ 2-dose series) 2011 Regular Well Visit/Exam 18-64 2016 Pneumococcal vaccine <65 (1 of 2 - PCV) 2017 HPV Vaccines (3 - 3-dose series) 04/28/2023 11/27/19 23, 10/29/2022 Influenza Vaccine (Season Ended) 2025 07/14/20 16 Depression Screening 11/19/2025 11/19/2024 Hepatitis B Screening Completed 01/15/1999 , 1998, 1998, Additional history exists Procedures Procedure Name Priority Date/Time Associated Diagnosis Comments TOTAL TESTOSTERONE Routine 12/27/2024 9: 20 AM CDT PCOS (polycystic ovarian syndrome) DHEA-SULFATE Routine 12/27/2024 9:20 AM CDT PCOS (polycystic ovarian syndrome) LIPID PANEL Routine 12/27/2024 9:20 AM CDT PCOS (polycystic ovarian syndrome) HEMOGLOBIN A1C Routine 12/27/2024 9:20 AM CDT PCOS (polycystic ovarian syndrome) PROLACTIN Routine 12/27/2024 9:20 AM CDT PCOS (polycystic ovarian syndrome) TSH Routine 12/21/2024 1:38 PM CDT Thyroid disorder screen THYROGLOBULIN ANTIBODIES Routine 12/03/2024 12:34 PM CDT Abnormal thyroid ultrasound Thyroid disorder screen THYROID PEROXIDASE ANTIBODY Routine 12/03/2024 12:34 PM CDT Abnormal thyroid ultrasound Thyroid disorder screen POCT LIPID PANEL Routine 11/26/2024 2:26 PM CDT Lipid screening MRI INTERNAL AUDITORY CANAL INCL BRAIN W WO CONTRAST Schedule Routine, Read Routine (OP Routine) 11/24/2024 11:59 AM ASSISTANT FRONT END MANAGER PULMONARY FUNCTION TEST (PFT) Routine 11/23/2024 3:55 PM ASSISTANT FRONT END MANAGER Dyspnea, unspecified type US THYROID Schedule Routine, Read Routine (OP Routine) 11/22/2024 5:39 PM ASSISTANT FRONT END MANAGER Dizziness and giddiness Dysphagia, unspecified type from Last 3 Months Results * Prolactin (12/27/2024 9:20 AM CDT) Prolactin 12.8 4.8 - 23.3 ng/mL Blood 12/27/2024 9:20 AM CDT 12/27/2024 10:26 AM CDT Jenifer Levin MD LAB BLOOD ORDERABLE S Final Result Performing Organization Address City/State/[facility] Co la Phone Number [facility] [phone] Department [place] [address] * (ABNORMAL) DHEA-sulfate (12/27/2024 9:20 AM CDT) DHEA-S 504.0(H) 98.8 - 340.0 mcg/dL Comment:Testing performed by : [facility], [address] [facility], [place]., [address] Blood 12/27/2024 9:20 AM CDT 12/27/2024 12:08 PM CDT us Jenifer Levin MD LAB BLOOD ORDERABLE S Final Result Performing Organization Address City/State/[facility] Co de Phone Number [facility] KOTHARI [phone] Department [place] [address] * (ABNORMAL) Total testosterone (12/27/2024 9:20 AM CDT) Pathologist [facility] Testosterone 67(H) 8 - 48 ng/dL Blood 12/27/2024 9:20 AM CDT 12/27/2024 10:26 AM CDT Jenifer Levin MD LAB BLOOD ORDERABLE S Final Result Performing Organization Address [facility] de Phone Number [facility] KOTHARI [address] [address] [facility] [place] [place] [address] * Hemoglobin A1c (12/27/2024 9:20 AM CDT) [facility] Hgb A1C 4.9 4.0 - 5.6 % Estimated Average Glucose 94 mg/dL [facility] K[facility] Comment: The ADA recommends reporting an estimated Average Glucose (eAG) with all Hemoglobin A1c results using the equation derived from a study of 507 normal and diabetic adults. Minority populations were underrepresented and children were not included. (Diabetes Care 31:2299-4014, 2008). The eAG is not equivalent to a fasting glucose. Blood 12/27/2024 9:20 AM CDT 12/27/2024 10:26 AM CDT Jenifer Levin MD LAB BLOOD ORDERABLE S Final Result Performing Organization Address [facility] de Phone Number [facility] KOTHARI [address] [place] [address] * Lipid panel (12/27/2024 9:20 AM CDT) [facility] Cholesterol 177 30 - 199 mg/dL Comment: Interpretive Data Ages < or = 19 years Acceptable: <170 mg/dL Borderline high: 170-199 mg/dL High: >or= 200 mg/dL Ages > or = 20 years Desirable: <200 mg/dL Borderline high: 200-239 mg/dL High: >or= 240 mg/dL Literature References: 1. Expert Panel on Integrated Guidelines for Cardiovascular Health and Risk Reduction in Children and Adolescents. Pediatrics 2011;128:S213 2. NCEP Expert Panel. Circulation 2004;110:227 Current Interpretive Data was last revised on 2018. Triglycerides 90 <=149 mg/dL [facility] Comment: Interpretive Data Ages < or = 9 years Acceptable: <75 mg/dL Borderline high: 75-99 mg/dL High: >or= 100 mg/dL Ages 10 to 20 years Acceptable: <90 mg/dL Borderline high: 90-129 mg/dL High: >or= 130 mg/dL Ages > or = 20 years Desirable: <150 mg/dL Borderline high: 150-199 mg/dL High: 200-499 mg/dL Very high: >or= 499 mg/dL Literature References: 1. Expert Panel on Integrated Guidelines for Cardiovascular Health and Risk Reduction in Children and Adolescents. Pediatrics 2011;128:S213 2. NCEP Expert Panel. Circulation 2004;110:227 Current Interpretive Data was last revised on 2018. HDL 41 >=40 mg/dL [facility] Comment: Interpretive Data Ages < or = 19 years Acceptable: >45 mg/dL Borderline low: 40-45 mg/dL Low: <40 mg/dL Ages > or = 20 years Desirable: >or= 60 mg/dL Low: <40 mg/dL Literature References: 1. Expert Panel on Integrated Guidelines for Cardiovascular Health and Risk Reduction in Children and Adolescents. Pediatrics 2011;128:S213 2. NCEP Expert Panel. Circulation 2004;110:227 Current Interpretive Data was last revised on 2018. LDL, calculated 119 <=129 mg/dL [facility] Comment: Interpretive Data Ages < or = 19 years Acceptable: <110 mg/dL Borderline high: 110-129 mg/dL High: >or= 130 mg/dL Ages > or = 20 years Optimal: <100 mg/dL Near optimal: 100-129 mg/dL Borderline high: 130-159 mg/dL High: >160 mg/dL Calculated using the Murcia LDL-C estimating equation. This equation was implemented on 2024. Prior to this date LDL-C was estimated using the Friedewald equation. Literature References: 1. Expert Panel on Integrated Guidelines for Cardiovascular Health and Risk Reduction in Children and Adolescents. Pediatrics 2011;128:S213 2. NCEP Expert Panel. Circulation 2004;110:227 3. [place]cia M et al. CARLOS Cardiol. 2020 January 17;5(5):540-548. doi: 10.1001/jamacardio.2020.0013 Current Interpretive Data was last revised on 2024. Non-HDL Cholesterol 136 mg/dL [facility] Comment: Interpretive Data Ages < or = 19 years Acceptable: <120 mg/dL Borderline high: 120-144 mg/dL High: >145 mg/dL Ages > or = 20 years When triglycerides are >200 mg/dL, Non-HDL cholesterol is a secondary target of therapy with treatment goals that are 30 mg/dL greater than the LDL cholesterol target. Literature References: 1. Expert Panel on Integrated Guidelines for Cardiovascular Health and Risk Reduction in Children and Adolescents. Pediatrics 2011;128:S213 2. NCEP Expert Panel. Circulation 2004;110:227 Current Interpretive Data was last revised on 2018. Chol/HDL ratio 4 [facility] Blood 12/27/2024 9:20 AM CDT 12/27/2024 10:26 AM CDT us Jenifer Levin MD LAB BLOOD ORDERABLE S Final Result [facility] [address] Department [place] [address] * TSH (12/21/2024 1:38 PM CDT) Thyroid Stimulating Hormone 1.05 0.30 - 4.20 mcIUnit/mL Comment:Testing performed by : [facility], [address] [place] [address]., [id number] Blood 12/21/2024 1:38 PM CDT 12/21/2024 2:14 PM CDT us Willow Dunham DNP LAB BLOOD ORDERABLE S Final Result [facility] [address] [facility] Department [place] [address] * Thyroglobulin antibodies (12/03/2024 12:34 PM CDT) Anti-thyroglobulin <1.8 <4.0 IUnits/mL [facility] Comment: ADDITIONAL INFORMATION PLEASE NOTE: The given thyroglobulin antibody (TgAb) reference cutoff of <4.0 IU/mL is for the evaluation of autoimmune thyroiditis. A cutoff of <1.8 IU/mL may be more suitable for the detection of potential thyroglobulin antibody (TgAb) interference in thyroglobulin immunoassays. The thyroglobulin antibody testing method is an immunoenzymatic assay manufactured by [employer]. and performed on the amBX DXI 800. Values obtained from different assay methods or kits may be different and cannot be used interchangeably. The results cannot be interpreted as absolute evidence for the presence or absence of malignant disease. Test Performed by: [facility] [address] [place] [address] A Operator: Danial José Ph.D.; CLIA# [id number] Blood 12/03/2024 12:3 4 PM CDT 12/03/2024 1:01 PM CDT us Willow Valladaresfrancois Dunham [facility] LAB BLOOD ORDERABLE S Final Result [facility] [address] [facility] Department [place] [address] [facility] * Thyroid peroxidase antibody (TPO) (12/03/2024 12:34 PM CDT) Anti Thyroid Peroxidase <30 <=34 IUnits/mL Comment: ATPO Interpretive Data Results may be up to 28% higher in patients receiving Itraconazole. Current interpretive data was last revised 2020. Testing performed by: [facility], [address] [facility] [place]., [address] Blood 12/03/2024 12:3 4 PM CDT 12/03/2024 3:42 PM CDT us Willow Dunham DNP LAB BLOOD ORDERABLE S Final Result [facility] [address] [facility] Department [place] [address] * POCT lipid panel (11/26/2024 2:26 PM CDT) Cholesterol, POC 188 mg/dL HDL, POC 38 mg/dL Triglycerides, POC 114 mg/dL LDL Cholesterol POC 128 mg/dL Chol/HDL Ratio, POC 5.0 Non-HDL Cholesterol, POC 150 mg/dL Cholesterol Total, POC 188 mg/dL Capillary blood 11/26/2024 2 :26 PM CDT us Anam Broderick MD POINT OF CARE TEST ORDER BEKAH Final Result * MRI Internal Auditory Canal incl Brain W WO Contrast (11/24/2024 11:59 AM ASSISTANT FRONT END MANAGER) Anatomical Region Laterality Modality Head and Neck N/A Magnetic Resonan ce Historical Provider IMG MRI PROCEDURES Final Result * (ABNORMAL) Pulmonary Function Test - (11/23/2024 3:55 PM ASSISTANT FRONT END MANAGER) FVC PRE 4.24 2.83 - 4.29 L [facility] FEV1 PRE 3.25 2.45 - 3.63 L [facility] [id number] 76.66 74.59 - 95.34 % [facility] DMU07-79% PRE 2.74 2.33 - 4.96 L/s [facility] PEF PRE 5.47 5.29 - 8.25 L/s [facility] DLCOc SB 20.44(A) 20.75 - 32.21 ml/(min*mm Hg) [facility] DLCO/VA PRE 4.07 4.00 - 7.51 ml/(min*mm Hg*L) [facility] VA 5.02(A) 4.45 - 4.45 L [facility] TLC PRE 5.25 3.62 - 5.59 L [facility] VC PRE 4.24(A) 2.74 - 4.13 L [facility] IC PRE 3.28(A) 2.15 - 2.15 L [facility] FRC PL PRE 1.96 1.73 - 3.38 L [facility] ERV PRE 0.95(A) 1.29 - 1.29 L [facility] RV PRE 1.01 0.69 - 1.84 L [facility] VTG 2.14 L [facility] RAW PRE 3.04(A) 3.06 - 3.06 cmH2O*s/L [facility] Anatomical Region Laterality Modality PFT 11/23/2024 3:19 PM ASSISTANT FRONT END MANAGER Impressions 11/26/2024 11:59 AM CDT 1. Normal spirometry. 2. Lung volumes are normal. 3. Mild diffusion impairment. Clinical correlation is advised. Electronically signed by Chris Robles DO Pulmonary & Critical Care Narrative 11/26/2024 11:59 AM CDT PULMONARY FUNCTION TESTS Kalee Aguillon 24 y.o. 11/26/2024 INTERPRETATION Please see technologist's comments mentioned in attached results report. SPIROMETRY: Pre bronchodilator FEV1 is 107 % predicted, FVC is 119 % predicted, FEV1/FVC is 77 Bronchodilator response: Not assessed Inspection of the patient's flow-volume loops shows: Normal configuration of the inspiratory and expiratory limbs. LUNG VOLUMES: Lung volumes by body plethysmography: TLC is 114 % predicted, RV is 80 % predicted DLCO: Unadjusted for hemoglobin and carboxyhemoglobin DLCO is 77 % predicted Willow Ribeiro [facility] [facility] ORDERAB[facility] Fin al Result * US Thyroid (11/22/2024 5:39 PM ASSISTANT FRONT END MANAGER) Anatomical Region Laterality Modality Head and Neck N/A Ultrasound 11/27/2024 7:36 AM CDT Narrative 11/27/2024 7:38 AM CDT EXAM DESCRIPTION: US THYROID REASON FOR STUDY: R13.10, dysphagia neck pain. TECHNIQUE: Ultrasound of the thyroid was performed with grayscale and color doppler. COMPARISON: None. FINDINGS: RIGHT: The right thyroid lobe measures 4.6 x 1.2 x 1.2 cm. The right thyroid lobe is heterogeneous in echotexture. LEFT: The left thyroid lobe measures 4.2 x 1.5 x 1.9 cm. The left thyroid lobe is heterogeneous in echotexture. ISTHMUS: The isthmus measures 0.4 cm in AP dimension. The isthmus is normal in echotexture. VASCULARITY: Normal. OTHER: Few lymph nodes in the right neck, example with echogenic fatty hilum 0.8 cm and 1.3 x 1.2 cm. Prominent lymph nodes in the left neck, examples 0.8 x 0.8 x 0.7 cm. IMPRESSION: Heterogeneous thyroid gland with no discrete nodules. Prominent bilateral cervical lymph nodes, nonspecific but may be reactive. If these are palpable, these can be followed clinically. If further assessment were needed, could consider a CT neck soft tissue with contrast. REFERENCE: According to the ACR Thyroid Imaging, Reporting and Data System (TI-RADS): White Paper of the ACR TI-RADS Committee Jan, 2017 recommendations regarding the management of thyroid nodules are as follows: 1. TI-RADS 1: Risk of malignancy <2%, no FNA or follow up required. 2. TI-RADS 2: Risk of malignancy <2%, no FNA or follow up required. 3. TI-RADS 3: Risk of malignancy 2%-5%. Nodules 1.5 cm or greater follow up at 1, 3 and 5 years recommended, for nodules 2.5 cm or greater FNA recommended. 4. TI-RADS 4: Risk of malignancy 5%-20% Nodules 1.0 cm or greater follow up at 1, 2, 3 and 5 years recommended, for nodules 1.5 cm or greater FNA recommended 5. TI-RADS 5: Risk of malignancy >20%. Nodules 0.5 cm or greater annual follow up for 5 years recommended, for nodules 1.0 cm or greater FNA recommended. The ACT TI-RADS committee recommends targeting no more than two nodules for FNA. If three or more nodules meet criteria for FNA, the two with the most suspicious appearance based on ACR TI-RADS points should be sampled. THIS IS AN ELECTRONICALLY VERIFIED FINAL REPORT 11/27/2024 7:38 AM - Electronically signed by Martir Lazcano M.D. CH T: Report ID: [id number] Reading Location: [id number] Procedure Note Martir Lazcano Jr., MD - 11/27/2024 EXAM DESCRIPTION: US THYROID REASON FOR STUDY: R13.10, dysphagia neck pain. TECHNIQUE: Ultrasound of the thyroid was performed with grayscale andcolor doppler. COMPARISON: None. FINDINGS: RIGHT: The right thyroid lobe measures 4.6 x 1.2 x 1.2 cm.The right thyroid lobe is heterogeneous in echotexture. LEFT: The left thyroid lobe measures 4.2 x 1.5 x 1.9 cm. The leftthyroid lobe is heterogeneous in echotexture. ISTHMUS: The isthmus measures 0.4 cm in AP dimension. The isthmus isnormal in echotexture. VASCULARITY: Normal. OTHER: Few lymph nodes in the right neck, example with echogenic fattyhilum 0.8 cm and 1.3 x 1.2 cm. Prominent lymph nodes in the left neck, examples0.8 x 0.8 x 0.7 cm. IMPRESSION: Heterogeneous thyroid gland with no discrete nodules. Prominent bilateral cervical lymph nodes, nonspecific but may bereactive. If these are palpable, these can be followed clinically. If furtherassessment were needed, could consider a CT neck soft tissue with contrast. REFERENCE: According to the ACR Thyroid Imaging, Reporting and Data System (TI-RADS): White Paper of the ACR TI-RADS Committee Jan, 2017recommendations regarding the management of thyroid nodules are as follows: 1. TI-RADS 1: Risk of malignancy <2%, no FNA or follow up required. 2. TI-RADS 2: Risk of malignancy <2%, no FNA or follow up required. 3. TI-RADS 3: Risk of malignancy 2%-5%. Nodules 1.5 cm or greater followup at 1, 3 and 5 years recommended, for nodules 2.5 cm or greater FNArecommended. 4. TI-RADS 4: Risk of malignancy 5%-20% Nodules 1.0 cm or greater followup at 1, 2, 3 and 5 years recommended, for nodules 1.5 cm or greater FNA recommended 5. TI-RADS 5: Risk of malignancy >20%. Nodules 0.5 cm or greater annual follow up for 5 years recommended, for nodules 1.0 cm or greater FNA recommended. The ACT TI-RADS committee recommends targeting no more than two nodulesfor FNA. If three or more nodules meet criteria for FNA, the two with themost suspicious appearance based on ACR TI-RADS points should be sampled. THIS IS AN ELECTRONICALLY VERIFIED FINAL REPORT 11/27/2024 7:38 AM - Electronically signed by Martir Lazcano M.D. T: Report ID: [id number] Reading Location: [place] [address] Cem Hernandez MD [facility] PROCEDURES Final Resu lt from Last 3 Months Insurance [employer] [facility] Advance Directives For more information, please contact: [phone] * Full Code (Latest Code Status on File) Date Activated Date Inactivated Comments 12/01/2022 7:49 AM 12/01/2022 2:04 PM Care Teams Skin Lifter Bacon Relationship Specialty Start Date End Date Willow Dunham DNP [address] [place] [address] PCP - General Family Medicine 11/19/24
--- OUTSIDE RECORDS SUMMARY | 2025-01-10 15:47 | XMS_ITS | Encounter Summary ---
Author Organization [facility] Address [address] [place] [address] Care Team Providers Care Director Of Acquisitions Name Role Phone Willow Dunham DNP Primary Care Provi kailyn Encounter Details Date Type Department Care Team (Late Contact Info) Description 12/04/2024 Results Follow-Up [facility] Family Medicine [address] [place] [phone] Willow Dunham, [address] [address] Social History Tobacco Use Types Packs/Day Years [...] on file Legal Sex Female 8:46 PM FITNESS/WELLNESS DIRECTOR Gender Identity Not on file Sexual Orientation Not on file documented as of this encounter Plan of Treatment Not on file documented as of this encounter Visit Diagnoses Not on filedocumented in this encounter Care Teams Director Of Acquisitions Relationship Specialty Start Date End Date Willow Dunham DNP [address] [facility] [address] [place] [address] PCP - General Family Medicine 11/19/24 documented as of this encounter
--- OUTSIDE RECORDS SUMMARY | 2025-01-10 15:47 | XMS_ITS | Patient Health Record ---
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 confirmed Problem Major depression, single episode (70572235) Major depressive disorder, single episode, unspecified (F32.9) Active confirmed Problem Anxiety disorder (964041678) Anxiety disorder, unspecified (F41.9) Active confirmed Problem Acute vaginitis (80389119) Acute vaginitis (N76.0) Active confirmed Problem Sleep deprivation (265024298) Sleep deprivation (Z72.820) 8 Active confirmed Problem Normal body mass index (88226115) Body mass index (BMI) 22.0-22.9, adult (Z68.22) 8 Active confirmed Problem BMI less than 20 (722190093) Body mass index (BMI) 19 or less, adult (Z68.1) 7 Active confirmed Encounters Encounter Location Date Provider Diagnosis [facility] [address] [address] 07/21/2024 Provider Migration [facility] [address] [address] 07/22/2024 Provider Migration Plan Of Treatment No Information Insurance Providers Payer Name Payer Address Payer Phone Subscriber Number Group Number Insured Name Patient Relationship to Insured Coverage Start Date Coverage End Date [facility] [address] [place] [address] [id number] Kalee Aguillon Self - patient is the insured
--- OUTSIDE RECORDS SUMMARY | 2025-01-10 15:47 | XMS_ITS | CONTINUITY OF CARE DOCUMENT ---
Author Name donna thompson Address Unknown Organization [facility] Address [address] [place] [address] [address] [place] [address] Phone [phone] Care Team Providers Care Artificial Limb Fitter Name Role Phone Beverly MONTERO, Terry Martinez Unavailable MISSAEL MONTERO, RUNDA Unavailable MISSAEL MONTERO, RUNDA [...] In-person encounter Office Visit Terry Paul MD [facility] 2 - 7 In-person encounter Office Visit Terry Paul MD [facility] 0 - 0 In-person encounter Office Visit Terry Paul MD [facility] Dizzy spellsFamilial hypertrophic cardiomyopathyDiaphoresisPersonal history of [...] Rabia banegas weight E&M 158 [lb_av] Rabia abnegas height E&M 62 [in_i] Rabia banegas HISTORY [...] Payer name Policy type / Coverage type [employer] party ID [employer] (2) Medicaid [id number] ADVANCE DIRECTIVES Name Date DISCUSSED - NO DECISION MADE TREATMENT PLAN Date Name Performer [id number],C, N o new episodes, normal tele Terry Paul MD [id number],C, S ees OBGYN Terry Paul MD [id number],C,A1c was aminta steve Paul MD [id number],S,Sees OBLIU Sa rylee Paul MD [id number],S,No new episod es, normal tele Terry Paul MD [id number],C,Sees DEEPAN, e verything is normal. Terry Paul MD [id number],C,E cho 12/28/21 NO evidence of LVH on [...] of pulmonic r egurgitation. Terry Paul MD [id number],C,H ad covid 07/2020. No changes in her respiratory status pre covid to now. Terry Paul MD [id number],C,N eeds to have an echocardiogram done. Terry Paul MD [id number],S,W ill check a telemonitor. Hx of palpitations [...] No evidence of pulmonic r egurgitation. Terry Pual MD Cardiology:Had covid 07/2020. No changes in her respiratory status pre covid to now. Terry Paul MD Cardiology:Needs to have an echo cardiogram done. Terry Paul MD Cardiology:Will che k a telemonitor. Hx of palpitations and family hx of HOCM Terry Paul MD Date Name Holter Monitor 48 hr Complete Echo EKG Arterial Duplex Bi-L ower EX COMPREHENSIVE METABO LIC PANEL, W/EGFR HEMOGLOBIN A1c TSH, free T4, total T3 Monitor - Telemetry (Mobile Cardiac) Complete Echo HISTORY OF PROCEDURES Procedure Date Procedure Name Provider Procedure Notes S tatus EKG Terry Paul MD compl eted
--- OUTSIDE RECORDS SUMMARY | 2025-01-10 15:47 | XMS_ITS | Encounter Summary ---
Author Organization [facility] Address [address] [place] [address] Care Team Providers Care Rn Appeals Name Role Phone Niesha Garcia MD Primary Care Provider Unavaila vargas None, Physician Primary Care Provider UnavailCem Mart MD Primary Care Provider [phone] Willow Dunham Primary Care Provider [phone] Encounter Details Date Type Department Care Team (Late st Contact Info) Description 03/04/2023 Telephone [facility] - Centralized Scheduling [address] [place] [phone] Debbie Bihsop K, JAVA GOLDEN GATE DEVELOPER-ALL SOURCE ANALYST [address] [place] [address] Social History Tobacco Use Types Packs/Day Years Used Date Smoking Tobacco: Smoker, Current Status Unknown Alcohol Use Standard Drinks/Week Comments No 0 (1 standard drink = 0.6 oz pur e alcohol) Comments No Sex and Gender Information Value Date Recorded Sex Assigned at Not on file Legal Sex Female 5:39 AM COPYWRITING INTERN Gender Identity Not on file Sexual Orientation Not on file COVID-19 Exposure Response Date Recorded In the last 10 days, have yo u been in contact with someone who was confirmed or suspected to have Coronavirus/COVID-19? No / Unsure 03/04/2023 2:36 PM CDT documented as of this encounter Functional Status * Is person deaf or have serious hearing difficulty? Answer Date of Assessment Author No 03/20/2015 4:02 PM CDT Cirilo Hancock RN * Is person blind or have serious difficulty seeing? Answer Date of Assessment Author No 03/20/2015 4:02 PM CDT Cirilo Hancock RN * Does person have serious difficulty walking/climbing stairs? Answer Date of Assessment Author No 03/20/2015 4:02 PM CDT Cirilo Hancock RN * Does person have difficulty dressing/bathing? Answer Date of Assessment Author No 03/20/2015 4:02 PM CDT Cirilo Hancock RN * Does person have difficulty doing errands alone? Answer Date of Assessment Author No 03/20/2015 4:02 PM CDT Cirilo Hancock RN documented as of this encounter Mental Status * Does person have difficulty concentrating/remembering/making decisions? Answer Entry Date Author No 03/20/2015 4:02 PM CDT Cirilo Hancock RN documented in this encounter Miscellaneous Notes * Telephone Encounter [...] Care Team (Late st Contact Info) Description 04/02/2025 10:50 AM CDT Office Visit [facility] - Dermatology [address] [place] [address], [place] [address] Singh Campa MD [address] [place] [address] 04/15/2025 2:00 PM CDT Office Visit [facility] - Neurology [address] [place] [address], [place] [address] Morgan Lopez APRN-ALL SOURCE ANALYST [address] [place] [address] [place] [address] 04/17/2025 2:40 PM CDT Office Visit [facility] - Rheumatology [address] [place] [phone] Abril Oakley MD [address] [place] [address] documented as of this encounter Visit Diagnoses Not on filedocumented in this encounter Care Teams Rn Appeals Relationship Specialty Start Date End Date Niesha Garcia MD PCP - General 07/14/22 10/11/24 None, Physician PCP - General 10/12/24 11/04/24 Cem Hernandez MD [address] [place] [phone] PCP - General Family Medicine 11/05/24 12/25/24 Willow Dunham [facility] [address] [place] [address] PCP - General 12/26/24 documented as of this encounter
--- OUTSIDE RECORDS SUMMARY | 2025-01-10 15:47 | XMS_ITS ---
Author Organization [facility] Address [address] [place] [address] Care Team Providers Care Porcelain Finish Sprayer Name Role Phone Migration, Provider Unavailable Unavailable REASON FOR VISIT EMR-Singh Encounters Encounter Location Date Provider Diagnosis [facility] [address] [place] [address] 07/21/2024 Provider Migration Plan Of Treatment No Information Progress Notes * Carl RITTERDashaB:2000 (24 yo F)Acc No.[id number]:07/21/2024 Patient: Kalee GARCIA :2000 A ge:24 Y S ex:Female Address:[address] [place] [address], [address] Subjective: * Chief Complaints: * E MR-Singh * Medical History: * Surgical History: * Hospitalization/Major Diagno stic Procedure: * Medications: Objective: * Physical Examination: Plan: * Treatment: * Procedure Codes: Billing Information: * Visit Code: * Procedure Codes: * * Date:
--- OUTSIDE RECORDS SUMMARY | 2025-01-10 15:47 | XMS_ITS ---
Author Organization [facility] Address [address] [place] [address] Care Team Providers Care Police Academy Program Coordinator Name Role Phone Migration, Provider Unavailable Unavailable Allergies No Known Allergies REASON FOR VISIT [facility] Medications Medication SIG (Take, Route, Fr equency, [...] Diagnosis [facility] [address] [place] [address] 07/22/2024 Provider Migration Plan Of Treatment No Information Progress Notes * Eugenio RITTERBryanna:2000 (24 yo F)Acc No.[id number]:07/22/2024 Patient: Kalee GARCIA :2000 A ge:24 Y S ex:Female Address:[address] [place] [address] Subjective: * Chief Complaints: * E MR-Singh [...]
--- OUTSIDE RECORDS SUMMARY | 2025-01-10 15:47 | XMS_ITS | Referral Summary ---
Author Organization [facility] Building B Address [address] [place] [address] Care Team Providers Care Director Of Acquisition Marketing Name Role Phone Willow Dunham DNP Primary Care Provi kailyn Encounters Date Type Department Care Team Description 01/02/2025 Telephone [facility] [address] [address] Carlota Miner 12/28/2024 Results Follow-Up [facility] [address] [address] Jenifer Pizarro MD 12/27/2024 9:20 AM CDT Lab [address] [address] PCOS (polycystic ovarian syndrome) 12/27/2024 8:30 AM CDT Office Visit [facility] [address] [address] Jenifer Pizarro MD PCOS (polycystic ovarian syndrome) (Primary Dx); Abnormal ultrasound of neck 12/23/2024 Results Follow-Up [facility] Family Medicine [address] [facility] [address] [place] [address] Willow Dunham DNP 12/21/2024 1:35 PM CDT Lab [facility] [address] [place] [address] Thyroid disorder screen 12/20/2024 1:30 PM CDT Office Visit [address] [place] [address] Willow Dunham DNP Numbness in right leg (Primary Dx); Raynaud's disease without gangrene; Positive BTESY (antinuclear antibody); Polycystic ovarian syndrome; Rash; Gastroesophageal reflux disease without esophagitis; Dysphagia, unspecified type; Aura; Migraine with aura and without status migrainosus, not intractable; Mild intermittent asthma without complication; POTS (postural orthostatic tachycardia syndrome); Thyroid disorder; Marijuana use; Overweight with body mass index (BMI) of 27 to 27.9 in adult; Thyroid disorder screen 12/05/2024 Telephone [facility] [address] [address] Carlota Miner 12/04/2024 Results Follow-Up [address] [place] [address] Willow Dunham DNP 12/03/2024 12:30 PM CDT Lab [facility] [address] [place] [address] Abnormal thyroid ultrasound; Thyroid disorder screen 11/29/2024 Results Follow-Up [address] [place] [address] Willow Dunham DNP Mild intermittent asthma without complication (Primary Dx); Shortness of breath; Abnormal pulmonary function test 11/27/2024 Orders Only [address] [place] [address] Willow Dunham DNP Abnormal thyroid ultrasound (Primary Dx); Thyroid disorder screen 11/27/[address] [place] [address] Willow Dunham DNP Test Results 11/26/2024 2:30 PM CDT Office Visit [facility] Cardiology [address] [facility] [address] [address] Anam Broderick MD Shortness of breath (Primary Dx); Primary familial hypertrophic cardiomyopathy (HCC); Lipid screening; Syncope and collapse 11/23/2024 3:12 PM LIMEROCK TOWER LOADER - 11/23/2024 11:59 PM LIMEROCK TOWER LOADER Hospital Encounter [facility] Respiratory Therapy [address] [place] [address] Dyspnea, unspecified type Discharge Disposition: Discharge to home or self care 11/22/2024 5:19 PM LIMEROCK TOWER LOADER - 11/22/2024 11:59 PM LIMEROCK TOWER LOADER Hospital Encounter [facility] [address] [place] [address] Dizziness and giddiness; Dysphagia, unspecified type Discharge Disposition: Discharge to home or self care 11/19/2024 2:00 PM LIMEROCK TOWER LOADER Office Visit [facility] Medicine [address] [place] [address] [address] [place] [address] Willow Dunham DNP Gastroesophageal reflux disease without [...] 28 to 28.9 in adult 11/15/2024 Telephone [facility] Medicine [facility] [facility] [address] [place] [address] Willow Dunham DNP Medical Question/Miscellaneous 11/14/2024 9:00 AM LIMEROCK TOWER LOADER Office Visit [facility] Ophthalmology [address], [address] [place] [address] Ashley rOtiz, ISAAK Aura (Primary Dx); Glaucoma suspect of both eyes 11/12/2024 Telephone [facility] Ophthalmology [address] [place] [address] Sosa Morales Chan, OD new pt from Last 3 Months Allergies Active Allergy Reactions Criticality Noted Date [...] 11/19/2024 Assessment & Plan (11/19/2024 4:44 PM LIMEROCK TOWER LOADER): Refer to GI Raynaud's disease 11/19/2024 Assessment & Plan (12/23/2024 5:56 PM CDT): Recommend staying on amlodipine 2.5 mg daily Patient has self-discontinued due to other provider telling her that her blood pressure was normal Assessment & Plan (11/19/2024 4:52 PM LIMEROCK TOWER LOADER): Take amlodipine 2.5 mg daily Medication and side effects reviewed Follow-up in 1 month Dyshidrotic eczema 11/19/2024 Assessment & Plan (11/19/2024 4:44 PM LIMEROCK TOWER LOADER): Take Gissell 180 mg daily as prescribed [...] daily Assessment & Plan (11/19/2024 4:49 PM LIMEROCK TOWER LOADER): Refer to GI Take Protonix 20 mg daily as prescribed Discontinue marijuana use Avoid foods that cause irritation Keep food diary Follow-up in 1 month Positive BETSY (antinuclear antibody) 11/19/2024 Assessment & Plan (12/23/2024 5:58 PM CDT): Refer to rheumatology Assessment & Plan (11/19/2024 4:51 PM LIMEROCK TOWER LOADER): Refer to rheumatology Rash 11/19/2024 Assessment & Plan (12/23/2024 6:00 PM CDT): Managed by Dermatology Assessment & Plan (11/19/2024 4:52 PM LIMEROCK TOWER LOADER): Refer to derm Recommend taking Gissell 180 mg daily Follow-up in 1 month KOKO (stress urinary incontinence, female) 2024 Assessment & Plan (11/19/2024 4:52 PM LIMEROCK TOWER LOADER): Refer to pelvic floor physical therapy Dyspnea 11/19/2024 Assessment & Plan (11/19/2024 4:48 PM LIMEROCK TOWER LOADER): PFT ordered Vomiting 11/19/2024 Assessment & Plan (11/19/2024 4:48 PM LIMEROCK TOWER LOADER): Take Protonix 20 mg daily as prescribed Discontinue smoking daily marijuana Refer to GI Follow-up in 1 month Overweight with body mass in dex (BMI) of 27 to 27.9 in adult 11/19/2024 Assessment & Plan (12/23/2024 6:14 PM CDT): Your BMI is elevated. Try to cut back on calories. Most people should eat between 9979-4788 calories to lose weight. Goal BMI is less than 30. A healthy BMI is considered between 19-25. Decrease your carbohydrate intake to less than 150 grams per day if possible and increase protein to help with hunger. Increase activity to 30 min 4-5 days a week of moderate aerobic activity and add strength training 2 times weekly, as tolerated. Consider using [employer] lei to track diet and exercise habits daily. Consider trying Weight Watcher program to make dietary changes. Visit www.dietaryguidelines.gov, www.myplate.gov, or www.health.gov for more dietary information and tips. Visit www.[employer] or fluid Operations.Locom[employer] for online tenter feeder covered by health insurance. Aura 11/14/2024 Assessment & Plan (12/23/2024 6:05 PM CDT): Managed by Ophthalmology Managed by Neurology Continue topiramate 25 mg daily Continue Maxalt 5 mg as needed Assessment & Plan (11/19/2024 4:43 PM LIMEROCK TOWER LOADER): Managed by Ophthalmology Refer to neurology Start Nurtec 75 mg every other day Use Maxalt 5 mg as needed Follow-up in 1 month Assessment & Plan (11/14/2024 12:55 PM LIMEROCK TOWER LOADER): + visual phenomenon consistent with migranous aura which completely resolves. Occurs with or without headache. Pt will monitor for triggers and attempt supplemental magnesium. Monitor Attention deficit disorder without hyperactivity 08/26/2023 Assessment & Plan (11/19/2024 4:43 PM LIMEROCK TOWER LOADER): Chronic and stable without medication Other viral warts 08/26/2023 Asthma 12/14/2022 Assessment & Plan (12/23/2024 6:05 PM CDT): Appointment with pulmonology 12/27/24 History of substance abuse 11/08/2022 History of drug abuse 12/16/2021 History of substance abuse 12/16/2021 Polycystic ovarian syndrome 12/16/2021 Assessment & Plan (12/23/2024 5:59 PM CDT): Patient did not take Sanjuanita Assessment & Plan (11/19/2024 4:51 PM LIMEROCK TOWER LOADER): Start Sanjuanita OCP as prescribed Medication and side effects reviewed Follow-up in 1 month Primary familial hypertrophic cardiomyopathy Syncope and collapse 12/16/2021 Fatigue 08/11/2015 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 Anxiety 08/11/2015 Assessment & Plan (11/19/2024 4:43 PM LIMEROCK TOWER LOADER): Chronic and stable without medication Chronic cough 08/11/2015 Resolved Problems Problem Noted Date Diagnosed Date Resolved Date Glaucoma suspect of both eyes 11/14/2024 11/19/2024 Assessment & Plan (11/14/2024 12:56 PM LIMEROCK TOWER LOADER): Asymmetric intraocular pressure (IOP) OD> left eye [...] on file Legal Sex Female 8:46 PM LIMEROCK TOWER LOADER Gender Identity Not on file Sexual Orientation [...] 12/27/2024 8:35 AM CDT Plan of Treatment Not on file Procedures [...] Read Routine (OP Routine) 11/24/2024 11:59 AM LIMEROCK TOWER LOADER PULMONARY FUNCTION TEST (PFT) Routine 11/23/2024 3:55 PM LIMEROCK TOWER LOADER Dyspnea, unspecified type US THYROID Schedule Routine, Read Routine (OP Routine) 11/22/2024 5:39 PM LIMEROCK TOWER LOADER Dizziness and giddiness Dysphagia, unspecified type from Last 3 Months Results * Prolactin (12/27/2024 9:20 AM CDT) Prolactin 12.8 4.8 - 23.3 ng/mL Blood 12/27/2024 9:20 AM CDT 12/27/2024 10:26 AM CDT us Jenifer Levin MD LAB BLOOD ORDERABLE S Final Result [facility] [address] [place] [address] * (ABNORMAL) DHEA-sulfate (12/27/2024 9:20 AM CDT) DHEA-S 504.0(H) 98.8 - 340.0 mcg/dL Comment:Testing performed by : [facility], [address] [place]., [address] Blood 12/27/2024 9:20 AM CDT 12/27/2024 12:08 PM CDT Jenifer Levin MD LAB BLOOD ORDERABLE S Final Result Performing Organization Address [facility] Co de Phone Number [facility] [address] [address] [place] [address] * (ABNORMAL) Total testosterone (12/27/2024 9:20 AM CDT) Testosterone 67(H) 8 - 48 ng/dL Blood 12/27/2024 9:20 AM CDT 12/27/2024 10:26 AM CDT Jenifer Levin MD LAB BLOOD ORDERABLE S Final Result Performing Organization Address [facility] de Phone Number [facility] KOTHARI [address] [address] [place] [place] [address] * Hemoglobin A1c (12/27/2024 9:20 AM CDT) Hgb A1C 4.9 4.0 - 5.6 % Estimated Average Glucose 94 mg/dL [facility] Comment: The ADA recommends reporting an estimated Average Glucose (eAG) with all Hemoglobin A1c results using the equation derived from a study of 507 normal and diabetic adults. Minority populations were underrepresented and children were not included. (Diabetes Care 31:2011-4892, 2008). The eAG is not equivalent to a fasting glucose. Blood 12/27/2024 9:20 AM CDT 12/27/2024 10:26 AM CDT Jenifer Levin MD LAB BLOOD ORDERABLE S Final Result Performing Organization Address [facility] Co de Phone Number [facility] [place] [address] [address] [place] [place] [address] * Lipid panel (12/27/2024 9:20 AM CDT) Cholesterol 177 30 - 199 mg/dL Comment: [...] mg/dL High: >160 mg/dL Calculated using the Twin LDL-C estimating equation. This equation was implemented on 2024. Prior to this date LDL-C was estimated using the Friedewald equation. Literature References: 1. Expert Panel on Integrated Guidelines for Cardiovascular Health and Risk Reduction in Children and Adolescents. Pediatrics 2011;128:S213 2. NCEP Expert Panel. Circulation 2004;110:227 3. Twin Douglas et al. CARLOS Cardiol. 2019January 17;5(5):540-548. doi: 10.1001/jamacardio.2020.0013 Current Interpretive Data was [...] revised on 2018. Chol/HDL ratio 4 [facility] Blood 12/27/2024 9:20 AM CDT 12/27/2024 10:26 AM CDT us Jenifer Levin MD LAB BLOOD ORDERABLE S Final Result [facility] [address] [address] Department [place] [address] * TSH (12/21/2024 1:38 PM CDT) Thyroid Stimulating Hormone 1.05 0.30 - 4.20 mcIUnit/mL Comment:Testing performed by : [facility], [address] [place] [address], [place]., [address] Blood 12/21/2024 1:38 PM CDT 12/21/2024 2:14 PM CDT [facility] ORDER[facility] S Final Result Performing Organization Address [facility] de Phone Number [facility] [address] [address] * Thyroglobulin antibodies (12/03/2024 12:34 PM CDT) Anti-thyroglobulin <1.8 <4.0 IUnits/mL [facility] Comment: ADDITIONAL INFORMATION PLEASE NOTE: The given thyroglobulin antibody (TgAb) reference cutoff of <4.0 IU/mL is for the evaluation of autoimmune thyroiditis. A cutoff of <1.8 IU/mL may be more suitable for the detection of potential thyroglobulin antibody (TgAb) interference in thyroglobulin immunoassays. The thyroglobulin antibody testing method is an immunoenzymatic assay manufactured by [employer] and performed on the BUKA DXI 800. Values obtained from different assay methods or kits may be different and cannot be used interchangeably. The results cannot be interpreted as absolute evidence for the presence or absence of malignant disease. Test Performed by: [place] [address] Airplane Flight Attendant: Danial José Ph.D.; CLIA# [id number] Blood 12/03/2024 12:3 4 PM CDT 12/03/2024 1:01 PM CDT Willow Dunham [facility] LAB BLOOD ORDERABLE S Final Result Performing Organization Address City/[facility]/ZIP Co de Phone Number [facility] [address] [address] [facility] * Thyroid peroxidase antibody (TPO) (12/03/2024 12:34 PM CDT) Anti Thyroid Peroxidase <30 <=34 IUnits/mL Comment: ATPO Interpretive Data Results may be up to 28% higher in patients receiving Itraconazole. Current interpretive data was last revised 2020. Testing performed by: [facility], [address] [facility], [place]., [address] Blood 12/03/2024 12:3 4 PM CDT 12/03/2024 3:42 PM CDT Willow Valladaresfrancois Dunham [facility] LAB BLOOD ORDERABLE S Final Result [facility] [address] [facility] Department [place] [address] * POCT lipid panel (11/26/2024 2:26 PM CDT) Cholesterol, POC 188 mg/dL HDL, POC 38 mg/dL Triglycerides, POC 114 mg/dL LDL Cholesterol POC 128 mg/dL Chol/HDL Ratio, POC 5.0 Non-HDL Cholesterol, POC 150 mg/dL Cholesterol Total, POC 188 mg/dL Capillary blood 11/26/2024 2 :26 PM CDT Anam Broderick MD POINT OF CARE TEST ORDER BEKAH Final Result * MRI Internal Auditory Canal incl Brain W WO Contrast (11/24/2024 11:59 AM LIMEROCK TOWER LOADER) Anatomical Region Laterality Modality Head and Neck N/A Magnetic Resonan ce Historical Provider IMG MRI PROCEDURES Final Result * (ABNORMAL) Pulmonary Function Test - (11/23/2024 3:55 PM LIMEROCK TOWER LOADER) FVC PRE 4.24 2.83 - 4.29 L [facility] FEV1 PRE 3.25 2.45 - 3.63 L [facility] [id number] 76.66 74.59 - 95.34 % [facility] YGU80-58% PRE 2.74 2.33 - 4.96 L/s [facility] PEF PRE 5.47 5.29 - 8.25 L/s [facility] DLCOc SB 20.44(A) 20.75 - 32.21 ml/(min*mm Hg) [facility] DLCO/VA PRE 4.07 4.00 - 7.51 ml/(min*mm Hg*L) [facility] VA 5.02(A) 4.45 - 4.45 L [facility] TLC PRE 5.25 3.62 - 5.59 L [facility] VC PRE 4.24(A) 2.74 - 4.13 L [facility] IC PRE 3.28(A) 2.15 - 2.15 L [facility] FRC PL PRE 1.96 1.73 - 3.38 L [facility] ERV PRE 0.95(A) 1.29 - 1.29 L [facility] RV PRE 1.01 0.69 - 1.84 L [facility] VTG 2.14 L [facility] RAW PRE 3.04(A) 3.06 - 3.06 cmH2O*s/L [facility] Anatomical Region Laterality Modality PFT 11/23/2024 3:19 PM LIMEROCK TOWER LOADER Impressions 11/26/2024 11:59 AM CDT 1. Normal [...] and carboxyhemoglobin DLCO is 77 % predicted us Willow Dunham DNP PFT ORDERABLES Fin al Result * US Thyroid (11/22/2024 5:39 PM LIMEROCK TOWER LOADER) Anatomical Region Laterality Modality Head and Neck [...] by Martir Lazcano M.D. T: Report ID: [id number] Reading Location: [id number] Procedure Note Martir Lazcano Jr., MD - [...] by Martir Lazcano M.D. T: Report ID: [id number] Reading Location: [place] [address] Cem Hernandez MD [facility] PROCEDURES Final Resu lt from Last 3 Months Insurance [facility] Advance Directives For more information, please contact: [phone] * Full Code (Latest Code Status on File) Date Activated Date Inactivated Comments 12/01/2022 7:49 AM 12/01/2022 2:04 PM Care Teams Director Of Acquisition Marketing Relationship Specialty Start Date End Date Willow Dunham DNP [address] [facility] [address] [place] [address] PCP - General Family Medicine 11/19/24
--- OUTSIDE RECORDS SUMMARY | 2025-01-10 15:47 | XMS_ITS | Encounter Summary ---
Author Organization [facility] Address [address] [place] [address] Care Team Providers Care Instrumentation Specialist Name Role Phone Kelechi Camacho PA-C Primary Care Provider [phone] Primary Care Prov ider Niesha Garcia MD Primary Care Provider Unavaila ble None, Physician Primary Care Provider UnavailCem Mart MD Primary Care Provider [phone] Willow Dunham Primary Care Provider [phone] Reason for Visit * Reason Onset Date Comments Question 10/20/2015 Encounter Details Date Type Department Care Team (Late st Contact Info) Description 10/20/2015 Telephone [facility] [place] [address] Andrew Alonso MD [facility] [place] [address] Question Social History Tobacco Use Types Packs/Day Years Used Date Smoking Tobacco: Smoker, Current Status Unknown Alcohol Use Standard Drinks/Week Comments No 0 (1 standard drink = 0.6 oz pur e alcohol) Comments No Sex and Gender Information Value Date Recorded Sex Assigned at Not on file Legal Sex Female 5:39 AM ASSURANCE SENIOR MANAGER Gender Identity Not on file Sexual [...] was e-scribed in place of Prevacid to [facility]. RANCE SENIOR MANAGER documented in this encounter Plan of Treatment Upcoming Encounters Date Type Department Care Team (Late st Contact Info) Description 04/02/2025 10:50 AM CDT Office Visit [facility] - Dermatology [address] [facility] [place] [address] Singh Campa MD [address] [place] [address] 04/15/2025 2:00 PM CDT Office Visit [facility] - Neurology [address] [facility] [place] [address] Morgan Lopez APRN-ARNOL [address] [place] [address] 04/17/2025 2:40 PM CDT Office Visit [facility] - Rheumatology [address], [address] [place] [address] Abril Oakley MD [address] [place] [address] documented as of this encounter Visit Diagnoses Not on filedocumented in this encounter Care Teams Instrumentation Specialist Relationship Specialty Start Date End Date Kelechi Camacho PA-C [address] [place] [address] PCP - General Physician Professor Of Geography 09/02/15 12/14/[address] [facility], [place] [address] PCP - General 12/15/21 07/13/22 Niesha Garcia MD PCP - General 07/14/22 10/11/24 None, Physician PCP - General 10/12/24 11/04/24 Cem Hernandez MD [address] [place] [id number] PCP - General Family Medicine 11/05/24 12/25/24 Willow Dunham [facility] [address] [facility] [address] [place] [address] PCP - General 12/26/24 documented as of this encounter
--- OUTSIDE RECORDS SUMMARY | 2025-01-10 15:47 | XMS_ITS | Encounter Summary ---
Author Organization [facility] Healthcare Address [address] [place] [address] Care Team Providers Care Swim Instructor Name Role Phone Willow Dunham DNP Primary Care Provi kailyn Reason for Referral * Consultation (Routine) - Closed Specialty Diagnoses / Procedures Referred By Justice chavez Referred To Contact Pulmonary Disease / Pulmonology Diagnoses Mild intermittent asthma without complication Shortness of breath Abnormal pulmonary function test Willow Dunham DNP [address] [address] Phone: tel: fax: [facility] Medical Group Pulmonology [address] [facility] [address] [place] [address] Phone: tel: fax: Referral ID Status Reason Start Date Expiration Date V isits Requested Visits Authorized [id number] Closed Specialty Services Required 11/29/2024 12/29/2025 1 1 Question Answer Please select the performing region: [facility] Medical Group [[id number]] Please select the performing department: [facility][id number][facility] # of visits: 1 Comments IMPRESSION: 1. Normal spirometry. 2. Lung volumes are normal. 3. Mild diffusion impairment. Encounter Details Date Type Department Care Team ([facility] st Contact Info) Description 11/29/2024 Results Follow-Up [facility] Medical [facility] Family Medicine [address] [facility] [address] [place] [address] Willow Dunham DNP [address] [facility] [address] [place] [address] Mild intermittent asthma without complication (Primary Dx); Shortness of breath; Abnormal pulmonary function test Social History Tobacco Use Types Packs/Day Years [...] on file Legal Sex Female 8:46 PM DRAFTER GEOLOGICAL Gender Identity Not on file Sexual Orientation Not on file documented as of this encounter Plan of Treatment Scheduled Referrals Name Type Priority Associated Diagnoses Orde r Schedule Ambulatory referral to Pulmonology Outpatient Referral Routine Mild intermittent asthma without complication Shortness of breath Abnormal pulmonary function test 1 Occurrences starting 11/29/2024 until 11/29/2025 documented as of this encounter Visit Diagnoses Diagnosis Mild intermittent asthma without complication- Primary Shortness of breath Abnormal pulmonary function test Nonspecific abnormal results of pulmonary system function study documented in this encounter Care Teams Swim Instructor Relationship Specialty Start Date End Date Willow Dunham DNP [address] [place] [address] [address] [place] [address] PCP - General Family Medicine 11/19/24 documented as of this encounter
--- OUTSIDE RECORDS SUMMARY | 2025-01-10 15:48 | XMS_ITS | Clinical Summary ---
Author Organization [facility] Address [facility] access hospital[address] [place] [address] Care Team Providers Care Business Director Name Role Phone None, Provider MD Primary [...] hours prn pain 12 tablet 5 Active Active Problems Problem Noted Date Diagnosed Date (spontaneous vaginal delivery) ([facility] Resolved Problems Problem Noted Date Diagnosed Date Resolved Date ([facility]) 06/08/2022 06/09/20 22 Encounters Date Type Department Care Team Description 10/28/2024 1:54 PM POLICE MANAGER - 10/28/2024 4:42 PM POLICE MANAGER Emergency [facility] [place] [address] Jona Cortez PA-C Abdominal Pain Discharge Disposition: [...] 06/08/2022 How often do you attend chur ch or jehovah's witness services? Never 06/08/2022 Do you belong to any clubs o r organizations such as religious groups, unions, fraternal or athletic groups, or [...] and heating? Not hard at all 06/08/2022 [facility] - Occupational Stress [...] money to buy more. Never true 06/08/20 22 Within the past 12 months, t he [...] place to sleep or slept in a senior living (including now)? 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 Not on file Not on file Not on file Last Filed Vital Signs Vital Sign Reading Time Taken Comments Blood Pressure 141/102 10/28/2024 1:26 PM POLICE MANAGER Pulse 97 10/28/2024 1:26 PM POLICE MANAGER Temperature 36.9 C (98.4 F) 10/28/2024 1:26 PM POLICE MANAGER Respiratory Rate 20 10/28/2024 1:26 PM POLICE MANAGER Oxygen Saturation 100% 10/28/2024 1:26 PM POLICE MANAGER Inhaled Oxygen Concentration - - Weight 74.8 kg (165 lb) 10/28/2024 1:26 PM POLICE MANAGER Height 160 cm (5' 3 ) 10/28/2024 1:26 PM POLICE MANAGER Body Mass Index 29.23 10/28/2024 1:26 PM POLICE MANAGER Plan of Treatment Health Maintenance Due Date Last Done Comments Cervical Cancer Screening Pap Smear (Age 21 to 29) Every 3 Years 1998 Cervical Cancer Screening 1998 Annual Physical 2001 DTaP, Tdap and Td Vaccines (6 - Tdap) 2009 04/11/2003, 10/09/1999, 1998, Additional history exists HPV Vaccines (3 - 3-dose series) 04/28/2023 11/26/2022, 10/29/2022 COVID-19 Vaccine ( season) 2024 Hepatitis B Vaccines Completed 01/15/1999, 1998, 1998, Additional history exists Hepatitis C Completed 03/16/2015 Meningococcal B Vaccine Aged Out No l onger eligible based on patient's age to complete this topic Meningococcal Vaccine Aged Out No [place] eligible based on patient's age to complete this topic Pneumococcal Vaccine: Pediatrics (0 to 5 Years) and At-Risk Patients (6 to 49 Years) Aged Out No longer eligible based on patient's age to complete this topic RSV Immunizations Under 20 Months Aged Out No longer eligible based on patient's age to complete this topic Procedures Procedure Name Priority Date/Time Associated Diagnosis Comments CT ABD+PEL W CON STAT 10/28/2024 3:00 PM POLICE MANAGER LIPASE STAT 10/28/2024 2:24 PM POLICE MANAGER COMPREHENSIVE METABOLIC PANEL STAT 10/28/2024 2:24 PM POLICE MANAGER CBC W/DIFF AUTOMATED STAT 10/28/2024 2:24 PM POLICE MANAGER POCT URINE (BACK OFFICE) STAT 10/28/2024 2:15 PM POLICE MANAGER HC URINALYSIS AUTO W/O MICRO STAT 10/28/2024 2:11 PM POLICE MANAGER from Last 3 Months Results * CT ABD+PEL W IV CON ONLY (10/28/2024 3:00 PM POLICE MANAGER) Anatomical Region Laterality Modality Abdomen Computed Tomogra phy 10/28/2024 3:48 PM POLICE MANAGER Impressions 10/28/2024 3:51 PM POLICE MANAGER IMPRESSION: 1. Normal appendix. No bowel obstruction. No free air. 2. Probable corpus luteal cyst, right ovary. Ordered By: RACHEL GRAYSON Interpreted By: Timi Jacobson MD, 10/28/2024 3:48 PM Narrative 10/28/2024 3:51 PM POLICE MANAGER [facility] [address] [place], [place] [address] EXAMINATION: CT ABD+PEL W CON DATE: 10/28/2024 [...] Procedure Note Timi Jacobson MD - 10/28/[address] [address] EXAMINATION: CT ABD+PEL W CON DATE: 10/28/2024 2:43 PM CLINICAL HISTORY: Lower abdominal pain. Hemorrhagic cyst. Pt arrives tot ER with complains of sudden right lower [...] By: Timi Jacobson MD, 10/28/2024 3:48 PM Rachel Grayson REVENUE COORDINATOR CT Final Resul t * (ABNORMAL) COMPREHENSIVE METABOLIC PANEL (10/28/2024 2:24 PM POLICE MANAGER) GLUCOSE 81 70 - 99 MG/DL 10/28/2024 3:03 PM [facility] BUN 11 7 - 18 MG/DL 10/28/2024 3:03 PM [facility] CREATININE S/P/B 0.78 0.55 - 1.02 MG/DL 10/28/2024 3:03 PM [facility] SODIUM S/P/B 134(L) 136 - 145 MMOL/L 10/28/2024 3:03 PM [facility] POTASSIUM S/P/B 4.6 3.5 - 5.1 MMOL/L 10/28/2024 3:03 PM [facility] Comment:SLIGHT HEMOLYSIS, RE SULT MAY BE AFFECTED. CHLORIDE S/P/B 105 97 - 115 MMOL/L 10/28/2024 3:03 PM [facility] CO2 27.4 21 - 32 MMOL/L 10/28/2024 3:03 PM [facility] CALCIUM S/P/B 9.3 8.5 - 10.1 MG/DL 10/28/2024 3:03 PM [facility] BILIRUBIN TOTAL S/P/B 0.6 0.2 - 1.2 MG/DL 10/28/2024 3:03 PM [facility] Comment: THIS ASSAY IS NOT RECOMMENDED FOR PATIENTS UNDERGOING TREATMENT WITH ELTROMBOPAG DUE TO THE POTENTIAL FOR FALSELY ELEVATED RESULTS. TOTAL PROTEIN S/P/B 8.1 6.4 - 8.2 G/DL 10/28/2024 3:03 PM [facility] ALBUMIN S/P/B 4.2 3.4 - 5.0 G/DL 10/28/2024 3:03 PM [facility] AST 37 15 - 37 U/L 10/28/2024 3:03 PM [facility] Comment:SLIGHT HEMOLYSIS, RE SULT MAY BE AFFECTED. ALT 43 14 - 55 U/L 10/28/2024 3:03 PM [facility] ALKALINE PHOSPHATASE S/P/B 63 50 - 136 U/L 10/28/2024 3:03 PM [facility] ANION GAP 1.6(L) 2 - 10 MMOL/L 10/28/2024 3:03 PM [facility] BUN CREATININE RATIO 14.1 6 - 26 10/28/2024 3:03 PM [facility] A/G RATIO 1.1 1.0 - 2.0 RATIO 10/28/2024 3:03 PM [facility] GFR ESTIMATE >90 >90 ML/MIN/1.7 3 M2 10/28/2024 3:03 PM [facility] Comment: NOTE: eGFR is not calculated for patients <18 years of age or gender unknown. This is an estimated GFR calculation using the new CKD EPI creatinine equation without race and so does not require a correction factor for race. This estimated GFR should not be used for calculating drug doses. 10/28/2024 2:24 PM POLICE MANAGER Rachel Grayson [facility] Final Resul t [facility] [address] [place] [address], [place] [phone] * CBC W/DIFF AUTOMATED (10/28/2024 2:24 PM POLICE MANAGER) Pathologist [facility] WBC 8.34 4.5 - 11.0 x10'3/uL 10/28/2024 3:03 PM POLICE MANAGER [facility] RBC 4.67 4.20 - 5.40 x10'6/uL 10/28/2024 3:03 PM [facility] HGB 14.5 12.0 - 16.0 G/DL 10/28/2024 3:03 PM POLICE MANAGER [facility] HCT 43.4 38.0 - 48.0 % 10/28/2024 3:03 PM POLICE MANAGER [facility] MCV 92.9 81.0 - 99.0 FL 10/28/2024 3:03 PM POLICE MANAGER [facility] MCH 31.0 27.0 - 31.0 PG 10/28/2024 3:03 PM POLICE MANAGER [facility] MCHC 33.4 32.0 - 36.0 G/DL 10/28/2024 3:03 PM [facility] RDW 11.9 11.5 - 14.5 % 10/28/2024 3:03 PM POLICE MANAGER [facility] PLT 230 130 - 400 x10'3/uL 10/28/2024 3:03 PM [facility] MPV 9.6 9.3 - 12.2 FL 10/28/2024 3:03 PM [facility] DIFFERENTIAL TYPE AUTOMATED DIFFERENTIAL 10/28/2024 3:03 PM [facility] NEUTROPHILS % 65.3 % 10/28/2024 3:03 PM [facility] LYMPHOCYTES % 26.1 % 10/28/2024 3:03 PM [facility] MONOCYTES % 7.2 % 10/28/2024 3:03 PM [facility] EOSINOPHILS 0.8 % 10/28/2024 3:03 PM [facility] BASOPHILS 0.4 % 10/28/2024 3:03 PM [facility] IMMATURE GRANS % 0.2 % 10/28/19 3:03 PM [facility] ABS. NEUTROPHILS 5.44 1.80 - 7.70 x10'3/uL 10/28/2024 3:03 PM [facility] ABS. LYMPHOCYTES 2.18 1.00 - 4.80 x10'3/uL 10/28/2024 3:03 PM [facility] ABS. MONOCYTES 0.60 0.24 - 0.86 x10'3/uL 10/28/2024 3:03 PM [facility] ABS. EOSINOPHILS 0.07 0.04 - 0.36 x10'3/uL 10/28/2024 3:03 PM [facility] ABS. BASOPHILS 0.03 0.01 - 0.08 x10'3/uL 10/28/2024 3:03 PM [facility] ABS. IMMATURE GRANULOCYTES 0.02 0.00 - 0.49 x10'3/uL 10/28/2024 3:03 PM [facility] RBC MORPHOLOGY RBC MORPHOLOGY APPEARS NORMAL. SLIDE REVIEWED. 10/28/2024 3:03 PM [facility] PLT EST. ADEQUATE 10/28/2024 3:03 PM POLICE MANAGER [facility] 10/28/2024 2:24 PM POLICE MANAGER Rachel Grayson [facility] Final Resul t [facility] [address] [place] [address], [place] [phone] * LIPASE (10/28/2024 2:24 PM POLICE MANAGER) LIPASE 43 13 - 75 UNITS/L 10/28/2024 3:03 PM POLICE MANAGER [facility] 10/28/2024 2:24 PM POLICE MANAGER Rachel Grayson [facility] Final Resul t Performing Organization Address City/[facility]/ZIP Co de Phone Number [facility] [address] [place] [address], [place] [phone] * POCT urine (10/28/2024 2:15 PM POLICE MANAGER) URINE HCG TEST NEGATIVE Internal Control: VALID Rachel Grayson [facility] POINT OF CARE TEST ORDERABL ES Final Result * URINALYSIS (10/28/2024 2:11 PM POLICE MANAGER) SPECIMEN TYPE URINE CLEAN CATCH 10/28/2024 2:12 PM POLICE MANAGER [facility] COLOR (U) LIGHT YELLOW 10/28/2024 2:24 PM POLICE MANAGER [facility] TRANSPARENCY CLEAR 10/28/2024 2:24 PM POLICE MANAGER [facility] SPECIFIC GRAVITY (U) 1.015 1.001 - 1.030 10/28/2024 2:24 PM POLICE MANAGER [facility] U PH 6.5 5.0 - 9.0 10/28/2024 2:24 PM POLICE MANAGER [facility] LEUKOCYTES (U) NEGATIVE NEGATIVE 10/28/2024 2:24 PM POLICE MANAGER [facility] NITRITES NEGATIVE NEGATIVE 10/28/2024 2:24 PM POLICE MANAGER [facility] PROTEIN RANDOM (U) NEGATIVE <30 MG/DL 10/28/2024 2:24 PM POLICE MANAGER [facility] GLUCOSE (U) NORMAL NORMAL MG/DL 10/28/2024 2:24 PM POLICE MANAGER [facility] KETONES MG/DL (U) NEGATIVE NEGATIVE MG/DL 10/28/2024 2:24 PM POLICE MANAGER [facility] UROBILINOGEN NORMAL NORMAL MG/DL 10/28/2024 2:24 PM POLICE MANAGER [facility] BILIRUBIN (U) NEGATIVE NEGATIVE MG/DL 10/28/2024 2:24 PM POLICE MANAGER [facility] BLOOD (U) NEGATIVE NEGATIVE 10/28/2024 2:24 PM POLICE MANAGER [facility] URINE SPECIMEN OBTAINED BY CLEAN CATCH PROCEDURE / Unknown 10/28/2024 2:11 PM POLICE MANAGER us Rachel Grayson REVENUE COORDINATOR URINE ORDERABLES Final Resu lt [facility] [address] [place] [address], [place] [phone] from Last 3 Months Insurance [employer] Advance Directives * Full Code (Latest Code Status on File) Date Activated Date Inactivated Comments 06/08/2022 2:11 AM 06/09/2022 11:18 PM Care Teams Business Director Relationship Specialty Start Date End Date None, Provider, PCP - General 02/22/22
--- OUTSIDE RECORDS SUMMARY | 2025-01-10 15:48 | XMS_ITS | Data Portability ---
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 Name Role Phone BANDAR CANAS Primary [...] had a 13 minute TeleMedicine consultation via [employer] to discuss the following: Not available 12/14/2022 [...] By Organization Details Last Modified Time 12/14/2022 [id number] methacholine challenge* - Schedule after 01/24/23 [email or web address] Not available 08/24/2023 10:50:46 Due to the COVID-19 (Novel Coronavirus) pandemic, it is within this context (and with the understanding that this method of patient encounter is in the patient s best interest as well as the health and safety of other patients and the public) that telehealth is being provided for this patient encounter rather than a [id number] visit. This patient encounter is appropriate at [...] if listed, were provided by the patient. [email or web address] Not available 12/14/2022 11:21:30 Reason for Referral [...] weeks and retes maria eugenia. Not Available [facility] (Lab) [address] [place], [address], 12/29/2021 21:28:12 12/30/19 22 12/29/2021 HEPAT ITIS ACUTE PANEL S/C 0.01 0.00-0 .79 Not Available [facility] (Lab) [address] [place], [address], 12/29/2021 21:28:12 12/30/19 22 12/29/2021 HEPAT ITIS ACUTE PANEL hepatitis B core IgM antibody non-re active non-re active Not Available [facility] (Lab) [address] [place], [address], 12/29/2021 21:28:12 12/30/19 22 12/29/2021 HEPAT ITIS ACUTE PANEL S/C 0.02 0.00-1 .10 Not Available [facility] (Lab) [address] [place], [address], 12/29/2021 21:28:12 12/30/19 22 12/29/2021 HEPAT ITIS ACUTE PANEL hepatitis B surface antigen non-re active non-re active Not Available [facility] (Lab) [address] [place], [address], 12/29/2021 21:28:12 12/30/19 22 12/29/2021 HEPAT ITIS ACUTE PANEL S/C 0.05 0.00-0 .99 Not Available [facility] (Lab) [address] [place], [address], 12/29/2021 21:28:12 12/30/19 22 12/29/2021 HEPAT ITIS ACUTE PANEL hepatitis C antibody non-re active non-re active Not Available [facility] (Lab) [address] [place], [address], 12/29/2021 21:28:12 12/30/19 22 12/29/2021 HEPAT ITIS ACUTE PANEL S/C 0.00 0.00-0 .99 Not Available [facility] (Lab) [address] [place], [address], 12/29/2021 21:28:12 12/30/19 22 12/29/2021 HIV COMBO : HIV 1/2,P 24AG, GRP O HIV combo assay non-re active nonrea ctive The HIV combo test scree ns for HIV-1 , HIV-2 , HIV p24 Ag, and HIV group O. Any react carmita scree n resul t will be sent for PCR confi rmato ry testi ng. Not Available [facility] (Lab) [address] [place], [address], 12/29/2021 21:19:01 12/30/19 22 12/29/2021 HIV COMBO : HIV 1/2,P 24AG, GRP O S/C 0.11 0.00-0 .99 Not Available [facility] (Lab) [address] [place], [address], 12/29/2021 21:19:01 12/30/19 22 12/29/2021 HEPAT IC/LI TIO PANEL alkaline phosphatase 58 U/L 38-126 Not Available [facility] (Lab) [address] [place], [address], 12/29/2021 20:28:19 12/30/19 22 12/29/2021 HEPAT IC/LI TIO PANEL alanine aminotransfe rase 30 U/L 0-35 Not Available [facility] (Lab) [address] [place], [address], 12/29/2021 20:28:19 12/30/19 22 12/29/2021 HEPAT IC/LI TIO PANEL aspartate aminotransfe rase 25 U/L 15-37 Not Available [facility] (Lab) [address] [place], [address], 12/29/2021 20:28:19 12/30/19 22 12/29/2021 HEPAT IC/LI TIO PANEL bilirubin, total 0.30 mg/dL 0.20-1 .30 Not Available [facility] (Lab) [address] [place], [address], 12/29/2021 20:28:19 12/30/19 22 12/29/2021 HEPAT IC/LI TIO PANEL bilirubin, conjugated (direct) 0.00 mg/dL 0.00-0 .30 Not Available [facility] (Lab) [address] [place], [address], 12/29/2021 20:28:19 12/30/19 22 12/29/2021 HEPAT IC/LI TIO PANEL biliurubin,u ncong. (indirect) 0.50 mg/dL 0.00-1 .1 Not Available [facility] (Lab) [address] [place], [address], 12/29/2021 20:28:19 12/30/19 22 12/29/2021 HEPAT IC/LI TIO PANEL total protein 7.0 g/dL 6.3-8. 2 Not Available [facility] (Lab) [address] [facility] [place], [address], 12/29/2021 20:28:19 12/30/19 22 12/29/2021 HEPAT IC/LI TIO PANEL albumin 4.2 g/dL 3.4-5. 0 Not Available [facility] (Lab) [address] [place], [address], 12/29/2021 20:28:19 12/30/19 22 12/29/2021 HEPAT IC/LI TIO PANEL globulin 2.8 g/dL 2.6-4. 2 Not Available [facility] (Lab) [address] [place], [address], 12/29/2021 20:28:19 12/30/19 22 12/29/2021 HEPAT IC/LI TIO PANEL A/G ratio 1.5 ratio 1.0-2. 0 Not Available [facility] (Lab) [address] [place], [address], 12/29/2021 20:28:19 10/29/19 23 10/29/2022 COMPR EHENS CARMITA METAB OLIC PANEL sodium 139 mmol/ L 137-14 5 Not Available [facility] (Lab) [address] [place], [address], 10/29/2022 13:27:56 10/29/19 23 10/29/2022 COMPR EHENS CARMITA METAB OLIC PANEL potassium 4.6 mmol/ L 3.5-5. 1 Not Available [facility] (Lab) [address] [place], [address], 10/29/2022 13:27:56 10/29/19 23 10/29/2022 COMPR EHENS CARMITA METAB OLIC PANEL chloride 103 mmol/ L 98-107 Not Available [facility] (Lab) [address] [place], [address], 10/29/2022 13:27:56 10/29/19 23 10/29/2022 COMPR EHENS CARMITA METAB OLIC PANEL carbon dioxide 25 mmol/ L 22-30 Not Available [facility] (Lab) [address] [place], [address], 10/29/2022 13:27:56 10/29/19 23 10/29/2022 COMPR EHENS CARMITA METAB OLIC PANEL anion gap 15.6 mmol/ L 14-22 Not Available [facility] (Lab) [address] [place], [address], 10/29/2022 13:27:56 10/29/19 23 10/29/2022 COMPR EHENS CARMITA METAB OLIC PANEL glucose 82 mg/dL 70-99 Not Available [facility] (Lab) [address] [place], [address], 10/29/2022 13:27:56 10/29/19 23 10/29/2022 COMPR EHENS CARMITA METAB OLIC PANEL BUN 14 mg/dL 8-19 Not Available [facility] (Lab) [address] [place], [address], 10/29/2022 13:27:56 10/29/19 23 10/29/2022 COMPR EHENS CARMITA METAB OLIC PANEL creatinine 0.71 mg/dL 0.66-1 .25 Not Available [facility] (Lab) [address] [place], [address], 10/29/2022 13:27:56 10/29/19 23 10/29/2022 COMPR EHENS CARMITA METAB OLIC PANEL GFR >60 Refer ence Range : [place] ge GFR Healt hy Adult : >60 [...] calcu lator is avail able on the [facility] websi te: https :[email or web address] rice.miki ramirez.o rg/pr ofess ional s/kdo qi/gf r_cal culat or Not Available [facility] (Lab) [address] [place], [address], 10/29/2022 13:27:56 10/29/19 23 10/29/2022 COMPR EHENS CARMITA METAB OLIC PANEL alkaline phosphatase 124 U/L 38-126 Not Available [facility] (Lab) [address] [place], [address], 10/29/2022 13:27:56 10/29/19 23 10/29/2022 COMPR EHENS CARMITA METAB OLIC PANEL alanine aminotransfe rase 85 U/L 0-35 high Not Available [facility] (Lab) [address] [place], [address], 10/29/2022 13:27:56 10/29/19 23 10/29/2022 COMPR EHENS CARMITA METAB OLIC PANEL aspartate aminotransfe rase 37 U/L 15-37 Not Available [facility] (Lab) [address] [place], [address], 10/29/2022 13:27:56 10/29/19 23 10/29/2022 COMPR EHENS CARMITA METAB OLIC PANEL bilirubin, total 0.40 mg/dL 0.20-1 .30 Not Available [facility] (Lab) [address] [place], [address], 10/29/2022 13:27:56 10/29/19 23 10/29/2022 COMPR EHENS CARMITA METAB OLIC PANEL calcium 9.9 mg/dL 8.4-10 .2 Not Available [facility] (Lab) [address] [place], [address], 10/29/2022 13:27:56 10/29/19 23 10/29/2022 COMPR EHENS CARMITA METAB OLIC PANEL total protein 7.6 g/dL 6.3-8. 2 Not Available [facility] (Lab) [address] [place], [address], 10/29/2022 13:27:56 10/29/19 23 10/29/2022 COMPR EHENS CARMITA METAB OLIC PANEL albumin 4.7 g/dL 3.4-5. 0 Not Available [facility] (Lab) [address] [place], [address], 10/29/2022 13:27:56 10/29/19 23 10/29/2022 COMPR EHENS CARMITA METAB OLIC PANEL globulin 2.9 g/dL 2.6-4. 2 Not Available [facility] (Lab) [address] [facility] [place], [address], 10/29/2022 13:27:56 10/29/19 23 10/29/2022 COMPR EHENS CARMITA METAB OLIC PANEL A/G ratio 1.6 ratio 1.0-2. 0 Not Available [facility] (Lab) [address] [place], [address], 10/29/2022 13:27:56 10/29/19 23 10/29/2022 LIPID PANEL cholesterol 221 mg/dL 140-19 9 high NIH MONIQUE NSUS RECOM MENDA TION FOR JAYLON STERO L: ADULT CHILD LOW RISK: <200 <170 BORDE RLINE : <200- 239 ----- HIGH RISK: >240 >200 Not Available [facility] (Lab) [address] [place], [address], 10/29/2022 13:27:41 10/29/19 23 10/29/2022 LIPID PANEL triglyceride s 175 mg/dL 0-150 high NIH MONIQUE NSUS REPOR T RECOM MENDA TION FOR TRIGL YCERI PENNY: ADULT CHILD LOW RISK: <150 ----- BODER LINE: 150-1 99 ----- HIGH RISK: >200 ----- Not Available [facility] (Lab) [address] [place], [address], 10/29/2022 13:27:41 10/29/19 23 10/29/2022 LIPID PANEL HDL cholesterol 51 mg/dL 40- Not Available [facility] (Lab) [address] [place], [address], 10/29/2022 13:27:41 10/29/19 23 10/29/2022 LIPID PANEL [...] NOT BE REPOR MARIA EUGENIA. Not Available [facility] (Lab) [address] [place], [address], 10/29/2022 13:27:41 10/06/19 23 10/06/2022 cardi ac monit or No observ ation record ed. [id number] [facility] [address], [place], [address], 11/18/2022 00:59:43 10/13/19 23 10/08/2022 imagi ng/di agnos tic resul t No observ ation record ed. [id number] [facility] [address], [place], [address], 11/18/2022 00:59:43 11/08/19 23 11/08/2022 CT, head, w/o contr ast No observ ation record ed. [id number] [facility] [address] [place] [address] Dr, [place], [address], 11/18/2022 00:59:43 11/25/19 23 11/24/2022 XR, chest , 2 view No observ ation record ed. [email or web address] [facility] [address] [place], [address], 11/25/2022 08:52:51 11/26/1911/24/2022 compl ete PFT w/ post [facility] hodil ator wilda metry * No observ ation record ed. [email or web address] Not Available 11/30 09:27:19 Result Notes None recorded. Problems Name Problem SNOMED Code Status Onset Date Resolution Date Notes Provider Name and Address Organization Details Recorded Time Gastroesophag eal reflux disease without esophagitis 079557394 Active 2022 Not Available [facility] 3 13:30:09 History of substance abuse 158694358 Active 2022 Not Available [facility] 3 13:30:09 Dyspnea on exertion 70942594 Active 2022 Not Available [facility] 3 13:30:09 Chronic cough 51566112 Active 2022 Not Available [facility] 3 13:30:09 Polycystic ovary 516495428 Active 2021 Not Available [facility] 3 13:30:09 Asthma 877975814 Active 2022 Not Available [facility] 13:30:09 Problem Notes None recorded. Procedures Surgical History None recorded. 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 [id number] [facility] [address], [place], [address], 11/18/2022 00:59:43 11/08/2022 CT, head, w/o contrast completed [id number] [facility] [address] [place] [address], [place], [address], 11/18/2022 00:59:43 11/24/2022 XR, chest, 2 view completed [email or web address] [facility] [address] [place], [address], 11/25/2022 08:52:51 11/24/2022 complete PFT w/ post [...] % 98 % 84 /min 97.5 [degF] 29679.8 2 g 130 mm[Hg] 90 mm[Hg] Not Available [facility] 3 00:58:37 Date Recorded Body mass index (BMI) Body height Oxygen saturation Oxygen saturation in Arterial blood by Pulse oximetry Heart rate Body temperature Body weight Systolic blood pressure Diastolic blood pressure Provider Name and Address Organization Details Last Updated DateTime 3 30.3 kg/m2 160.02 cm 98 % 98 % 72 /min 97.9 [degF] 90985.3 g 142 mm[Hg] 94 mm[Hg] Not Available [facility] 3 00:58:38 Date Recorded Body mass index (BMI) Body height Oxygen saturation Oxygen saturation in Arterial blood by Pulse oximetry Heart rate Body temperature Body weight Systolic blood pressure Diastolic blood pressure Provider Name and Address Organization Details Last Updated DateTime 3 30.3 kg/m2 160.02 cm 99 % 99 % 71 /min 97.6 [degF] 91535.3 g 122 mm[Hg] 84 mm[Hg] Not Available [facility] 3 00:58:38 Date Recorded Body mass index (BMI) Body height Oxygen saturation Oxygen saturation in Arterial blood by Pulse oximetry Heart rate Body temperature Body weight Systolic blood pressure Diastolic blood pressure Provider Name and Address Organization Details Last Updated DateTime 3 30.3 kg/m2 160.02 cm 97 % 97 % 66 /min 97.2 [degF] 28055.3 g 118 mm[Hg] 60 mm[Hg] Not Available [facility] 3 00:58:38 Date Recorded Body height Body mass index (BMI) Body weight Provider Name and Address Organization Details Last Updated DateTime 12/14/2022 160.02 cm 30.1 kg/m2 55716.7 g Yumiko MADRID PA [employer] [facility] 12/14/2022 11:22:04 Social History Question Answer Notes LastModified by Organizat ion Details LastModified Time Tobacco Smoking Status Former Smoker Not Available [facility] 11/18/2022 00:57:56 What Is Your Level Of Alcohol Consumption? Occasional [email or web address] Information not available 12/14/2022 If You Are , What Was Your Level Of Alcohol Consumption Prior To ? Heavy [id number] Information not available 11/18/2022 What Is Your Level Of Caffeine Consumption? Occasional 1 Or 2 Cups Of Coffee Every Now And Then [email or web address] Information not available 12/14/2022 What Type Of Diet Are You Following? REGULAR [id number] Information not available 11/18/2022 Which Illicit Or Recreational Drugs Have You Used? Meth & Marijuana Meth About 6 Years Ago. No Longer Using [email or web address] Information not available 12/14/2022 Do You Or Have You Ever Used E-cigarettes Or Vape? Former User Of Electronic Cigarettes [id number] Information not available 11/18/2022 When Did You Quit Smoking? 1-5yearssince lastcigarette 2 Yrs Now [email or web address] Information not available 12/14/2022 What Was The Date Of Your Most Recent Tobacco Screening? 11/09/2022 [id number] Information not available 11/18/2022 Do You Have Any Pets? Yes 2 Dogs In The Home [email or web address] Information not available 12/14/2022 At What Age Did You Start Smoking Tobacco? 13 MIGRATION.50167 [id number] Information not available 11/18/2022 Do You Or Have You Ever Used Smokeless Tobacco? [id number] [email or web address] Information not available 12/14/2022 Do You Use Any Illicit Or Recreational Drugs? Yes Stopped Using Marijuana [id number].[id number] Information not available 11/18/2022 How Many Years Have You Smoked Tobacco? 6 MIGRATION.40749 91897 Information not available 11/18/2022 Have You Used IV Drugs? No [email or web address] Information not available 12/14/2022 Do You Have Any Dietary Restrictions? No MIGRATION.58288 62511 Information not available 11/18/2022 Do You Or Have You Ever Used Any Other Forms Of Tobacco Or Nicotine? Yes [id number].[id number] Information not available 11/18/2022 Sex: Unknown Functional Status Question Answer Note LastModified by Organizat ion Details LastModified Time What is your exercise level? None [id number] Information not available 11/18/2022 Mental Status None recorded. Family History Relationship Description Onset Age of this Age Resolved Age Notes LastModified by Organization Details LastModified Time Mother Thyroidectom y [id number] Not available 11/18/2022 00:58:04 Medical History No medical history recorded. Gynecological HistoryNo gynecological history recorded. Obstetrics History GPAL:G 0 P 0 0 0 0 Past Encounters Encounter ID Performer Location Encounter Start Date Encounter Closed Date Diagnosis/Indication Diagnosis SNOMED-CT Code Diagnosis ICD10 Code Diagnosis Note [id number] [facility] Family [facility] Lashawn tiwari [address] , [place] [address] 12/29/2021 00:00:00 12/29/2021 20:32:52 [id number] [facility] Lashawn tiwari [address] [place] [address] 09/22/2022 00:00:00 09/22/2022 20:30:36 [id number] [facility] Alejandrozenaida nixon [address] [place] [address] 10/29/2022 00:00:00 10/30/2022 10:11:56 [id number] [facility] [address] [place] [address] 11/09/2022 00:00:00 11/09/2022 19:21:42 [id number] Alyse Ben, [facility]- [facility] [address] [place] [address] 12/14/2022 11:18:31 12/15/2022 11:25:22 Exposure to SARS-CoV-2 038423033 Z20.822 6 month old and grandmothe r with + testing 2 days agoLikely she is positive as well.It is difficult for her to leave for testing, she will try to get at home COVID test.Instr ucted to rest, hydrate, treat symptoms.D iscussed S/S that require emergent evaluation Discussed isolation period. History of SARS-CoV-2 29 24271217 06322375 Z86.16 + testing July 2020 Asthma 150936994 J45.90 9 PFT completed 11/24/22No obstructio nMild [...] Wagner Member ID Guarantor Name 12/14/2022 1 [facility] (MEDICAID REPLACEMENT - HMO) [id number] Kalee Aguillon [id number] Kalee Aguillon Notes Date Note Type [...] has been fussy while sick. Alyse Contreras, [employer]- [address] [facility], [facility] [address], [place], [address], [place] - [facility] 12/14/2022 19:23:04 OBGyn Episode No OBEpisode recorded.
--- OUTSIDE RECORDS SUMMARY | 2025-01-10 15:48 | XMS_ITS | Encounter Summary ---
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
--- OUTSIDE RECORDS SUMMARY | 2025-01-10 15:48 | XMS_ITS | Data Portability ---
Author Organization [employer] , [facility] Address [address] [place] [address] Care Team Providers Care Clam Sorter Name Role Phone [facility] Community Development Planner Assessment No assessment recorded. Plan of Treatment Reminders Order Date Submit Date Provider Last Modified By Organization Details Last Modified Time Details Appointments None recorded. Lab bacterial vaginosis + vaginitis panel, vaginal 2024 025 [facility], [address] [place], [address], 5 16:45:43 TSH + free T4, serum 2024 025 [facility], [address] [place], [address], 5 14:09:39 17-hydroxyp rogesterone , QN, serum 2024 025 [facility], [address] [facility], [place], [address], 5 19:09:59 lh + FSH, serum 2024 025 [facility], [address] [place], [address], 5 13:12:17 CBC w/ auto diff 2024 025 [facility], [address] [place], [address], 5 12:40:57 CMP, serum or plasma 2024 025 [facility], [address] [place], [address], 5 13:48:53 testosteron e, free + total, serum 2024 025 [facility], [address] [place], [address], 5 19:09:59 unlisted lab - STD screening (hw) 2024 025 [facility], [address] [place], [address], 5 11:38:38 hsv (1+2) igg, serum 2024 025 [facility], [address] [place], [address], 5 14:45:45 bacterial vaginosis + vaginitis panel, vaginal 2024 025 [facility], [address] [place], [address], 5 18:00:40 pap, LB 2024 025 [facility], [address] [place], [address], 5 14:45:44 unlisted lab - HPV plus CT/GC/trich 2024 025 [facility], [address] [place], [address], 5 10:34:51 unlisted lab - STD screening ([facility]) 2023 024 [facility], [address] [place], [address], 4 13:03:40 STI panel 2023 024 [facility], [address] [place], [address], 4 14:47:29 bacterial vaginosis + vaginitis panel, vaginal 2022 023 [facility], [address] [place], [address], 3 14:45:14 unlisted lab - STD screening ([facility]) 2022 023 [facility], [address] [place], [address], 3 12:18:30 Referral None recorded. Procedures None recorded. Surgeries None recorded. Imaging US, transvagina l 2024 025 [email or web address] Not available 12:11:17 Medication Orders None recorded. Patient TargetsNo targets recorded. Patient Instructions Encounter Date Encounter Id Patient Instructions Last Modified By Organization Details Last Modified Time 05/12/2023 [id number] safer sex: care instructions [email or web address] Not available 05/12/2023 17:02:37 sexually transmitted disease education bnotzke Not available 05/12/2023 17:02:37 11/14/2023 [id number] bruised rib: car e instructions [email or web address] Not available 11/14/2023 16:05:19 10/05/2024 [id number] body mass index: care instructions Not available [...] clinical information: normal None given Not Available [address], [address], 10/09/2024 14:45:44 10/09/19 25 10/09/2024 THINP REP TIS PAP LMP: normal NONE GIVEN Not Available [address], [address], 10/09/2024 14:45:44 10/09/19 25 10/09/2024 THINP REP TIS PAP prev. Pap: normal NONE GIVEN Not Available [address], [address], 10/09/2024 14:45:44 10/09/19 25 10/09/2024 THINP REP TIS PAP prev. BX: normal NONE GIVEN Not Available [address], [address], 10/09/2024 14:45:44 10/09/19 25 10/09/2024 THINP REP TIS PAP source: normal Cervi x Not Available [address], [address], 10/09/2024 14:45:44 10/09/19 25 10/09/2024 THINP REP TIS PAP statement of adequacy: normal Satis facto ry for evalu ation . Endoc ervic al/tr ansfo rmati on zone compo nent prese nt. Age and/o r menst rual statu s not provi ded Not Available [address], [address], 10/09/2024 14:45:44 10/09/19 25 10/09/2024 THINP REP TIS PAP interpretati on/result: normal Cytol ogy Resul ts: Negat carmita for intra epith elial lesio n or malig hardeep . Not Available [address], [address], 10/09/2024 14:45:44 10/09/19 25 10/09/2024 THINP REP TIS PAP comment: normal This Pap test has been evalu ated with all xiong techn ology . Not Available [address] [address] [place], [address], 10/09/2024 14:45:44 10/09/19 25 10/09/2024 THINP REP TIS PAP cytotechnolo gist: normal BES, CT( CP) CT scree joycelyn locat ion: [address] [address] [place] [address] Not Available [address] [address] [place], [address], 10/09/2024 14:45:44 10/09/19 25 10/09/2024 THINP REP [...] clini gabriel infor matio n. 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 PHONE NUMBE R: [phone] [phone] Not Available [employer] [facility] [address] [place], [address], 10/09/2024 14:45:45 05/12/20 23 05/13/2023 STD SCREE JOYCELYN ([facility] ) hep BS Ag Non-Re active non-re active normal Not Available [facility] [address] [place], [address], 05/13/2023 12:18:30 05/12/20 23 05/13/2023 STD SCREE JOYCELYN ([facility] ) hep C Ab Non-Re active non-re active normal Not Available [address], [address], 05/13/2023 12:18:30 05/12/20 23 05/13/2023 STD MANOLO CARVER ([facility] ) HIV 1/2 Ag/Ab Non-Re active non-re active normal Not Available [address], [address], 05/13/2023 12:18:30 05/12/20 23 05/13/2023 STD MANOLO CARVER ([facility] ) syphilis Ab Non-Re active non-re active normal Not Available [address], [address], 05/13/2023 12:18:30 05/12/20 23 05/13/2023 VAGIN ITIS PLUS STD PANEL bacterial vaginosis BV neg negati ve normal Not Available [address], [address], 05/13/2023 14:45:13 05/12/20 23 05/13/2023 VAGIN ITIS PLUS STD PANEL wil species C. spp neg negati ve normal Not Available [address], [address], 05/13/2023 14:45:13 05/12/20 23 05/13/2023 VAGIN ITIS PLUS STD PANEL wil glabrata C. gla neg negati ve normal Not Available [address], [address], 05/13/2023 14:45:13 05/12/20 23 05/13/2023 VAGIN ITIS PLUS STD PANEL trichomonas vaginalis CV/TV TRICH neg negati ve normal Not Available [address], [address], 05/13/2023 14:45:13 05/12/20 23 05/13/2023 VAGIN ITIS PLUS STD PANEL chlamydia trachomatis CT neg negati ve normal This repor t is inten ded for us in clini gabriel monit oring and manag ement of [facility]. It is not inten ded for use in medic al-le gal appli catio n. Not Available [facility] [address] [place], [address], 05/13/2023 14:45:13 05/12/20 23 05/13/2023 VAGIN ITIS PLUS STD PANEL neisseria gonorrhoeae GC neg negati ve normal This repor t is inten ded for us in clini gabriel monit oring and manag ement of [facility]. It is not inten ded for use in medic al-le gal appli catio n. Not Available [facility] [address] [place] [address], [address], 05/13/2023 14:45:13 07/09/20 24 07/10/2024 STD SCREE JOYCELYN ([facility] ) hep BS Ag Non-Re active non-re active normal Not Available [address], [address], 07/10/2024 13:03:40 07/09/20 24 07/10/2024 STD SCREE JOYCELYN ([facility] ) hep C Ab Non-Re active non-re active normal Not Available [facility] [address] [place] [address], [address], 07/10/2024 13:03:40 07/09/20 24 07/10/2024 STD SCREE JOYCELYN ([facility] ) HIV 1/2 Ag/Ab Non-Re active non-re active normal Not Available [facility] [address] [place] [address], [address], 07/10/2024 13:03:40 07/09/20 24 07/10/2024 STD SCREE JOYCELYN ([facility] ) syphilis Ab Non-Re active non-re active normal Not Available [address], [address], 07/10/2024 13:03:40 07/09/20 24 07/10/2024 STI PANEL trichomonas vaginalis TRICH neg negati ve normal Not Available [address], [address], 07/10/2024 14:47:29 07/09/20 24 07/10/2024 STI PANEL chlamydia trachomatis CT neg negati ve normal This repor t is inten ded for us in clini gabriel monit oring and manag ement of patie nts. It is not inten ded for use in medic al- gal appli catio n. Not Available [address], [address], 07/10/2024 14:47:29 07/09/20 24 07/10/2024 STI PANEL neisseria gonorrhoeae GC neg negati ve normal This repor t is inten ded for us in clini gabriel monit oring and manag ement of patie nts. It is not inten ded for use in medic al-le gal appli catio n. Not Available [address], [address], 07/10/2024 14:47:29 10/05/19 25 10/06/2024 STD BLOOD SCREE JOYCELYN ([facility] ) hep BS Ag Non-Re active non-re active normal Not Available [address], [address], 10/06/2024 11:38:38 10/05/19 25 10/06/2024 STD BLOOD SCREE JOYCELYN ([facility] ) hep C Ab Non-Re active non-re active normal Not Available [address], [address], 10/06/2024 11:38:38 10/05/19 25 10/06/2024 STD BLOOD SCREE JOYCELYN ([facility] ) HIV 1/2 Ag/Ab Non-Re active non-re active normal Not Available [address], [address], 10/06/2024 11:38:38 10/05/19 25 10/06/2024 STD BLOOD SCREE JOYCELYN ([facility] ) syphilis Ab Non-Re active non-re active normal Not Available [address], [address], 10/06/2024 11:38:38 10/05/19 25 10/08/2024 VAGIN ITIS PANEL bacterial vaginosis BV neg negati ve normal Not Available [address], [address], 10/08/2024 18:00:40 10/05/19 25 10/08/2024 VAGIN ITIS PANEL wil species C. spp POS negati ve abnormal Not Available [address], [address], 10/08/2024 18:00:40 10/05/19 25 10/08/2024 VAGIN ITIS PANEL wil glabrata C. gla neg negati ve normal Not Available [address], [address], 10/08/2024 18:00:40 10/05/19 25 10/08/2024 VAGIN ITIS PANEL trichomonas vaginalis CV/TV TRICH neg negati ve normal Not Available [address], [address], 10/08/2024 18:00:40 10/05/19 25 10/13/[address]/GC /TRIC H trichomonas vaginalis TRICH neg negati ve normal Not Available [address], [address], 10/15/2024 10:34:51 10/05/19 25 10/13/[address]/GC /TRIC H chlamydia trachomatis CT neg negati ve normal This repor t is inten ded for us in clini gabriel monit oring and manag ement of [facility]. It is not inten ded for use in medic al-le gal appli catio n. Not Available [address], [address], 10/15/2024 10:34:51 10/05/19 25 10/13/[address]/GC /TRIC H neisseria gonorrhoeae GC neg negati ve normal This repor t is inten ded for us in clini gabriel monit oring and manag ement of [facility]. It is not inten ded for use in medic al-le gal appli catio n. Not Available [address], [address], 10/15/2024 10:34:51 10/05/19 25 10/13/2024 HPV PLUS [...] l cervi gabriel cytol ogy. Not Available [address], [address], 10/15/2024 10:34:51 10/25/19 25 10/26/2024 CBC (INCL UDES DIFF/ PLT) WBC 9.1 thous and/u L 4.0 - 9.8 normal Not Available [address], [address], 10/26/2024 12:40:57 10/25/19 25 10/26/2024 CBC (INCL UDES DIFF/ PLT) RBC 4.9 jacqueline on/uL 3.9 - 4.9 normal Not Available [facility] [address] [place] [address], [address], 10/26/2024 12:40:57 10/25/19 25 10/26/2024 CBC (INCL UDES DIFF/ PLT) hemoglobin 15.2 g/dL 11.8 - 14.8 high Not Available [facility] [address] [place] [address], [address], 10/26/2024 12:40:57 10/25/19 25 10/26/2024 CBC (INCL UDES DIFF/ PLT) hematocrit 44.7 % 35.5 - 44.0 high Not Available [address], [address], 10/26/2024 12:40:57 10/25/19 25 10/26/2024 CBC (INCL UDES DIFF/ PLT) MCV 91.4 fL 82.0 - 99.0 normal Not Available [address], [address], 10/26/2024 12:40:57 10/25/19 25 10/26/2024 CBC (INCL UDES DIFF/ PLT) MCH 31.1 pg 27.2 - 32.6 normal Not Available [address], [address], 10/26/2024 12:40:57 10/25/19 25 10/26/2024 CBC (INCL UDES DIFF/ PLT) MCHC 34.0 g/dL 31.5 - 35.5 normal Not Available [address], [address], 10/26/2024 12:40:57 10/25/19 25 10/26/2024 CBC (INCL UDES DIFF/ PLT) RDW-CV 11.5 % 11.5 - 14.5 normal Not Available [address], [address], 10/26/2024 12:40:57 10/25/19 25 10/26/2024 CBC (INCL UDES DIFF/ PLT) platelet 297 thous and/u L 140 - 350 normal Not Available [address], [address], 10/26/2024 12:40:57 10/25/19 25 10/26/2024 CBC (INCL UDES DIFF/ PLT) MPV 10.0 fL 9.3 - 12.4 normal Not Available [address], [address], 10/26/2024 12:40:57 10/25/19 25 10/26/2024 CBC (INCL UDES DIFF/ PLT) absolute neutrophil 5.59 thous and/u L 1.90 - 7.00 normal Not Available [address], [address], 10/26/2024 12:40:57 10/25/19 25 10/26/2024 CBC (INCL UDES DIFF/ PLT) absolute lymphocyte 2.61 thous and/u L 0.70 - 4.50 normal Not Available [address], [address], 10/26/2024 12:40:57 10/25/19 25 10/26/2024 CBC (INCL UDES DIFF/ PLT) absolute monocyte 0.73 thous and/u L 0.10 - 1.30 normal Not Available [address], [address], 10/26/2024 12:40:57 10/25/19 25 10/26/2024 CBC (INCL UDES DIFF/ PLT) absolute eosinophil 0.11 thous and/u L <0.70 normal Not Available [address], [address], 10/26/2024 12:40:57 10/25/19 25 10/26/2024 CBC (INCL UDES DIFF/ PLT) absolute basophil 0.04 thous and/u L <0.20 normal Not Available [address], [address], 10/26/2024 12:40:57 10/25/19 25 10/26/2024 CBC (INCL UDES DIFF/ PLT) absolute immature granulocyte 0.00 thous and/u L <0.03 normal Not Available [address], [address], 10/26/2024 12:40:57 10/25/19 25 10/26/2024 FSH AND [...] : 23.0- 116.6 mIU/m L Not Available [address], [address], 10/26/2024 13:12:17 10/25/19 25 10/26/2024 FSH AND [...] blanca: 0.7-5 .6 mIU/m L Not Available [facility], [address], 10/26/2024 13:12:17 10/25/19 25 10/26/2024 COMPR EHENS CARMITA METAB OLIC PANEL sodium 141 mmol/ L 136 - 145 normal Not Available [facility], [address], 10/26/2024 13:48:53 10/25/19 25 10/26/2024 COMPR EHENS CARMITA METAB OLIC PANEL potassium 4.2 mmol/ L 3.5 - 5.1 normal Not Available [facility] [address] [place] [address], [address], 10/26/2024 13:48:53 10/25/19 25 10/26/2024 COMPR EHENS CARMITA METAB OLIC PANEL chloride 103 mmol/ L 98 - 107 normal Not Available [address], [address], 10/26/2024 13:48:53 10/25/19 25 10/26/2024 COMPR EHENS CARMITA METAB OLIC PANEL glucose 81 mg/dL 74 - 106 normal Not Available [address], [address], 10/26/2024 13:48:53 10/25/19 25 10/26/2024 COMPR EHENS CARMITA METAB OLIC PANEL carbon dioxide 28 mmol/ L 20 - 32 normal Not Available [address], [address], 10/26/2024 13:48:53 10/25/19 25 10/26/2024 COMPR EHENS CARMITA METAB OLIC PANEL calcium 10.1 mg/dL 8.5 - 10.1 normal Not Available [address], [address], 10/26/2024 13:48:53 10/25/19 25 10/26/2024 COMPR EHENS CARMITA METAB OLIC PANEL creatinine 0.89 mg/dL 0.60 - 1.00 normal Not Available [address], [address], 10/26/2024 13:48:53 10/25/19 25 10/26/2024 COMPR EHENS CARMITA METAB OLIC PANEL eGFR 92 mL/mi n/1.7 3m2 >60 normal The eGFR is based on the CKD-E PI 2020 susan umanzor. To calcu late the new eGFR from a previ ous Creat inartis or Catarino chavez, go to https ://yanique vance/blair holland s/andres nobles/gf r_cal culat or Not Available [address], [address], 10/26/2024 13:48:53 10/25/19 25 10/26/2024 COMPR EHENS CARMITA METAB OLIC PANEL AST 15 U/L 15 - 37 normal Not Available [address], [address], 10/26/2024 13:48:53 10/25/19 25 10/26/2024 COMPR EHENS CARMITA METAB OLIC PANEL ALT 25 U/L 14 - 59 normal Not Available [address], [address], 10/26/2024 13:48:53 10/25/19 25 10/26/2024 COMPR EHENS CARMITA METAB OLIC PANEL alk phos 69 U/L 46 - 116 normal Not Available [address], [address], 10/26/2024 13:48:53 10/25/19 25 10/26/2024 COMPR EHENS CARMITA METAB OLIC PANEL albumin 4.6 g/dL 3.4 - 5.0 normal Not Available [address], [address], 10/26/2024 13:48:53 10/25/19 25 10/26/2024 COMPR EHENS CARMITA METAB OLIC PANEL protein, total 7.7 g/dL 6.4 - 8.2 normal Not Available [address], [address], 10/26/2024 13:48:53 10/25/19 25 10/26/2024 COMPR EHENS CARMITA METAB OLIC PANEL bilirubin, total 0.3 mg/dL 0.2 - 1.0 normal Not Available [address], [address], 10/26/2024 13:48:53 10/25/19 25 10/26/2024 COMPR EHENS CARMITA METAB OLIC PANEL urea nitrogen (BUN) 12 mg/dL 7 - 18 normal Not Available [address], [address], 10/26/2024 13:48:53 02/06/20 25 10/26/2024 TSH W/ T4, FREE TSH 1.67 mIU/L 0.55 - 4.78 normal Refer ence Range Femal e aged 18-Ad ult: 0.55- 4.78 Pregn rosanne Refer ence Range s First Trime ster 0.26- 2.66 Secon d Trime ster 0.55- 2.73 Third Trime ster 0.43- 2.91 Not Available [address], [address], 10/26/2024 14:09:39 10/25/19 25 10/26/2024 TSH W/ T4, FREE T4, free 1.16 NG/dL 0.89 - 1.76 normal Not Available [address], [address], 10/26/2024 14:09:39 10/25/19 25 10/26/2024 VAGIN ITIS PLUS STD PANEL bacterial vaginosis BV neg negati ve normal Not Available [address], [address], 10/26/2024 16:45:43 10/25/19 25 10/26/2024 VAGIN ITIS PLUS STD PANEL wil species C. spp neg negati ve normal Not Available [address], [address], 10/26/2024 16:45:43 10/25/19 25 10/26/2024 VAGIN ITIS PLUS STD PANEL wil glabrata C. gla neg negati ve normal Not Available [address], [address], 10/26/2024 16:45:43 10/25/19 25 10/26/2024 VAGIN ITIS PLUS STD PANEL trichomonas vaginalis CV/TV TRICH neg negati ve normal Not Available [address], [address], 10/26/2024 16:45:43 10/25/19 25 10/26/2024 VAGIN ITIS PLUS STD PANEL chlamydia trachomatis CT neg negati ve normal This repor t is inten ded for us in clini gabriel monit oring and manag ement of patie nts. It is not inten ded for use in medic al-le gal appli catio n. Not Available [address], [address], 10/26/2024 16:45:43 10/25/19 25 10/26/2024 VAGIN ITIS PLUS STD PANEL neisseria gonorrhoeae GC neg negati ve normal This repor t is inten ded for us in clini gabriel monit oring and manag ement of patie nts. It is not inten ded for use in medic al-le gal appli catio n. Not Available [address], [address], 10/26/2024 16:45:43 10/25/19 25 11/02/2024 17-HY DROXY [...] for clini gabriel purpo ses. Not Available [employer] [facility] [address] [place], [address], 11/02/2024 19:09:59 10/25/1911/02/2024 TESTO STERO NE, FREE (DIAL YSIS) AND TOTAL ,MS testosterone , total, MS 32 NG/dL 2-45 For addit ional infor corry gambino refer to https ://ed ucati on.qu kendrickSun-eee. com/f aq/FA Q165 (This link is being provi ded for infor beronica nal/e ducat ional purpo ses only. ) (Note ) This test was devel oped and its nic tical perfo rmanc e evan cteri stics have been deter mined by [employer]. It has not been clear ed or appro david by the FDA. This assay has been valid ated pursu ant to the CLIA regul ation s and is used for clini gabriel purpo ses. Not Available [employer] [facility] [address] [place], [address], 11/02/2024 19:09:59 10/25/19 25 11/02/2024 TESTO STERO NE, FREE (DIAL YSIS) AND TOTAL ,MS testosterone , free 4.5 pg/mL 0.1-6. 4 (Note ) This test was devel oped and its nic tical perfo rmanc e evan cteri stics have been deter mined by [employer]. It has not been clear ed or appro david by the FDA. This assay has been valid ated pursu ant to the CLIA regul ation s and is used for clini gabriel purpo ses. MDF med fusio n [address] [facility] [address] [facility] [address] [phone] Julian Singh MD, PhD Not Available [employer] [facility] [address] [place], [address], 11/02/2024 19:09:59 10/27/19 25 10/25/2024 US, trans vagin al No observ ation record ed. [facility] [address], [place], [address], 10/27/2024 22:03:05 Result Notes None recorded. Problems Name Problem SNOMED Code Status Onset Date Resolution Date Notes Provider Name and Address Organization Details Recorded Time 21229340 Completed 202107/20/2022 Kaylan smith, SCOTT [address] [place], [address], [place] [facility] 2 14:26:31 Routine care Completed Kaylan smith, MADELEINE [address] [place], [address], [place] [facility] 2 14:26:27 Anxiety in 95103053132 109 Completed Zoloft Kaylan smith, SCOTT [address] [place] [address], [phone], [place] [facility] 2 14:26:27 Anxiety 14600425 Active 2021 Tramea Albina null, [facility] 2 12:12:51 Uterine size for dates discrepan cy 698452857 Active 2021 Tramea Albina null, [facility] 2 12:12:51 Gastroeso phageal reflux disease in [id number] 364010 Active 2021 Tramea Albina null, [facility] 2 12:12:51 Nausea 978231983 Active 2021 Tramea Albina null, [facility] 2 12:12:51 Hyperemes is gravidaru m 50519644 Active 2021 Tramea Albina null, [facility] 2 12:12:51 Large for gestation age fetus 646395087 Completed us at 38 weeks Kaylan smith, SCOTT [address] [place], [address], [place] [facility] 2 14:26:27 Vaginal delivery 085256881 Active 2021 Tramea Albina null, [facility] 2 12:12:51 Problem Notes None recorded. Procedures Surgical History Date Name Laterality Status Provider Name and Address Organization Details Recorded Time 10/05/2024 Date of Last Pap Smear completed MONICA ROMO, LABORATORY COORDINATOR [address] [facility], [place], [address], [facility] 10/09/2024 15:06:02 Imaging Results Imaging Date Name Status LastModified by Organization Details LastModified Time 10/25/2024 US, transvaginal completed Agatha [address], [place], [address], 10/27/2024 22:03:05 Procedure Notes None recorded. Medical Equipment None Reported. Allergies Allergen ID Allergen Name Allergen Category Reaction Reaction Severity Criticality Documentation Date Start Date Code Code System Note Provider Name and Address Organization Details Recorded Time 417267 No known allergy (situatio n) Not available Not available Not available Not available 05/12/2023 68533 6003 SNOMED Not Available Not Available Not [...] Updated DateTime 3 160.02 cm 28.2 kg/m2 26320.1 9 g 97.9 [degF] 118 mm[Hg] 80 mm[Hg] Monica Briseno [place] [facility] 3 16:49:21 Date Recorded Body height Body mass index (BMI) Body weight Body temperature Systolic blood pressure Diastolic blood pressure Provider Name and Address Organization Details Last Updated DateTime 4 160.02 cm 29.9 kg/m2 00335.6 7 g 98 [degF] 122 mm[Hg] 76 mm[Hg] Natasha Roque [facility] 4 15:44:29 Date Recorded Body height Body mass index (BMI) Body weight Systolic blood pressure Diastolic blood pressure Provider Name and Address Organization Details Last Updated DateTime 07/09/2024 160.02 cm 30.1 kg/m2 73394.42 g 122 mm[Hg] 74 mm[Hg] Florence Remy [facility] 4 11:33:41 Date Recorded Body height Body mass index (BMI) Body weight Provider Name and Address Organization Details Last Updated DateTime 10/05/2024 160.02 cm 30.2 kg/m2 17799.14 g Monica Vigil[facility]ane [facility] 10/05/2024 12:58:12 Date Recorded Body height Body mass index (BMI) Body weight Provider Name and Address Organization Details Last Updated DateTime 10/25/2024 160.02 cm 30.1 kg/m2 82040.98 g [facility] 10/25/2024 14:46:38 Social History Question Answer Notes LastModified by Organizat ion Details LastModified Time Tobacco Smoking Status Former Smoker Gabriele Restrepo [facility], [facility] 10/26/2021 12:12:06 What Is Your Level Of [...] available 03/2022 12:12:05 Medical History Condition Response High Blood Pressure N Cytomegalovirus N Hyperthyroidism N MRSA N Blood Transfusion N Depression N Incontinence N Anxiety Disorder N Autoimmune disease N Arthritis N Polycystic Ovarian Syndrome N Hematuria N Varicosities N Stroke N Crohn's Disease N Seasonal allergies N Alzheimer's/Dementia N COPD/Emphysema N History of Abnormal Pap N Fibromyalgia N Kidney Infection N Kidney Disease N Gallbladder disease N Von Willebrand disease N Eating Disorder N Diabetes Mellitus (non-insulin dependent ) N Ovarian Problems N Frequent Urinary Tract infections N Osteopenia N GERD (reflux) N Diabetes (insulin dependent) N Asthma N Heart Attack N Endometrial Cancer N Hepatitis N Pulmonary Embolism N RPR N Chicken Pox N Other Cancer N Colon Cancer N Breast Cancer N Herpes (HSV) N Lung Cancer N Hypothyroidism N Panic Attacks N Neurological Disorder N Deep Vein Thrombosis N Tuberculosis/Positive PPD N Shingles N Cervical Cancer N Chlamydia N HPV/Genital Warts N Endometriosis N IBS (Irritable Bowel Syndrome) N High Cholesterol N Liver Disease N Ulcer N HIV N Sickle Cell Disease/Trait N ADD/ADHD N Anemia N Multiple Sclerosis N Gonorrhea N Headaches/migraines N Ovarian Cancer N Seizures/Epilepsy N Fibroids N Lupus N Rubella N Blood Clotting Disorder N Bipolar Disorder N Diabetes Mellitus (during ) N Ulcerative Colitis N Heart Disease N Osteoporosis N Gynecological History Statement/Question Response [...] SNOMED-CT Code Diagnosis ICD10 Code Diagnosis Note [id number] Payal Cahs CNM [facility] [address] [place] [address] 10/26/2021 11:29:43 10/29/2021 15:03:48 test positive 642729662 Z32.01 Screening for disorder 555203317 Z11.3 N89.9 Venereal d isease screening 467162643 Z11.3 Screening for malignant neoplasm of cervix 298923283 Z12.4 Routine an tenatal care 431529767 Z34.90 [id number] MAHENDRA BORJAS CNM [facility] [address] [place] [address] 11/11/2021 14:57:05 11/11/2021 15:52:45 Screening for disorder 829839923 Z11.3 N89.9 Desires sti testing after unprotecte d intercours e with ex. Sureswab sent. Routine an tenatal care 430861900 Z34.01 RTO 4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
--- OUTSIDE RECORDS SUMMARY | 2025-01-10 15:48 | XMS_ITS | Encounter Summary ---
Author Organization [facility] Healthcare Address [address] [place] [address] Care Team Providers Care Acupuncture Physician Name Role Phone Willow Dunham [facility] Primary Care Provi kailyn Encounter Details Date Type Department Care Team (Late st Contact Info) Description 12/28/2024 [facility] [address] [address] [place]izar[place] [id number] [place] [address] Social History Tobacco Use Types Packs/Day Years [...] on file Legal Sex Female 8:46 PM [employer]ER [employer]SEMBL[employer] Gender Identity Not on file Sexual Orientation Not on file documented as of this encounter Plan of Treatment Not on file documented as of this encounter Visit Diagnoses Not on filedocumented in this encounter Care Teams Acupuncture Physician Relationship Specialty Start Date End Date Willow Dunham DNP [address] [facility] [address] [place] [address] [place] [address] PCP - General Family Medicine 11/19/24 documented as of this encounter
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
--- OUTSIDE RECORDS SUMMARY | 2025-01-10 15:48 | XMS_ITS | Clinical Summary ---
Author Organization [facility] Address [address] [address] Care Team Providers Care Theatrical Agent Name Role Phone Willow Dunham Primary Care Provider [phone] Source Comments [facility],non-owned Affiliates and Associated Physician Practices is amultiple site organization consisting of ambulatory clinics and hospital sitesin [place], [place], [place] and [place]. This disclosure is being madepursuant to the Care Everywhere program and may not contain all information available regarding this patient. Last updated 18.[facility] Allergies No known active allergies Medications * Be aware that medications may not be up to date on this document. Alwaysverify current medications with the patient. vitamin D, cholecalciferol, 1000 UNITS tablet Take by mouth once daily Active gabapentin (Neurontin) 100 MG capsuleIndicatio ns:Other complicated headache syndrome,Intract able migraine with aura with status migrainosus Take 1 (one) capsule by mouth at bedtime 90 capsule 4 3 Active Additional Information Patient not taking.Reported on 10/05/2023 albuterol HFA (Proventil; Ventolin; Proair) 108 (90 Base) MCG/ACT inhaler Inhale 2 (two) puffs by mouth every 4 hours as needed Active Ondansetron HCl (ZOFRAN PO) Active omeprazole (PriLOSEC) 10 MG capsule 20 mg by oral route. Active ibuprofen (Motrin) 600 MG tablet 2 Active ampicillin (Principen) 500 MG capsule Take 1 (one) capsule by mouth 2 times daily Active topiramate (Topamax) 25 MG tabletIndication s:Intractable migraine with aura with status migrainosus Take 1 (one) tablet by mouth 2 times daily 180 tablet 3 3 Active Additional Information Patient not taking.Reported on 10/05/2023 propranolol (Inderal) 10 MG tabletIndication s:Intractable migraine with aura with status migrainosus Take 1 (one) tablet by mouth 2 times daily 180 tablet 3 3 Active Additional Information Patient not taking.Reported on 10/05/2023 Slynd 4 MG TABS tablet 3 Active ondansetron, disintegrating, (Zofran ODT) 4 MG tablet Take 1 (one) tablet by mouth every 6 hours as needed for Nausea/Vomiting Allow tablet to dissolve on the tongue 8 tablet 4 Active Additional Information Patient not taking.Reported on 11/01/2024 acetaminophen (Tylenol) 500 MG capsule Take 1 (one) capsule by mouth every 6 hours as needed for Fever or Pain 4 Active Additional Information Patient not taking.Reported on 11/01/2024 oxyCODONE, immediate release, (Roxicodone) 5 MG tabletIndication s:Lipoma of face Take 1 (one) tablet by mouth every 6 hours as needed for Pain 8 tablet 4 Active Additional Information Patient not taking.Reported on 12/06/2023 rizatriptan (Maxalt) 5 MG tabletIndication s:Intractable migraine with aura with status migrainosus Take 1 tab by mouth once at first sign of migraine. May repeat one time after 2 hours if needed. 9 tablet 11 5 Active topiramate (Topamax) 25 MG tabletIndication s:Intractable migraine with aura with status migrainosus Take 1 (one) tablet by mouth 2 times daily 180 tablet 4 5 Active butalbital-aceta minophen-caffein e (Fioricet) 50-300-40 MG capsuleIndicatio ns:Intractable migraine with aura with status migrainosus Take 1 (one) capsule by mouth every 4 hours as needed for Headache 20 capsule 5 5 Active Additional Information Patient not taking.Reported on 12/28/2024 Active Problems Problem Noted Date Diagnosed Date [...] & Plan (05/21/2015 12:03 PM CDT): Kalee Ritter is a 15 y.o. female with a [...] 05/14/2015 Assessment & Plan (11/10/2015 4:35 PM DIRECTOR HYDROGEN STORAGE ENGINEERING): Clinical history is not classically consistent with [...] Plan (03/20/2015 11:35 AM CDT): Assessment: Kalee Ritter is a 14 year old female with [...] Plan (03/19/2015 1:31 PM CDT): Assessment: Kalee Ritter is a 14 year old female with [...] Plan (03/18/2015 3:25 PM CDT): Assessment: Kalee Ritter is a 14 year old female with [...] Plan (03/18/2015 7:17 PM CDT): Assessment: Kalee Ritter is a 14 y.o. female who presents [...] Plan (03/17/2015 12:06 AM CDT): Assessment: Kalee Ritter is a 14 y.o. female who presents [...] in differential. Plan: Admit to GI, Dr. Aolnso NPO with mIVF RUQ ultrasound in am TSH, T4, coags, HFP, F-actin antibody, liver kidney microsomal antibody in am Vitals q4h, I/Os, up as tolerated Hold home Vyvanse for now Encounters Date Type Department Care Team Description 12/28/2024 1:30 PM CDT Office Visit [facility] - Infectious Disease [address] [place] [phone] Braxton Eaton MD Multiple somatic complaints (Primary Dx); Concern about infectious disease without diagnosis 12/28/2024 Travel 12/27/2024 Telephone [facility] - Rheumatology [address] [place] [address], [address] [place] [address] Avis Cee MD Referral 12/24/2024 Travel 12/13/2024 1:30 PM CDT Office Visit [facility] - Neurology [address] [place] [phone] Morgan Lopez APRN-CNP Cellulitis of upper extremity, unspecified laterality (Primary Dx); POTS (postural orthostatic tachycardia syndrome); Intractable migraine with aura with status migrainosus; Acne, unspecified acne type 12/13/2024 Orders Only [facility] - Neurology [address] [place] [phone] Morgan Lopez APRN-CNP Cellulitis of upper extremity, unspecified laterality; Acne, unspecified acne type 12/13/2024 Travel 11/16/2024 Refill [facility] - Neurology [address] [place] [phone] Morgan Lopez APRN-CNP MEDICATION REFILL 11/01/2024 3:55 PM DIRECTOR HYDROGEN STORAGE ENGINEERING - 11/01/2024 11:59 PM DIRECTOR HYDROGEN STORAGE ENGINEERING Hospital Encounter [facility] - Radiology [address] [place] [phone] Avis Cee MD Discharge Disposition: Home or Self Care 11/01/2024 2:20 PM DIRECTOR HYDROGEN STORAGE ENGINEERING Office Visit [facility] - Rheumatology [address] [place] [address], [address] [place] [phone] Avis Cee MD BETSY positive (Primary Dx); Rash; Fatigue, unspecified type; Dry mouth; Dry eye; Numbness; Raynaud's syndrome without gangrene; Polyarthralgia; Myalgia, multiple sites; Cervicalgia; Other low back pain; Encounter for long-term (current) use of high-risk medication 11/01/2024 Travel 10/30/2024 6:37 PM DIRECTOR HYDROGEN STORAGE ENGINEERING - 10/31/2024 1:29 AM [facility] Emergency ER at [facility] [address] [place] [phone] Near syncope Discharge Disposition: Left Against Medical Advice/Discontinued Care 10/30/2024 Travel 10/12/2024 10:10 AM DIRECTOR HYDROGEN STORAGE ENGINEERING Office Visit [facility] - Dermatology [address] [place] [phone] Gagan Skinner MD Acute urticaria (Primary Dx); Prurigo nodularis; Melanocytic nevi of trunk 10/12/2024 Travel from Last 3 Months Family History Medical History Relation Name Comments Cancer Mother Thyroid Disease Mother Thyroid canc er Congenital Heart defect Other Grea t uncle with hypertrophic cardiomyopathy Arthritis - Rheumatoid Paternal Grandfather Arrhythmia Neg Hx CVA<55(male) Neg Hx CVA<65(female) Neg Hx Cardiomyopathy Neg Hx Heart Surgery Neg Hx Long QT Syndrome Neg Hx NH<55(male) Neg Hx NH<65(female) Neg Hx Marfan Syndrome Neg Hx Pacemaker Neg Hx Sudd. <30 Neg Hx Relation Name Status Comments Mother Other Paternal Grandfather Social History Tobacco Use Types Packs/Day Years Used Date Smoking Tobacco: Smoker, Current Status Unknown Tobacco Cessation:Ready to Q uit: Not Asked; Counseling Given: Not Answered Alcohol Use Standard Drinks/Week Comments Not Currently 0 (1 standard drink = 0.6 oz pur e alcohol) social PHQ-2 Answer Date Recorded Patient Health Questionnaire-2 Score 3 11/01/2024 Comments No Sex and Gender Information Value Date Recorded Sex Assigned at Not on file Legal Sex Female 5:39 AM DIRECTOR HYDROGEN STORAGE ENGINEERING Gender Identity Not on file Sexual Orientation Not on file Last Filed Vital Signs Vital Sign Reading Time Taken Comments Blood Pressure 152/105 12/28/2024 1:38 PM CDT Pulse 68 12/28/2024 1:38 PM CDT Temperature 36.7 C (98 F) 12/28/2024 1:38 PM CDT Respiratory Rate 20 12/28/2024 1:38 PM CDT Oxygen Saturation 99% 12/28/2024 1:38 PM CDT Inhaled Oxygen Concentration - - Weight 69.9 kg (154 lb) 12/28/2024 1:38 PM CDT Height 157.5 cm (5' 2 ) 12/28/2024 1:38 PM CDT Body Mass Index 28.17 12/28/2024 1:38 PM CDT Plan of Treatment Upcoming Encounters Date Type Department Care Team (Late st Contact Info) Description 04/02/2025 10:50 AM CDT Office Visit [facility] - Dermatology [address] [place] [address], [place] [phone] Singh Campa MD [address] [place] [address] 04/15/2025 2:00 PM CDT Office Visit [facility] - Neurology [address] [place] [address], [place] [phone] Morgan Lopez, [employer]-TICKET BROKER [address] [place] [address] [place] [phone] 04/17/2025 2:40 PM CDT Office Visit [facility] - Rheumatology [address], [address] [place] [address] Abril Oakley MD [address] [place] [phone] Health Maintenance Due Date Last Done Comments PAP SMEAR 1998 HPV VACCINE (1 - 3-dose series) 2013 DTAP/TDAP/TD VACCINES (1 - Tdap) 2017 HEPATITIS B VACCINE (1 of 3 - 19+ 3-dose series) 2017 PNEUMOCOCCAL VACCINE (1 of 2 - PCV) 2017 COVID-19 VACCINE (1 - 2023-2 5 season) 2024 INFLUENZA VACCINE (Season Ended) 2025 07/20/2017, 07/14/2016 ZOSTER VACCINE (1 of 2) 2048 HIV SCREENING Completed 03/25/2022, 11/11/2021 DEPRESSION SCREENING Completed 11/01/2024 HEPATITIS C SCREENING Completed 11/01/2024 , 11/11/2021, 03/16/2015 HIB VACCINE Aged Out No longer eligi ble based on patient's age to complete this topic MENINGOCOCCAL (Group B) VACCINE SHARED DECISION-MAKING Aged Out No longer eligible based on patient's age to complete this topic MENINGOCOCCAL GROUPS A/C/Y/W VACCINE Aged Out No longer eligible b ased on patient's age to complete this topic Procedures Procedure Name Priority Date/Time Associated Diagnosis Comments XR HAND BILAT 3VW OR MORE Routine 2024 4:29 PM DIRECTOR HYDROGEN STORAGE ENGINEERING BETSY positive Rash Fatigue, unspecified type Dry mouth Dry eye Numbness Raynaud's syndrome without gangrene Polyarthralgia Myalgia, multiple sites Cervicalgia Other low back pain Encounter for long-term (current) use of high-risk medication SS-A (SJOGREN'S) ANTIBODY Routine 2024 3:36 PM DIRECTOR HYDROGEN STORAGE ENGINEERING BETSY positive Rash Fatigue, unspecified type Dry mouth Dry eye Numbness Raynaud's syndrome without gangrene Polyarthralgia Myalgia, multiple sites Cervicalgia Other low back pain Encounter for long-term (current) use of high-risk medication ROQUE (SM) ANTIBODY ENRRIQUE Routine 11/01/19 3:36 PM DIRECTOR HYDROGEN STORAGE ENGINEERING BETSY positive Rash Fatigue, unspecified type Dry mouth Dry eye Numbness Raynaud's syndrome without gangrene Polyarthralgia Myalgia, multiple sites Cervicalgia Other low back pain Encounter for long-term (current) use of high-risk medication SCLERODERMA 70 (SCL) ANTIBODY Routine 11/01/2024 3:36 PM DIRECTOR HYDROGEN STORAGE ENGINEERING BETSY positive Rash Fatigue, unspecified type Dry mouth Dry eye Numbness Raynaud's syndrome without gangrene Polyarthralgia Myalgia, multiple sites Cervicalgia Other low back pain Encounter for long-term (current) use of high-risk medication TOPLINE BEADING MACHINE TENDER ANTIBODY Routine 11/01/2024 3:36 PM DIRECTOR HYDROGEN STORAGE ENGINEERING BETSY positive Rash Fatigue, unspecified type Dry mouth Dry eye Numbness Raynaud's syndrome without gangrene Polyarthralgia Myalgia, multiple sites Cervicalgia Other low back pain Encounter for long-term (current) use of high-risk medication BETSY BLOOD SCREEN W/REFLEX TITER Routine 11/01/2024 3:36 PM DIRECTOR HYDROGEN STORAGE ENGINEERING BETSY positive Rash Fatigue, unspecified type Dry mouth Dry eye Numbness Raynaud's syndrome without gangrene Polyarthralgia Myalgia, multiple sites Cervicalgia Other low back pain Encounter for long-term (current) use of high-risk medication PROTEIN CREATININE RATIO URINE RANDOM PNL Routine 11/01/2024 3:35 PM DIRECTOR HYDROGEN STORAGE ENGINEERING BETSY positive Rash Fatigue, unspecified type Dry mouth Dry eye Numbness Raynaud's syndrome without gangrene Polyarthralgia Myalgia, multiple sites Cervicalgia Other low back pain Encounter for long-term (current) use of high-risk medication THIOPURINE METHYLTRANSFERASE Routine 11/01/2024 3:35 PM DIRECTOR HYDROGEN STORAGE ENGINEERING BETSY positive Rash Fatigue, unspecified type Dry mouth Dry eye Numbness Raynaud's syndrome without gangrene Polyarthralgia Myalgia, multiple sites Cervicalgia Other low back pain Encounter for long-term (current) use of high-risk medication HISTONE ANTIBODY Routine 11/01/2024 3:35 PM DIRECTOR HYDROGEN STORAGE ENGINEERING BETSY positive Rash Fatigue, unspecified type Dry mouth Dry eye Numbness Raynaud's syndrome without gangrene Polyarthralgia Myalgia, multiple sites Cervicalgia Other low back pain Encounter for long-term (current) use of high-risk medication SS-B (SJOGREN'S) ANTIBODY Routine 2024 3:35 PM DIRECTOR HYDROGEN STORAGE ENGINEERING BETSY positive Rash Fatigue, unspecified type Dry mouth Dry eye Numbness Raynaud's syndrome without gangrene Polyarthralgia Myalgia, multiple sites Cervicalgia Other low back pain Encounter for long-term (current) use of high-risk medication RHEUMATOID FACTOR BLOOD QUANTITATIVE Routine 11/01/2024 3:35 PM DIRECTOR HYDROGEN STORAGE ENGINEERING BETSY positive Rash Fatigue, unspecified type Dry mouth Dry eye Numbness Raynaud's syndrome without gangrene Polyarthralgia Myalgia, multiple sites Cervicalgia Other low back pain Encounter for long-term (current) use of high-risk medication MYOSITIS PLUS PANEL III Routine 11/01/19 25 3:35 PM DIRECTOR HYDROGEN STORAGE ENGINEERING BETSY positive Rash Fatigue, unspecified type Dry mouth Dry eye Numbness Raynaud's syndrome without gangrene Polyarthralgia Myalgia, multiple sites Cervicalgia Other low back pain Encounter for long-term (current) use of high-risk medication LYME DISEASE TOTAL AB W RFLX IMMUNOASSAY Routine 11/01/2024 3:35 PM DIRECTOR HYDROGEN STORAGE ENGINEERING BETSY positive Rash Fatigue, unspecified type Dry mouth Dry eye Numbness Raynaud's syndrome without gangrene Polyarthralgia Myalgia, multiple sites Cervicalgia Other low back pain Encounter for long-term (current) use of high-risk medication IGG SUBCLASS 4 Routine 11/01/2024 3:35 PM DIRECTOR HYDROGEN STORAGE ENGINEERING BETSY positive Rash Fatigue, unspecified type Dry mouth Dry eye Numbness Raynaud's syndrome without gangrene Polyarthralgia Myalgia, multiple sites Cervicalgia Other low back pain Encounter for long-term (current) use of high-risk medication HEPATITIS SCREEN ACUTE ([facility]) Routine 11/01/2024 3:35 PM DIRECTOR HYDROGEN STORAGE ENGINEERING BETSY positive Rash Fatigue, unspecified type Dry mouth Dry eye Numbness Raynaud's syndrome without gangrene Polyarthralgia Myalgia, multiple sites Cervicalgia Other low back pain Encounter for long-term (current) use of high-risk medication ERYTHROCYTE SEDIMENTATION RATE Routine 11/01/2024 3:35 PM DIRECTOR HYDROGEN STORAGE ENGINEERING BETSY positive Rash Fatigue, unspecified type Dry mouth Dry eye Numbness Raynaud's syndrome without gangrene Polyarthralgia Myalgia, multiple sites Cervicalgia Other low back pain Encounter for long-term (current) use of high-risk medication DNA ANTIBODY DOUBLE STRANDED Routine 11/01/2024 3:35 PM DIRECTOR HYDROGEN STORAGE ENGINEERING BETSY positive Rash Fatigue, unspecified type Dry mouth Dry eye Numbness Raynaud's syndrome without gangrene Polyarthralgia Myalgia, multiple sites Cervicalgia Other low back pain Encounter for long-term (current) use of high-risk medication CYCLIC CITRULLINATED PEPTIDE([facility]) AB IGG Routine 11/01/2024 3:35 PM DIRECTOR HYDROGEN STORAGE ENGINEERING BETSY positive Rash Fatigue, unspecified type Dry mouth Dry eye Numbness Raynaud's syndrome without gangrene Polyarthralgia Myalgia, multiple sites Cervicalgia Other low back pain Encounter for long-term (current) use of high-risk medication C-REACTIVE PROTEIN Routine 11/01/2024 3: 35 PM DIRECTOR HYDROGEN STORAGE ENGINEERING BETSY positive Rash Fatigue, unspecified type Dry mouth Dry eye Numbness Raynaud's syndrome without gangrene Polyarthralgia Myalgia, multiple sites Cervicalgia Other low back pain Encounter for long-term (current) use of high-risk medication COMPLEMENT C4 Routine 11/01/2024 3:35 PM DIRECTOR HYDROGEN STORAGE ENGINEERING BETSY positive Rash Fatigue, unspecified type Dry mouth Dry eye Numbness Raynaud's syndrome without gangrene Polyarthralgia Myalgia, multiple sites Cervicalgia Other low back pain Encounter for long-term (current) use of high-risk medication COMPLEMENT C3 Routine 11/01/2024 3:35 PM DIRECTOR HYDROGEN STORAGE ENGINEERING BETSY positive Rash Fatigue, unspecified type Dry mouth Dry eye Numbness Raynaud's syndrome without gangrene Polyarthralgia Myalgia, multiple sites Cervicalgia Other low back pain Encounter for long-term (current) use of high-risk medication CK BLOOD Routine 11/01/2024 3:35 PM DIRECTOR HYDROGEN STORAGE ENGINEERING BETSY positive Rash Fatigue, unspecified type Dry mouth Dry eye Numbness Raynaud's syndrome without gangrene Polyarthralgia Myalgia, multiple sites Cervicalgia Other low back pain Encounter for long-term (current) use of high-risk medication LUPUS ANTICOAGULANT PANEL W RFLX Routine 11/01/2024 3:35 PM DIRECTOR HYDROGEN STORAGE ENGINEERING BETSY positive Rash Fatigue, unspecified type Dry mouth Dry eye Numbness Raynaud's syndrome without gangrene Polyarthralgia Myalgia, multiple sites Cervicalgia Other low back pain Encounter for long-term (current) use of high-risk medication CARDIOLIPIN ANTIBODY IGA/IGG/IGM PANEL Routine 11/01/2024 3:35 PM DIRECTOR HYDROGEN STORAGE ENGINEERING BETSY positive Rash Fatigue, unspecified type Dry mouth Dry eye Numbness Raynaud's syndrome without gangrene Polyarthralgia Myalgia, multiple sites Cervicalgia Other low back pain Encounter for long-term (current) use of high-risk medication BETA-2 GLYCOPROTEIN 1 ANTIBODY IGG/IGM/IGA PANEL Routine 11/01/2024 3:35 PM DIRECTOR HYDROGEN STORAGE ENGINEERING BETSY positive Rash Fatigue, unspecified type Dry mouth Dry eye Numbness Raynaud's syndrome without gangrene Polyarthralgia Myalgia, multiple sites Cervicalgia Other low back pain Encounter for long-term (current) use of high-risk medication ANGIOTENSIN CONVERTING ENZYME BLOOD Routine 11/01/2024 3:35 PM DIRECTOR HYDROGEN STORAGE ENGINEERING BETSY positive Rash Fatigue, unspecified type Dry mouth Dry eye Numbness Raynaud's syndrome without gangrene Polyarthralgia Myalgia, multiple sites Cervicalgia Other low back pain Encounter for long-term (current) use of high-risk medication ALDOLASE Routine 11/01/2024 3:35 PM DIRECTOR HYDROGEN STORAGE ENGINEERING BETSY positive Rash Fatigue, unspecified type Dry mouth Dry eye Numbness Raynaud's syndrome without gangrene Polyarthralgia Myalgia, multiple sites Cervicalgia Other low back pain Encounter for long-term (current) use of high-risk medication CARDIAC EKG ORDER 10/31/2024 7:0 6 PM DIRECTOR HYDROGEN STORAGE ENGINEERING TROPONIN-I HIGH SENSITIVE REFLEX 1HOUR Timed 10/31/2024 12:30 AM DIRECTOR HYDROGEN STORAGE ENGINEERING XR CHEST 2VW STAT 10/30/2024 8:44 PM DIRECTOR HYDROGEN STORAGE ENGINEERING Near syncope EKG 12-LEAD STAT 10/30/2024 8:23 PM DIRECTOR HYDROGEN STORAGE ENGINEERING Near syncope HCG BETA BLOOD QUANTITATIVE STAT 10/30/2024 8:21 PM DIRECTOR HYDROGEN STORAGE ENGINEERING TROPONIN-I HIGH SENSITIVE BASELINE + 1HR STAT 10/30/2024 8:21 PM DIRECTOR HYDROGEN STORAGE ENGINEERING CBC W AUTO DIFFERENTIAL STAT 10/30/19 8:21 PM DIRECTOR HYDROGEN STORAGE ENGINEERING COMPREHENSIVE METABOLIC PANEL STAT 10/30/2024 8:21 PM DIRECTOR HYDROGEN STORAGE ENGINEERING LA INTRALESIONAL INJECTION(S) 7 OR LESS Routine 10/12/2024 11:15 AM DIRECTOR HYDROGEN STORAGE ENGINEERING Prurigo nodularis from Last 3 Months Results * XR Hand Bilat 3Vw or More (11/01/2024 4:29 PM DIRECTOR HYDROGEN STORAGE ENGINEERING) Anatomical Region Laterality Modality Upper Extremity, Wrist / Hand Co mputed Radiography 11/01/2024 4:34 PM DIRECTOR HYDROGEN STORAGE ENGINEERING Narrative 11/01/2024 4:35 PM DIRECTOR HYDROGEN STORAGE ENGINEERING Procedure: XR HAND BILAT 3VW OR MORE Exam Date: 11/01/2024 4:29 PM Location: [facility] Indication: R76.8: Other specified abnormal immunological findings [...] MORE Exam Date: 11/01/2024 4:29 PM Location: [facility] Indication: R76.8: Other specified abnormal immunological findings [...] 4:35 PM Avis Cee MD DIAGNOSTIC IMAGING ORDERABLES Fi nal Result * ROQUE (SM) ANTIBODY ENRRIQUE (11/01/2024 3:36 PM DIRECTOR HYDROGEN STORAGE ENGINEERING) Roque (ENRRIQUE) Antibody <0.2 0.0 - 0.9 AI [facility] INSURANCE BILL Blood BLOOD SPECIMEN / Unknown 11/01/2024 3:36 PM DIRECTOR HYDROGEN STORAGE ENGINEERING 11/01/2024 Narrative [facility] INSURANCE BILL - 11/02/2024 10:10 AM DIRECTOR HYDROGEN STORAGE ENGINEERING Performed at: [address] [place] [id number] Business Analyst Intern: Timi Phan PhD, Phone: [phone] Avis Cee MD LAB - CHEMISTRY ORDERABLES Final Result Performing Organization Address City/[facility]/ZIP Co de Phone Number [facility] INS[facility]ANCE BILL [address] [place] [address] * TOPLINE BEADING MACHINE TENDER ANTIBODY (11/01/2024 3:36 PM DIRECTOR HYDROGEN STORAGE ENGINEERING) [facility] TOPLINE BEADING MACHINE TENDER Antibody <0.2 0.0 - 0.9 [facility] INSURANCE BILL Blood BLOOD SPECIMEN / Unknown 11/01/2024 3:36 PM DIRECTOR HYDROGEN STORAGE ENGINEERING 11/01/2024 Narrative [facility] INSURANCE BILL - 11/02/2024 10:10 AM DIRECTOR HYDROGEN STORAGE ENGINEERING Performed at: [address] [place] [id number] Business Analyst Intern: Timi Phan PhD, Phone: [phone] Avis Cee MD LAB - CHEMISTRY ORDERABLES Final Result [employer] INSURANCE BILL [address] [place] [address] * (ABNORMAL) BETSY BLOOD SCREEN W/REFLEX TITER (11/01/2024 3:36 PM DIRECTOR HYDROGEN STORAGE ENGINEERING) Pathologist [facility] BETSY Positive(A) [facility] INSURANCE BILL Comment: Negative <1:80 Borderline 1:80 Positive >1:80 Performed at: 01 - [address] [id number] Business Analyst Intern: Timi Phan PhD, Phone: [phone] Homogeneous Pattern 1:320(H) [facility] INSURANCE BILL Comment:[facility] nomenclature: A C-1 Note [facility] Comment: Pattern Potential Disease Association Homogeneous Systemic Lupus Erythematosus, Drug Induced Systemic Lupus Erythematosus, Chronic Autoimmune hepatitis, Juvenile Idiopathic Arthritis Speckled Sjogren Syndrome, Systemic Lupus Erythematosus, Subacute Cutaneous Lupus, Lupus, Congenital Heart Block, Mixed Connective Tissue Disease, Scleroderma-diffuse, Scleroderma-Autoimmune Myositis Overlap Syndrome, Systemic Lupus Qgnzddciwqivj-Oxpdnvizpao-Ddjohsynty Myositis Overlap Syndrome, Systemic Autoimmune Rheumatic Disease, [...] BLOOD SPECIMEN / Unknown 11/01/2024 3:36 PM DIRECTOR HYDROGEN STORAGE ENGINEERING 11/01/2024 Narrative [facility] INSURANCE BILL - 11/05/2024 5:09 PM DIRECTOR HYDROGEN STORAGE ENGINEERING Performed at: [address] [place] [id number] Business Analyst Intern: Timi Phan PhD, Phone: [phone] Avis Cee MD LAB - CHEMISTRY ORDERABLES Final Result Performing Organization Address [facility] de Phone Number [employer] [facility] INSURANCE BILL [address] [place] [address] * SS-A (SJOGREN'S) ANTIBODY (11/01/2024 3:36 PM DIRECTOR HYDROGEN STORAGE ENGINEERING) Sjogren's Antibodies (SSA) <0.2 0.0 - 0.9 AI [facility] INSURANCE BILL Blood BLOOD SPECIMEN / Unknown 11/01/2024 3:36 PM DIRECTOR HYDROGEN STORAGE ENGINEERING 11/01/2024 Narrative [facility] INSURANCE BILL - 11/02/2024 10:10 AM DIRECTOR HYDROGEN STORAGE ENGINEERING Performed at: [facility] [employer] [id number] Business Analyst Intern: Timi Phan PhD, Phone: [phone] Avis Cee MD LAB - CHEMISTRY ORDERABLES Final Result Performing Organization Address [facility] Co de Phone Number [employer] INSURANCE BILL [address] [place] [address] * SCLERODERMA 70 (SCL) ANTIBODY (11/01/2024 3:36 PM DIRECTOR HYDROGEN STORAGE ENGINEERING) Pathologist [facility] Antiscleroderma -70 Antibody <0.2 0.0 - 0.9 AI [facility] INSURANCE BILL Blood BLOOD SPECIMEN / Unknown 11/01/2024 3:36 PM DIRECTOR HYDROGEN STORAGE ENGINEERING 11/01/2024 Narrative [facility] INSURANCE BILL - 11/02/2024 10:10 AM DIRECTOR HYDROGEN STORAGE ENGINEERING Performed at: - [facility] [id number] Business Analyst Intern: Timi Phan PhD, Phone: [phone] Avis Cee MD LAB - CHEMISTRY ORDERABLES Final Result [facility] INSURANCE BILL [address] [place] [address] * HEPATITIS SCREEN ACUTE ([facility]) (11/01/2024 3:35 PM DIRECTOR HYDROGEN STORAGE ENGINEERING) Pathologist [facility] Hepatitis A Virus Antibody IgM Negative Negative [facility] INSURANCE BILL Comment: A negative anti-HAV IgM result suggests no recent or current HAV infection. Hepatitis B Virus Surface Antigen Negative Negative [facility] INSURANCE BILL Hepatitis B Core Virus Antibody IgM Negative Negative [facility] INSURANCE BILL Hepatitis C Antibody Non Reactive Non Reactive [facility] INSURANCE BILL Comment: Performed at: - [facility] [id number] Business Analyst Intern: Timi Phan PhD, Phone: [phone] Interpretation Comment [facility] INSURANCE BILL Comment: Not infected with HCV unless early or acute infection is suspected (which may be delayed in an immunocompromised individual), or other evidence exists to indicate HCV infection. Blood BLOOD SPECIMEN / Unknown 11/01/2024 3:35 PM DIRECTOR HYDROGEN STORAGE ENGINEERING 11/01/2024 Narrative [facility] INSURANCE BILL - 11/02/2024 7:09 AM DIRECTOR HYDROGEN STORAGE ENGINEERING Performed at: [address] [phone] Business Analyst Intern: Timi Phan PhD, Phone: [phone] Avis Cee MD LAB - CHEMISTRY ORDERABLES Final Result Performing Organization Address [facility]/ZIP Co de Phone Number [facility] INSURANCE BILL [address] [place] [address] * LYME DISEASE TOTAL AB W RFLX IMMUNOASSAY (11/01/2024 3:35 PM DIRECTOR HYDROGEN STORAGE ENGINEERING) Lyme Antibody Total Negative Negative [facility] INSURANCE [...] BLOOD SPECIMEN / Unknown 11/01/2024 3:35 PM DIRECTOR HYDROGEN STORAGE ENGINEERING 11/01/2024 Narrative [facility] INSURANCE BILL - 11/02/2024 5:09 PM DIRECTOR HYDROGEN STORAGE ENGINEERING Performed at: - [facility] [id number] Business Analyst Intern: Timi Phan PhD, Phone: [phone] Avis Cee MD LAB - CHEMISTRY ORDERABLES Final Result Performing Organization Address [facility] de Phone Number [facility] INSURANCE BILL [address] [place] [address] * IGG SUBCLASS 4 (11/01/2024 3:35 PM DIRECTOR HYDROGEN STORAGE ENGINEERING) Pathologist [facility] IgG Subclass 4 12 2 - 96 mg/dL [facility] INSURANCE BILL Blood BLOOD SPECIMEN / Unknown 11/01/2024 3:35 PM DIRECTOR HYDROGEN STORAGE ENGINEERING 11/01/2024 Narrative [facility] INSURANCE BILL - 11/02/2024 3:10 PM DIRECTOR HYDROGEN STORAGE ENGINEERING Performed at: [address] [id number] Business Analyst Intern: Timi Phan PhD, Phone: [phone] Avis Cee MD LAB - CHEMISTRY ORDERABLES Final Result Performing Organization Address [facility] Co de Phone Number [facility] INSURANCE BILL [address] [place] [address] * MYOSITIS PLUS PANEL III (11/01/2024 3:35 PM DIRECTOR HYDROGEN STORAGE ENGINEERING) Jenny-1 Antibody <20 <20 Units [facility] INSURANCE BILL PL-7 Antibody Negative Negative [facility] INSURANCE BILL PL-12 Antibody Negative Negative [facility] INSURANCE BILL EJ Antibody Negative Negative [facility] INSURANCE BILL OJ Antibody Negative Negative [facility] INSURANCE BILL SRP Antibody Negative Negative [facility] INSURANCE BILL Mi-2 Antibody Negative Negative [facility] INSURANCE BILL TIF1-Gamma Antibody <20 <20 Units [facility] INSURANCE BILL MDA-5 Antibody <20 <20 Units [facility] INSURANCE BILL NXP-2 Antibody <20 <20 Units [facility] INSURANCE BILL SAE1 IgG Antibody <20 <20 Units [facility] INSURANCE BILL PM/SCL 100 <20 <20 Units [facility] INSURANCE BILL KU Antibody Negative Negative [facility] INSURANCE BILL SS-A 52 Antibody <20 <20 Units [facility] INSURANCE BILL Anti-U1 TOPLINE BEADING MACHINE TENDER By EIA <20 <20 Units [facility] INSURANCE BILL U2 sn TOPLINE BEADING MACHINE TENDER Antibody Negative Negative [facility] INSURANCE BILL Fibrillarin (U3 TOPLINE BEADING MACHINE TENDER) Negative Negative [facility] INSURANCE BILL Comment: Interpretation for Anti-Jenny-1, Gzio-JJQ-2bdxlm, Anti-MDA-5, Anti-NXP-2, Anti-SAE1, Anti-PM/Scl-100, Anti-SS-A 52 kD, Anti-U1 TOPLINE BEADING MACHINE TENDER: Negative: <20 Weak Positive: 20 - 39 Moderate Positive: 40 - 80 Strong Positive: >80 Blood BLOOD SPECIMEN / Unknown 11/01/2024 3:35 PM DIRECTOR HYDROGEN STORAGE ENGINEERING 11/01/2024 Narrative [facility] INSURANCE BILL - 11/27/2024 6:09 AM CDT Test(s) 502392-Mhjb-QJ-2 Ab (RDL); 577239-Pfil-CO-36 Ab (RDL); 437559-Ylxg-LV Ab (RDL); 180925-Akuu-LN Ab (RDL); 412757- Anti-SRP Ab (RDL); 520451-Grmk-Gp-3 Ab (RDL); 786924- Ecuw-WDV-5rqbwe Ab (RDL); 718847-Fkno-GOF-8 Ab (CADM-140)(RDL); 150853-Ifyp-QAU-4 (P140) Ab (RDL); 068757-Fqum-WIQ0 Ab, IgG (RDL); 669490-Zuch-TN/Scl-100 Ab (RDL); 035472-Lplj-Jn Ab (RDL); [id number]- Anti-SS-A 52kD Ab, IgG (RDL); [id number]-Efgs-D7 TOPLINE BEADING MACHINE TENDER Ab (RDL); [id number]- Anti-U3 TOPLINE BEADING MACHINE TENDER (Fibrillarin)(RDL) was developed and its performance characteristics determined [facility] It has not been cleared or approved by the Food and Drug Administration. Performed at: - [facility] [address] [place] [id number] Business Analyst Intern: Jose Alfredo Ferris MD, Phone: [phone] us Avis Cee MD LAB - CHEMISTRY ORDERABLES Final Result [facility] INSURANCE BILL [address] [place] [address] * CARDIOLIPIN ANTIBODY IGA/IGG/IGM PANEL (11/01/2024 3:35 PM DIRECTOR HYDROGEN STORAGE ENGINEERING) Cardiolipin Antibody IgG <9 0 - 14 [...] BLOOD SPECIMEN / Unknown 11/01/2024 3:35 PM DIRECTOR HYDROGEN STORAGE ENGINEERING 11/01/2024 Narrative [facility] INSURANCE BILL - 11/02/2024 3:10 PM DIRECTOR HYDROGEN STORAGE ENGINEERING Performed at: - [facility] [address] [place], [place] [id number] Business Analyst Intern: Timi Phan PhD, Phone: [phone] Avis Cee MD LAB - SEROLOGY ORDERABLES Final Result Performing Organization Address City/[facility]/ZIP Co de Phone Number [facility] INSURANCE BILL [address] [place] [address] * LUPUS ANTICOAGULANT PANEL W RFLX (11/01/2024 3:35 PM DIRECTOR HYDROGEN STORAGE ENGINEERING) Pathologist [facility] PTT-LA 32.0 0.0 - 43.5 sec [facility] INSURANCE BILL dRVVT 29.2 0.0 - 47.0 sec [facility] INSURANCE BILL Interpretation Comment: [facility] INSURANCE BILL Comment:No lupus anticoagula nt was detected. Blood BLOOD SPECIMEN / Unknown 11/01/2024 3:35 PM DIRECTOR HYDROGEN STORAGE ENGINEERING 11/01/2024 Narrative [facility] INSURANCE BILL - 11/02/2024 6:09 PM DIRECTOR HYDROGEN STORAGE ENGINEERING Performed at: [address] [place] [id number] Business Analyst Intern: Alejandra Robison MD, Phone: [phone] Avis Cee MD LAB - HEMATOLOGY ORDERABLES Elicia l Result Performing Organization Address City/[facility] Co de Phone Number [facility] INSURANCE BILL [address] [place] [address] * BETA-2 GLYCOPROTEIN 1 ANTIBODY IGG/IGM/IGA PANEL (11/01/2024 3:35 PM DIRECTOR HYDROGEN STORAGE ENGINEERING) [facility] Beta-2 Glycoprotein I Antibody IgG <9 [...] BLOOD SPECIMEN / Unknown 11/01/2024 3:35 PM DIRECTOR HYDROGEN STORAGE ENGINEERING 11/01/2024 Narrative [facility] INSURANCE BILL - 11/02/2024 3:10 PM DIRECTOR HYDROGEN STORAGE ENGINEERING Performed at: [address] [place] [id number] Business Analyst Intern: Timi Phan PhD, Phone: [phone] Avis Cee MD LAB - SEROLOGY ORDERABLES Final Result Performing Organization Address [facility] Co de Phone Number [facility] INSURANCE BILL [address] [place] [address] * RHEUMATOID FACTOR BLOOD QUANTITATIVE (11/01/2024 3:35 PM DIRECTOR HYDROGEN STORAGE ENGINEERING) Rheumatoid Factor <10.0 <14.0 IU/mL [facility] INSURANCE BILL Blood BLOOD SPECIMEN / Unknown 11/01/2024 3:35 PM DIRECTOR HYDROGEN STORAGE ENGINEERING 11/01/2024 Narrative [facility] INSURANCE BILL - 11/02/2024 3:10 PM DIRECTOR HYDROGEN STORAGE ENGINEERING Performed at: [address] [place] [id number] Business Analyst Intern: Timi Phan PhD, Phone: [phone] Avis Cee MD LAB - CHEMISTRY ORDERABLES Final Result Performing Organization Address [facility] Co de Phone Number [facility] INSURANCE BILL [address] [place] [address] * C-REACTIVE PROTEIN (11/01/2024 3:35 PM DIRECTOR HYDROGEN STORAGE ENGINEERING) C-Reactive Protein 2 0 - 10 mg/L [facility] INSURANCE BILL Blood BLOOD SPECIMEN / Unknown 11/01/2024 3:35 PM DIRECTOR HYDROGEN STORAGE ENGINEERING 11/01/2024 Narrative [facility] INSURANCE BILL - 11/02/2024 3:10 PM DIRECTOR HYDROGEN STORAGE ENGINEERING Performed at: [address] [id number] Business Analyst Intern: Timi Phan PhD, Phone: [phone] Avis Cee MD LAB - CHEMISTRY ORDERABLES Final Result Performing Organization Address [facility] de Phone Number [facility] INSURANCE BILL [address] [place] [address] * HISTONE ANTIBODY (11/01/2024 3:35 PM DIRECTOR HYDROGEN STORAGE ENGINEERING) Anti-Histone Antibody 0.7 0.0 - 0.9 Units [facility] INSURANCE BILL Comment: Negative <1.0 Weak Positive 1.0 - 1.5 Moderate Positive 1.6 - 2.5 Strong Positive >2.5 Blood BLOOD SPECIMEN / Unknown 11/01/2024 3:35 PM DIRECTOR HYDROGEN STORAGE ENGINEERING 11/01/2024 Narrative [facility] INSURANCE BILL - 11/06/2024 3:09 PM DIRECTOR HYDROGEN STORAGE ENGINEERING Performed at: [address] [id number] Business Analyst Intern: Alejandra Robison MD, Phone: [phone] Avis Cee MD LAB - CHEMISTRY ORDERABLES Final Result Performing Organization Address [facility] de Phone Number [facility] INSURANCE BILL [address] [place] [address] * SS-B (SJOGREN'S) ANTIBODY (11/01/2024 3:35 PM DIRECTOR HYDROGEN STORAGE ENGINEERING) Sjogren's Antibodies (SSB) <0.2 0.0 - 0.9 AI [facility] INSURANCE BILL Blood BLOOD SPECIMEN / Unknown 11/01/2024 3:35 PM DIRECTOR HYDROGEN STORAGE ENGINEERING 11/01/2024 Narrative [facility] INSURANCE BILL - 11/02/2024 10:10 AM DIRECTOR HYDROGEN STORAGE ENGINEERING Performed at: [address] [id number] Business Analyst Intern: Timi Phan PhD, Phone: [phone] Avis Cee MD LAB - CHEMISTRY ORDERABLES Final Result Performing Organization Address City/[facility]/ZIP Co de Phone Number [facility] INSURANCE BILL [address] [place] [address] * DNA ANTIBODY DOUBLE STRANDED (11/01/2024 3:35 PM DIRECTOR HYDROGEN STORAGE ENGINEERING) Pathologist [facility] Anti-dsDNA Quantitative <1 0 - 9 IU/mL [facility] INSURANCE BILL Comment: Negative <5 Equivocal 5 - 9 Positive >9 Blood BLOOD SPECIMEN / Unknown 11/01/2024 3:35 PM DIRECTOR HYDROGEN STORAGE ENGINEERING 11/01/2024 Narrative [facility] INSURANCE BILL - 11/02/2024 10:10 AM DIRECTOR HYDROGEN STORAGE ENGINEERING Performed at: [address] [id number] Business Analyst Intern: Timi Phan PhD, Phone: [phone] us Avis Cee MD LAB - HEMATOLOGY ORDERABLES Elicia l Result Performing Organization Address [facility] Co de Phone Number [facility] INSURANCE BILL [address] [place] [address] * ANGIOTENSIN CONVERTING ENZYME BLOOD (11/01/2024 3:35 PM DIRECTOR HYDROGEN STORAGE ENGINEERING) Pathologist [facility] Angiotensin-Con verting Enzyme 58 14 - 82 U/L [facility] INSURANCE BILL Blood BLOOD SPECIMEN / Unknown 11/01/2024 3:35 PM DIRECTOR HYDROGEN STORAGE ENGINEERING 11/01/2024 Narrative [facility] INSURANCE BILL - 11/02/2024 3:10 PM DIRECTOR HYDROGEN STORAGE ENGINEERING Performed at: [address] [id number] Business Analyst Intern: Timi Phan PhD, Phone: [phone] Avis Cee MD LAB - CHEMISTRY ORDERABLES Final Result Performing Organization Address City/[facility] Co de Phone Number [facility] INSURANCE BILL [address] [place] [address] * ALDOLASE (11/01/2024 3:35 PM DIRECTOR HYDROGEN STORAGE ENGINEERING) Pathologist [facility] Aldolase 3.5 3.3 - 10.3 U/L [facility] INSURANCE BILL Blood BLOOD SPECIMEN / Unknown 11/01/2024 3:35 PM DIRECTOR HYDROGEN STORAGE ENGINEERING 11/01/2024 Narrative [facility] INSURANCE BILL - 11/02/2024 3:10 PM DIRECTOR HYDROGEN STORAGE ENGINEERING Performed at: 01 - [address] [id number] Business Analyst Intern: Timi Phan PhD, Phone: [phone] Avis Cee MD LAB - CHEMISTRY ORDERABLES Final Result Performing Organization Address [facility] de Phone Number [facility] INSURANCE BILL [address] [place] [address] * THIOPURINE METHYLTRANSFERASE (11/01/2024 3:35 PM DIRECTOR HYDROGEN STORAGE ENGINEERING) [facility] TPMT Activity 25.3 Units/mL RBC [facility] INSURANCE [...] developed and its performance characteristics determined by [facility]. It has not been cleared or approved by the Food and Drug Administration. This case has been reviewed, approved, interpreted and electronically signed by Baron Rivera, PhD, [facility]. Methodology Comment [facility] INSURANCE BILL Comment: Enzymatic Endpoint/Liquid Chromatography - Tandem Mass Spectrometry (LC-MS/MS) Blood BLOOD SPECIMEN / Unknown 11/01/2024 3:35 PM DIRECTOR HYDROGEN STORAGE ENGINEERING 11/01/2024 Narrative [facility] INSURANCE BILL - 11/09/2024 5:09 PM DIRECTOR HYDROGEN STORAGE ENGINEERING Performed at: 01 - [facility] [address] [place] [id number] Business Analyst Intern: Jose Alfredo Ferris MD, Phone: [phone] Avis Cee MD LAB - CHEMISTRY ORDERABLES Final Result Performing Organization Address City/[facility]/ZIP Co de Phone Number [facility] INSURANCE BILL [address] [place] [address] * CYCLIC CITRULLINATED PEPTIDE(CCP) AB IGG (11/01/2024 3:35 PM DIRECTOR HYDROGEN STORAGE ENGINEERING) CCP Antibodies IgG/IgA <20 <20 Units [facility] INSURANCE BILL Comment: Negative: <20 Weak Positive: 20-39 Moderate Positive: 40-59 Strong Positive: >59 Blood BLOOD SPECIMEN / Unknown 11/01/2024 3:35 PM DIRECTOR HYDROGEN STORAGE ENGINEERING 11/01/2024 Narrative [facility] INSURANCE BILL - 11/07/2024 9:08 PM DIRECTOR HYDROGEN STORAGE ENGINEERING Performed at: - [facility] [address] [place] [id number] Business Analyst Intern: Jose Alfredo Ferris MD, Phone: [phone] us Avis Cee MD LAB - CHEMISTRY ORDERABLES Final Result Performing Organization Address [facility]/ZIP Co de Phone Number [facility] INSURANCE BILL [address] [place] [address] * ERYTHROCYTE SEDIMENTATION RATE (11/01/2024 3:35 PM DIRECTOR HYDROGEN STORAGE ENGINEERING) Pathologist [facility] Erythrocyte Sedimentation Rate Westergren 7 0 - 32 mm/hr [facility] INSURANCE BILL Blood BLOOD SPECIMEN / Unknown 11/01/2024 3:35 PM DIRECTOR HYDROGEN STORAGE ENGINEERING 11/01/2024 Narrative [facility] INSURANCE BILL - 11/02/2024 7:09 AM DIRECTOR HYDROGEN STORAGE ENGINEERING Performed at: - [facility] [address] [place], [place] [phone] Business Analyst Intern: Timi Phan PhD, Phone: [phone] us Avis Cee MD LAB - HEMATOLOGY ORDERABLES Elicia l Result [facility] INSURANCE BILL [address] [place] [address] * COMPLEMENT C4 (11/01/2024 3:35 PM DIRECTOR HYDROGEN STORAGE ENGINEERING) Complement C4 28 14 - 44 mg/dL [facility] INSURANCE BILL Blood BLOOD SPECIMEN / Unknown 11/01/2024 3:35 PM DIRECTOR HYDROGEN STORAGE ENGINEERING 11/01/2024 Narrative [facility] INSURANCE BILL - 11/05/2024 7:08 AM DIRECTOR HYDROGEN STORAGE ENGINEERING Performed at: 01 - [facility] [address] [place] [id number] Business Analyst Intern: Jose Alfredo Ferris MD, Phone: [phone] Avis Cee MD LAB - SEROLOGY ORDERABLES Final Result Performing Organization Address [facility] Co de Phone Number [facility] INSURANCE BILL [address] [place] [address] * PROTEIN CREATININE RATIO URINE RANDOM PNL (11/01/2024 3:35 PM DIRECTOR HYDROGEN STORAGE ENGINEERING) Creatinine Urine 163.2 Not Estab. mg/dL [facility] INSURANCE BILL Protein Urine 15.5 Not Estab. mg/dL [facility] INSURANCE BILL Protein/Creatin ine Ratio 95 0 - 200 mg/g creat [facility] INSURANCE BILL Urine URINE SPECIMEN OBTAINED BY CLEAN CATCH PROCEDURE / Unknown 11/01/2024 3:35 PM DIRECTOR HYDROGEN STORAGE ENGINEERING 11/01/2024 Narrative [facility] INSURANCE BILL - 11/02/2024 10:10 AM DIRECTOR HYDROGEN STORAGE ENGINEERING Performed at: - [facility] [id number] Business Analyst Intern: Timi Phan PhD, Phone: [phone] us Avis Cee MD LAB - URINE CHEMISTRY ORDERABLES Final Result Performing Organization Address [facility] Co de Phone Number [facility] INSURANCE BILL [address] [place] [address] * CK BLOOD (11/01/2024 3:35 PM DIRECTOR HYDROGEN STORAGE ENGINEERING) CK 89 32 - 182 U/L [facility] INSURANCE BILL Blood BLOOD SPECIMEN / Unknown 11/01/2024 3:35 PM DIRECTOR HYDROGEN STORAGE ENGINEERING 11/01/2024 Narrative [facility] INSURANCE BILL - 11/02/2024 8:11 AM DIRECTOR HYDROGEN STORAGE ENGINEERING Performed at: 01 - [facility] [address] [id number] Business Analyst Intern: Timi Phan PhD, Phone: [phone] us Avis Cee MD LAB - CHEMISTRY ORDERABLES Final Result [facility] INSURANCE BILL [address] [place] [address] * COMPLEMENT C3 (11/01/2024 3:35 PM DIRECTOR HYDROGEN STORAGE ENGINEERING) Complement C3 180 90 - 180 mg/dL [facility] INSURANCE BILL Comment: Effective September 24, 2024, C3 Complement (RDL) reference interval will be changing to: 90 - 180 mg/dL Blood BLOOD SPECIMEN / Unknown 11/01/2024 3:35 PM DIRECTOR HYDROGEN STORAGE ENGINEERING 11/01/2024 Narrative [facility] INSURANCE BILL - 11/05/2024 7:08 AM DIRECTOR HYDROGEN STORAGE ENGINEERING Performed at: 01 - [facility] [address] [place] [id number] Business Analyst Intern: Jose Alfredo Ferris MD, Phone: [phone] us Avis Cee MD LAB - CHEMISTRY ORDERABLES Final Result [facility] INSURANCE BILL [address] [place] [address] * CARDIAC EKG ORDER (10/31/2024 7:06 PM DIRECTOR HYDROGEN STORAGE ENGINEERING) Narrative 10/31/2024 7:06 PM DIRECTOR HYDROGEN STORAGE ENGINEERING Ordered by an unspecified provider. Scanned Document CARDIAC SERVICES ORDERABLES Fin al Result * TROPONIN-I HIGH SENSITIVE REFLEX 1HOUR (10/31/2024 12:30 AM DIRECTOR HYDROGEN STORAGE ENGINEERING) Pathologist [facility] Troponin I High Sensitive <3 <=14 ng/L 10/31/2024 1:00 AM DIRECTOR HYDROGEN STORAGE ENGINEERING [facility] Delta Troponin I HS 10/31/2024 1:00 AM DIRECTOR HYDROGEN STORAGE ENGINEERING [facility] Comment:Delta value intentio curry not calculated. Baseline to 1 hour specimen collection interval exceeded. Blood BLOOD SPECIMEN / Unknown Venipuncture / Unknown 10/31/2024 12:30 AM DIRECTOR HYDROGEN STORAGE ENGINEERING 10/31/2024 12:33 AM DIRECTOR HYDROGEN STORAGE ENGINEERING Ashley [facility] LAB - CHEMISTRY ORDERA BLES Final Result [facility] [address] [place] [address] * XR CHEST 2VW (10/30/2024 8:44 PM DIRECTOR HYDROGEN STORAGE ENGINEERING) Anatomical Region Laterality Modality Chest Radiographic Lorena ging 10/30/2024 8:57 PM DIRECTOR HYDROGEN STORAGE ENGINEERING Impressions 10/30/2024 8:58 PM DIRECTOR HYDROGEN STORAGE ENGINEERING IMPRESSION: Normal > Interpreting Provider: Christopher Bonds MD on 10/30/2024 8:58 PM Narrative 10/30/2024 8:58 PM DIRECTOR HYDROGEN STORAGE ENGINEERING PROCEDURE: XR CHEST 2VW DATE/TIME OF EXAM: [...] Bonds MD on 10/30/2024 8:58 PM Ashley Hillscate [facility] DIAGNOSTIC IMAGING ORD ERABLES Final Result * EKG 12-LEAD (10/30/2024 8:23 PM DIRECTOR HYDROGEN STORAGE ENGINEERING) Ventricular Rate 81 BPM [facility] Atrial Rate 81 BPM [facility] P-R Interval 136 ms [facility] QRS Duration ms 86 ms [facility] Q-T Interval ms 358 ms [facility] QTC Calculation (Bezet) 415 ms [facility] Calculated P Tatums 68 degrees [facility] Calculated R Tatums 51 degrees [facility] Calculated T Tatums 49 degrees [facility] Interpretation EKG NORMAL SINUS RHYTHM WITH SINUS ARRHYTHMIA NORMAL ECG NO PREVIOUS ECGS AVAILABLE Confirmed by Mickey Burnette MD ([id number]) on 10/31/2024 7:59:22 AM [facility] 10/30/2024 8:23 PM DIRECTOR HYDROGEN STORAGE ENGINEERING 10/31/2024 7:59 AM DIRECTOR HYDROGEN STORAGE ENGINEERING Xsilon APNP-Trochet ECG ORDERABLES Edited Result - Final [facility] * TROPONIN-I HIGH SENSITIVE BASELINE + 1HR (10/30/2024 8:21 PM DIRECTOR HYDROGEN STORAGE ENGINEERING) [facility] Troponin I High Sensitive <3 <=14 ng/L 10/30/2024 8:43 PM DIRECTOR HYDROGEN STORAGE ENGINEERING [facility] Blood BLOOD SPECIMEN / Unknown Venipuncture / Unknown 10/30/2024 8:21 PM DIRECTOR HYDROGEN STORAGE ENGINEERING 10/30/2024 8:21 PM DIRECTOR HYDROGEN STORAGE ENGINEERING [employer] [facility] LAB - CHEMISTRY ORDERA BLES Final Result Performing Organization Address [facility]/ZIP Co de Phone Number [facility] [address] [place] [address] * CBC W AUTO DIFFERENTIAL (10/30/2024 8:21 PM DIRECTOR HYDROGEN STORAGE ENGINEERING) [facility] WBC 9.3 4.0 - 10.7 x10E9/L [...] Unknown Venipuncture / Unknown 10/30/2024 8:21 PM DIRECTOR HYDROGEN STORAGE ENGINEERING 10/30/2024 8:21 PM [facility] Ashley [facility] [facility] LAB - HEMATOLOGY ORDER BEKAH Final Result [facility] [address] [place] [address] * (ABNORMAL) COMPREHENSIVE METABOLIC PANEL (10/30/2024 8:21 PM DIRECTOR HYDROGEN STORAGE ENGINEERING) Glucose 94 70 - 99 mg/dL 10/30/2024 [...] Unknown Venipuncture / Unknown 10/30/2024 8:21 PM DIRECTOR HYDROGEN STORAGE ENGINEERING 10/30/2024 8:21 PM DIRECTOR HYDROGEN STORAGE ENGINEERING Ashley Jefferson [employer] [facility] LAB - CHEMISTRY ORDERA BLES Final Result Performing Organization Address [facility]/ZIP Co de Phone Number [facility] [address] [place] [address] * HCG BETA BLOOD QUANTITATIVE (10/30/2024 8:21 PM DIRECTOR HYDROGEN STORAGE ENGINEERING) Pathologist [facility] hCG Quantitative <2.42 mIU/mL 10/31/19 12:15 AM DIRECTOR HYDROGEN STORAGE ENGINEERING [facility] Blood BLOOD SPECIMEN / Unknown Venipuncture / Unknown 10/30/2024 8:21 PM DIRECTOR HYDROGEN STORAGE ENGINEERING 10/30/2024 8:21 PM DIRECTOR HYDROGEN STORAGE ENGINEERING Narrative [facility] - 10/31/2024 12:15 AM DIRECTOR HYDROGEN STORAGE ENGINEERING hCG Reference Range, mIU/mL: Non Females 0-6.0 [...] unlikely. Tatum Young MD LAB - CHEMISTRY ORDERABLES Final Result Performing Organization Address City/[facility]/ZIP Co de Phone Number [facility] [address] [place] [id number] * [place] INTRALESIONAL INJECTION(S) 7 OR LESS (10/12/2024 11:15 AM DIRECTOR HYDROGEN STORAGE ENGINEERING) Narrative Gagan Skinner MD - 10/12/2024 11:15 AM DIRECTOR HYDROGEN STORAGE ENGINEERING Se Schmitt MD 10/12/2024 11:15 AM The side effects of intralesional triamcinolone were discussed with patient, including petechiae and purpura, local lipoatrophy, striae and pigment change. 0.1mL of Triamcinolone 10mg/mL was injected in to right lateral lower leg papule with a 1 cc syringe and a 30 gauge needle. Se Schmitt MD [facility] Dermatology Resident Gagan Skinner MD PROCEDURE/MINOR SURGICAL ORDERA BLES Final Result from Last 3 Months Insurance Advance Directives * Full Code (Latest Code Status on File) Date Activated Date Inactivated Comments 03/16/2015 11:07 PM 03/20/2015 5:14 PM Care Teams Theatrical Agent Relationship Specialty Start Date End Date Willow Dunham [facility] [address] [place] [address] PCP - General 12/26/24
== END 2025-01-10 14:33 | disposition home or self-care (01) ==
PROVIDERS: Visit Provider Otolaryngology Otolaryngology/Facial Plastic Surgery
DX: H93.12 Tinnitus, left ear (principal)
CPT/HCPCS: 92557; 92567

== ENCOUNTER → 2025-03-04 11:16 | Outpatient (REF) | payer OTHER, SELFPAY ==
--- NOTE | 2025-03-04 11:16 | S_PTH ---
PATIENT: Kalee Aguillon LOC: ANHGOSHLAB U#:[id number] AGE/SX: 25/F ROOM: RE03/04/[address]: Shaina Givens MD : 2000 BED: DIS: SPEC #: [id number] RECD: 03/05/25 07:15 STATUS: FE RE #: [id number] BRADEN: 03/04/25 11:[address]: Shaina Givens DEPT: [facility] Surgical RECD BY: Binta Turner ENTERED: 03/05/25 07:16 SP TYPE: Surgical OTHR DR: UNKNOWN,DOCTOR Tissues: A - Biopsy Procedures: Hematoxylin and Eosin Stain Gross and Microscopic Level 4
--- OUTSIDE RECORDS SUMMARY | 2025-03-04 12:33 | XMS_ITS | Clinical Summary ---
Author Organization [facility] Medical Office Building [address] Address [address] [place] [address] Care Team Providers Care Client Services Administrator Name Role Phone Willow Dunham Gema [facility] Primary Care Provi kailyn Allergies Active Allergy Reactions Criticality Noted Date Comments Iodinated Contrast Media Sweating Low 12/27/2024 CT abdomen Medications rizatriptan (MAXALT) 5 mg tablet Take 1 tab by mouth once at first sign of migraine. May repeat one time after 2 hours if needed. 5 Active ondansetron (ZOFRAN) 4 mg tablet 1 tablet (4 mg total) every [address] (PROTONIX) 20 mg EC tablet Take 2 tablets (40 mg total) by mouth daily 180 tablet 5 Active fexofenadine (GISSELL) 180 mg tablet Take 1 tablet (180 mg total) by mouth daily 90 tablet 1 5 Active fluticasone propionate (FLONASE) 50 mcg/actuation nasal spray Administer 2 sprays into each nostril daily 3 each 3 5 Active topiramate (TOPAMAX) 25 mg tablet 5 Active triamcinolone (KENALOG) 0.1 % cream 5 Active Active Problems Problem Noted Date [...] 11/19/2024 Assessment & Plan (11/19/2024 4:44 PM BURR SANDER): Refer to GI Raynaud's disease 11/19/2024 Assessment & Plan (12/23/2024 5:56 PM CDT): Recommend staying on amlodipine 2.5 mg daily Patient has self-discontinued due to other provider telling her that her blood pressure was normal Assessment & Plan (11/19/2024 4:52 PM BURR SANDER): Take amlodipine 2.5 mg daily Medication and side effects reviewed Follow-up in 1 month Dyshidrotic eczema 11/19/2024 Assessment & Plan (11/19/2024 4:44 PM BURR SANDER): Take Gissell 180 mg daily as prescribed [...] daily Assessment & Plan (11/19/2024 4:49 PM BURR SANDER): Refer to GI Take Protonix 20 mg daily as prescribed Discontinue marijuana use Avoid foods that cause irritation Keep food diary Follow-up in 1 month Positive BETSY (antinuclear antibody) 11/19/2024 Assessment & Plan (12/23/2024 5:58 PM CDT): Refer to rheumatology Assessment & Plan (11/19/2024 4:51 PM BURR SANDER): Refer to rheumatology Rash 11/19/2024 Assessment & Plan (12/23/2024 6:00 PM CDT): Managed by Dermatology Assessment & Plan (11/19/2024 4:52 PM BURR SANDER): Refer to derm Recommend taking Gissell 180 mg daily Follow-up in 1 month KOKO (stress urinary incontinence, female) 2024 Assessment & Plan (11/19/2024 4:52 PM BURR SANDER): Refer to pelvic floor physical therapy Dyspnea 11/19/2024 Assessment & Plan (11/19/2024 4:48 PM BURR SANDER): PFT ordered Vomiting 11/19/2024 Assessment & Plan (11/19/2024 4:48 PM BURR SANDER): Take Protonix 20 mg daily as prescribed Discontinue smoking daily marijuana Refer to GI Follow-up in 1 month Overweight with body mass in dex (BMI) of 27 to 27.9 in adult 11/19/2024 Assessment & Plan (12/23/2024 6:14 PM CDT): Your BMI is elevated. Try to cut back on calories. Most people should eat between 5159-6990 calories to lose weight. Goal BMI is less than 30. A healthy BMI is considered between 19-25. Decrease your carbohydrate intake to less than 150 grams per day if possible and increase protein to help with hunger. Increase activity to 30 min 4-5 days a week of moderate aerobic activity and add strength training 2 times weekly, as tolerated. Consider using [employer] lei to track diet and exercise habits daily. Consider trying Weight Watcher program to make dietary changes. Visit www.dietaryguidelines.gov, www.myplate.gov, or www.health.gov for more dietary information and tips. Visit www.Eyevensys or wwwCardioMind for online package delivery room service runner covered by health insurance. 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 Occurs with or without headache. Pt will monitor for triggers and attempt supplemental magnesium. Monitor Attention deficit disorder without hyperactivity 08/26/2023 Assessment & Plan (11/19/2024 4:43 PM BURR SANDER): Chronic and stable without medication Other viral warts 08/26/2023 Asthma 12/14/2022 Assessment & Plan (12/23/2024 6:05 PM CDT): Appointment with pulmonology 12/27/24 History of substance abuse 11/08/2022 History of drug abuse 12/16/2021 History of substance abuse 12/16/2021 Polycystic ovarian syndrome 12/16/2021 Assessment & Plan (12/23/2024 5:59 PM CDT): Patient did not take Sanjuanita Assessment & Plan (11/19/2024 4:51 PM BURR SANDER): Start Sanjuanita OCP as prescribed Medication and side effects reviewed Follow-up in 1 month Primary familial hypertrophic cardiomyopathy Syncope and collapse 12/16/2021 Fatigue 08/11/2015 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 Anxiety 08/11/2015 Assessment & Plan (11/19/2024 4:43 PM BURR SANDER): Chronic and stable without medication Chronic cough 08/11/2015 Resolved Problems Problem Noted Date Diagnosed Date Resolved Date Glaucoma suspect of both eyes 11/14/2024 11/19/2024 Assessment & Plan (11/14/2024 12:56 PM BURR SANDER): Asymmetric intraocular pressure (IOP) OD> left eye [...] Type Department Care Team Description 01/02/2025 Telephone [facility] [address] [address] Carlota Miner 12/28/2024 Results Follow-Up [facility] [address] [address] Jenifer Pizarro MD Prolactin, Hemoglobin A1c, Lipid panel, Total testosterone 12/27/2024 9:20 AM CDT Lab [address] [address] PCOS (polycystic ovarian syndrome) 12/27/2024 8:30 AM CDT Office Visit [facility] [address] [facility] [address] [address] Jenifer Pizarro MD PCOS (polycystic ovarian syndrome) (Primary Dx); Abnormal ultrasound of neck 12/23/2024 Results Follow-Up [address] [place] [address] Willow Dunham DNP TSH 12/21/2024 1:35 PM CDT Lab [facility] [address] [place] [address] Thyroid disorder screen 12/20/2024 1:30 PM CDT Office Visit [address] [place] [address] Willow Dunham DNP Numbness in right leg [...] in adult; Thyroid disorder screen 12/05/2024 Telephone [facility] [address] [address] Carlota Miner 12/04/2024 Results Follow-Up [address] [place] [address] Willow Dunham DNP Thyroid peroxidase antibody (TPO), Thyroglobulin antibodies 12/03/2024 12:30 PM CDT Lab [facility] [address] [place] [address] Abnormal thyroid ultrasound; Thyroid disorder screen from Last 3 Months Immunizations Immunization Administration [...] on file Legal Sex Female 8:46 PM BURR SANDER Gender Identity Not on file Sexual Orientation [...] 8:35 AM CDT Height 160 cm (5' 3) 12/27/2024 8:35 AM CDT Body Mass Index [...] CDT Abnormal thyroid ultrasound Thyroid disorder screen from Last 3 Months Results * Prolactin (12/27/2024 9:20 AM CDT) Prolactin 12.8 4.8 - 23.3 ng/mL Blood 12/27/2024 9:20 AM CDT 12/27/2024 10:26 AM CDT us Jenifer Levin MD LAB BLOOD ORDERABLE S Final Result [facility] [address] Department [place] [address] * (ABNORMAL) DHEA-sulfate (12/27/2024 9:20 AM CDT) DHEA-S 504.0(H) 98.8 - 340.0 mcg/dL Comment:Testing performed by : [facility], [address] [facility], [place]., [address] Blood 12/27/2024 9:20 AM CDT 12/27/2024 12:08 PM CDT us Jenifer Levin MD LAB BLOOD ORDERABLE S Final Result Performing Organization Address [facility] de Phone Number [facility] [phone] [employer] [place] [address] * (ABNORMAL) Total testosterone (12/27/2024 9:20 AM CDT) Testosterone 67(H) 8 - 48 ng/dL Blood 12/27/2024 9:20 AM CDT 12/27/2024 10:26 AM CDT Jenifer Levin MD LAB BLOOD ORDERABLE S Final Result Performing Organization Address [facility] Phone Number [facility] [phone] [employer] [place] [address] * Hemoglobin A1c (12/27/2024 9:20 AM CDT) [facility] Hgb A1C 4.9 4.0 - 5.6 % Estimated Average Glucose 94 mg/dL [facility] Comment: The ADA recommends reporting an estimated Average Glucose (eAG) with all Hemoglobin A1c results using the equation derived from a study of 507 normal and diabetic adults. Minority populations were underrepresented and children were not included. (Diabetes Care 31:5700-5564, 2008). The eAG is not equivalent to a fasting glucose. Blood 12/27/2024 9:20 AM CDT 12/27/2024 10:26 AM CDT us Jenifer Levin MD LAB BLOOD ORDERABLE S Final Result Performing Organization Address [facility] Co de Phone Number [facility] KOTHARI [address] [employer] [place] [address] * Lipid panel (12/27/2024 9:20 AM CDT) [facility] Cholesterol 177 30 - 199 mg/dL Comment: [...] NCEP Expert Panel. Circulation 2004;110:227 3. Twin M et al. CARLOS Cardiol. 2020 January [...] LAB BLOOD ORDERABLE S Final Result [facility] [address] Department of Laboratories [place], [place] [id number] * TSH (12/21/2024 1:38 PM CDT) Thyroid Stimulating Hormone 1.05 0.30 - 4.20 mcIUnit/mL Comment:Testing performed by : [facility], [address] [place] [address]., [address] Blood 12/21/2024 1:38 PM CDT 12/21/2024 2:14 PM CDT us Willow Dunham DNP LAB BLOOD ORDERABLE S Final Result [facility] [address] [facility] Department [place] [address] * Thyroglobulin antibodies (12/03/2024 12:34 PM CDT) Anti-thyroglobulin <1.8 <4.0 IUnits/mL [facility] Comment: ADDITIONAL INFORMATION PLEASE NOTE: The given thyroglobulin antibody (TgAb) reference cutoff of <4.0 IU/mL is for the evaluation of autoimmune thyroiditis. A cutoff of <1.8 IU/mL may be more suitable for the detection of potential thyroglobulin antibody (TgAb) interference in thyroglobulin immunoassays. The thyroglobulin antibody testing method is an immunoenzymatic assay manufactured by [employer]. and performed on the [employer] DXI 800. Values obtained from different assay methods or kits may be different and cannot be used interchangeably. The results cannot be interpreted as absolute evidence for the presence or absence of malignant disease. Test Performed by: [facility] [address] [place] [address] Medical Office Supervisor: Danial José Ph.D.; CLIA# [id number] Blood 12/03/2024 12:3 4 PM CDT 12/03/2024 1:01 PM CDT [facility] LAB BLOOD ORDERABLE S Final Result Performing Organization Address City/State/[facility] Co de Phone Number JINGJZ [address] [facility] Department [place] [address] [facility] * Thyroid peroxidase antibody (TPO) (12/03/2024 12:34 PM CDT) Anti Thyroid Peroxidase <30 <=34 IUnits/mL Comment: ATPO Interpretive Data Results may be up to 28% higher in patients receiving Itraconazole. Current interpretive data was last revised 2020. Testing performed by: [facility], [address] [place]., [address] Blood 12/03/2024 12:3 4 PM CDT 12/03/2024 3:42 PM CDT us Willow Dunham [facility] LAB BLOOD ORDERABLE S Final Result [facility] [address] [facility] Department [place] [address] from Last 3 Months Insurance Advance Directives For more information, please contact: [phone] * Full Code (Latest Code Status on File) Date Activated Date Inactivated Comments 12/01/2022 7:49 AM 12/01/2022 2:04 PM Care Teams Client Services Administrator Relationship Specialty Start Date End Date Willow Dunham DNP [address] [place] [address] [place] [address] PCP - General Family Medicine 11/19/24
--- OUTSIDE RECORDS SUMMARY | 2025-03-04 12:34 | XMS_ITS | Referral Summary ---
Author Organization [facility] Building B Address [address] [place] [address] Care Team Providers Care Convertible Top Installer Name Role Phone Willow Dunham DNP Primary Care Provi kailyn Encounters Date Type Department Care Team Description 01/02/2025 Telephone [facility] [address] [phone] Carlota Miner 12/28/2024 Results Follow-Up [facility] Specialists of [address] [address] Jenifer Pizarro MD Prolactin, Hemoglobin A1c, Lipid panel, Total testosterone 12/27/2024 9:20 AM CDT Lab [address] [address] PCOS (polycystic ovarian syndrome) 12/27/2024 8:30 AM CDT Office Visit [facility] of [address] [address] Jenifer Pizarro MD PCOS (polycystic ovarian syndrome) (Primary Dx); Abnormal ultrasound of neck 12/23/2024 Results Follow-Up [facility] [address] [place] [address] Willow Dunham DNP TSH 12/21/2024 1:35 PM CDT Lab [facility] Lab [address] [place] [address] Thyroid disorder screen 12/20/2024 1:30 PM CDT Office Visit [place] [address] [facility] [address] [place] [address] Willow Dunham DNP Numbness in right leg [...] in adult; Thyroid disorder screen 12/05/2024 Telephone [facility] Eye [address] [address] Carlota Miner 12/04/2024 Results Follow-Up [place] [address] [facility] [address] [place] [address] Willow Dunham DNP Thyroid peroxidase antibody (TPO), Thyroglobulin antibodies 12/03/2024 12:30 PM CDT Lab [facility] Lab [address] [place] [address] Abnormal thyroid ultrasound; Thyroid disorder screen from Last 3 Months Allergies Active Allergy [...] total) by mouth daily 90 tablet 1 Active fluticasone propionate (FLONASE) 50 mcg/actuation nasal spray Administer 2 sprays into each nostril daily 3 each 3 5 Active topiramate (TOPAMAX) 25 mg tablet 5 Active triamcinolone (KENALOG) 0.1 % cream Active Active Problems Problem Noted Date Diagnosed [...] 11/19/2024 Assessment & Plan (11/19/2024 4:44 PM AREA FIELD WORKER): Refer to GI Raynaud's disease 11/19/2024 Assessment & Plan (12/23/2024 5:56 PM CDT): Recommend staying on amlodipine 2.5 mg daily Patient has self-discontinued due to other provider telling her that her blood pressure was normal Assessment & Plan (11/19/2024 4:52 PM AREA FIELD WORKER): Take amlodipine 2.5 mg daily Medication and side effects reviewed Follow-up in 1 month Dyshidrotic eczema 11/19/2024 Assessment & Plan (11/19/2024 4:44 PM AREA FIELD WORKER): Take Gissell 180 mg daily as prescribed [...] daily Assessment & Plan (11/19/2024 4:49 PM AREA FIELD WORKER): Refer to GI Take Protonix 20 mg daily as prescribed Discontinue marijuana use Avoid foods that cause irritation Keep food diary Follow-up in 1 month Positive BETSY (antinuclear antibody) 11/19/2024 Assessment & Plan (12/23/2024 5:58 PM CDT): Refer to rheumatology Assessment & Plan (11/19/2024 4:51 PM AREA FIELD WORKER): Refer to rheumatology Rash 11/19/2024 Assessment & Plan (12/23/2024 6:00 PM CDT): Managed by Dermatology Assessment & Plan (11/19/2024 4:52 PM AREA FIELD WORKER): Refer to derm Recommend taking Gissell 180 mg daily Follow-up in 1 month KOKO (stress urinary incontinence, female) 2024 Assessment & Plan (11/19/2024 4:52 PM AREA FIELD WORKER): Refer to pelvic floor physical therapy Dyspnea 11/19/2024 Assessment & Plan (11/19/2024 4:48 PM AREA FIELD WORKER): PFT ordered Vomiting 11/19/2024 Assessment & Plan (11/19/2024 4:48 PM AREA FIELD WORKER): Take Protonix 20 mg daily as prescribed Discontinue smoking daily marijuana Refer to GI Follow-up in 1 month Overweight with body mass in dex (BMI) of 27 to 27.9 in adult 11/19/2024 Assessment & Plan (12/23/2024 6:14 PM CDT): Your BMI is elevated. Try to cut back on calories. Most people should eat between 6119-3585 calories to lose weight. Goal BMI is less than 30. A healthy BMI is considered between 19-25. Decrease your carbohydrate intake to less than 150 grams per day if possible and increase protein to help with hunger. Increase activity to 30 min 4-5 days a week of moderate aerobic activity and add strength training 2 times weekly, as tolerated. Consider using Plastic Jungle lei to track diet and exercise habits daily. Consider trying Weight Watcher program to make dietary changes. Visit www.dietaryguidelines.gov, www.myplate.gov, or www.health.gov for more dietary information and tips. Visit www.[employer] or www[employer]o Skateboards for online book or script editor covered by health insurance. 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 Occurs with or without headache. Pt will monitor for triggers and attempt supplemental magnesium. Monitor Attention deficit disorder without hyperactivity 08/26/2023 Assessment & Plan (11/19/2024 4:43 PM AREA FIELD WORKER): Chronic and stable without medication Other viral warts 08/26/2023 Asthma 12/14/2022 Assessment & Plan (12/23/2024 6:05 PM CDT): Appointment with pulmonology 12/27/24 History of substance abuse 11/08/2022 History of drug abuse 12/16/2021 History of substance abuse 12/16/2021 Polycystic ovarian syndrome 12/16/2021 Assessment & Plan (12/23/2024 5:59 PM CDT): Patient did not take Sanjuanita Assessment & Plan (11/19/2024 4:51 PM AREA FIELD WORKER): Start Sanjuanita OCP as prescribed Medication and side effects reviewed Follow-up in 1 month Primary familial hypertrophic cardiomyopathy Syncope and collapse 12/16/2021 Fatigue 08/11/2015 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 Anxiety 08/11/2015 Assessment & Plan (11/19/2024 4:43 PM AREA FIELD WORKER): Chronic and stable without medication Chronic cough 08/11/2015 Resolved Problems Problem Noted Date Diagnosed Date Resolved Date Glaucoma suspect of both eyes 11/14/2024 11/19/2024 Assessment & Plan (11/14/2024 12:56 PM AREA FIELD WORKER): Asymmetric intraocular pressure (IOP) OD> left eye [...] on file Legal Sex Female 8:46 PM AREA FIELD WORKER Gender Identity Not on file Sexual Orientation [...] LAB BLOOD ORDERABLE S Final Result [facility] [address] Department [place] [address] * (ABNORMAL) DHEA-sulfate (12/27/2024 9:20 AM CDT) DHEA-S 504.0(H) 98.8 - 340.0 mcg/dL Comment:Testing performed by : [facility], [address] [facility], [place] [address] Blood 12/27/2024 9:20 AM CDT 12/27/2024 12:08 PM CDT Jenifer Levin MD LAB BLOOD ORDERABLE S Final Result Performing Organization Address [facility] Co de Phone Number [facility] [address] Department [place] [address] * (ABNORMAL) Total testosterone (12/27/2024 9:20 AM CDT) Testosterone 67(H) 8 - 48 ng/dL Blood 12/27/2024 9:20 AM CDT 12/27/2024 10:26 AM CDT Jenifer Levin MD LAB BLOOD ORDERABLE S Final Result Performing Organization Address [facility] Phone Number [facility] [address] [place] [address] * Hemoglobin A1c (12/27/2024 9:20 AM CDT) Hgb A1C 4.9 4.0 - 5.6 % Estimated Average Glucose 94 mg/dL [facility] Comment: The ADA recommends reporting an estimated Average Glucose (eAG) with all Hemoglobin A1c results using the equation derived from a study of 507 normal and diabetic adults. Minority populations were underrepresented and children were not included. (Diabetes Care 31:0403-6411, 2008). The eAG is not equivalent to a fasting glucose. Blood 12/27/2024 9:20 AM CDT 12/27/2024 10:26 AM CDT Jenifer Levin MD LAB BLOOD ORDERABLE S Final Result Performing Organization Address [facility] Co de Phone Number [facility] [address] [address] [place] [address] * Lipid panel (12/27/2024 9:20 AM CDT) [...] on 2018. Triglycerides 90 <=149 mg/dL [facility] Comment: Interpretive Data Ages [...] on 2018. HDL 41 >=40 mg/dL [facility] Comment: Interpretive Data Ages [...] 2018. LDL, calculated 119 <=129 mg/dL [facility] Comment: Interpretive Data Ages [...] CDT 12/27/2024 10:26 AM CDT us Jenifer Levni MD LAB BLOOD ORDERABLE S Final Result [facility] [address] Department [place] [address] * TSH (12/21/2024 1:38 PM CDT) Thyroid Stimulating Hormone 1.05 0.30 - 4.20 mcIUnit/mL Comment:Testing performed by : [facility], [address] [place] [address]., [address] Blood 12/21/2024 1:38 PM CDT 12/21/2024 2:14 PM CDT Willow Dunham [facility] LAB BLOOD ORDERABLE S Final Result Performing Organization Address [facility] de Phone Number [facility] [address] [address] * Thyroglobulin antibodies (12/03/2024 12:34 PM CDT) Anti-thyroglobulin <1.8 <4.0 IUnits/mL [facility] Lab Comment: ADDITIONAL INFORMATION PLEASE NOTE: The given thyroglobulin antibody (TgAb) reference cutoff of <4.0 IU/mL is for the evaluation of autoimmune thyroiditis. A cutoff of <1.8 IU/mL may be more suitable for the detection of potential thyroglobulin antibody (TgAb) interference in thyroglobulin immunoassays. The thyroglobulin antibody testing method is an immunoenzymatic assay manufactured by [employer] and performed on the [employer] DXI 800. Values obtained from different assay methods or kits may be different and cannot be used interchangeably. The results cannot be interpreted as absolute evidence for the presence or absence of malignant disease. Test Performed by: [place] [address] Data Assistant: Danial José Ph.D.; CLIA# [id number] Blood 12/03/2024 12:3 4 PM CDT 12/03/2024 1:01 PM CDT Willow Valladaresfrancois Dunham [facility] LAB BLOOD ORDERABLE S Final Result Performing Organization Address [facility] Co de Phone Number [facility] [address] [place] [address] [facility] * Thyroid peroxidase antibody (TPO) (12/03/2024 12:34 PM CDT) Anti Thyroid Peroxidase <30 <=34 IUnits/mL Comment: ATPO Interpretive Data Results may be up to 28% higher in patients receiving Itraconazole. Current interpretive data was last revised 2020. Testing performed by: [facility], [address] [place]., [address] Blood 12/03/2024 12:3 4 PM CDT 12/03/2024 3:42 PM CDT us Willowmarj Valladaresfrancois Dunham [facility] LAB BLOOD ORDERABLE S Final Result [facility] [address] [place] [address] from Last 3 Months Insurance [facility] Advance Directives For more information, please contact: [phone] * Full Code (Latest Code Status on File) Date Activated Date Inactivated Comments 12/01/2022 7:49 AM 12/01/2022 2:04 PM Care Teams Convertible Top Installer Relationship Specialty Start Date End Date Willow Dunham DNP [address] [place] [address] PCP - General Family Medicine 11/19/24
--- OUTSIDE RECORDS SUMMARY | 2025-03-04 12:34 | XMS_ITS | CONTINUITY OF CARE DOCUMENT ---
Author Name donna thompson Address Unknown Organization [place] [facility] Address [address] [place] [address] [address] [place] [address] Phone [phone] Care Team Providers Care Printed Circuit Board Layout Designer Name Role Phone Beverly MONTERO, Terry Martinez Unavailable [phone] MISSAEL MONTERO, RUNDA Unavailable MISSAEL MONTERO, RUNDA Unavailable [phone] PROBLEMS Condition Status Date Provider Notes active Terry Paul MD Family history of diabetes mellitus active Terry Paul MD Family Hx of thyroid cancer active Terry Paul MD Syncope active Terry Paul MD Polycystic ovarian syndrome active Terry Paul MD Hx of drug abuse active Terry Paul MD Hx of tobacco abuse active Terry Paul MD Personal history of COVID-19 active Terry Paul MD Diaphoresis active Terry Paul MD Familial hypertrophic cardiomyopathy active Terry Paul MD Dizzy spells active Terry Paul MD ENCOUNTERS Date Type Provider Location Encounter Diag nosis 3 - 6 In-person encounter Office Visit Terry Paul MD [place] [facility] 2 - 7 In-person encounter Office Visit Terry Paul MD [place] [facility] 0 - 0 In-person encounter Office Visit Terry Paul MD [place] [facility] Dizzy spellsFamilial hypertrophic cardiomyopathyDiaphoresisPersonal history of [...] revi ewed - no changes required Terry aPul MD social history E&M S moking History: [...] Payer name Policy type / Coverage type [place] red libertarian [place] [employer] (2) Medicaid [id number] ADVANCE DIRECTIVES Name Date DISCUSSED - NO DECISION MADE TREATMENT PLAN Date Name Performer [id number],C, N o new episodes, normal tele Terry Paul MD [id number],C, S ees OBGYN Terry Paul MD [id number],C,A1c was aminta steve Paul MD [id number],S,Sees OBLIU Sa rylee Paul MD [id number],S,No new episod es, normal tele Terry Paul MD [id number],C,Sees DEEPAN, e verything is normal. Terry Paul MD [id number],C,E cho 12/28/21 NO evidence of LVH on [...] of pulmonic r egurgitation. Terry Paul MD [id number],C,H ad covid 07/2020. No changes in her respiratory status pre covid to now. Terry aPul MD [id number],C,N eeds to have an echocardiogram done. Terry Paul MD [id number],S,W ill check a telemonitor. Hx of palpitations [...]
--- OUTSIDE RECORDS SUMMARY | 2025-03-04 12:34 | XMS_ITS | Clinical Summary ---
Author Organization [facility] [employer] Address [address] [place] [address] Care Team Providers Care Home Designer Name Role Phone Willow Dunham Primary Care Provider [phone] Source Comments [facility] [employer],non-owned Affiliates and Associated Physician Practices is amultiple site organization consisting of ambulatory clinics and hospital sitesin [place], [place], [place] and [place]. This disclosure is being madepursuant to the Care Everywhere program and may not contain all information available regarding this patient. Last updated 18.[facility] [employer] Allergies No known active allergies Medications * [...] 05/14/2015 Assessment & Plan (11/10/2015 4:35 PM VALVE FITTER): Clinical history is not classically consistent with [...] Encounters Date Type Department Care Team Description 02/27/2025 Telephone [facility] - Dermatology [address] [place] [address], [place] [address] Singh Campa MD Reschedule Appointment 01/18/2025 Orders Only [facility] - Neurology [address] [place] [phone] Morgan Lopez APRN-DIRECTOR SURGICAL 12/28/2024 1:30 PM CDT Office Visit [facility] - Infectious Disease [address] [place] [address], [place] [phone] Braxton Eaton MD Multiple somatic complaints (Primary Dx); Concern about infectious disease without diagnosis 12/28/2024 Travel 12/27/2024 Telephone [facility] - Rheumatology [address], [address] [place] [address] Avis Cee MD Referral 12/24/2024 Travel 12/13/2024 1:30 PM CDT Office Visit [facility] - Neurology [address] [place] [phone] SettJeffrey frychela, PERSONAL CARE ASSISTANT-DIRECTOR SURGICAL Cellulitis of upper extremity, unspecified laterality (Primary Dx); POTS (postural orthostatic tachycardia syndrome); Intractable migraine with aura with status migrainosus; Acne, unspecified acne type 12/13/2024 Orders Only [facility] - Neurology [address] [facility], [place] [address] CharismaTereso fryisreal, PERSONAL CARE ASSISTANT-DIRECTOR SURGICAL Cellulitis of upper extremity, unspecified laterality; Acne, unspecified acne type 12/13/2024 Travel from Last 3 Months Family History Medical History Relation Name Comments Cancer Mother Thyroid Disease Mother Thyroid canc er Congenital Heart defect Other Grea t uncle with hypertrophic cardiomyopathy Arthritis - Rheumatoid Paternal Grandfather Arrhythmia Neg Hx CVA<55(male) Neg Hx CVA<65(female) Neg Hx Cardiomyopathy Neg Hx Heart Surgery Neg Hx Long QT Syndrome Neg Hx AZ<55(male) Neg Hx AZ<65(female) Neg Hx Marfan Syndrome Neg Hx Pacemaker [...] on file Legal Sex Female 5:39 AM VALVE FITTER Gender Identity Not on file Sexual Orientation [...] 1:38 PM CDT Height 157.5 cm (5' 2) 12/28/2024 1:38 PM CDT Body Mass Index 28.17 12/28/2024 1:38 PM CDT Plan of Treatment Upcoming Encounters Date Type Department Care Team (Late st Contact Info) Description 04/15/2025 2:00 PM CDT Office Visit [facility] - Neurology [address] [facility], [place] [address] Morgan Lopez APRN-DIRECTOR SURGICAL [address] [facility] [address] [place] [phone] 04/17/2025 2:40 PM CDT Office Visit [facility] - Rheumatology [address] [facility], [address] [place] [address] Abril Oakley MD [address] [place] [address] Health Maintenance Due Date Last Done Comments HPV VACCINE (1 - 3-dose series) 2013 DTAP/TDAP/TD VACCINES (1 - Tdap) 2017 HEPATITIS B VACCINE (1 of 3 - 19+ 3-dose series) 2017 PNEUMOCOCCAL VACCINE (1 of 2 - PCV) 2017 PAP SMEAR 2019 COVID-19 VACCINE (1 - 2023-2 5 season) [...] Procedure Name Priority Date/Time Associated Diagnosis Comments HEPATITIS SCREEN ACUTE ([facility]) Routine 11/01/2024 3:35 PM VALVE FITTER BETSY positive Rash Fatigue, unspecified type Dry mouth Dry eye Numbness Raynaud's syndrome without gangrene Polyarthralgia Myalgia, multiple sites Cervicalgia Other low back pain Encounter for long-term (current) use of high-risk medication from Last 3 Months or Most Recently Relevant to Health Maintenance Results * HEPATITIS SCREEN ACUTE ([facility]) (11/01/2024 3:35 PM VALVE FITTER) Hepatitis A Virus Antibody IgM Negative Negative [facility] INSURANCE BILL Comment: A negative anti-HAV IgM result suggests no recent or current HAV infection. Hepatitis B Virus Surface Antigen Negative Negative [facility] INSURANCE BILL Hepatitis B Core Virus Antibody IgM Negative Negative [facility] INSURANCE BILL Hepatitis C Antibody Non Reactive Non Reactive [facility] INSURANCE BILL Comment: Performed at: [address] [place] [id number] Tax Manager Public: Timi Phan PhD, Phone: [phone] Interpretation Comment [facility] INSURANCE BILL Comment: Not infected with HCV unless early or acute infection is suspected (which may be delayed in an immunocompromised individual), or other evidence exists to indicate HCV infection. Blood BLOOD SPECIMEN / Unknown 11/01/2024 3:35 PM VALVE FITTER 11/01/2024 Narrative [facility] INSURANCE BILL - 11/02/2024 7:09 AM VALVE FITTER Performed at: [address] [place] [id number] Tax Manager Public: Timi Phan PhD, Phone: [phone] us Avis Cee MD LAB - CHEMISTRY ORDERABLES Final Result [facility] INSURANCE BILL [address] [place] [address] from Last 3 Months or Most Recently Relevant to Health Maintenance Insurance Advance Directives * Full Code (Latest Code Status on File) Date Activated Date Inactivated Comments 03/16/2015 11:07 PM 03/20/2015 5:14 PM Care Teams Home Designer Relationship Specialty Start Date End Date CharlaWillow [facility] [address] [facility] [address] [place] [address] PCP - General 12/26/24
--- OUTSIDE RECORDS SUMMARY | 2025-03-04 12:34 | XMS_ITS | Encounter Summary ---
Author Organization [facility] Address [address] [place] [address] Care Team Providers Care Lining Marker Name Role Phone Niesha Garcia MD Primary Care Provider Unavaila vargas None, Physician Primary Care Provider UnavailCem Mart MD Primary Care Provider [phone] Willow Dunham Primary Care Provider [phone] Encounter Details Date Type Department Care Team (Late st Contact Info) Description 03/04/2023 Telephone [facility] - Centralized Scheduling [address] [place] [phone] Debbie Bishop K, ANTISQUEAK FILLER-MANAGER OF BUSINESS OPERATIONS [address] [place] [phone] Social History Tobacco Use Types Packs/Day Years Used Date Smoking Tobacco: Smoker, Current Status Unknown Alcohol Use Standard Drinks/Week Comments No 0 (1 standard drink = 0.6 oz pur e alcohol) Comments No Sex and Gender Information Value Date Recorded Sex Assigned at Not on file Legal Sex Female 5:39 AM ATTORNEY AT LAW Gender Identity Not on file Sexual Orientation [...] Description 04/15/2025 2:00 PM CDT Office Visit [facility] - Neurology [address] [facility], [place] [phone] Morgan Lopez APRN-MANAGER OF BUSINESS OPERATIONS [address] [place] [address] [place] [address] 04/17/2025 2:40 PM CDT Office Visit [facility] - Rheumatology [address] [facility], [address] [place] [address] Abril [place] MD [address] [place] [address] documented as of this encounter Visit Diagnoses Not on filedocumented in this encounter Care Teams Lining Marker Relationship Specialty Start Date End Date Niesha Garcia MD PCP - General 07/14/22 10/11/24 None, Physician PCP - General 10/12/24 11/04/24 Cem Hernandez MD [address] [place] [address] [place] [address] PCP - General Family Medicine 11/05/24 12/25/24 Willow Dunham [facility] [address] [facility] [address] [place] [address] PCP - General 12/26/24 documented as of this encounter
--- OUTSIDE RECORDS SUMMARY | 2025-03-04 12:34 | XMS_ITS | Encounter Summary ---
Author Organization [facility] Address [address] [facility] [place] [address] Care Team Providers Care Textile Supervisor Name Role Phone Willow Dunham Primary Care Provider [phone] Reason for Visit * Reason Onset Date Comments Reschedule Appointment 02/27/2025 Encounter Details Date Type Department Care Team (Late st Contact Info) Description 02/27/2025 Telephone [facility] - Dermatology [address] [facility], [facility] [place] [address] Singh Campa MD [address] [place] [address] Reschedule Appointment Social History Tobacco Use Types Packs/Day Years Used Date Smoking Tobacco: Smoker, Current Status Unknown Alcohol Use Standard Drinks/Week Comments Not Currently 0 (1 standard drink = 0.6 oz pur e alcohol) social PHQ-2 Answer Date Recorded Patient Health Questionnaire-2 Score 3 11/01/2024 Comments No Sex and Gender Information Value Date Recorded Sex Assigned at Not on file Legal Sex Female 5:39 AM OPTICAL LENS MANUFACTURING TECH Gender Identity Not on file Sexual Orientation Not on file documented as of this encounter Functional Status * Is person deaf or have serious hearing difficulty? Answer Date of Assessment Author No 03/20/2015 4:02 PM Cirilo Edmonds RN * Is person blind or have serious difficulty seeing? Answer Date of Assessment Author No 03/20/2015 4:02 PM Cirilo Edmonds RN * Does person have serious difficulty [...] encounter Miscellaneous Notes * Telephone Encounter - He Roque - 02/27/2025 1:32 PM CDT . documented in this encounter Plan of Treatment Upcoming Encounters Date Type Department Care Team (Late st Contact Info) Description 04/15/2025 2:00 PM CDT Office Visit [facility] - Neurology [address] [facility], [place] [address] Morgan Lopez APRN-ASSET MANAGEMENT LEAD [address] [place] [address] [place] [address] 04/17/2025 2:40 PM CDT Office Visit [facility] - Rheumatology [address] [facility], [address] [place] [address] Abril [place] MD [address] [place] [address] documented as of this encounter Visit Diagnoses Not on filedocumented in this encounter Care Teams Textile Supervisor Relationship Specialty Start Date End Date CharlaWillow bunn [facility] [address] [place] [address] PCP - General 12/26/24 documented as of this encounter
--- OUTSIDE RECORDS SUMMARY | 2025-03-04 12:34 | XMS_ITS | Encounter Summary ---
Author Organization [facility] Address [address] [place] [address] Care Team Providers Care Manager Mission Name Role Phone Kelechi Camacho PA-C Primary Care Provider [phone] Primary Care Prov ider Niesha Garcia MD Primary Care Provider Unavaila ble None, Physician Primary Care Provider UnavailCem Mart MD Primary Care Provider [phone] Willow Dunham Primary Care Provider Reason for Visit * Reason Onset Date Comments Question 10/20/2015 Encounter Details Date Type Department Care Team (Late st Contact Info) Description 10/20/2015 Telephone [facility] [place] [address] Andrew Alonso MD [facility] [place] [address] Question Social History Tobacco Use Types Packs/Day Years Used Date Smoking Tobacco: Smoker, Current Status Unknown Alcohol Use Standard Drinks/Week Comments No 0 (1 standard drink = 0.6 oz pur e alcohol) Comments No Sex and Gender Information Value Date Recorded Sex Assigned at Not on file Legal Sex Female 5:39 AM RESPIRATORY THERAPIST Gender Identity Not on file Sexual [...] was e-scribed in place of Prevacid to [facility]. IRATORY THERAPIST documented in this encounter Plan of Treatment Upcoming Encounters Date Type Department Care Team (Late st Contact Info) Description 04/15/2025 2:00 PM CDT Office Visit [facility] - Neurology [address] [place] [address], [place] [address] Morgan Lopez APRN-COST AND SALES RECORD SUPERVISOR [address] [place] [address] [place] [address] 04/17/2025 2:40 PM CDT Office Visit [facility] - Rheumatology [address] [place] [address], [address] [place] [address] Abril [place] MD [address] [place] [address] documented as of this encounter Visit Diagnoses Not on filedocumented in this encounter Care Teams Manager Mission Relationship Specialty Start Date End Date Kelechi Camacho PA-C [address] [place] [address] PCP - General Physician Tunnel Kiln Operator 09/02/15 12/14/21 [facility], [address] [place] [address] [address] [facility], [place] [address] PCP - General 12/15/21 07/13/22 Niesha Garcia MD PCP - General 07/14/22 10/11/24 None, Physician PCP - General 10/12/24 11/04/24 Cem Hernandez MD [address] [place] [address] PCP - General Family Medicine 11/05/24 12/25/24 Willow Dunham [facility] [address] [facility] [address] [place] [address] PCP - General 12/26/24 documented as of this encounter
== END ==
LOC: ANHGOSHLAB 11:16
PROVIDERS: Visit Provider Otolaryngology Otolaryngology/Facial Plastic Surgery
DX: R68.2 Dry mouth, unspecified (principal)
CPT/HCPCS: 88305

== ENCOUNTER 2025-04-08 09:58 | Outpatient (CLI) | payer OTHER, SELFPAY ==
--- NOTE | ~2025-04-08 | XR_ITS ---
EXAMINATION: XR barium swallow DATE: 04/08/2025 10:52 INDICATION: Foreign body sensation TECHNIQUE: The patient drank thick barium, and thin barium. Fluoroscopy of the hypopharynx and esopha german was performed. Fluoroscopy exposure time was 0.9 minutes. The total number of images was 29. The dose-area product was 2.8 Gy-cm^2. COMPARISON: None. FINDINGS: There is no mass or stricture of the esophagus. Esophageal motility is normal. There is no hiatal hernia. There was no gastroesophageal reflux with provocative maneuvers. IMPRESSION: No significant esophageal abnormality, as detailed above. Reviewed, dictated and finalized at location A.
--- OUTSIDE RECORDS SUMMARY | 2025-04-08 10:10 | XMS_ITS | Patient Health Record ---
Author Organization [facility] Address [address] [address] Care Team Providers Care Patient Consumer Marketer Name Role Phone Migration, Provider Unavailable Unavailable Allergies No Known Allergies Reason For Referral No Information Medications Medication SIG (Take, Route, Frequency, Duration) Notes Start Date End Date Status traZODone HCl 50 MG Tablet take 1 or 2 t ablets by oral route every night at bedtime Oral 07/19/2017 Active hydrOXYzine HCl 50 MG Tablet take 1 tablet by oral route 3 times every day Oral 07/19/2017 Active lamoTRIgine 100 MG Tablet take 1 tablet by oral route every day Oral 07/19/2017 Active Problems Problem Type SNOMED Code ICD Code Onset Dates Problem Status W/U Status Risk Notes Problem Stimulant abuse (003907516) Other stimulant abuse, 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) 7 Active confirmed Problem Major depression, single episode (90202692) Major depressive disorder, single episode, unspecified (F32.9) Active confirmed Problem Anxiety disorder (660705278) Anxiety disorder, unspecified (F41.9) Active confirmed Problem Acute vaginitis (94179693) Acute vaginitis (N76.0) Active confirmed Problem Sleep deprivation (970439671) Sleep deprivation (Z72.820) 8 Active confirmed Problem Body mass index (BMI) 22.0-22.9, adult (Z68.22) 8 Active confirmed Problem BMI less than 20 (129212521) Body mass index (BMI) 19 or less, adult (Z68.1) 7 Active confirmed Encounters Encounter Location Date Provider Diagnosis [facility] [address] [address] 07/21/2024 Provider Migration [facility] [address] [address] 07/22/2024 Provider Migration Plan Of Treatment No Information Insurance Providers Payer Name Payer Address Payer Phone Subscriber Number Group Number Insured Name Patient Relationship to Insured Coverage Start Date Coverage End Date [facility] [address] [place] [address] [id number] Kalee Aguillon Self - patient is the insured
--- OUTSIDE RECORDS SUMMARY | 2025-04-08 10:10 | XMS_ITS | Referral Summary ---
Author Organization [facility] Building [facility] Address [address] [place] [address] Care Team Providers Care Veneer Stacker Name Role Phone Willow Dunham DNP Primary Care Provi kailyn Encounters Date Type Department Care Team Description 03/28/[address] [facility] Family Medicine [address] [facility] [address] [place] [address] Willow Dunham, MARITZA Referral Request from Last 3 Months Allergies Active Allergy [...] mouth daily 180 tablet 5 Active fexofenadine (JADEN) 180 mg tablet Take [...] 11/19/2024 Assessment & Plan (11/19/2024 4:44 PM CAE ENGINEER): Refer to GI Raynaud's disease 11/19/2024 Assessment & Plan (12/23/2024 5:56 PM CDT): Recommend staying on amlodipine 2.5 mg daily Patient has self-discontinued due to other provider telling her that her blood pressure was normal Assessment & Plan (11/19/2024 4:52 PM CAE ENGINEER): Take amlodipine 2.5 mg daily Medication and side effects reviewed Follow-up in 1 month Dyshidrotic eczema 11/19/2024 Assessment & Plan (11/19/2024 4:44 PM CAE ENGINEER): Take Jaden 180 mg daily as prescribed Refer to derm Follow-up in 1 month Dysphagia 11/19/2024 Assessment & Plan (12/23/2024 6:02 PM CDT): Schedule appointment with Dr. Azrola for EGD Take Protonix 20 mg daily Gastroesophageal reflux disease without esophagi tis 11/19/2024 Assessment & Plan (12/23/2024 6:01 PM CDT): Schedule appointment with Dr. Arzola for EGD Take Protonix 20 mg daily Assessment & Plan (11/19/2024 4:49 PM CAE ENGINEER): Refer to GI Take Protonix 20 mg daily as prescribed Discontinue marijuana use Avoid foods that cause irritation Keep food diary Follow-up in 1 month Positive BETSY (antinuclear antibody) 11/19/2024 Assessment & Plan (12/23/2024 5:58 PM CDT): Refer to rheumatology Assessment & Plan (11/19/2024 4:51 PM CAE ENGINEER): Refer to rheumatology Rash 11/19/2024 Assessment & Plan (12/23/2024 6:00 PM CDT): Managed by Dermatology Assessment & Plan (11/19/2024 4:52 PM CAE ENGINEER): Refer to derm Recommend taking Jaden 180 mg daily Follow-up in 1 month KOKO (stress urinary incontinence, female) 2024 Assessment & Plan (11/19/2024 4:52 PM CAE ENGINEER): Refer to pelvic floor physical therapy Dyspnea 11/19/2024 Assessment & Plan (11/19/2024 4:48 PM CAE ENGINEER): PFT ordered Vomiting 11/19/2024 Assessment & Plan (11/19/2024 4:48 PM CAE ENGINEER): Take Protonix 20 mg daily as prescribed Discontinue smoking daily marijuana Refer to GI Follow-up in 1 month Overweight with body mass in dex (BMI) of 27 to 27.9 in adult 11/19/2024 Assessment & Plan (12/23/2024 6:14 PM CDT): Your BMI is elevated. Try to cut back on calories. Most people should eat between 0689-5022 calories to lose weight. Goal BMI is less than 30. A healthy BMI is considered between 19-25. Decrease your carbohydrate intake to less than 150 grams per day if possible and increase protein to help with hunger. Increase activity to 30 min 4-5 days a week of moderate aerobic activity and add strength training 2 times weekly, as tolerated. Consider using Sumbola lei to track diet and exercise habits daily. Consider trying Weight Watcher program to make dietary changes. Visit www.dietaryguidelines.gov, www.myplate.gov, or www.health.gov for more dietary information and tips. Visit www.[employer] Gen Illumination or wwwPusher for online school services officer covered by health insurance. Aura 11/14/2024 Assessment & Plan (12/23/2024 6:05 PM CDT): Managed by Ophthalmology Managed by Neurology Continue topiramate 25 mg daily Continue Maxalt 5 mg as needed Assessment & Plan (11/19/2024 4:43 PM CAE ENGINEER): Managed by Ophthalmology Refer to neurology Start Nurtec 75 mg every other day Use Maxalt 5 mg as needed Follow-up in 1 month Assessment & Plan (11/14/2024 12:55 PM CAE ENGINEER): + visual phenomenon consistent with migranous aura which completely resolves. Occurs with or without headache. Pt will monitor for triggers and attempt supplemental magnesium. Monitor Attention deficit disorder without hyperactivity 08/26/2023 Assessment & Plan (11/19/2024 4:43 PM CAE ENGINEER): Chronic and stable without medication Other viral warts 08/26/2023 Asthma 12/14/2022 Assessment & Plan (12/23/2024 6:05 PM CDT): Appointment with pulmonology 12/27/24 History of substance abuse 11/08/2022 History of drug abuse 12/16/2021 History of substance abuse 12/16/2021 Polycystic ovarian syndrome 12/16/2021 Assessment & Plan (12/23/2024 5:59 PM CDT): Patient did not take Sanjuanita Assessment & Plan (11/19/2024 4:51 PM CAE ENGINEER): Start Sanjuanita OCP as prescribed Medication and side effects reviewed Follow-up in 1 month Primary familial hypertrophic cardiomyopathy Syncope and collapse 12/16/2021 Fatigue 08/11/2015 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 Anxiety 08/11/2015 Assessment & Plan (11/19/2024 4:43 PM CAE ENGINEER): Chronic and stable without medication Chronic cough 08/11/2015 Resolved Problems Problem Noted Date Diagnosed Date Resolved Date Glaucoma suspect of both eyes 11/14/2024 11/19/2024 Assessment & Plan (11/14/2024 12:56 PM CAE ENGINEER): Asymmetric intraocular pressure (IOP) OD> left eye [...] on file Legal Sex Female 8:46 PM CAE ENGINEER Gender Identity Not on file Sexual Orientation [...] CDT Plan of Treatment Not on file Insurance [id number] [place] [address] Advance Directives For more information, please contact: [phone] * Full Code (Latest Code Status on File) Date Activated Date Inactivated Comments 12/01/2022 7:49 AM 12/01/2022 2:04 PM Care Teams Veneer Stacker Relationship Specialty Start Date End Date Willow Dunham DNP [address] [facility] [address] [place] [address] [place] [address] PCP - General Family Medicine 11/19/24
--- OUTSIDE RECORDS SUMMARY | 2025-04-08 10:10 | XMS_ITS | Clinical Summary ---
Author Organization [facility] Medical Office Building B Address [address] [place] [address] Care Team Providers Care Real Estate Recruiter Name Role Phone Willow Dunham Gema [facility] Primary Care Provi kailyn Allergies Active Allergy [...] 11/19/2024 Assessment & Plan (11/19/2024 4:44 PM POST DOCTORAL RESEARCHER): Refer to GI Raynaud's disease 11/19/2024 Assessment & Plan (12/23/2024 5:56 PM CDT): Recommend staying on amlodipine 2.5 mg daily Patient has self-discontinued due to other provider telling her that her blood pressure was normal Assessment & Plan (11/19/2024 4:52 PM POST DOCTORAL RESEARCHER): Take amlodipine 2.5 mg daily Medication and side effects reviewed Follow-up in 1 month Dyshidrotic eczema 11/19/2024 Assessment & Plan (11/19/2024 4:44 PM POST DOCTORAL RESEARCHER): Take Jaden 180 mg daily as prescribed [...] daily Assessment & Plan (11/19/2024 4:49 PM POST DOCTORAL RESEARCHER): Refer to GI Take Protonix 20 mg daily as prescribed Discontinue marijuana use Avoid foods that cause irritation Keep food diary Follow-up in 1 month Positive BETSY (antinuclear antibody) 11/19/2024 Assessment & Plan (12/23/2024 5:58 PM CDT): Refer to rheumatology Assessment & Plan (11/19/2024 4:51 PM POST DOCTORAL RESEARCHER): Refer to rheumatology Rash 11/19/2024 Assessment & Plan (12/23/2024 6:00 PM CDT): Managed by Dermatology Assessment & Plan (11/19/2024 4:52 PM POST DOCTORAL RESEARCHER): Refer to derm Recommend taking Jaden 180 mg daily Follow-up in 1 month KOKO (stress urinary incontinence, female) 2024 Assessment & Plan (11/19/2024 4:52 PM POST DOCTORAL RESEARCHER): Refer to pelvic floor physical therapy Dyspnea 11/19/2024 Assessment & Plan (11/19/2024 4:48 PM POST DOCTORAL RESEARCHER): PFT ordered Vomiting 11/19/2024 Assessment & Plan (11/19/2024 4:48 PM POST DOCTORAL RESEARCHER): Take Protonix 20 mg daily as prescribed Discontinue smoking daily marijuana Refer to GI Follow-up in 1 month Overweight with body mass in dex (BMI) of 27 to 27.9 in adult 11/19/2024 Assessment & Plan (12/23/2024 6:14 PM CDT): Your BMI is elevated. Try to cut back on calories. Most people should eat between 0062-6010 calories to lose weight. Goal BMI is less than 30. A healthy BMI is considered between 19-25. Decrease your carbohydrate intake to less than 150 grams per day if possible and increase protein to help with hunger. Increase activity to 30 min 4-5 days a week of moderate aerobic activity and add strength training 2 times weekly, as tolerated. Consider using NeuroTronik lei to track diet and exercise habits daily. Consider trying Weight Watcher program to make dietary changes. Visit www.dietaryguidelines.gov, www.myplate.gov, or www.health.gov for more dietary information and tips. Visit www.Adenyo or wwwBitSight Technologies for online pneumatic tester mechanic covered by health insurance. Aura 11/14/2024 Assessment & Plan (12/23/2024 6:05 PM CDT): Managed by Ophthalmology Managed by Neurology Continue topiramate 25 mg daily Continue Maxalt 5 mg as needed Assessment & Plan (11/19/2024 4:43 PM POST DOCTORAL RESEARCHER): Managed by Ophthalmology Refer to neurology Start Nurtec 75 mg every other day Use Maxalt 5 mg as needed Follow-up in 1 month Assessment & Plan (11/14/2024 12:55 PM POST DOCTORAL RESEARCHER): + visual phenomenon consistent with migranous aura which completely resolves. Occurs with or without headache. Pt will monitor for triggers and attempt supplemental magnesium. Monitor Attention deficit disorder without hyperactivity 08/26/2023 Assessment & Plan (11/19/2024 4:43 PM POST DOCTORAL RESEARCHER): Chronic and stable without medication Other viral warts 08/26/2023 Asthma 12/14/2022 Assessment & Plan (12/23/2024 6:05 PM CDT): Appointment with pulmonology 12/27/24 History of substance abuse 11/08/2022 History of drug abuse 12/16/2021 History of substance abuse 12/16/2021 Polycystic ovarian syndrome 12/16/2021 Assessment & Plan (12/23/2024 5:59 PM CDT): Patient did not take Sanjuanita Assessment & Plan (11/19/2024 4:51 PM POST DOCTORAL RESEARCHER): Start Sanjuanita OCP as prescribed Medication and side effects reviewed Follow-up in 1 month Primary familial hypertrophic cardiomyopathy Syncope and collapse 12/16/2021 Fatigue 08/11/2015 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 Anxiety 08/11/2015 Assessment & Plan (11/19/2024 4:43 PM POST DOCTORAL RESEARCHER): Chronic and stable without medication Chronic cough 08/11/2015 Resolved Problems Problem Noted Date Diagnosed Date Resolved Date Glaucoma suspect of both eyes 11/14/2024 11/19/2024 Assessment & Plan (11/14/2024 12:56 PM POST DOCTORAL RESEARCHER): Asymmetric intraocular pressure (IOP) OD> left eye [...] [facility] Family Medicine [address] [place] [address] [place] [address] Willow Dunham DNP Referral Request from Last 3 Months Immunizations Immunization Administration [...] on file Legal Sex Female 8:46 PM POST DOCTORAL RESEARCHER Gender Identity Not on file Sexual Orientation [...] series) 04/28/2023 11/27/19 23, 10/29/2022 Influenza Vaccine (#1) 2025 07/14/2016 Depression Screening 11/19/2025 11/19/2024 Hepatitis B Screening Completed 01/15/1999 , 1998, 1998, Additional history exists Insurance [facility] Advance Directives For more information, please contact: [phone] * Full Code (Latest Code Status on File) Date Activated Date Inactivated Comments 12/01/2022 7:49 AM 12/01/2022 2:04 PM Care Teams Real Estate Recruiter Relationship Specialty Start Date End Date Willow Dunham DNP [facility] [place] [address] PCP - General Family Medicine 11/19/24
--- OUTSIDE RECORDS SUMMARY | 2025-04-08 10:10 | XMS_ITS | Encounter Summary ---
Author Organization [facility] Address [address] [place] [address] Care Team Providers Care Art Critic Name Role Phone Niesha Garcia MD Primary Care Provider Unavaila vargas None, Physician Primary Care Provider UnavailCem Mart MD Primary Care Provider [phone] Willow Dunham Primary Care Provider [phone] Encounter Details Date Type Department Care Team (Late st Contact Info) Description 03/04/2023 Telephone [facility] - Centralized Scheduling [address] [place] [address] Debbie Bishop K, BELLY ROLLER-PMO PROJECT MANAGER [address] [place] [address] Social History Tobacco Use Types Packs/Day Years Used Date Smoking Tobacco: Smoker, Current Status Unknown Alcohol Use Standard Drinks/Week Comments No 0 (1 standard drink = 0.6 oz pur e alcohol) Comments No Sex and Gender Information Value Date Recorded Sex Assigned at Not on file Legal Sex Female 5:39 AM 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 GRADE TEACHER Gender Identity Not on file Sexual Orientation [...] Author No 03/20/2015 4:02 PM CDT Cirilo Hancokc RN documented as of this encounter Mental [...] Description 04/15/2025 2:00 PM CDT Office Visit [facility] - Neurology [address] [facility], [place] [address] Morgan Lopez APRN-PMO PROJECT MANAGER [address] [place] [address] [place] [address] 04/17/2025 2:40 PM CDT Office Visit [facility] - Rheumatology [address] [facility], [address] [place] [address] Abril [place] MD [address] [place] [address] documented as of this encounter Visit Diagnoses Not on filedocumented in this encounter Care Teams Art Critic Relationship Specialty Start Date End Date Niesha Garcia MD PCP - General 07/14/22 10/11/24 None, Physician PCP - General 10/12/24 11/04/24 Cem Hernandez MD [address] [place] [address] [place] [address] PCP - General Family Medicine 11/05/24 12/25/24 Willow Dunham [facility] [address] [facility] [address] [place] [address] PCP - General 12/26/24 documented as of this encounter
--- OUTSIDE RECORDS SUMMARY | 2025-04-08 10:11 | XMS_ITS | Encounter Summary ---
Author Organization [facility] Address [address] [place] [address] Care Team Providers Care Clinical Analyst Name Role Phone Kelechi Camacho PA-C Primary Care Provider [phone] Primary Care Prov ider Niesha Garcia MD Primary Care Provider Unavaila ble None, Physician Primary Care Provider UnavailCem Mart MD Primary Care Provider [phone] Willow Dunham Primary Care Provider [phone] Reason for Visit * Reason Onset Date Comments Question 10/20/2015 Encounter Details Date Type Department Care Team (Late st Contact Info) Description 10/20/2015 Telephone [facility] [place] [address] Andrew Alonso MD 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 L BILLING CLERK documented in this encounter Plan of Treatment Upcoming Encounters Date Type Department Care Team (Late st Contact Info) Description 04/15/2025 2:00 PM CDT Office Visit [facility] - Neurology [address] [place] [address], [place] [address] Morgan Lopez APRN-STRIP[employer]ACK [employer] WHITE [address] [place] [address] [place] [address] 04/17/2025 2:40 PM CDT Office Visit [facility] - Rheumatology [address] [place] [address], [address] [place] [address] Abril [place] MD [address] [place] [address] documented as of this encounter Visit Diagnoses Not on filedocumented in this encounter Care Teams Clinical Analyst Relationship Specialty Start Date End Date Kelechi Camacho PA-C [address] [place] [address] PCP - General Physician Dry Mixer 09/02/15 12/14/21 [facility], [address] [place] [address] [facility], [place] [address] PCP - General 12/15/21 07/13/22 Niesha Garcia MD PCP - General 07/14/22 10/11/24 None, Physician PCP - General 10/12/24 11/04/24 Cem Hernandez MD [address] [place] [address] PCP - General Family Medicine 11/05/24 12/25/24 Willow Dunham [facility] [address] [facility] [address] [place] [address] PCP - General 12/26/24 documented as of this encounter
--- OUTSIDE RECORDS SUMMARY | 2025-04-08 10:11 | XMS_ITS ---
Author Organization [facility] Address [address] [place] [address] Care Team Providers Care Trauma Surgeon Name Role Phone Migration, Provider Unavailable Unavailable REASON FOR VISIT EMR-Singh Encounters Encounter Location Date Provider Diagnosis Dayana Elise PA [address] [place] [address] 07/21/2024 Provider Migration Plan Of Treatment No Information Progress Notes * Carl RITTERDashaB:2000 (25 yo F)Acc No.[id number]:07/21/2024 Patient: Kalee GARCIA :2000 A ge:24 Y S ex:Female [address] [place], [address] Subjective: * Chief Complaints: * E MR-Singh * * Date:
--- OUTSIDE RECORDS SUMMARY | 2025-04-08 10:11 | XMS_ITS ---
Author Organization [facility] Address [address] [place] [address] Care Team Providers Care Heavy Equipment Service Technician Name Role Phone Migration, Provider Unavailable Unavailable Allergies No Known Allergies REASON FOR VISIT [facility] Medications Medication SIG (Take, Route, Frequency, Duration) [...] oral route every day Oral 07/19/2017 Active Encounters Encounter Location Date Provider Diagnosis Dayana Elise PA [address] [place] [address] 07/22/2024 Provider Migration Plan Of Treatment No Information Progress Notes * Eugenio RITTERBryanna:2000 (25 yo F)Acc No.[id number]:07/22/2024 Patient: Kalee GARCIA :2000 A ge:24 Y S ex:Female Address:[address] [place] [id number] Subjective: * Chief Complaints: * E MR-Singh * Medical History: Med_system:gastrointestinal, Disease : Hepatitis, Magda-Soto virus, , Med_system:hematologic, Disease : Anemia iron deficiency, , Med_system:hematologic, Disease : Anemia, iron deficiency, , Med_system:psychiatric, Disease : Anxiety, , Med_system:psychiatric, Disease : Depression, * Family History: F ather: Family history [...] at bedtime Oral * Allergies: N .K.D.A. * * Date:
--- OUTSIDE RECORDS SUMMARY | 2025-04-08 10:11 | XMS_ITS | Patient Health Record ---
Author Organization [facility] Address [address] [place], [place] [id number] Support Name Relationship Address Phone CHANDRIKA NAPOLES Emergency Contact Unknown [phone] BUD RITTER Guarantor Unknown [phone] Reason For Referral No Information Plan Of Treatment No Information Insurance Providers Payer Name Payer Address Payer Phone Subscriber Number Group Number Insured Name Patient Relationship to Insured Coverage Start Date Coverage End Date Zahraa Monson (Regions 1-6) [address] [place], [place] [id number] BUD RITTER Self - patient is the insured
--- OUTSIDE RECORDS SUMMARY | 2025-04-08 10:11 | XMS_ITS | Clinical Summary ---
Author Organization [facility] Address [address] [place] [address] Care Team Providers Care Quantitative Analyst Developer Name Role Phone Willow Dunham Primary Care Provider [phone] Source Comments [facility],non-owned Affiliates and Associated Physician Practices is amultiple site organization consisting of ambulatory clinics and hospital sitesin [place], [place], [place] and [place]. This disclosure is being madepursuant to the Care Everywhere program and may not contain all information available regarding this patient. Last updated 18.[facility] Allergies No known active allergies Medications * [...] Assessment & Plan (05/21/2015 12:03 PM CDT): Bud Ritter is a 15 y.o. female with [...] 05/14/2015 Assessment & Plan (11/10/2015 4:35 PM SUPERVISOR PREP): Clinical history is not classically consistent with [...] & Plan (03/20/2015 11:35 AM CDT): Assessment: Bud Ritter is a 14 year old female [...] & Plan (03/19/2015 1:31 PM CDT): Assessment: Bud Ritter is a 14 year old female [...] & Plan (03/18/2015 3:25 PM CDT): Assessment: Bud Ritter is a 14 year old female [...] & Plan (03/18/2015 7:17 PM CDT): Assessment: Bud Ritter is a 14 y.o. female who [...] & Plan (03/17/2015 12:06 AM CDT): Assessment: Bud Ritter is a 14 y.o. female who [...] infectious causes in differential. Plan: Admit to [facility], Dr. Alonso NPO with mIVF RUQ ultrasound in am TSH, T4, coags, HFP, F-actin antibody, liver kidney microsomal antibody in am Vitals q4h, I/Os, up as tolerated Hold home Vyvanse for now Encounters Date Type Department Care Team Description 02/27/2025 Telephone [facility] - Dermatology [address] [place] [address], [place] [address] Singh Campa MD Reschedule Appointment 01/18/2025 Orders Only [facility] - Neurology [address] [place] [address], [place] [address] Morgan Lopez APRN-GLUE SPRAYER from Last 3 Months Family History Medical History Relation Name Comments Cancer Mother Thyroid Disease Mother Thyroid canc er Congenital Heart defect Other Grea t uncle with hypertrophic cardiomyopathy Arthritis - Rheumatoid Paternal Grandfather Arrhythmia Neg Hx CVA<55(male) Neg Hx CVA<65(female) Neg Hx Cardiomyopathy Neg Hx Heart Surgery Neg Hx Long QT Syndrome Neg Hx [place]<55(male) Neg Hx [place]<65(female) Neg Hx Marfan Syndrome Neg Hx Pacemaker [...] on file Legal Sex Female 5:39 AM SUPERVISOR PREP Gender Identity Not on file Sexual Orientation [...] Description 04/15/2025 2:00 PM CDT Office Visit [facility] - Neurology [address], [place] [address] Morgan Lopez APRN-GLUE SPRAYER [address] [place] [address] [place] [address] 04/17/2025 2:40 PM CDT Office Visit [facility] - Rheumatology [address], [address] [place] [address] Abril Oakley MD [address] [place] [address] Health Maintenance Due Date Last Done Comments DTAP/TDAP/TD VACCINES (1 - Tdap) 2017 HEPATITIS B VACCINE (1 of 3 - 19+ 3-dose series) 2017 PNEUMOCOCCAL VACCINE (1 of 2 - PCV) 2017 PAP SMEAR 2019 COVID-19 VACCINE (2023-2 5 season) 2024 HPV VACCINE (1 - 3-dose SCDM series) 2025 INFLUENZA VACCINE (#1) 2025 7, 07/14/2016 ZOSTER VACCINE (1 of 2) 2048 [...] SCREEN ACUTE ([facility]) Routine 11/01/2024 3:35 PM SUPERVISOR PREP BETSY positive Rash Fatigue, unspecified type Dry mouth Dry eye Numbness Raynaud's syndrome without gangrene Polyarthralgia Myalgia, multiple sites Cervicalgia Other low back pain Encounter for long-term (current) use of high-risk medication from Last 3 Months or Most Recently Relevant to Health Maintenance Results * HEPATITIS SCREEN ACUTE ([facility]) (11/01/2024 3:35 PM SUPERVISOR PREP) Hepatitis A Virus Antibody IgM Negative Negative [facility] INSURANCE BILL Comment: A negative anti-HAV IgM result suggests no recent or current HAV infection. Hepatitis B Virus Surface Antigen Negative Negative [facility] INSURANCE BILL Hepatitis B Core Virus Antibody IgM Negative Negative [facility] INSURANCE BILL Hepatitis C Antibody Non Reactive Non Reactive [facility] INSURANCE BILL Comment: Performed at: [address] [id number] Matrix Bath Operator: Timi Phan PhD, Phone: [phone] Interpretation Comment [facility] INSURANCE BILL Comment: Not infected with HCV unless early or acute infection is suspected (which may be delayed in an immunocompromised individual), or other evidence exists to indicate HCV infection. Blood BLOOD SPECIMEN / Unknown 11/01/2024 3:35 PM SUPERVISOR PREP 11/01/2024 Narrative [facility] INSURANCE BILL - 11/02/2024 7:09 AM SUPERVISOR PREP Performed at: [facility] [address] [place] [id number] Matrix Bath Operator: Timi Phan PhD, Phone: [phone] us Avis Cee MD LAB - CHEMISTRY ORDERABLES Final Result [facility] INSURANCE BILL [address] [place] [address] from Last 3 Months or Most Recently Relevant to Health Maintenance Insurance [employer] [facility] SELF PAY NO INSURANCE Member Subscriber Plan / Payer (Ef fective for All Dates) Name:Bud Ritter Member ID:Not on file Relation to Subscriber:Not on file Name:BUD RITTER Subscriber ID:Not on file (Home) Address: [address] [place] [address] Payer ID:Not on file Group ID:Not on file Type:Self Pay Address: [place] [place] [address] [employer] [facility] Advance Directives * Full Code (Latest Code Status on File) Date Activated Date Inactivated Comments 03/16/2015 11:07 PM 03/20/2015 5:14 PM Care Teams Quantitative Analyst Developer Relationship Specialty Start Date End Date Willow [facility] [address] [facility] [address] [facility] [address] [place], [place] [id number] PCP - General 12/26/24
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
--- OUTSIDE RECORDS SUMMARY | 2025-04-08 10:12 | XMS_ITS | Encounter Summary ---
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 Phone Willow Dunham Primary Care Provider [phone] Reason for Visit * Reason Onset Date Comments Reschedule Appointment 02/27/2025 Encounter Details Date Type Department Care Team (Late st Contact Info) Description 02/27/2025 Telephone [facility] - Dermatology [address], [facility] [place] [id number] Singh Campa MD [address] [place] [address] Reschedule Appointment Social History Tobacco Use Types [...] on file Legal 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 Gender Identity Not on file Sexual [...] [facility] - Neurology [address] [place] [address] Morgan Lopez APRN-SPECIAL LIBRARY LIBRARIAN [address] [place] [address] [place] [address] 04/17/2025 2:40 PM CDT Office Visit [facility] - Rheumatology [address], [address] [place] [id number] Abril Oakley MD [address] [place] [address] documented as of this encounter Visit Diagnoses Not on filedocumented in this encounter 

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
--- OUTSIDE RECORDS SUMMARY | 2025-04-08 10:12 | XMS_ITS | Data Portability ---
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 Name Role Phone MISSAEL ALEM Primary Care Provider [phone] Assessment Encounter Date Assessment Date Assessment LastModified [...] had a 13 minute TeleMedicine consultation via [employer] to discuss the following: [email or web address] Not available 12/14/2022 12:55:18 Plan of Treatment [...] By Organization Details Last Modified Time 12/14/2022 [id number] methacholine challenge* - Schedule after 01/24/23 [email or web address] Not available 08/24/2023 10:50:46 Due to the COVID-19 (Novel Coronavirus) pandemic, it is within this context (and with the understanding that this method of patient encounter is in the patient s best interest as well as the health and safety of other patients and the public) that telehealth is being provided for this patient encounter rather than a xtna-ji-saxm visit. This patient encounter is appropriate at [...] if listed, were provided by the patient. [email or web address] Not available 12/14/2022 11:21:30 Reason for Referral None Reported. Results Created Date Observation Date Name Description Value Unit Range Abnormal Flag Note LastModifiedBy Organization Detail LastModifiedTime 12/30/19 22 12/29/2021 HEPAT ITIS ACUTE PANEL hepatitis A IgM antibody non-re active non-re active For sampl es repor maria eugenia as [place] kennedy React carmita for HAV IgM, it is recom miky d a new speci men be obtai steve in 2 weeks and retes maria eugenia. Not Available [facility] (Lab) [address] [place], [address], 12/29/2021 21:28:12 12/30/19 22 12/29/2021 HEPAT ITIS ACUTE PANEL S/C 0.01 0.00-0 .79 Not Available [facility] (Lab) [address] [place], [address], 12/29/2021 21:28:12 12/30/19 22 12/29/2021 HEPAT ITIS ACUTE PANEL hepatitis B core IgM antibody non-re active non-re active Not Available [facility] (Lab) [address] [place], [address], 12/29/2021 21:28:12 12/30/19 22 12/29/2021 HEPAT ITIS ACUTE PANEL S/C 0.02 0.00-1 .10 Not Available [facility] (Lab) [address] [place], [address], 12/29/2021 21:28:12 12/30/19 22 12/29/2021 HEPAT ITIS ACUTE PANEL hepatitis B surface antigen non-re active non-re active Not Available [facility] (Lab) [address] [place], [address], 12/29/2021 21:28:12 12/30/19 22 12/29/2021 HEPAT ITIS ACUTE PANEL S/C 0.05 0.00-0 .99 Not Available [facility] (Lab) [address] [place], [address], 12/29/2021 21:28:12 12/30/19 22 12/29/2021 HEPAT ITIS ACUTE PANEL hepatitis C antibody non-re active non-re active Not Available [facility] (Lab) [address] [place], [address], 12/29/2021 21:28:12 12/30/19 22 12/29/2021 HEPAT ITIS ACUTE PANEL S/C 0.00 0.00-0 .99 Not Available [facility] (Lab) [address] [place], [address], 12/29/2021 21:28:12 12/30/19 22 12/29/2021 HIV COMBO : HIV 1/2,P 24AG, GRP O HIV combo assay non-re active nonrea ctive The HIV combo test scree ns for HIV-1 , HIV-2 , HIV p24 Ag, and HIV group O. Any react carmita scree n resul t will be sent for PCR confi rmato ry testi ng. Not Available [facility] (Lab) [address] [place], [address], 12/29/2021 21:19:01 12/30/19 22 12/29/2021 HIV COMBO : HIV 1/2,P 24AG, GRP O S/C 0.11 0.00-0 .99 Not Available [facility] (Lab) [address] [place], [address], 12/29/2021 21:19:01 12/30/19 22 12/29/2021 HEPAT IC/LI TIO PANEL alkaline phosphatase 58 U/L 38-126 Not Available [facility] (Lab) [address] [place], [address], 12/29/2021 20:28:19 12/30/19 22 12/29/2021 HEPAT IC/LI TIO PANEL alanine aminotransfe rase 30 U/L 0-35 Not Available [facility] (Lab) [address] [place], [address], 12/29/2021 20:28:19 12/30/19 22 12/29/2021 HEPAT IC/LI TIO PANEL aspartate aminotransfe rase 25 U/L 15-37 Not Available [facility] (Lab) [address] [place], [address], 12/29/2021 20:28:19 12/30/19 22 12/29/2021 HEPAT IC/LI TIO PANEL bilirubin, total 0.30 mg/dL 0.20-1 .30 Not Available [facility] (Lab) [address] [place], [address], 12/29/2021 20:28:19 12/30/19 22 12/29/2021 HEPAT IC/LI TIO PANEL bilirubin, conjugated (direct) 0.00 mg/dL 0.00-0 .30 Not Available [facility] (Lab) [address] [place], [address], 12/29/2021 20:28:19 12/30/19 22 12/29/2021 HEPAT IC/LI TIO PANEL biliurubin,u ncong. (indirect) 0.50 mg/dL 0.00-1 .1 Not Available [facility] (Lab) [address] [place], [address], 12/29/2021 20:28:19 12/30/19 22 12/29/2021 HEPAT IC/LI TIO PANEL total protein 7.0 g/dL 6.3-8. 2 Not Available [facility] (Lab) [address] [place], [address], 12/29/2021 20:28:19 12/30/19 22 12/29/2021 HEPAT IC/LI TIO PANEL albumin 4.2 g/dL 3.4-5. 0 Not Available [facility] (Lab) [address] [place], [address], 12/29/2021 20:28:19 12/30/19 22 12/29/2021 HEPAT IC/LI TIO PANEL globulin 2.8 g/dL 2.6-4. 2 Not Available [facility] (Lab) [address] [place], [address], 12/29/2021 20:28:19 12/30/19 22 12/29/2021 HEPAT IC/LI TIO PANEL A/G ratio 1.5 ratio 1.0-2. 0 Not Available [facility] (Lab) [address] [place], [address], 12/29/2021 20:28:19 10/29/19 23 10/29/2022 COMPR EHENS CARMITA METAB OLIC PANEL sodium 139 mmol/ L 137-14 5 Not Available [facility] (Lab) [address] [place], [address], 10/29/2022 13:27:56 10/29/19 23 10/29/2022 COMPR EHENS CARMITA METAB OLIC PANEL potassium 4.6 mmol/ L 3.5-5. 1 Not Available [facility] (Lab) [address] [place], [address], 10/29/2022 13:27:56 10/29/19 23 10/29/2022 COMPR EHENS CARMITA METAB OLIC PANEL chloride 103 mmol/ L 98-107 Not Available [facility] (Lab) [address] [place], [address], 10/29/2022 13:27:56 10/29/19 23 10/29/2022 COMPR EHENS CARMITA METAB OLIC PANEL carbon dioxide 25 mmol/ L 22-30 Not Available [facility] (Lab) [address] [place], [address], 10/29/2022 13:27:56 10/29/19 23 10/29/2022 COMPR EHENS CARMITA METAB OLIC PANEL anion gap 15.6 mmol/ L 14-22 Not Available [facility] (Lab) [address] [place], [address], 10/29/2022 13:27:56 10/29/19 23 10/29/2022 COMPR EHENS CARMITA METAB OLIC PANEL glucose 82 mg/dL 70-99 Not Available [facility] (Lab) [address] [place], [address], 10/29/2022 13:27:56 10/29/19 23 10/29/2022 COMPR EHENS CARMITA METAB OLIC PANEL BUN 14 mg/dL 8-19 Not Available [facility] (Lab) [address] [place], [address], 10/29/2022 13:27:56 10/29/19 23 10/29/2022 COMPR EHENS CARMITA METAB OLIC PANEL creatinine 0.71 mg/dL 0.66-1 .25 Not Available [facility] (Lab) [address] [place], [address], 10/29/2022 13:27:56 10/29/19 23 10/29/2022 COMPR EHENS CARMITA METAB OLIC PANEL GFR >60 Refer ence Range : Gackle ge GFR Healt hy Adult : >60 [...] or ethni c subgr oups, such as Hispa nics. Outsi de the valid ated avis [...] calcu lator is avail able on the [facility] websi te: [email or web address] :[email or web address] rice.miki ramirez.o rg/pr ofess ional s/kdo qi/gf r_cal culat or Not Available [facility] (Lab) [address] [place], [address], 10/29/2022 13:27:56 10/29/19 23 10/29/2022 COMPR EHENS CARMITA METAB OLIC PANEL alkaline phosphatase 124 U/L 38-126 Not Available [facility] (Lab) [address] [place], [address], 10/29/2022 13:27:56 10/29/19 23 10/29/2022 COMPR EHENS CARMITA METAB OLIC PANEL alanine aminotransfe rase 85 U/L 0-35 high Not Available [facility] (Lab) [address] [place], [address], 10/29/2022 13:27:56 10/29/19 23 10/29/2022 COMPR EHENS CARMITA METAB OLIC PANEL aspartate aminotransfe rase 37 U/L 15-37 Not Available [facility] (Lab) [address] [place], [address], 10/29/2022 13:27:56 10/29/19 23 10/29/2022 COMPR EHENS CARMITA METAB OLIC PANEL bilirubin, total 0.40 mg/dL 0.20-1 .30 Not Available [facility] (Lab) [address] [place], [address], 10/29/2022 13:27:56 10/29/19 23 10/29/2022 COMPR EHENS CARMITA METAB OLIC PANEL calcium 9.9 mg/dL 8.4-10 .2 Not Available [facility] (Lab) [address] [place], [address], 10/29/2022 13:27:56 10/29/19 23 10/29/2022 COMPR EHENS CARMITA METAB OLIC PANEL total protein 7.6 g/dL 6.3-8. 2 Not Available [facility] (Lab) [address] [place], [address], 10/29/2022 13:27:56 10/29/19 23 10/29/2022 COMPR EHENS CARMITA METAB OLIC PANEL albumin 4.7 g/dL 3.4-5. 0 Not Available [facility] (Lab) [address] [place], [address], 10/29/2022 13:27:56 10/29/19 23 10/29/2022 COMPR EHENS CARMITA METAB OLIC PANEL globulin 2.9 g/dL 2.6-4. 2 Not Available [facility] (Lab) [address] [place], [address], 10/29/2022 13:27:56 10/29/19 23 10/29/2022 COMPR EHENS CARMITA METAB OLIC PANEL A/G ratio 1.6 ratio 1.0-2. 0 Not Available [facility] (Lab) [address] [place], [address], 10/29/2022 13:27:56 10/29/19 23 10/29/2022 LIPID PANEL cholesterol 221 mg/dL 140-19 9 high NIH MONIQUE NSUS RECOM MENDA TION FOR JAYLON STERO L: ADULT CHILD LOW RISK: <200 <170 BORDE RLINE : <200- 239 ----- HIGH RISK: >240 >200 Not Available [facility] (Lab) [address] [place], [address], 10/29/2022 13:27:41 10/29/19 23 10/29/2022 LIPID PANEL triglyceride s 175 mg/dL 0-150 high NIH MONIQUE NSUS REPOR T RECOM MENDA TION FOR TRIGL YCERI PENNY: ADULT CHILD LOW RISK: <150 ----- BODER LINE: 150-1 99 ----- HIGH RISK: >200 ----- Not Available [facility] (Lab) [address] [place], [address], 10/29/2022 13:27:41 10/29/19 23 10/29/2022 LIPID PANEL HDL cholesterol 51 mg/dL 40- Not Available [facility] (Lab) [address] [place], [address], 10/29/2022 13:27:41 10/29/19 23 10/29/2022 LIPID PANEL [...] NOT BE REPOR MARIA EUGENIA. Not Available [facility] (Lab) [address] [place], [address], 10/29/2022 13:27:41 10/06/19 23 10/06/2022 cardi ac monit or No observ ation record ed. [id number] [facility] [address], [place], [address], 11/18/2022 00:59:43 10/13/19 23 10/08/2022 imagi ng/di agnos tic resul t No observ ation record ed. [id number] [facility] [address], [place], [address], 11/18/2022 00:59:43 11/08/19 23 11/08/2022 CT, head, w/o contr ast No observ ation record ed. [id number] [facility] [address] [place] [address] Dr, [place], [address], 11/18/2022 00:59:43 11/25/19 23 11/24/2022 XR, chest , 2 view No observ ation record ed. [email or web address] [facility] [address] [place], [address], 11/25/2022 08:52:51 11/26/19 23 11/24/2022 compl ete PFT w/ post [facility] hodil ator wilda metry * No observ ation record ed. [email or web address] Not Available 11/30 09:27:19 Result Notes None recorded. Problems Name Problem SNOMED Code Status Onset Date Resolution Date Notes Provider Name and Address Organization Details Recorded Time Polycystic ovary 444568939 Active 2021 Not Available [facility] 3 13:30:09 Gastroesophag eal reflux disease without esophagitis 857718006 Active 2022 Not Available [facility] 3 13:30:09 History of substance abuse 037514816 Active 2022 Not Available [facility] 3 13:30:09 Dyspnea on exertion 50625737 Active 2022 Not Available [facility] 3 13:30:09 Chronic cough 21626691 Active 2022 Not Available [facility] 3 13:30:09 Asthma 216685881 Active 2022 Not Available [facility] 3 13:30:09 Problem Notes None recorded. Medical Equipment None [...] Heart rate Body temperature Body weight Systolic And Diastolic Provider Name and Address Organization Details Last Updated DateTime 3 30.3 kg/m2 160.02 cm 98 % 98 % 72 /min 97.9 [degF] 30464.3 g 142/94 mm[Hg] Not Available [facility] 3 00:58:38 Date Recorded Body mass index (BMI) Body height Oxygen saturation Oxygen saturation in Arterial blood by Pulse oximetry Heart rate Body temperature Body weight Systolic And Diastolic Provider Name and Address Organization Details Last Updated DateTime 3 30.3 kg/m2 160.02 cm 99 % 99 % 71 /min 97.6 [degF] 44785.3 g 122/84 mm[Hg] Not Available [facility] 3 00:58:38 Date Recorded Body mass index (BMI) Body height Oxygen saturation Oxygen saturation in Arterial blood by Pulse oximetry Heart rate Body temperature Body weight Systolic And Diastolic Provider Name and Address Organization Details Last Updated DateTime 3 30.3 kg/m2 160.02 cm 97 % 97 % 66 /min 97.2 [degF] 34213.3 g 118/60 mm[Hg] Not Available [facility] 3 00:58:38 Date Recorded Body height Body mass index (BMI) Body weight Provider Name and Address Organization Details Last Updated DateTime 12/14/2022 160.02 cm 30.1 kg/m2 47495.7 g Yumiko Peres [facility] 12/14/2022 11:22:04 Date Recorded Body mass index (BMI) Body height Oxygen saturation Oxygen saturation in Arterial blood by Pulse oximetry Heart rate Body temperature Body weight Systolic And Diastolic Provider Name and Address Organization Details Last Updated DateTime 2 27.5 kg/m2 160.02 cm 98 % 98 % 84 /min 97.5 [degF] 18599.8 2 g 130/90 mm[Hg] Not Available [facility] 00:58:37 Social History Question Answer Notes LastModified by Organizat ion Details LastModified Time Tobacco Smoking Status Former Smoker Not Available [facility] 11/18/2022 00:57:56 If You Are , What Was Your Level Of Alcohol Consumption Prior To ? Heavy [id number] Information not available 11/18/2022 What Is Your Level Of Caffeine Consumption? Occasional 1 Or 2 Cups Of Coffee Every Now And Then [email or web address] Information not available 12/14/2022 What Type Of Diet Are You Following? REGULAR [id number] Information not available 11/18/2022 Which Illicit Or Recreational Drugs Have You Used? Meth & Marijuana Meth About 6 Years Ago. No Longer Using [email or web address] Information not available 12/14/2022 When Did You Quit Smoking? 1-5yearssincel astcigarette 2 Yrs Now [email or web address] Information not available 12/14/2022 What Was The Date Of Your Most Recent Tobacco Screening? 11/09/2022 [id number] Information not available 11/18/2022 Do You Have Any Pets? Yes 2 Dogs In The Home [email or web address] Information not available 12/14/2022 At What Age Did You Start Smoking Tobacco? 13 [id number] [id number] Information not available 11/18/2022 How Many Years Have You Smoked Tobacco? 6 [id number].33497 [id number] Information not available 11/18/2022 Have You Used IV Drugs? No [email or web address] Information not available 12/14/2022 Do You Have Any Dietary Restrictions? No [id number] Information not available 11/18/2022 Sex: Unknown Functional Status Question Answer Note LastModified by Organizat ion Details LastModified Time Do you use any illicit or recreational drugs? Yes stopped using marijuana [id number] [id number] Information not available 11/18/2022 Do you or have you ever used any other forms of tobacco or nicotine? Yes [id number] Information not available 11/18/2022 What is your level of alcohol consumption? Occasional [email or web address] Information not available 12/14/2022 Do you or have you ever used smokeless tobacco? [email or web address] Information not available 12/14/2022 Do you or have you ever used e-cigarettes or vape? Former user of electronic cigarettes [id number] [id number] Information not available 11/18/2022 What is your exercise level? None [id number].[id number] Information not available 11/18/2022 Mental Status None recorded. Family History Relationship Description Onset Age of this Age Resolved Age Notes LastModified by Organization Details LastModified Time Mother Thyroidectom y [id number] Not available 11/18/2022 00:58:04 Medical History No medical history recorded. Gynecological HistoryNo gynecological history recorded. Obstetrics History GPAL:G 0 P 0 0 0 0 Past Encounters Encounter ID Performer Location Encounter Start Date Encounter Closed Date Diagnosis/Indication Diagnosis SNOMED-CT Code Diagnosis ICD10 Code Diagnosis Note [id number] Alem Mason MD [facility] Lashawn alicea [address] [place] [address] [place] [address] 12/29/2021 00:00:00 12/29/2021 20:32:52 [id number] Alem Mason MD [facility] nixon [address] [place] [address] [place] [address] 09/22/2022 00:00:00 09/22/2022 20:30:36 [id number] Alem Mason MD [facility] [address] [place] [address] 10/29/2022 00:00:00 10/30/2022 10:11:56 [id number] [facility] [place] [address] [place] [address] 11/09/2022 00:00:00 11/09/2022 19:21:42 [id number] [facility] [place] [address] [place] [address] 12/14/2022 11:18:31 12/15/2022 11:25:22 Exposure to SARS-CoV-2 850591355 Z20.822 6 month old and grandmothe r with + testing 2 days agoLikely she is positive as well.It is difficult for her to leave for testing, she will try to get at home COVID test.Instr ucted to rest, hydrate, treat symptoms.D iscussed S/S that require emergent evaluation Discussed isolation period. History of SARS-CoV-2 29 51983030 02586768 Z86.16 + testing July 2020 Asthma 518274414 J45.90 9 PFT completed 11/24/22No obstructio nMild [...] Wagner Member ID Guarantor Name 12/14/2022 1 [facility] (MEDICAID REPLACEMENT - HMO) [id number] Kalee Aguillon [id number] Kalee Aguillon Notes Date Note Type [...] has been fussy while sick. Alyse Contreras, BEHAVIORAL HEALTH DIRECTOR-BC [address] [facility], [facility] [address], [place], [address], [facility] [employer] 12/14/2022 19:23:04 OBGyn Episode No OBEpisode recorded.
== END 2025-04-08 09:59 | disposition home or self-care (01) ==
LOC: ANHIMG 10:01
PROVIDERS: Visit Provider Otolaryngology Otolaryngology/Facial Plastic Surgery
DX: K21.9 Gastro-esophageal reflux disease without esophagitis (principal)
CPT/HCPCS: 74220